=== PATIENT | female | born 1995 | race Caucasian/White ===

== ENCOUNTER 2022-12-06 20:38 | Outpatient (REF) | payer BC, SELFPAY ==
[2022-12-11 18:08] LABS: Age Gdln ACOG Testing Note (.); IGP, rfx Aptima HPV ASCU Note (.)
== END 2022-12-06 20:39 | disposition home or self-care (01) ==
LOC: LAB 20:38
PROVIDERS: Visit Provider Obstetrics & Gynecology
DX: Z12.4 Encounter for screening for malignant neoplasm of cervix (principal); Z11.51 Encounter for screening for human papillomavirus (HPV)
CPT/HCPCS: G0145

== ENCOUNTER 2023-01-03 13:14 | Outpatient (OUT) | payer BC, SELFPAY ==
[2023-01-05 01:06] LABS: AFP Value 51.7 ng/mL (.); Insulin Dep Diabetes No (.); OSBR Risk 1 IN 10000 (.); Results Report (.)
== END 2023-01-03 13:15 | disposition home or self-care (01) ==
LOC: LAB 13:16
PROVIDERS: Visit Provider Obstetrics & Gynecology
DX: Z20.2 Contact with and (suspected) exposure to infections with a predominantly sexual mode of transmission (principal); Z34.92 Encounter for supervision of normal pregnancy, unspecified, second trimester
CPT/HCPCS: 36415

== ENCOUNTER 2023-01-03 14:21 | Outpatient (OUT) | payer BC, SELFPAY ==
--- NOTE | 2023-01-03 | US_ITS ---
The [address] [address] Patient Name: THOMAS SEGUNDO MRN: [id number] date: 1995 Sex: F Assigned Patient Location: US Current Patient Location: Accession/Order Number: [id number] Exam Date: 01/03/2023 14:25 Report Date: 01/03/2023 15:59 At the request of: GUANAKO SPEARS Procedure: US OB anatomy EXAMINATION: US OB anatomy, US OB cervical length HISTORY: ANATOMY COMPARISON: No relevant comparison available. TECHNIQUE: Transabdominal sonographic examination was performed for obstetrical and evaluation. FINDINGS: Number: 1 Heart Rate: 135.0 bpm H.B. /min Amniotic Fluid Volume: Subjectively normal Placental Location: FUNDAL; no previa Cervix Length: 4 cm ; closed BIOMETRY: BPD: 5.0 cm 21 weeks 1 days HC: 19.1 cm 21 weeks 3 days AC: 15.7 cm 20 weeks 6 days FL: 3.8 cm 22 weeks 0 days EFW:420.2 grams; 58% FL/AC: 24.0 FL/BPD: 75.1 HC/AC: 1.2 GESTATIONAL AGE: Age by EDC: 21 weeks 1 days DEBBIE by EDC: 05/15/2023 Age by current US: 21 weeks 3 days DEBBIE by current US: 05/13/2023 US/US OB anatomy IMPRESSION: 1. Single live intrauterine with growth detailed above. Electronically authenticated by: TREVOR FARNSWORTH Date: 01/03/2023 15:59
--- NOTE | 2023-01-03 14:24 | US_ITS ---
The [address] [address] Patient Name: THOMAS SEGUNDO MRN: [id number] date: 1995 Sex: F Assigned Patient Location: US Current Patient Location: Accession/Order Number: [id number] Exam Date: 01/03/2023 14:25 Report Date: 01/03/2023 15:59 At the request of: GUANAKO SPEARS Procedure: US OB cervical length EXAMINATION: US OB anatomy, US OB cervical length HISTORY: ANATOMY COMPARISON: No relevant comparison available. TECHNIQUE: Transabdominal sonographic examination was performed for obstetrical and evaluation. FINDINGS: Number: 1 Heart Rate: 135.0 bpm H.B. /min Amniotic Fluid Volume: Subjectively normal Placental Location: FUNDAL; no previa Cervix Length: 4 cm ; closed BIOMETRY: BPD: 5.0 cm 21 weeks 1 days HC: 19.1 cm 21 weeks 3 days AC: 15.7 cm 20 weeks 6 days FL: 3.8 cm 22 weeks 0 days EFW:420.2 grams; 58% FL/AC: 24.0 FL/BPD: 75.1 HC/AC: 1.2 GESTATIONAL AGE: Age by EDC: 21 weeks 1 days DEBBIE by EDC: 05/15/2023 Age by current US: 21 weeks 3 days DEBBIE by current US: 05/13/2023 US/US OB cervical length IMPRESSION: 1. Single live intrauterine with growth detailed above. Electronically authenticated by: TREVOR FARNSWORTH Date: 01/03/2023 15:59
== END 2023-01-03 14:22 | disposition home or self-care (01) ==
PROVIDERS: Visit Provider Obstetrics & Gynecology
DX: Z34.92 Encounter for supervision of normal pregnancy, unspecified, second trimester (principal); Z3A.21 21 weeks gestation of pregnancy; Z20.2 Contact with and (suspected) exposure to infections with a predominantly sexual mode of transmission
CPT/HCPCS: 36415; 76805; 76817; 82105

== ENCOUNTER 2023-01-20 08:00 | Outpatient (OUT) | payer BC, SELFPAY ==
[2023-01-20 09:17] LABS: Basophils Absolute Auto 0.1 10^3/uL (0.0-0.1); Basophils Percent Auto 0.5 % (0.2-2.0); Eosinophils Absolute Auto 0.2 10^3/uL (0.0-0.7); Eosinophils Percent Auto 2.3 % (0.9-7.0); Hemoglobin 10.8 g/dL (12.0-16.0); Immature Granulocytes Abs Auto 0.16 10^3/uL (0.00-0.03); Immature Granulocytes Pct Auto 1.7 % (0.0-0.5); Lymphocytes Absolute Auto 1.5 10^3/uL (1.2-3.8); Lymphocytes Percent Auto 15.7 % (20.5-60.0); Mean Corpuscular HGB Conc 32.7 g/dL (29.9-35.2); Mean Corpuscular Hemoglobin 27.3 pg (26.7-34.0); Mean Corpuscular Volume 83.3 fL (81.0-99.0); Mean Platelet Volume 10.1 fL (9.5-13.5); Monocytes Absolute Auto 0.3 10^3/uL (0.3-0.8); Monocytes Percent Auto 2.9 % (1.7-12.0); Neutrophils Absolute Auto 7.4 10^3/uL (1.4-6.5); Neutrophils Percent Auto 76.9 % (43.0-75.0); Platelet Count 258 10^3/uL (150-450); Red Blood Count 3.96 10^6/uL (4.20-5.40); Red Cell Distribution Width 13.8 % (11.0-15.0); White Blood Count 9.7 10^3/uL (4.0-11.0)
[2023-01-20 09:30] LABS: Glucose 1 Hour 140 mg/dL
== END 2023-01-20 08:01 | disposition home or self-care (01) ==
LOC: LAB 08:00
PROVIDERS: Visit Provider Physician Assistant
DX: Z13.1 Encounter for screening for diabetes mellitus (principal)
CPT/HCPCS: 36415; 82950; 85025

== ENCOUNTER 2023-01-30 08:22 | Outpatient (OUT) | payer BC, SELFPAY ==
[2023-01-30 08:43] LABS: Glucose Fasting 84 mg/dL (74-106)
[2023-01-30 10:34] LABS: Glucose 1 Hour 130 mg/dL
[2023-01-30 11:47] LABS: Glucose 2 Hour 111 mg/dL
[2023-01-30 12:26] LABS: Glucose 3 Hour 81 mg/dL
== END 2023-01-30 08:23 | disposition home or self-care (01) ==
LOC: LAB 08:22
PROVIDERS: Visit Provider Obstetrics & Gynecology
DX: E74.39 Other disorders of intestinal carbohydrate absorption (principal)
CPT/HCPCS: 36415; 82951; 82952

== ENCOUNTER 2023-04-14 23:20 | Observation (INO) | payer BC, SELFPAY ==
[2023-04-14 23:40] VITALS: BP 164/95; PULSE 112
[2023-04-14 23:52] LABS: Bilirubin Urine NEGATIVE (NEGATIVE); Blood Urine NEGATIVE (NEGATIVE); Clarity Urine CLEAR (CLEAR); Color Urine LT. YELLOW (YELLOW); Glucose Urine UA NEGATIVE (NEGATIVE); Ketones Urine NEGATIVE (NEGATIVE); Leukocyte Esterase Urine SMALL (NEGATIVE); Nitrite Urine NEGATIVE (NEGATIVE); Protein Urine NEGATIVE (NEG/TRACE); Urobilinogen Urine 0.2 EU/dL (0.2-1.0)
[2023-04-14 23:58] LABS: Urine Microscopic Indicated YES
[2023-04-15 00:03] LABS: Bacteria Urine MODERATE #/HPF (NONE SEEN); RBC Urine 0-2 #/HPF (0-2)
[2023-04-15 00:04] LABS: Cast Seen? NONE SEEN #/LPF (NONE SEEN); Crystals Seen? None Seen #/HPF (None Seen); Mucus Urine SMALL (NONE SEEN); Squamous Epithelial Cell Urine FEW #/LPF (NONE/RARE); Urine Culture Indicated YES
[2023-04-15 00:08] VITALS: BP 139/86; PULSE 102
== END 2023-04-15 02:25 | disposition home or self-care (01) ==
LOC: FBC 23:21
PROVIDERS: Admitting Provider Obstetrics & Gynecology; Visit Provider Obstetrics & Gynecology
DX: O47.03 False labor before 37 completed weeks of gestation, third trimester (principal); Z3A.00 Weeks of gestation of pregnancy not specified
CPT/HCPCS: 59025; 81001; 87086; G0378; G0379

== ENCOUNTER 2023-04-16 21:32 | Outpatient (REF) | payer BC, SELFPAY | END 2023-04-16 21:33 | disposition home or self-care (01) | LOC: LAB 21:32 | PROVIDERS: Visit Provider Physician Assistant | DX: Z34.93 Encounter for supervision of normal pregnancy, unspecified, third trimester (principal) | CPT/HCPCS: 87081 ==

== ENCOUNTER 2023-04-27 11:19 | Observation (INO) | payer BC, SELFPAY ==
[2023-04-27 11:50] VITALS: BP 131/89; PULSE 88
[2023-04-27 12:02] LABS: Bilirubin Urine NEGATIVE (NEGATIVE); Blood Urine NEGATIVE (NEGATIVE); Clarity Urine CLEAR (CLEAR); Color Urine LT. YELLOW (YELLOW); Glucose Urine UA NEGATIVE (NEGATIVE); Ketones Urine NEGATIVE (NEGATIVE); Leukocyte Esterase Urine LARGE (NEGATIVE); Nitrite Urine NEGATIVE (NEGATIVE); Protein Urine NEGATIVE (NEG/TRACE); Urobilinogen Urine 0.2 EU/dL (0.2-1.0)
[2023-04-27 12:08] LABS: Urine Microscopic Indicated YES
[2023-04-27 12:09] LABS: Bacteria Urine LARGE #/HPF (NONE SEEN); Cast Seen? NONE SEEN #/LPF (NONE SEEN); Crystals Seen? None Seen #/HPF (None Seen); Mucus Urine NONE SEEN (NONE SEEN); Squamous Epithelial Cell Urine MANY #/LPF (NONE/RARE); Urine Culture Indicated YES; WBC Urine 20-50 #/HPF (NONE SEEN)
== END 2023-04-27 13:00 | disposition home or self-care (01) ==
LOC: FBC 11:20
PROVIDERS: Admitting Provider Obstetrics & Gynecology; Visit Provider Obstetrics & Gynecology
DX: O47.9 False labor, unspecified (principal); Z3A.00 Weeks of gestation of pregnancy not specified
CPT/HCPCS: 81001; 87086; G0378; G0379

== ENCOUNTER 2023-04-30 10:39 | Inpatient (IN) | payer BC, SELFPAY ==
[2023-04-30] VITALS (15 sets, daily range): BP systolic 122–157; BP diastolic 62–94; PULSE 80–96; RESP 16–18; TEMP 35.6–36.7
[2023-04-30 12:25] LABS: Bilirubin Urine NEGATIVE (NEGATIVE); Blood Urine NEGATIVE (NEGATIVE); Clarity Urine CLEAR (CLEAR); Color Urine LT. YELLOW (YELLOW); Glucose Urine UA NEGATIVE (NEGATIVE); Ketones Urine NEGATIVE (NEGATIVE); Leukocyte Esterase Urine MODERATE (NEGATIVE); Nitrite Urine NEGATIVE (NEGATIVE); Protein Urine NEGATIVE (NEG/TRACE); Specific Gravity Urine <=1.005 (1.005-1.025); Urobilinogen Urine 0.2 EU/dL (0.2-1.0)
[2023-04-30 12:26] LABS: Urine Microscopic Indicated YES
[2023-04-30 12:35] LABS: Bacteria Urine SMALL #/HPF (NONE SEEN); Cast Seen? NONE SEEN #/LPF (NONE SEEN); Crystals Seen? None Seen #/HPF (None Seen); Mucus Urine NONE SEEN (NONE SEEN); Squamous Epithelial Cell Urine FEW #/LPF (NONE/RARE); Urine Culture Indicated YES
[2023-04-30 13:54] LABS: Amphetamine Screen Urine NEGATIVE (NEGATIVE); Barbiturates Screen Urine NEGATIVE (NEGATIVE); Benzodiazepines Screen Urine NEGATIVE (NEGATIVE); Buprenorphine Screen Urine NEGATIVE (NEGATIVE); Cannabinoid Screen Urine NEGATIVE (NEGATIVE); Cocaine Screen Urine NEGATIVE (NEGATIVE); Methadone Screen Urine NEGATIVE (NEGATIVE); Methamphetamines Screen Urine NEGATIVE (NEGATIVE); Opiate Screen Urine NEGATIVE (NEGATIVE); Oxycodone Screen Urine NEGATIVE (NEGATIVE); Phencyclidine Screen Urine NEGATIVE (NEGATIVE); Tricyclic Antidepressant Urine NEGATIVE (NEGATIVE)
[2023-04-30 14:15] LABS: Hematocrit 34.9 % (36.0-48.0); Hemoglobin 11.4 g/dL (12.0-16.0); Mean Corpuscular HGB Conc 32.7 g/dL (29.9-35.2); Mean Corpuscular Hemoglobin 26.8 pg (26.7-34.0); Mean Corpuscular Volume 81.9 fL (81.0-99.0); Mean Platelet Volume 10.8 fL (9.5-13.5); Platelet Count 224 10^3/uL (150-450); Red Blood Count 4.26 10^6/uL (4.20-5.40); Red Cell Distribution Width 13.6 % (11.0-15.0)
[2023-04-30] MEDS: 0.9 % SODIUM CHLORIDE 1,000 ML 125 ML IV (15:08)
[2023-04-30] MEDS: OXYTOCIN/0.9 % SODIUM CHLORIDE 10 UNITS/500 ML PLAST..BAG 6 UNIT IV (15:08)
--- NOTE | 2023-04-30 17:14 | PM.OBPRCVD ---
Procedure Intrapartal events: None Induction method: none Delivery augmentation: rupture of membranes and pitocin Delivery monitor: external FHT and external uterine Route of delivery: Episiotomy Description: none Laceration description: perineal - 1st degree Delivery repair: Vicryl Estimated blood loss (mL): 300 Anesthesia type: None Disposition: floor Infant Delivery date: 04/30/23 Gender: female presentation: vertex Placental delivery description: Spontaneous cord description: 3 Vessels
[2023-04-30] MEDS: OXYTOCIN/0.9 % SODIUM CHLORIDE 20 UNITS/1,000 ML PLAST..BAG 125 UNIT IV (17:21)
[2023-04-30] MEDS: LIDOCAINE HCL 1% 200 MG/20 ML MDV INJ (17:22)
[2023-04-30] MEDS: BENZOCAINE/MENTHOL 85 GRAM SPRAY BOTTLE 1 APPLIC TOPICAL (18:50)
[2023-04-30] MEDS: GLYCERIN/WITCH HAZEL PADS 1 PAD TOPICAL (18:50)
[2023-04-30] MEDS: IBUPROFEN 400 MG TABLET 800 MG PO (18:50)
--- NOTE | 2023-04-30 20:11 | W.PC.ACHO ---
Registration Status: ADM IN Primary Language: Gabonese Preferred Language: Gabonese Report received from Tali Klein RN. Active Medications Generic Name Dose Route Start Last Admin Trade Name Freq PRN Reason Stop Dose Admin Acetaminophen 650 mg 04/30/23 17:13 Acetaminophen 325 Mg Tablet PO Q6H PRN Mild Pain Al Hydroxide/Mg Hydroxide 2,400 mg 04/30/23 17:13 Magnesium Hydroxide 2,400 Mg/10 Ml Oral.Susp PO Q6H PRN Dyspepsia Benzocaine/Menthol 1 applic 04/30/23 17:13 04/30/23 18:50 Benzocaine/Menthol 85 Gram [place] Bottle TOPICAL 1 applic Q2H PRN Administration Pain Carboprost Tromethamine 250 mcg 04/30/23 13:29 Carboprost Tromethamine 250 Mcg/Ml 1 Ml Vial IM 05/02/23 13:29 Q15M PRN Bleeding Diphtheria/Pertussis/Tetanus Vacc 0.5 ml 05/02/23 09:00 Adacel Diph,Pertuss(Acell),Tet Vac/Pf 0.5 Ml Adult Syringe IM 05/02/23 09:01 .ONCE ONE Docusate Sodium 100 mg 05/01/23 09:00 Docusate Sodium 100 Mg Capsule PO BID JEN Sodium Chloride 1,000 mls @ 125 mls/hr 04/30/23 13:30 04/30/23 15:08 Sodium Chloride 0.9% 1,000 Ml IV 125 mls/hr .Q8H JEN Administration Oxytocin/Sodium Chloride 10 units in 500 mls @ 6 mls/hr 04/30/23 13:30 04/30/23 15:08 Pitocin 10 Unit/500 Ml-Ns IV 2 milliunit/min CONT JEN 6 mls/hr Administration Protocol 2 MILLIUNIT/MIN Oxytocin/Sodium Chloride 20 units in 1,000 mls @ 125 mls/hr 04/30/23 13:30 04/30/23 17:21 Pitocin 20 Unit/1,000 Ml-Ns IV 04/30/23 21:29 125 mls/hr Q8H JEN Administration Oxytocin 20 unit/ Sodium 1,002 mls @ 125 mls/hr 04/30/23 18:00 Chloride IV 05/01/23 01:59 Q8H JEN Ibuprofen 800 mg 04/30/23 17:48 04/30/23 18:50 Ibuprofen 400 Mg Tablet PO 800 mg Q8H PRN Administration Pain Scale 4-6 Lidocaine 1 ml 04/30/23 13:29 04/30/23 17:22 Lidocaine Hcl 1% 200 Mg/20 Ml Mdv INJ 1 ml ONCE PRN Administration Pain Measles/Mumps/Rubella Vaccine Live 0.5 ml 05/02/23 09:00 Measles,Mumps,Rubella Vacc/Pf 0.5 Ml Vial SQ 05/02/23 09:01 .ONCE ONE Methylergonovine Maleate 0.2 mg 04/30/23 13:29 Methylergonovine Maleate 0.2 Mg/Ml Ampule IM 05/02/23 13:29 ONCE PRN Uterine Contractility/Contract Methylergonovine Maleate 0.2 mg 04/30/23 13:29 Methylergonovine Maleate 0.2 Mg Tablet PO 05/02/23 13:29 Q4H PRN Uterine Contractility/Contract Misoprostol 600 mcg 04/30/23 13:29 Misoprostol 100 Mcg Tablet PO 05/02/23 13:29 ONCE PRN Uterine Bleeding Misoprostol 800 mcg 04/30/23 13:29 Misoprostol 100 Mcg Tablet SL 05/02/23 13:29 ONCE PRN Uterine Bleeding Misoprostol 1,000 mcg 04/30/23 13:29 Misoprostol 100 Mcg Tablet NC 05/02/23 13:29 ONCE PRN Uterine Bleeding Ondansetron HCl 4 mg 04/30/23 14:03 Ondansetron Pf 4 Mg/2 Ml Vial IV Q6H PRN Nausea And Vomiting Ondansetron HCl 4 mg 04/30/23 14:03 Ondansetron 4 Mg Rapdis Tablet SL Q6H PRN Nausea And Vomiting Oxytocin 10 unit 04/30/23 13:29 Oxytocin 10 Unit/Ml Vial IM 05/02/23 13:29 ONCE PRN Bleeding Senna 17.2 mg 04/30/23 20:00 Sennosides 8.6 Mg Tablet PO QHS PRN Constipation Simethicone 80 mg 04/30/23 17:13 Simethicone 80 Mg Tab.Chew PO QID PRN Abdominal Distention Temazepam 15 mg 04/30/23 17:13 Temazepam 15 Mg Capsule PO QHS PRN Sleep Witch Consuelo/Glycerin 1 pad 04/30/23 17:13 04/30/23 18:50 Glycerin/Witch Consuelo Pads TOPICAL 1 pad Q2H PRN Administration Pain Diet Category Date Time Status Regular Consistency Diet Diet 04/30/23 17:13 Active IV Insertion/Site Date of IV Line Insertion [ 04/30/23 Short PIV (<1.75 in) 20g left Wrist] IV Insertion Time [Short PIV ( 14:10 <1.75 in) 20g left Wrist] Neurology Patient orientation (short person,place,time,situation list)
[2023-05-01] VITALS (10 sets, daily range): BP systolic 128–135; BP diastolic 67–102; PULSE 78–89; RESP 16–17; TEMP 36.3–36.8
[2023-05-01] MEDS: IBUPROFEN 400 MG TABLET 800 MG PO ×3 (02:55→22:19)
--- NOTE | 2023-05-01 06:46 | PC.NURSE ---
See paper documentation in pt chart 05/01/2023 [id number] due to system down time.
[2023-05-01 06:56] LABS: Basophils Percent Auto 0.5 % (0.2-2.0); Eosinophils Percent Auto 1.4 % (0.9-7.0); Hematocrit 32.3 % (36.0-48.0); Hemoglobin 10.5 g/dL (12.0-16.0); Immature Granulocytes Pct Auto 0.8 % (0.0-0.5); Lymphocytes Percent Auto 18.6 % (20.5-60.0); Mean Corpuscular HGB Conc 32.5 g/dL (29.9-35.2); Mean Corpuscular Hemoglobin 26.6 pg (26.7-34.0); Mean Platelet Volume 11.1 fL (9.5-13.5); Neutrophils Percent Auto 73.7 % (43.0-75.0); Platelet Count 240 10^3/uL (150-450); Red Blood Count 3.94 10^6/uL (4.20-5.40); Red Cell Distribution Width 13.6 % (11.0-15.0); White Blood Count 13.3 10^3/uL (4.0-11.0)
[2023-05-01 06:57] LABS: Basophils Absolute Auto 0.1 10^3/uL (0.0-0.1); Eosinophils Absolute Auto 0.2 10^3/uL (0.0-0.7); Lymphocytes Absolute Auto 2.5 10^3/uL (1.2-3.8); Monocytes Absolute Auto 0.7 10^3/uL (0.3-0.8); Neutrophils Absolute Auto 9.8 10^3/uL (1.4-6.5)
--- NOTE | 2023-05-01 07:15 | W.PC.ACHO ---
Registration Status: ADM IN Primary Language: Armenian Preferred Language: Armenian Report given to Rock Klein RN at 0700. Active Medications Generic Name Dose Route Start Last Admin Trade Name Freq PRN Reason Stop Dose Admin Acetaminophen 650 mg 04/30/23 17:13 Acetaminophen 325 Mg Tablet PO Q6H PRN Mild Pain Al Hydroxide/Mg Hydroxide 2,400 mg 04/30/23 17:13 Magnesium Hydroxide 2,400 Mg/10 Ml Oral.Susp PO Q6H PRN Dyspepsia Benzocaine/Menthol 1 applic 04/30/23 17:13 04/30/23 18:50 Benzocaine/Menthol 85 Gram [place] Bottle TOPICAL 1 applic Q2H PRN Administration Pain Carboprost Tromethamine 250 mcg 04/30/23 13:29 Carboprost Tromethamine 250 Mcg/Ml 1 Ml Vial IM 05/02/23 13:29 Q15M PRN Bleeding Diphtheria/Pertussis/Tetanus Vacc 0.5 ml 05/02/23 09:00 Adacel Diph,Pertuss(Acell),Tet Vac/Pf 0.5 Ml Adult Syringe IM 05/02/23 09:01 .ONCE ONE Docusate Sodium 100 mg 05/01/23 09:00 Docusate Sodium 100 Mg Capsule PO BID JEN Sodium Chloride 1,000 mls @ 125 mls/hr 04/30/23 13:30 04/30/23 15:08 Sodium Chloride 0.9% 1,000 Ml IV 125 mls/hr .Q8H JEN Administration Oxytocin/Sodium Chloride 10 units in 500 mls @ 6 mls/hr 04/30/23 13:30 04/30/23 15:08 Pitocin 10 Unit/500 Ml-Ns IV 2 milliunit/min CONT JEN 6 mls/hr Administration Protocol 2 MILLIUNIT/MIN Ibuprofen 800 mg 04/30/23 17:48 05/01/23 02:55 Ibuprofen 400 Mg Tablet PO 800 mg Q8H PRN Administration Pain Scale 4-6 Lidocaine 1 ml 04/30/23 13:29 04/30/23 17:22 Lidocaine Hcl 1% 200 Mg/20 Ml Mdv INJ 1 ml ONCE PRN Administration Pain Measles/Mumps/Rubella Vaccine Live 0.5 ml 05/02/23 09:00 Measles,Mumps,Rubella Vacc/Pf 0.5 Ml Vial SQ 05/02/23 09:01 .ONCE ONE Methylergonovine Maleate 0.2 mg 04/30/23 13:29 Methylergonovine Maleate 0.2 Mg/Ml Ampule IM 05/02/23 13:29 ONCE PRN Uterine Contractility/Contract Methylergonovine Maleate 0.2 mg 04/30/23 13:29 Methylergonovine Maleate 0.2 Mg Tablet PO 05/02/23 13:29 Q4H PRN Uterine Contractility/Contract Misoprostol 600 mcg 04/30/23 13:29 Misoprostol 100 Mcg Tablet PO 05/02/23 13:29 ONCE PRN Uterine Bleeding Misoprostol 800 mcg 04/30/23 13:29 Misoprostol 100 Mcg Tablet SL 05/02/23 13:29 ONCE PRN Uterine Bleeding Misoprostol 1,000 mcg 04/30/23 13:29 Misoprostol 100 Mcg Tablet NE 05/02/23 13:29 ONCE PRN Uterine Bleeding Ondansetron HCl 4 mg 04/30/23 14:03 Ondansetron Pf 4 Mg/2 Ml Vial IV Q6H PRN Nausea And Vomiting Ondansetron HCl 4 mg 04/30/23 14:03 Ondansetron 4 Mg Rapdis Tablet SL Q6H PRN Nausea And Vomiting Oxytocin 10 unit 04/30/23 13:29 Oxytocin 10 Unit/Ml Vial IM 05/02/23 13:29 ONCE PRN Bleeding Senna 17.2 mg 04/30/23 20:00 Sennosides 8.6 Mg Tablet PO QHS PRN Constipation Simethicone 80 mg 04/30/23 17:13 Simethicone 80 Mg Tab.Chew PO QID PRN Abdominal Distention Temazepam 15 mg 04/30/23 17:13 Temazepam 15 Mg Capsule PO QHS PRN Sleep Witch Consuelo/Glycerin 1 pad 04/30/23 17:13 04/30/23 18:50 Glycerin/Witch Consuelo Pads TOPICAL 1 pad Q2H PRN Administration Pain Diet Category Date Time Status Regular Consistency Diet Diet 04/30/23 17:13 Active IV Insertion/Site Date of IV Line Insertion [ 04/30/23 Short PIV (<1.75 in) 20g left Wrist] IV Insertion Time [Short PIV ( 14:10 <1.75 in) 20g left Wrist] Neurology Patient orientation (short person,place,time,situation list) Respiratory Oxygen Delivery Method Room Air Oxygen Delivery Method Room Air Oxygen Delivery Method Room Air Renal Bladder Pattern Continent Bladder Pattern Continent
--- NOTE | 2023-05-01 08:55 | PM.OBPN ---
OB - PN: Subj Subjective Patient comments: no complaints and pain well controlled feeding status: exclusively Exam Constitutional Vital Signs, click to edit/add: Last Vital Signs Temp 97.5 F L 05/01/23 03:03 Pulse 89 05/01/23 08:00 Resp 16 05/01/23 00:35 BP 130/85 05/01/23 08:00 O2 Del Method Room Air 05/01/23 00:35 Documenting provider has reviewed patient's vital signs: yes Common normals: no apparent distress and oriented x3 Orientation/consciousness: Yes awake, Yes oriented to person, Yes oriented to place and Yes oriented to time Eye Common normals: EOMs intact bilaterally Neck & C-Spine Common normals: full ROM Lymph Lymphatic: no lymphadenopathy noted Chest Common normals: inspection of chest normal Respiratory Common normals: normal respiratory effort Cardio Common normals: no JVD, regular rate and regular rhythm Rate: regular rate GI Common normals: Normal to inspection, nondistended, normoactive bowel sounds present Common normals: no CVA tenderness Back & Pelvis Common normals: no CVA tenderness Extremity Common normals: normal to inspection Neuro Common normals: oriented x3 Sensorium/orientation: awake, alert, oriented to person, oriented to place and oriented to time Psych Common normals: mental status grossly normal Attitude: calm Results Labs Labs: Short CBC 04/30/23 05/01/23 Range/Units 14:00 05:50 WBC 11.0 13.3 H (4.0-11.0) 10^3/uL Hgb 11.4 L 10.5 L (12.0-16.0) g/dL Hct 34.9 L 32.3 L (36.0-48.0) % Plt Count 224 240 (150-450) 10^3/uL Urine 04/30/23 Range/Units 11:25 Urine Color Lt. yellow (YELLOW) Urine Clarity Clear (CLEAR) Urine pH 7.0 (5.0-9.0) Ur Specific [place] <=1.005 A (1.005-1.025) Urine Protein Negative (NEG/TRACE) mg/dL Urine Glucose (UA) Negative (NEGATIVE) mg/dL OB - PN: A/P Plan - Vaginal Delivery day: 1 Plan: routine care Time Spent with Patient Time: Total time spent is greater than 50% in coordination of care (as documented) at patient's floor/unit and/or counseling patient: Total time spent with greater than 50% in coordination of care (as documented) at patient's floor/unit and/or counseling patient: less than 15 minutes
[2023-05-01] MEDS: DOCUSATE SODIUM 100 MG CAPSULE PO ×2 (10:31→22:20)
[2023-05-02 02:30] VITALS: BP 126/72; PULSE 76; RESP 16; TEMP 36.6
[2023-05-02 08:08] VITALS: BP 111/77; PULSE 83
[2023-05-02] MEDS: DOCUSATE SODIUM 100 MG CAPSULE PO (08:12)
[2023-05-02 08:15] VITALS: RESP 16; TEMP 36.8
--- NOTE | 2023-05-02 11:08 | PM.OBPN ---
OB - PN: Subj Subjective Patient comments: no complaints and pain well controlled Exam Constitutional Vital Signs, click to edit/add: Last Vital Signs Temp 98.2 F 05/02/23 08:15 Pulse 83 05/02/23 08:08 Resp 16 05/02/23 08:15 BP 111/77 05/02/23 08:08 O2 Del Method Room Air 05/02/23 08:15 Documenting provider has reviewed patient's vital signs: yes Common normals: no apparent distress Respiratory Common normals: normal respiratory effort and clear to auscultation bilaterally Cardio Common normals: regular rate and regular rhythm GI Common normals: Normal to inspection, nondistended, normoactive bowel sounds present Extremity Common normals: no calf tenderness OB - PN: A/P Plan - Vaginal Delivery day: 2 Plan: routine care, discharge home and follow up 6 weeks Time Spent with Patient Time: Total time spent is greater than 50% in coordination of care (as documented) at patient's floor/unit and/or counseling patient: Total time spent with greater than 50% in coordination of care (as documented) at patient's floor/unit and/or counseling patient: less than 15 minutes
== END 2023-05-02 10:15 | disposition home or self-care (01) | DRG 807 ==
PROVIDERS: Admitting Provider Obstetrics & Gynecology; Visit Provider Obstetrics & Gynecology
DX: O70.0 First degree perineal laceration during delivery (principal); Z37.0 Single live birth; Z3A.38 38 weeks gestation of pregnancy; Z88.1 Allergy status to other antibiotic agents; Z88.0 Allergy status to penicillin
CPT/HCPCS: 36415; 59050; 59410; 80307; 81001; 85025; 85027; 86850; 86900; 86901; 87086; 96374; 96376

== ENCOUNTER 2024-01-03 11:08 | Outpatient (OUT) | payer BC, SELFPAY ==
--- OUTSIDE RECORDS SUMMARY | 2024-01-03 11:32 | XMS_ITS | CCD ---
Author Organization [facility] Care Team Providers Care [employer] Worker Name Role Phone Zarczynski, Edward P Unavailable Unavailable Zarczynski, Edward P Unavailable Unavailable Chambers, Umm Unavailable Unavailable Chambers, Umm Unavailable Unavailable Chambers, Umm Unavailable Unavailable Zarczynski, Edward P Unavailable Unavailable [facility] Primary Care Unavailabl e Unavailable Primary Care Provider Unavailabl e JACQUI IVAN Admitting Unavailable [facility] Primary Care Unavailabl e Keno [facility] Primary Care Provider [facility] Primary Care Unavailabl e Unavailable Primary Care Provider Unavailabl e Unavailable Primary Care Provider Unavailabl e GIOVANA JACKSON Attending Unavailable BRYON GU Attending Unavailable Javier Canchola Attending Unavailable Javier Canchola Admitting Unavailable Unavailable Primary Care Provider Unavailabl e DICK LASSITER Attending Unavailable SELF, SELF Referring Unavailable REGAN ., DR MUJICA Attending Unavailable REGAN ., DR MUJICA Consulting Unavailable REQUEST, NONE LISTED Primary Care Unavaila ble REGAN ., DR MUJICA Admitting Unavailable JAVAD, DR RAFFI Funez Consulting Unavailable REQUEST, NONE LISTED Consulting Unavaila ble REGAN ., DR MUJICA Admitting Unavailable REGAN ., DR MUJICA Attending Unavailable REGAN ., DR MUJICA Consulting Unavailable REQUEST, DR RIOS LISTED Primary Care Unavaila AXEL Dean Attending Unavailable AXEL CAM Attending Unavailable GUANAKO SPEARS Attending Unavailable GUANAKO SPEARS Attending Unavailable Allergies Allergy Classification Reported Allergen(s) Allergy Type Date of Onset Reaction(s) Facility Macrolides (antibiotic) (1 source) Erythromycin Drug Allergy 07-24-19 13 Rash [facility] Penicillins (antibiotic) (1 source) Ampicillin Drug Allergy 06-06-19 18 [facility] Sulfamethoxazole / Trimethoprim (1 source) Sulfamethoxazole / Trimethoprim Drug Allergy 06-06-19 18 [facility] (13 sources) Ampicillin; Translations: [Unknown] Drug Allergy 06-06-19 18 [facility] Repository (7 sources) Erythromycin Drug Allergy 07-24-19 13 [facility] (8 sources) Sulfamethoxazole / Trimethoprim Drug Allergy 06-06-19 18 [facility] (1 source) Penicillin G Drug Allergy 05-24-20 21 Other (See Comments) [employer] Phone: (1 source) Penicillin; Translations: [penicillin] Drug Allergy [facility] Repository Medications Current Medications Medication Drug Class(es) Dates Sig (Normalized) Sig (Original) acetaminophen 500 mg oral tablet (1 source) take 1 tablet by mouth every six hours as needed for pain acetaminophen (TYLENOL) 500 MG tablet Take 500 mg by mouth every 6 hours as needed for Pain 0 Active gentamicin 3 mg/ml ophthalmic solution (2 sources) Start: 03-18-2019 End: 03-23-2019 take 2 drop(s) into the eye(s) every four hours gentamicin 0.3 % Solution Indications: Bacterial conjunctivitis of right eye Place 2 drops in both eyes every 4 hours while awake for 5 days. 1 Bottle 0 03/18/2019 03/23/2019 Active Start: 03-18-2019 End: 03-18-2019 apply 3.5 g into the eye(s) three times daily gentamicin 0.3 % Ointment Indications: Bacterial conjunctivitis of right eye Apply thin line to eye TID for 7 days 3.5 g 0 03/18/2019 03/18/2019 Discontinued (Alternate therapy) ibuprofen 600 mg oral tablet (1 source) Nonsteroidal Anti-inflammatory Drug Start: 02-16-2021 take 1 tablet by mouth every six hours ibuprofen (ADVIL;MOTRIN) 600 MG tablet take 1 tablet by mouth every 6 hours 0 02/16/2021 Active nitrofurantoin, macrocrystals 25 mg / nitrofurantoin, monohydrate 75 mg oral capsule (2 sources) Nitrofuran Antibacterial Start: 02-01-2019 End: 02-06-2019 take 1 capsule by mouth twice daily nitrofurantoin, macrocrystal-monoh ydrate, 100 MG Cap Take 1 capsule by mouth 2 times daily for 5 days. Take w/ food/milk 10 capsule 0 02/01/2019 02/06/2019 Active omeprazole 20 mg delayed release oral capsule (1 source) Proton Pump Inhibitor take 1 capsule by mouth once daily omeprazole (PRILOSEC) 20 MG delayed release capsule Take 20 mg by mouth daily 0 Active Kgrzixhl-Mhd-Ks-FA (PRE- PO) (1 source) Zhmjgcva-Tef-Gx-FA (PRE-HECTOR PO) Take by mouth 0 Active Completed/Discontinued Medications Medication Drug Class(es) Dates Sig (Normalized) Sig (Original) cetirizine hydrochloride 10 mg oral tablet (6 sources) Histamine-1 Receptor Antagonist Start: 03-18-2019 End: 08-30-2022 take 1 tablet by mouth once daily cetirizine 10 MG Tab tablet Indications: Hives Take 1 tablet by mouth daily. 30 tablet 0 03/18/2019 08/30/2022 Discontinued Ethinyl Estradiol / Ferrous fumarate / Norethindrone (1 source) Estrogen Start: 01-07-2019 End: 12-29-2019 take 1 tablet by mouth once daily norethindrone-eth inyl estradiol-iron (LOESTRIN FE 1.5/30, 28-DAY,) 1.5 mg-30 mcg (21)/75 mg (7) tablet Take 1 (one) tablet by mouth daily . 30 tablet 11 01/07/2019 12/29/2019 Discontinued (Error) hydrocortisone 10 mg/ml / neomycin 3.5 mg/ml / polymyxin b [id number] unt/ml otic solution (4 sources) Aminoglycoside Antibacterial, Polymyxin-class Antibacterial, Corticosteroid Start: 05-29-2020 End: 08-30-2022 neomycin-polymyxi n-hydrocortisone 3.5-21353-8 Solution otic solution 4 drops by Otic route 4 times daily. 1 Bottle 0 05/29/2020 08/30/2022 Discontinued Problems Active Problems Problem Classification Problem Date Documented Date Episodic/Chronic Conditions associated with dizziness or vertigo (1 source) Dizziness; Translations: [Dizziness] Episodic Genitourinary symptoms and ill-defined conditions (2 sources) Dysuria; Translations: [Dysuria] Episodic Inflammation; infection of eye (except that caused by tuberculosis or sexually transmitteddisease) (1 source) Conjunctivitis of right eye caused by bacteria; Translations: [Bacterial conjunctivitis of right eye] Menstrual disorders (4 sources) Irregular menstruation, unspecified; Translations: [IRREGULAR MENSTRUATION UNSPECIFIED] Onset: 10-03-2022 Chronic Other ear and sense organ disorders (1 source) Acute otitis externa of right ear; Translations: [Acute otitis externa of right ear, unspecified type] Other injuries and conditions due to external causes (1 source) Heat exhaustion; Translations: [Heat exhaustion, initial encounter] Episodic Other nervous system disorders (1 source) Loss of taste; Translations: [Parageusia] Episodic Other nervous system disorders (1 source) Loss of sense of smell; Translations: [Anosmia] Episodic Other nutritional; endocrine; and metabolic disorders (2 sources) Body mass index 30+ - obesity; Translations: [BMI 30.0-30.9,adult] Onset: 03-19-2019 03-19-2019 Chronic Other nutritional; endocrine; and metabolic disorders (3 sources) Obese class I; Translations: [Obesity, unspecified] Onset: 10-11-2020 10-11-2020 Chronic Other upper respiratory disease (1 source) Respiratory tract congestion; Translations: [Nasal congestion] Episodic Other upper respiratory disease (2 sources) Pain in throat; Translations: [Sore Throat] Onset: 08-30-2022 Episodic Other upper respiratory infections (1 source) Sore throat symptom; Translations: [Acute pharyngitis, unspecified] Episodic Sprains and strains (1 source) Sprain of left knee; Translations: [Sprain of unspecified site of left knee, initial encounter] Episodic Urinary tract infections (2 sources) Acute hemorrhagic cystitis; Translations: [Acute cystitis with hematuria] Episodic Viral infection (3 sources) Viral disease; Translations: [Viral infection, unspecified] Episodic Past or Other Problems Problem Classification Problem Date Documented Da te Episodic/Chronic Allergic reactions (1 source) Urticaria; Translations: [Hives] Episodic Immunizations and screening for infectious disease (1 source) Contact with or exposure to other viral diseases; Translations: [Close exposure to COVID-19 virus] Episodic Other and delivery including normal (1 source) Normal ; Translations: [Encounter for supervision of normal first in third trimester] Onset: 06-06-2017 Resolved: 03-19-2019 03-19-2019 Episodic Results Test Name Value Interpretation Reference Range Facility HEP B SURFACE ANTIGEN SCREEN on 10-11-2022 HBsAg Screen Negative Normal Negative [facility] Comment on above: Performed By: #### H BSANS #### [facility] [address] [place] [address] Dr. Kaleb Decker HEPATITIS C VIRUS AB W/ REFL EX QUANTon 10-11-2022 HCV AB Non-Reactive Normal Non Reactive [facility] Comment on above: Performed By: #### H CVPCRR #### [facility] [address] [place] [address] Dr. Kaleb Decker HIV 1 AND 2 WITH REFLEXon HIV Screen 4th Generation wRfx Non-Reactive Normal Non Reactive [facility] Comment on above: Result Comment: HIV Negative HIV-1/HIV-2 antibodies and HIV-1 p24 antigen were NOT detected. There is no laboratory evidence of HIV infection. Performed By: #### H IV12 #### [facility] [address] [place] [address] Dr. Kaleb Decker RPR QUANTon 10-11-2022 Rapid Plasma Reagin, Quant Non-Reactive Normal NonRea<1:1 [facility] Comment on above: Result Comment: Plea se Note: This test does not meet current guidelines for screening and diagnosis of syphilis. This test is intended for following treatment response in patients being treated for syphilis infection. To screen for syphilis infection, a reflex cascade that includes both RPR and a treponema-specific assay should be utilized, such as Treponema pallidum (Syphilis) Screening Gregg (298655) or Rapid Plasma Reagin (RPR) Test With Reflex to Quantitative RPR and Confirmatory Treponema pallidum Antibodies (431303). Performed By: #### H BSANS #### [facility] [address] [place] [address] Dr. Kaleb Decker RUBELLA AB IGGon 10-11-2022 Rubella Antibodies, IgG <0.90 Critically low Immune >0.99 [facility] Comment on above: Result Comment: Non- immune <0.90 Equivocal 0.90 - 0.99 Immune >0.99 Performed By: #### R UBIGG #### [facility] [address] [place] [address] Dr. Kaleb Decker BOX TEST SENT OUTon 10-11-19 23 SENT TO REF LAB 10/10/22 Normal [facility] Comment on above: Performed By: #### B OX #### [facility] [address] [address] [address] Kaleb Decker CBC AUTO DIFFon 10-10-2022 BASO # 0.0 103/ul Normal 0.0-0.1 [facility] Comment on above: Performed By: #### C BC #### [facility] [address] [place] [address] Dr. Kaleb Decker Basophils/100 WBC (Bld) 0.6 % Normal 0.2-2.0 [facility] Comment on above: Performed By: #### C BC #### [facility] [address] [place] [address] Dr. Kaleb Decker EO # 0.2 103/ul Normal 0.0-0.7 [facility] Comment on above: Performed By: #### C BC #### [facility] [address] [place] [address] Dr. Kaleb Decker Eosinophils/100 WBC (Bld) 2.4 % Normal 0.9-7.0 [facility] Comment on above: Performed By: #### C BC #### [facility] [address] [place] [address] Dr. Kaleb Decker Erythrocyte distribution width (RBC) [Ratio] 13.8 % Normal 11.0-15.0 [facility] Comment on above: Performed By: #### C BC #### [facility] [address] [place] [address] Dr. Kaleb Decker Hematocrit (Bld) [Volume fraction] 41.5 % Normal 36.0-48.0 [facility] Comment on above: Performed By: #### C BC #### [facility] [address] [place] [address] Dr. Kaleb Decker Hemoglobin (Bld) [Mass/Vol] 13.6 g/dL Normal 12.0-16.0 [facility] Comment on above: Performed By: #### C BC #### [facility] [address] [address] [address] Kaleb Decker IG # 0.04 10e3/ul Critically high 0.00-0.03 [facility] Comment on above: Performed By: #### C BC #### [facility] [address] [place] [address] Dr. Kaleb Decker IG % 0.6 % Critically high 0.0-0.5 [facility] Comment on above: Performed By: #### C BC #### [facility] [address] [place] [address] Dr. Kaleb Decker LYMPH # 1.8 103/ul Normal 1.2-3.8 [facility] Comment on above: Performed By: #### C BC #### [facility] [address] [place] [address] Dr. Kaleb Decker Lymphocytes/100 WBC (Bld) 26.6 % Normal 20.5-60.0 [facility] Comment on above: Performed By: #### C BC #### [facility] [address] [place] [address] Dr. Kaleb Decker MANUAL DIFF REQ NO Normal [facility] Comment on above: Performed By: #### C BC #### [facility] [address] [place] [address] Dr. Kaleb Decker MCH (RBC) [Entitic mass] 26.1 pg Critically low 26.7-34.0 [facility] Comment on above: Performed By: #### C BC #### [facility] [address] [place] [address] Dr. Kaleb Decker MCHC (RBC) [Mass/Vol] 32.8 g/dL Normal 29.9-35.2 [facility] Comment on above: Performed By: #### C BC #### [facility] [address] [place] [address] Dr. Kaleb Decker MCV (RBC) [Entitic vol] 79.7 fL Critically low 81.0-99.0 [facility] Comment on above: Performed By: #### C BC #### [facility] [address] [place] [address] Dr. Kaleb Decker MONO # 0.3 103/ul Normal 0.3-0.8 [facility] Comment on above: Performed By: #### C BC #### [facility] [address] [place] [address] Dr. Kaleb Decker Monocytes/100 WBC (Bld) 4.6 % Normal 1.7-12.0 [facility] Comment on above: Performed By: #### C BC #### [facility] [address] [place] [address] Dr. Kaleb Decker NEUT # 4.4 103/ul Normal 1.4-6.5 [facility] Comment on above: Performed By: #### C BC #### [facility] [address] [place] [address] Dr. Kaleb Decker Neutrophils/100 WBC (Bld) 65.2 % Normal 43.0-75.0 [facility] Comment on above: Performed By: #### C BC #### [facility] [address] [place] [address] Dr. Kaleb Decker Platelet mean volume (Bld) [Entitic vol] 9.8 fL Normal 9.5-13.5 [facility] Comment on above: Performed By: #### C BC #### [facility] [address] [place] [address] Dr. Kaleb Decker PLT 312 103/ul Normal 150-450 [facility] Comment on above: Performed By: #### C BC #### [facility] [address] [place] [address] Dr. Kaleb Decker RBC 5.21 106/ul Normal 4.20-5.40 [facility] Comment on above: Performed By: #### C BC #### [facility] [address] [place] [address] Dr. Kaleb Decekr WBC 6.8 103/ul Normal 4.0-11.0 [facility] Comment on above: Performed By: #### C BC #### [facility] [address] [place] [address] Dr. Kaleb Decker CULTURE URINEon 10-10-2022 CULTURE URINE Culture Observations : LIGHT GROWTH OF MIXED GENITAL RACHEL. NO POTENTIAL PATHOGENS SEEN. Normal [facility] Comment on above: Performed By: #### H BSANS #### [facility] [address] [place] [address] Dr. Kaleb Decker GLYCOHEMOGLOBIN A1Con 2022 ADA RECOMMENDATION SEE BELOW Normal [facility] Comment on above: Result Comment: ADA RECOMMENDED LIMIT 4.0 - 6.0 ADA THERAPEUTIC TARGET < 7.0 ACTION SUGGESTED > 7.0 Performed By: #### A 1C #### [facility] [address] [place] [address] Dr. Kaleb Decker Glucose [Mass/Vol] 100 mg/dL Normal [facility] Comment on above: Performed By: #### A 1C #### [facility] [address] [place] [address] Dr. Kaleb Decker HbA1c (Bld) [Mass fraction] 5.1 % Normal 4.5-6.2 [facility] Comment on above: Performed By: #### A 1C #### [facility] [address] [place] [address] Dr. Kaleb Decker TSHon 10-10-2022 TSH 0.670 uIU/mL Normal 0.358-3.740 [facility] Comment on above: Performed By: #### T SH #### [facility] [address] [place] [address] Dr. Kaleb Decker TYPE AND SCREENon 10-10-2022 TYPE AND SCREEN Negative Normal [facility] Comment on above: Performed By: #### T NS #### [facility] [address] [place] [address] Dr. Kaleb Decker UA RANDOMon 10-10-2022 Bilirubin Ql (U) Negative Normal NEGATIVE [facility] Comment on above: Performed By: #### U A #### [facility] [address] [place] [address] Dr. Kaleb Decker Clarity (U) CLEAR Normal CLEAR [facility] Comment on above: Performed By: #### U A #### [facility] [address] [place] [address] Dr. Kaleb Decker Color (U) LT. YELLOW Normal YELLOW [facility] Comment on above: Performed By: #### U A #### [facility] [address] [place] [address] Dr. Kaleb Decker Glucose Ql (U) Negative Normal NEGATIVE [facility] Comment on above: Performed By: #### U A #### [facility] [address] [place] [address] Dr. Kaleb Decker Hemoglobin Ql (U) Negative Normal NEGATIVE [facility] Comment on above: Performed By: #### U A #### [facility] [address] [place] [address] Dr. Kaleb Decker Ketones Ql (U) Negative Normal NEGATIVE [facility] Comment on above: Performed By: #### U A #### [facility] [address] [place] [address] Dr. Kaleb Decker LEUKOCYTES MODERATE Abnormal NEGATIVE [facility] Comment on above: Performed By: #### U A #### [facility] [address] [place] [address] Dr. Kaleb Decker Nitrite Ql (U) Negative Normal NEGATIVE [facility] Comment on above: Performed By: #### U A #### [facility] [address] [place] [address] Dr. Kaleb Decker pH (U) 7.0 [pH] Normal 5-9 [facility] Comment on above: Performed By: #### U A #### [facility] [address] [place] [address] Dr. Kaleb Decker SPEC GRAVITY 1.010 Normal 1.005-<=1.025 [facility] Comment on above: Performed By: #### U A #### [facility] [address] [place] [address] Dr. Kaleb Decker UA PROTEIN Negative Normal NEGATIVE/ TRACE [facility] Comment on above: Performed By: #### U A #### [facility] [address] [place] [address] Dr. Kaleb Decker Urobilinogen Qn (U) 0.2 {Garcia'U}/dL Normal 0.2 - 1. 0 [facility] Comment on above: Performed By: #### U A #### [facility] [address] [address] [address] Kaleb Decker US PREG TVon 10-03-2022 US PREG TV EXAMINATION: US PREG TV HISTORY: Missed period COMPARISON: No relevant comparison available. FINDINGS: GESTATIONAL SAC: Present and normal appearing. YOLK SAC: Present and normal appearing. POLE: Present and normal appearing. CARDIAC: Present. UTERUS: Normal size and appearance. OVARIES: Right: Corpus lutein cyst. Left: Normal. CERVIX: 3.9 cm in length and closed. CUL-DE-SAC: Normal. OTHER: None. AGE BY LMP: 8 weeks 6 days DEBBIE BY LMP: 05/09/2023 AGE BY US CRL: 8 weeks 0 days DEBBIE BY US CRL: 05/15/2023 IMPRESSION: 1. Single live intrauterine . Electronically authenticated by: RAFFI FARNSWORTH Date: 2022-10-03 15:36 Normal [facility] POCT RAPID STREP Aon 023 S. pyogenes Ag Ql (Throat) Negative (+/-) [facility] Internal controls [place] [facility] XR KNEE LEFT (MIN 4 VIEWS)on 07-01-2021 XR KNEE LEFT (MIN 4 VIEWS) EXAM: XR KNEE LEFT (MIN 4 VIEWS) HISTORY: Reason for exam:->Pain injury trauma COMPARISON: None. TECHNIQUE: 4 views left knee FINDINGS: No fracture or joint effusion. Joint spaces are maintained. No pathologic calcification. No radiopaque foreign body. IMPRESSION: Normal left knee Interpreted by: Johnny Lipscomb MD Signed by: Johnny Lipscomb MD 07/01/21 Final result Normal [facility] Normal left knee [facility] EXAM: XR KNEE LEFT (MIN 4 VIEWS) HISTORY: Reason for exam:->Pain injury trauma COMPARISON: None. TECHNIQUE: 4 views left knee FINDINGS: No fracture or joint effusion. Joint spaces are maintained. No pathologic calcification. No radiopaque foreign body. [facility] Johnny Lipscomb M D - 07/01/2021 EXAM: XR KNEE LEFT (MIN 4 VIEWS) HISTORY: Reason for exam:->Pain injury trauma COMPARISON: None. TECHNIQUE: 4 views left knee FINDINGS: No fracture or joint effusion. Joint spaces are maintained. No pathologic calcification. No radiopaque foreign body. IMPRESSION: Normal left knee [facility] [employer] Phone: Radiology Study observation (narrative) [facility] [employer] Phone: XR KNEE LEFT (MIN 4 VIEWS)Or dered By: Johnny Lipscomb on 07-01-2021 [facility] [employer] Phone: CBC with Diffon 05-24-2021 Abs. Atypical Lymphs 0.20 k/uL Normal 0.0-1.0 [facility] Comment on above: Performed By: #### C P, CDP #### [facility] [address] [place] [address] Dice Table Person: Rancho Alvarado MD Abs. Bands 2.00 k/uL High 0.0-1.0 [facility] Comment on above: Performed By: #### C P, CDP #### [facility] [address] [place] [address] Dice Table Person: Rancho Alvarado MD Abs. Basophil Normal 0.0-0.2 [facility] Comment on above: Performed By: #### C P, CDP #### [facility] [address] [place] [address] Dice Table Person: Rancho Alvarado MD Abs.Neutrophil (Seg) 6.80 k/uL Normal 2.5-7.0 [facility] Comment on above: Performed By: #### C P, CDP #### [facility] [address] [place] [address] Dice Table Person: Rancho Alvarado MD Atypical Lymphs 2 % Normal [facility] Comment on above: Performed By: #### C P, CDP #### [facility] [address] [place], [place] [id number] Dice Table Person: Rancho Alvarado MD Bands 20 % High 0-10 [facility] Comment on above: Performed By: #### C P, CDP #### [facility] [address] [place] [address] Dice Table Person: Rancho Alvarado MD Basophil Normal 0-2 [facility] Comment on above: Performed By: #### C P, CDP #### [facility] [address] [place] [address] Dice Table Person: Rancho Alvarado MD Eosinophils (Bld) [#/Vol] 0.30 10*3/uL Normal 0.0-0.4 [facility] Comment on above: Performed By: #### C P, CDP #### [facility] [address] [place] [address] Dice Table Person: Rancho Alvarado MD Eosinophils/100 WBC (Bld) 3 % Normal 0-5 [facility] Comment on above: Performed By: #### C P, CDP #### [facility] [address] [place] [address] Dice Table Person: Rancho Alvarado MD Lymphocytes (Bld) [#/Vol] 0.50 10*3/uL Low 1.0-4.8 [facility] Comment on above: Performed By: #### C P, CDP #### [facility] [address] [place] [address] D[employer] Table Person: Rancho Alvarado MD Lymphocytes/100 WBC (Bld) 5 % Low 15-40 [facility] Comment on above: Performed By: #### C P, CDP #### [facility] [address] [place] [address] Dice Table Person: Rancho Alvarado MD Monocytes (Bld) [#/Vol] 0.20 10*3/uL Normal 0.0-1.0 [facility] Comment on above: Performed By: #### C P, CDP #### [facility] [address] [place], [place] [id number] Dice Table Person: Rancho Alvarado MD Monocytes/100 WBC (Bld) 2 % Low 4-8 [facility] Comment on above: Performed By: #### C P, CDP #### [facility] [facility] [address], [place] [id number] Dice Table Person: Rancho Alvarado MD Morphology Faustino (Bld) [Interp] Manual Differential Performed Normal [facility] Comment on above: Performed By: #### C P, CDP #### [facility] [address], [place] [id number] Dice Table Person: Rancho Alvarado MD Neutrophil (Seg) 68 % Normal 47-75 [facility] Comment on above: Performed By: #### C P, CDP #### [facility] [address] [place] [address] Dice Table Person: Rancho Alvarado MD Erythrocyte distribution width (RBC) [Ratio] 13.1 % Normal 12.1-15.2 [facility] Comment on above: Performed By: #### C P, CDP #### [facility] [address] [place] [address] Dice Table Person: Rancho Alvarado MD Hematocrit (Bld) [Volume fraction] 44.2 % Normal 36-46 [facility] Comment on above: Performed By: #### C P, CDP #### [facility] [address], [place] [id number] Dice Table Person: Rancho Alvarado MD Hemoglobin (Bld) [Mass/Vol] 14.7 g/dL Normal 12.0-16.0 [facility] Comment on above: Performed By: #### C P, CDP #### [facility] [address], [place] [id number] Dice Table Person: Rancho Alvarado MD MCH (RBC) [Entitic mass] 26.1 pg Normal 26-34 [facility] Comment on above: Performed By: #### C P, CDP #### [facility] [address], [place] [id number] (743) Dice Table Person: Rancho Alvarado MD MCHC (RBC) [Mass/Vol] 33.2 g/dL Normal 31-37 [facility] Comment on above: Performed By: #### C P, CDP #### [facility] [address], [place] [id number] (180) Dice Table Person: Rancho Alvarado MD MCV (RBC) [Entitic vol] 78.5 fL Low 80-100 [facility] Comment on above: Performed By: #### C P, CDP #### [facility] [address], [place] 2998010 (325) Dice Table Person: Rancho Alvarado MD Platelets (Bld) [#/Vol] 317 10*3/uL Normal 140-450 [facility] Comment on above: Performed By: #### C P, CDP #### [facility] [address] [place] [address] (841) Dice Table Person: Rancho Alvarado MD RBC (Bld) [#/Vol] 5.64 10*6/uL High 4.0-5.2 [facility] Comment on above: Performed By: #### C P, CDP #### [facility] [address] [place] [address] (663) Dice Table Person: Rancho Alvarado MD WBC (Bld) [#/Vol] 10.0 10*3/uL Normal 3.5-11.0 [facility] Comment on above: Performed By: #### C P, CDP #### [facility] [address] [place] [address] (836) Dice Table Person: Rancho Alvarado MD Abs.Imm.Granulocyte NOT REPORTED Normal 0.00-0.30 [facility] Comment on above: Performed By: #### C P, CDP #### [facility] [address] [facility] [place] [id number] Dice Table Person: Rancho Alvarado MD Auto Diff Performed NOT REPORTED Normal [facility] Comment on above: Performed By: #### C P, CDP #### [facility] [address] [facility] [place] [id number] Dice Table Person: Rancho Alvarado MD Immature Granulocyte NOT REPORTED Normal 0 [facility] Comment on above: Performed By: #### C P, CDP #### [facility] [address] [place] [address] Dice Table Person: Rancho Alvarado MD MPV NOT REPORTED Normal 6.0-12.0 [facility] Comment on above: Performed By: #### C P, CDP #### [facility] [address] [place] [address] Dice Table Person: Rancho Alvarado MD NRBC Automated NOT REPORTED Normal [facility] Comment on above: Performed By: #### C P, CDP #### [facility] [address] [place] [address] Dice Table Person: Rancho Alvarado MD Platelet Comment NOT REPORTED Normal [facility] Comment on above: Performed By: #### C P, CDP #### [facility] [address] [place] [address] Dice Table Person: Rancho Alvarado MD RBC morphology finding Nom (Bld) NOT REPORTED Normal [facility] Comment on above: Performed By: #### C P, CDP #### [facility] [address] [place] [address] Dice Table Person: Rancho Alvarado MD WBC Morphology NOT REPORTED Normal [facility] Comment on above: Performed By: #### C P, CDP #### [facility] [address] [place] [address] Dice Table Person: Rancho Alvarado MD Comp Metabolic Profon 2020 (cont.) Normal [facility] Comment on above: Result Comment: Aver age GFR for 20-29 years old: 116 mL/min/1.73sq m Chronic Kidney Disease: <60 mL/min/1.73sq m Kidney failure: <15 mL/min/1.73sq m eGFR calculated using average adult body mass. Additional eGFR calculator available at: http://www.[place]/multiple_crcl_2011.htm Performed By: #### C P, CDP #### [facility] [address] [place] [address] Dice Table Person: Rancho Alvarado MD Albumin [Mass/Vol] 4.5 g/dL Normal 3.5-5.2 [facility] Comment on above: Performed By: #### C P, CDP #### [facility] [address], [place] [id number] Dice Table Person: Rancho Alvarado MD Alkaline Phos 90 U/L Normal 35-104 [facility] Comment on above: Performed By: #### C P, CDP #### [facility] [address] [place] [address] Dice Table Person: Rancho Alvarado MD ALT [Catalytic activity/Vol] 136 U/L High 5-33 [facility] Comment on above: Performed By: #### C P, CDP #### [facility] [address] [place], [place] 10016[address] Dice Table Person: Rancho Alvarado MD Anion gap [Moles/Vol] 15 mmol/L Normal 9-17 [facility] Comment on above: Performed By: #### C P, CDP #### [facility] [address], [place] [id number] Dice Table Person: Rancho Alvarado MD AST [Catalytic activity/Vol] 55 U/L High <32 [facility] Comment on above: Performed By: #### C P, CDP #### [facility] [address] [place] [address] Dice Table Person: Rancho Alvarado MD Bilirubin [Mass/Vol] 0.68 mg/dL Normal 0.30-1.20 [facility] Comment on above: Performed By: #### C P, CDP #### [facility] [address] [place] [address] Dice Table Person: Rancho Alvarado MD BUN/CRE Ratio 21 High 9-20 [facility] Comment on above: Performed By: #### C P, CDP #### [facility] [address] [place] [address] Dice Table Person: Rancho Alvarado MD Calcium [Mass/Vol] 9.2 mg/dL Normal 8.6-10.4 [facility] Comment on above: Performed By: #### C P, CDP #### [facility] [address] [place] [address] Dice Table Person: Rancho Alvarado MD Chloride [Moles/Vol] 105 mmol/L Normal 98-107 [facility] Comment on above: Performed By: #### C P, CDP #### [facility] [address] [place] [address] Dice Table Person: Rancho Alvarado MD CO2 [Moles/Vol] 21 mmol/L Normal 20-31 [facility] Comment on above: Performed By: #### C P, CDP #### [facility] [address] [place] [address] Dice Table Person: Rancho Alvarado MD Creatinine [Mass/Vol] 0.75 mg/dL Normal 0.50-0.90 [facility] Comment on above: Performed By: #### C P, CDP #### [facility] [address] [place] [address] Dice Table Person: Rancho Alvarado MD GFR, Amer >60 Normal >60 [facility] Comment on above: Performed By: #### C P, CDP #### [facility] [address], [place] [id number] Dice Table Person: Rancho Alvarado MD GFR,non Amer >60 Normal >60 [facility] Comment on above: Performed By: #### C P, CDP #### [facility] [address], [place] [id number] Dice Table Person: Rancho Alvarado MD Glucose [Mass/Vol] 105 mg/dL High 70-99 [facility] Comment on above: Performed By: #### C P, CDP #### [facility] [address] [place], [place] [id number] Dice Table Person: Rancho Alvarado MD Potassium [Moles/Vol] 4.1 mmol/L Normal 3.7-5.3 [facility] Comment on above: Performed By: #### C P, CDP #### [facility] [address], [place] [id number] Dice Table Person: Rancho Alvarado MD Protein [Mass/Vol] 7.6 g/dL Normal 6.4-8.3 [facility] Comment on above: Performed By: #### C P, CDP #### [facility] [address], [place] [id number] Dice Table Person: Rancho Alvarado MD Sodium [Moles/Vol] 141 mmol/L Normal 135-144 [facility] Comment on above: Performed By: #### C P, CDP #### [facility] [address] [place] [address] Dice Table Person: Rancho Alvarado MD Urea nitrogen [Mass/Vol] 16 mg/dL Normal 6-20 [facility] Comment on above: Performed By: #### C P, CDP #### [facility] [address] [place], [place] [id number] Dice Table Person: Rancho Alvarado MD Albumin/Glob Ratio NOT REPORTED Normal 1.0-2.5 [facility] Comment on above: Performed By: #### C P, CDP #### [facility] [address] [place] [address] Dice Table Person: Rancho Alvarado MD Staging: NOT REPORTED Normal [facility] Comment on above: Performed By: #### C P, CDP #### [facility] [address] [place] [address] Dice Table Person: Rancho Alvarado MD SARS-COV-2 RAPIDon Tallier Cyto stain Nom (Cvx/Vag) [ID] [facility] Interpretation and review of laboratory results Abnormal [facility] NARRATIVE -1 This test was performed using isothermal DANTE and has been approved as Emergency Use Authorization (EUA) for the qualitative detection [id number] nucleic acid. [facility] SARS-CoV-2 (COVID-19) RNA DANTE+probe Ql (Unsp spec) Detected Abnormal NOT DETECTED [facility] Comment on above: CALLED TO AND READ B ACK BY [email or web address] SHEA ENHANCED CONTACT, AND DROPLET ISOLATION IS REQUIRED FOR INPATIENTS WITH SARS-CoV-2. [facility] SARS-COV-2 RAPIDOrdered By: Betina Pryor on 10-11-2020 Tallier Cyto stain Nom (Cvx/Vag) [ID] [facility] NARRATIVE -1 This test was performed using isothermal DANTE and has been approved as Emergency Use Authorization (EUA) for the qualitative detection [id number] nucleic acid. [facility] SARS-CoV-2 (COVID-19) RNA DANTE+probe Ql (Unsp spec) Not detected NOT DETECTED [facility] Comment on above: Negative results do not preclude SARS-CoV-2 infection and should not be used as the sole basis for treatment or other patient management decisions. Optimum specimen types and timing for peak viral levels during infections caused by SARS-CoV-2 has not been determined. The possibility of a false negative result should especially be considered if the patient's recent exposures or clinical presentation suggest that SARS-CoV-2 infection is probable, and diagnostic tests for other causes of illness (e.g., other respiratory illness) are negative. Collection of a new specimen and re-testing may be necessary if the patient is critically ill or clinically deteriorating. [facility] ECG 12-LEADon 12-29-2019 Raffi Doss MD 12/29/2019 8:02 PM EKG 12-lead Date/Time: 12/29/2019 7:57 PM Performed by: Raffi Doss MD Authorized by: Raffi Doss MD BPM: 65 Comments: Normal sinus rhythm at a rate of 65, normal axis, no signs of acute ischemia or infarction. No signs of interval pathology, WPW, HOCM, Brugada [facility] Urine Pregnancyon 12-29-2019 HCG ( test) Ql (U) Negative Negative [facility] Interpretation and review of laboratory results Normal [facility] URINE CULTUREon 02-03-2019 Bacteria identified Cx Nom (U) SPECIMEN DESCRIPTION URINE CLEAN CATCH UA DIPSTICK LEUKOCYTE POSITIVE * Result Note: NITRITE NEGATIVE * CULTURE ESCHERICHIA COLI * Result Note: 40,000-50,000 C/C/ML * * Result Note: Testing performed at [place], [place] [address] * REPORT STATUS 02/03/2019 * Result Note: FINAL * ORGANISM ESCHERICHIA COLI * Result Note: ESCHERICHIA COLI * METHOD OSMAN AMPICILLIN 4 SUSCEPTIBLE AMPICILLIN/SULBACTAM <=2 SUSCEPTIBLE CEFTRIAXONE <=1 SUSCEPTIBLE CEFAZOLIN <=4 SUSCEPTIBLE IMIPENEM <=0.25 SUSCEPTIBLE GENTAMICIN <=1 SUSCEPTIBLE TRIMETH-SULFA <=20 SUSCEPTIBLE AMOXICILLIN/CLAVULANIC A 4 SUSCEPTIBLE NITROFURANTOIN <=16 SUSCEPTIBLE PIPERACILLIN/TAZOBACTA M <=4 SUSCEPTIBLE LEVOFLOXACIN <=0.12 SUSCEPTIBLE ESBL NEGATIVE CEFTAZIDIME <=1 SUSCEPTIBLE Normal [facility] Comment on above: Performed By: #### A URPR #### Testing performed at [address] [address] POCT URINALYSIS DIPSTICK NON AUTOMATEDon 02-01-2019 Amorphous sediment LM Ql (Urine sed) [facility] Appearance (Body fld) cloudy [facility] Bacteria LM Ql (Urine sed) [facility] Bilirubin Ql (U) Negative [facility] Casts LM.LPF (Urine sed) [#/Area] [facility] Color (U) yellow [facility] Crystals LM Nom (Urine sed) [facility] Epithelial cells.squamous LM.HPF (Urine sed) [#/Area] [facility] Flow cytometry specialist review Faustino (Unsp spec) [Interp] [facility] Interpretation and review of laboratory results Abnormal [facility] Ketones [Mass/Vol] Negative mg/dL [facility] Leukocyte esterase Qn (U) [facility] Leukocyte esterase Test strip Ql (U) small [facility] Nitrite Ql (U) Negative [facility] pH (U) 7.5 [pH] Abnormal [facility] POCT GLUCOSE, URINE Negative mg/dL [facility] Protein Ql (U) Negative mg/dL [facility] RBC LM.HPF (Urine sed) [#/Area] [facility] RBC Ql (U) trace [facility] Specific gravity (U) [Rel density] 1.020 [facility] Transitional cells LM Ql (Urine sed) [facility] Urobilinogen (U) [Mass/Vol] 0.2 [facility] WBC LM.HPF (Urine sed) [#/Area] [facility] Internal controls [facility] Hgb and Hcton 06-28-2017 Hematocrit (HCT) 29.3 % Low 34.4-44.8 [facility] Comment on above: Performed By: #### H H ####Unless otherwise noted, all testing performed by [address], [place] [phone]: [id number] Director: José Miguel Chan M.D. Hemoglobin mass conc (Bld) 9.6 g/dL Low 11.6-15.4 [facility] Comment on above: Performed By: #### H H ####Unless otherwise noted, all testing performed by [address] [phone]: [id number] Director: José Miguel Chan M.D. Hepatitis C Antibodyon 06-27 Hepatitis C Antibody Positive Abnormal Negative [facility] Comment on above: Result Comment: Vlad mmend confirmation with HCV Virus Quantitation.Test performed using [employer] Immunodiagnostic system[place] [address] Performed By: #### H EPCABS, HEPCQT ####Unless otherwise noted, all testing performed by [address] [phone]: [id number] Director: José Miguel Chan M.D. Hepatitis C Qt,HCV-RNAon Hepatitis C Qt,HCV-RNA Not Detected Normal Not Detected [facility] Comment on above: Result Comment: The quantification range of this assay is 15-100,000,000 IU/mL(1.2 log IU/mL - 8.0 log IU/mL)Assay performed using MARY Ampliprep/TaqmanHCV test, version 2.0.[place] [address] Performed By: #### H EPCABS, HEPCQT ####Unless otherwise noted, all testing performed by [address] [phone]: [id number] Director: José Miguel Chan M.D. Urinalysis, Routineon 2017 Bilirubin,Urine Negative Normal NEG;NEGATIVE [facility] Comment on above: Performed By: #### U A ####Unless otherwise noted, all testing performed by [address] [phone]: [id number] Director: José Miguel Chan M.D. Blood,Urine Negative Normal NEG;NEGATIVE [facility] Comment on above: Performed By: #### U A ####Unless otherwise noted, all testing performed by [address] [phone]: [id number] Director: José Miguel Chan M.D. Ketone,Urine Negative Normal NEG;NEGATIVE [facility] Comment on above: Performed By: #### U A ####Unless otherwise noted, all testing performed by [address] [phone]: [id number] Director: José Miguel Chan M.D. Leuk.Esterase,Urine Trace Abnormal Negative [facility] Comment on above: Performed By: #### U A ####Unless otherwise noted, all testing performed by [address] [phone]: [id number] Director: José Miguel Chan M.D. Nitrite,Urine Negative Normal NEG;NEGATIVE [facility] Comment on above: Performed By: #### U A ####Unless otherwise noted, all testing performed by [address] [phone]: [id number] Director: José Miguel Chan M.D. Protein,Urine Negative Normal NEG;NEGATIVE [facility] Comment on above: Performed By: #### U A ####Unless otherwise noted, all testing performed by [address] [phone]: [id number] Director: José Miguel Chan M.D. Specific Hope,Urine 1.002 Low 1.003-1.029 [facility] Comment on above: Performed By: #### U A ####Unless otherwise noted, all testing performed by [address] [phone]: [id number] Director: José Miguel Chan M.D. Squamous Epithelial 1 /HPF Normal 0-40 [facility] Comment on above: Performed By: #### U A ####Unless otherwise noted, all testing performed by [address] [phone]: [id number] Director: José Miguel Chan M.D. Urine, bacteria in sediment Moderate Abnormal NS;RARE [facility] Comment on above: Performed By: #### U A ####Unless otherwise noted, all testing performed by [address] [phone]: [id number] Director: José Miguel Chan M.D. Urine, character Hazy Normal [facility] Comment on above: Performed By: #### U A ####Unless otherwise noted, all testing performed by [address] [phone]: [id number] Director: José Miguel Chan M.D. Urine, color Straw Normal [facility] Comment on above: Performed By: #### U A ####Unless otherwise noted, all testing performed by [address] [phone]: [id number] Director: José Miguel Chan M.D. Urine, erythrocytes in sediment by area 2 /[HPF] Normal 0-5 [facility] Comment on above: Performed By: #### U A ####Unless otherwise noted, all testing performed by [address] [phone]: [id number] Director: José Miguel Chan M.D. Urine, glucose presence Negative Normal NEG;NEGATIVE [facility] Comment on above: Performed By: #### U A ####Unless otherwise noted, all testing performed by [address] [phone]: [id number] Director: José Miguel Chan M.D. Urine, leukocytes in sedmiment 1 /[HPF] Normal 0-5 [facility] Comment on above: Performed By: #### U A ####Unless otherwise noted, all testing performed by [place] [phone]: [id number] Director: José Miguel Chan M.D. Urine, pH 7.0 [pH] Normal 4.5-8.0 [facility] Comment on above: Performed By: #### U A ####Unless otherwise noted, all testing performed by [address] [phone]: [id number] Director: José Miguel Chan M.D. Urobilinogen,Urine < 2.0 Normal <2 [facility] Comment on above: Performed By: #### U A ####Unless otherwise noted, all testing performed by [address] [phone]: [id number] Director: José Miguel Chan M.D. Vital Signs Date Time Vital Sign Value Performing Clinician Facility 08-30-2022 19:23-0400 Body height 175.3 cm Dick FORD Work Phone: [facility] 08-30-2022 19:23-0400 Body mass index (BMI) [Ratio] 32.52 kg/m2 Dick FORD Work Phone: [facility] 08-30-2022 19:23-0400 Body temperature 98.49 [degF] Dick FORD Work Phone: [facility] 08-30-2022 19:23-0400 Body weight 99.88 kg Dick FORD Work Phone: [facility] 08-30-2022 19:23-0400 Diastolic blood pressure 66 mm[Hg] Dick FORD Work Phone: [facility] 08-30-2022 19:23-0400 Heart rate 96 /min Dick FORD Work Phone: [facility] 08-30-2022 19:23-0400 Respiratory rate 16 /min Dick FORD Work Phone: [facility] 08-30-2022 19:23-0400 SaO2% (BldA) [Mass fraction] 99 % Dick FORD Work Phone: [facility] 08-30-2022 19:23-0400 Systolic blood pressure 110 mm[Hg] Dick FORD Work Phone: [facility] 07-01-2021 19:17-0500 Body mass index (BMI) [Ratio] 33.67 kg/m2 Bryon Gu MD Work Phone: [facility] 07-01-2021 19:17-0500 Body temperature 97.81 [degF] Bryon Gu MD Work Phone: [facility] 07-01-2021 19:17-0500 Body weight 103.42 kg [facility] 07-01-2021 19:17-0500 Diastolic blood pressure 80 mm[Hg] Bryon Gu MD [facility]: [facility] 07-01-2021 19:17-0500 Heart rate 95 /min Bryon Gu MD Work Phone: [facility] 07-01-2021 19:17-0500 Respiratory rate 16 /min Bryon Gu MD Work Phone: [facility] 07-01-2021 19:17-0500 SaO2% (BldA) [Mass fraction] 98 % Bryon Gu MD Work Phone: [facility] 07-01-2021 19:17-0500 Systolic blood pressure 128 mm[Hg] Bryon Gu MD Work Phone: [facility] 12-28-2020 12:50-0400 Body height 175.3 cm Betina Pryor PRE K [employer] EDUCATION TE[employer] Work Phone: [facility] [place] 12-28-2020 12:50-0400 Body mass index (BMI) [Ratio] 32.38 kg/m2 Betina Pryor PRE K [employer] EDUCATION TEACHER-[employer] Work Phone: [employer] [facility] 12-28-2020 12:50-0400 Body temperature 98.01 [degF] Betina Pryor PRE K [employer] EDUCATION TEACHER-[employer] Work Phone: [facility] 12-28-2020 12:50-0400 Body weight 99.47 kg Betina Pryor PRE K SPECIAL EDUCATION TEACHER-[employer] Work Phone: [facility] [place] 12-28-2020 12:50-0400 Diastolic blood pressure 76 mm[Hg] Betina Pryor PRE K [employer] EDUCATION TEACHER-[employer] Work Phone: [facility] 12-28-2020 12:50-0400 Heart rate 111 /min Betina Pryor PRE K [employer] EDUCATION TEACHER[employer] Work Phone: [facility] 12-28-2020 12:50-0400 Respiratory rate 16 /min Betina Pryor PRE K [employer] EDUCATION TEACHER-[employer] Work Phone: [facility] 12-28-2020 12:50-0400 SaO2% (BldA) [Mass fraction] 100 % Betina Pryor APRN-[employer]ERN P[employer]ER Work Phone: [facility] 12-28-2020 12:50-0400 Systolic blood pressure 113 mm[Hg] Betina Pryor [employer] K [employer] EDUCATION TE[employer]ER-[employer] Work Phone: [facility] 10-11-2020 19:30-0400 Body height 175.3 cm Betina Pryor APRN-[employer] P[employer] Work Phone: [facility] 10-11-2020 19:30-0400 Body mass index (BMI) [Ratio] 31.47 kg/m2 Betina Pryor APRN-[employer] P[employer] Work Phone: [facility] 10-11-2020 19:30-0400 Body temperature 98.49 [degF] Betina Pryor APRN-[employer]ERN P[employer]ER Work Phone: [facility] 10-11-2020 19:30-0400 Body weight 96.66 kg Betina Pryro APRN-[employer] P[employer] Work Phone: [facility] 10-11-2020 19:30-0400 Diastolic blood pressure 82 mm[Hg] Betina Pryor [employer] K [employer]UCATION TE[employer]ER[employer] Work Phone: [facility] 10-11-2020 19:30-0400 Heart rate 94 /min Betina Pryor [employer] K [employer] EDUCATION TEACHER[employer] Work Phone: [facility] 10-11-2020 19:30-0400 Respiratory rate 16 /min Betina Pryor [employer] K [employer] EDUCATION TEACHER[employer] Work Phone: [facility] 10-11-2020 19:30-0400 SaO2% (BldA) [Mass fraction] 100 % Betina Pryor APRN-[employer]ERN PICKER Work Phone: [facility] 10-11-2020 19:30-0400 Systolic blood pressure 120 mm[Hg] Betina Pryor PRE K [employer] EDUCATION TEACHER-FERN PICKER Work Phone: [facility] 05-29-2020 10:56-0500 BMI (Body Mass Index) 29.89 kg/m2 [facility] 05-29-2020 10:56-0500 Body Temperature 99.39 [degF] [facility] 05-29-2020 10:56-0500 Body weight 91.81 kg [facility] 05-29-2020 10:56-0500 BP Diastolic 85 mm[Hg] [facility] 05-29-2020 10:56-0500 BP Systolic 118 mm[Hg] [facility] 05-29-2020 10:56-0500 Height 175.3 cm [facility] 05-29-2020 10:56-0500 Pulse (Heart Rate) 88 /min [facility] 05-29-2020 10:56-0500 Pulse Oximetry 99 % [facility] 05-29-2020 10:56-0500 Respiratory Rate 16 /min [facility] 12-29-2019 20:12-0400 BP Diastolic 90 mm[Hg] [facility] 12-29-2019 20:12-0400 BP Systolic 130 mm[Hg] [facility] 12-29-2019 20:12-0400 Pulse (Heart Rate) 74 /min [facility] 12-29-2019 20:12-0400 Pulse Oximetry 99 % [facility] 12-29-2019 20:12-0400 Respiratory Rate 16 /min [facility] 12-29-2019 19:03-0400 BMI (Body Mass Index) 28.8 kg/m2 [facility] 12-29-2019 19:03-0400 Body Temperature 97.9 [degF] [facility] 12-29-2019 19:03-0400 Body weight 88.45 kg Javier [facility] 12-29-2019 19:03-0400 Height 175.3 cm Javier [facility] 03-18-2019 11:11-0400 BMI (Body Mass Index) 27.78 kg/m2 [facility] 03-18-2019 11:11-0400 Body Temperature 98.4 [degF] [facility] 03-18-2019 11:11-0400 Body weight 87.82 kg [facility] 03-18-2019 11:11-0400 BP Diastolic 87 mm[Hg] [facility] 03-18-2019 11:11-0400 BP Systolic 129 mm[Hg] [facility] 03-18-2019 11:11-0400 Height 177.8 cm [facility] 03-18-2019 11:11-0400 Pulse (Heart Rate) 101 /min [facility] 03-18-2019 11:11-0400 Pulse Oximetry 97 % [facility] 03-18-2019 11:11-0400 Respiratory Rate 18 /min [facility] 02-01-2019 12:37-0400 BMI (Body Mass Index) 28.74 kg/m2 [facility] 02-01-2019 12:37-0400 Body Temperature 98.91 [degF] [facility] 02-01-2019 12:37-0400 Body weight 88.27 kg [facility] 02-01-2019 12:37-0400 BP Diastolic 85 mm[Hg] [facility] 02-01-2019 12:37-0400 BP Systolic 135 mm[Hg] [facility] 02-01-2019 12:37-0400 Height 175.3 cm [facility] 02-01-2019 12:37-0400 Pulse (Heart Rate) 93 /min [facility] 02-01-2019 12:37-0400 Pulse Oximetry 98 % [facility] 02-01-2019 12:37-0400 Respiratory Rate 16 /min [facility] Encounters Encounter Date Encounter Type Care Provider Facility Start: 06-14-2023 End: 06-14-2023 ambulatory AXEL CAM Not Available Start: 04-30-2023 End: 04-30-2023 ambulatory GUANAKO SPEARS Not Available Start: 04-23-2023 End: 04-23-2023 ambulatory GUANAKO SPEARS Not Available Start: 04-16-2023 End: 04-16-2023 ambulatory AXEL CAM Not Available Start: 10-10-2022 End: 10-11-[address] GUANAKO SPEARS . Facility: Start: 10-03-2022 End: 10-04-[address] GUANAKO SPEARS . Facility: Start: 08-30-2022 ambulatory DICK Faizan [facility] Start: 08-30-2022 End: 08-30-2022 Office outpatient visit 15 minutes Dick Lassiter PRE K [employer]UCATION TEACHER[employer] PICKER Work Phone: [facility] Comment on above: Sore throat (Primary Dx); Viral illness Start: 07-01-2021 End: 07-01-2021 Emergency department [facility] Start: 07-01-2021 End: 07-01-2021 Emergency department patient visit Bryon Gu MD Work Phone: [facility] Comment on above: Sprain of left knee, unspecified ligament, initial encounter (Primary Dx) Start: 05-24-2021 End: 05-24-2021 [facility] Start: 03-21-2021 End: 03-22-2021 ambulatory Javier Canchola [facility] Start: 12-28-2020 End: 12-28-2020 Office outpatient visit 15 minutes Betina Pryor PRE K [employer]UCATION TEACHER[employer] PICKER Work Phone: [facility] Comment on above: COVID-19 virus infec tion (Primary Dx); Close exposure to COVID-19 virus Start: 10-11-2020 End: 10-11-2020 Office outpatient visit 15 minutes Betina Pryor PRE K [employer] EDUCATION TEACHER[employer]ERN PICKER Work Phone: [facility] Comment on above: Viral illness (Prima ry Dx); Loss of taste; Loss of smell; Head congestion Start: 05-29-2020 End: 05-29-2020 Office outpatient visit 15 minutes Josey Ibrahim Work Phone: [facility] Comment on above: Acute otitis externa of right ear, unspecified type (Primary Dx) Start: 12-29-2019 End: 12-29-2019 Emergency department patient visit [facility] Start: 12-29-2019 End: 12-29-2019 Emergency department patient visit [facility] Comment on above: Dizziness (Primary D x); Heat exhaustion, initial encounter Start: 06-25-2019 End: 06-29-2019 Patient encounter procedure [facility] Start: 03-20-2019 End: 03-20-2019 Letter encounter Yolette Connerradha [facility] Start: 03-18-2019 End: 03-18-2019 Office outpatient visit 25 minutes Betina Pryor Work Phone: [facility] Comment on above: Bacterial conjunctiv itis of right eye (Primary Dx); Hives Start: 02-01-2019 End: 02-01-2019 Letter encounter Provider Elver [facility] Start: 02-01-2019 End: 02-01-2019 Office outpatient visit 25 minutes Betina Pryor Work Phone: [facility] Comment on above: Acute cystitis with hematuria (Primary Dx); Dysuria Start: 12-16-2018 End: 12-20-2018 Patient encounter procedure [facility] Start: 06-27-2017 End: 06-29-2017 Evaluation and management of inpatient Umm Damon Facility:[facility] Start: 06-27-2017 End: 06-27-2017 Ambulatory Umm Damon Facility:[facility] Start: 06-15-2017 End: 06-15-2017 Ambulatory Sal Parada Facility:[facility] Procedures Date Procedure Procedure Detail Performing Clinician Start: 08-30-2022 Iaadiadoo streptococcus group a Dick Lassiter PRE K [employer] EDUCATION TEACHER[employer] PICKER Work Phone: Start: 02-04-2022 Radiologic exam knee complete 4/more views Bryon Gu MD Work Phone: Start: 12-28-2020 SARS-COV-2 RAPID Betina Pryor PRE K [employer] EDUCATION TEACHER[employer]ERN PICKER Work Phone: Start: 10-11-2020 SARS-COV-2 RAPID Betina Pryor PRE K [employer] EDUCATION TEACHER[employer]ERN PICKER Work Phone: Start: 12-29-2019 Choriogonadotropin ( test) [Presence] in Urine Raffi Doss Work Phone: Start: 12-29-2019 12 lead ECG Raffi Doss Work Phone: Start: 03-19-2019 Microscopic observation [Identifier] in Cervix by Cyto stain Javier Cali Start: 02-01-2019 Urnls dip stick/tablet rgnt non-auto w/o micrscp Betina Pryor Work Phone: Plan of Treatment Date Care Activity Detail Author Start: 02-14-2031 DTaP/Tdap/Td vaccine (2 - Td or Tdap) DTaP/Tdap/Td vaccine (2 - Td or Tdap) [facility] Start: 02-14-2031 Tetanus vaccination TETANUS [facility] Start: 01-26-2023 Influenza vaccination INFLUENZ A VACCINE (Season Ended) [facility] Start: 03-19-2022 Screening for malign ant neoplasm of cervix Pap Smear [facility] Start: 01-26-2021 Influenza vaccination [facility] Start: 03-19-2020 History and physical examination, annual for health maintenance Wellness Visit [facility] Start: 03-19-2020 Screening for Chlamy osito trachomatis Chlamydia Screening [facility] Start: 01-27-2020 Influenza vaccination INFLUENZA VACC INE (#1) [facility] Start: 01-27-2020 Influenza vaccinatio n given Sequential Influenza Vaccine (#1) [facility] Start: 02-01-2019 End: 02-01-2019 Lab Encounter 02/01/2019 Lab Encounter Clinical Pathology/Laboratory Medicine Betina Pryor, PRE K [employer] 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 Start: 02-01-2019 End: 02-02-2020 Bacteria identified Cx Nom (U) URINE CULTURE Microbiology Routine Dysuria Expected: 02/01/2019, Expires: 02/02/2020 [facility] Comment on above: Expected: 02/01/2019 , Expires: 02/02/2020 Start: 01-26-2019 Influenza vaccination INFLUENZA VACC INE (#1) [facility] Start: 2017 Screening for malign ant neoplasm of cervix [facility] Start: 2015 Third diphtheria, te tanus and acellular pertussis (DTaP) vaccination TDAP (ADULT) [facility] Start: 2014 Tetanus vaccination TETANUS [facility] Start: 2012 Screening for Chlamy osito trachomatis CHLAMYDIA SCREEN [facility] Start: 2011 HIV screening [facility] Start: 2011 Vaccination for loly n papillomavirus HPV VACCINE ADOL (1 - Female 3-dose series) [facility] Start: 2009 HIV screening HIV SCREENING DISCUSSION [facility] Start: 2008 COVID-19 VACCINE (1) COVID-19 VACCIN E (1) [facility] Start: 2008 Depression Screen Depression Screen [facility] Start: 2007 HPV vaccine (1 - 2-d ose series) HPV vaccine (1 - 2-dose series) [facility] Start: 2007 Vaccination for loly n papillomavirus [facility] Start: 2001 COVID-19 Vaccine (1) COVID-19 Vaccin e (1) [facility] Start: 1997 Varicella vaccine (1 of 2 - 2-dose childhood series) Varicella vaccine (1 of 2 - 2-dose childhood series) [facility] Start: 1996 COVID-19 VACCINE (#1) COVID-19 VACCI NE (#1) [facility] Start: 1996 GONORRHEA SCREEN GONORRHEA SCREEN [facility] Start: 1996 Hepatitis C antibody , confirmatory test HEPATITIS C VIRUS SCREENING [facility] Start: 1996 Hepatitis C screening [facility] Start: 1996 Screening for Chlamy osito trachomatis GONORRHEA SCREEN [facility] Start: 1996 Tetanus vaccination Tetanus: Every 1 0yrs [facility] POCT URINALYSIS DIPS TICK NON AUTOMATED POCT URINALYSIS DIPSTICK NON AUTOMATED Point of Care Testing Routine Dysuria Ordered: 02/01/2019 [facility] Comment on above: Ordered: 02/01/2019 Payers Date Payer Category Payer Unknown [id number] 2020 Unknown 2018 Unknown [id number] 2018 Unknown [id number] [id number] 1996 Unknown [id number] 2.16.8 [id number] 1996 Unknown [id number] 2.16. [id number] 1996 Unknown [id number] 2.16. [id number] 1996 Unknown [id number] 2.16.8 [id number] 1996 Unknown [id number] 2.16.8 [id number] 1996 Unknown [id number] 2.16.8 [id number] 1996 Unknown [id number] 2.16.8 [id number] 1996 Unknown [id number] 2.16.84 [id number] 1996 Unknown [id number] 2.16.84 [id number] 1996 Unknown [id number] 2.16.84 [id number] 1996 Unknown [id number] [id number] 1996 Unknown [id number] [id number] 1996 Unknown [id number] 1959 Unknown [id number] Unknown [id number] Social History Date Type Detail Facility [facility] Start: 1996 Sex Assigned At Not on file [facility] Start: 02-01-2019 End: 03-18-2019 Tobacco smoking status [facility] Current every day smoker [facility] Start: 02-01-2019 End: 10-11-2020 Cigarettes smoked current (pack per day) - Reported [facility] Start: 02-01-2019 End: 03-18-2019 Alcohol intake Not Currently [facility] End: 07-26-2020 History of tobacco use Cigarette Smoker [facility] Start: 12-29-2019 End: 08-30-2022 Alcohol intake Ex-drinker (finding) [facility] Exposure to SARS-CoV -2 (event) Not sure [facility] Start: 05-29-2020 End: 10-11-2020 Tobacco use and exposure Never used [facility] Start: 10-11-2020 [facility] Former [facility]oker [facility] End: 07-26-2020 History of tobacco use Current smoker [facility] Start: 06-08-2020 [facility] Start: 05-24-2021 [facility] Never smoked tobacco [employer] Phone: Goals Date Patient Goal Desired Activity /State Comment on above: Use condoms for Wilma h control and STI protection History of Present illness Narrative 08-30-2022 LOGAN Pearson - 08/30/2022 7:15 PM EDT Note Date & Type Note Facility 08-30-2022 History of Presen t illness Narrative Patient: Ping Padilla Patient : 1995 Patient Age: 27 y.o. Today's Date: 08/30/2022 Provider: LOGAN Pearson History of Present Illness: Patient here today for evaluation of Chief Complaint Patient presents with Sore Throat Sore throat, has white spots on the back of throat. Noticed it today. Patient is here for a ST for the past 2 days - has noticed white spots - concerned for strep - she states that in her [employer] [facility] there is strep. Denies any fevers and no rashes. History: Allergies Allergen Reactions Ampicillin Sulfamethoxazole-Trimethoprim Erythromycin Rash No past medical history on file. Past Surgical History: Procedure Laterality Date TONSILLECTOMY ADENOIDECTOMY Social History Tobacco Use Smoking status: Former Packs/day: 0.50 Years: 5.00 Pack years: 2.50 Types: Cigarettes Quit date: 07/26/2020 Years since quittin.0 Smokeless tobacco: Never Vaping Use Vaping Use: Former Substance Use Topics Alcohol use: Not Currently Drug use: Not Currently No family history on file. Review of Systems: Review of Systems HENT: Positive for sore throat. Physical Exam: Vitals: 08/30/22 1923 BP: 110/66 Pulse: 96 Resp: 16 Temp: 98.5 degrees F (36.9 degrees C) TempSrc: Temporal SpO2: 99% Weight: 99.9 kg (220 lb 3.2 oz) Height: 1.753 m (5' 9 ) Physical Exam Vitals and nursing note reviewed. HENT: Head: Normocephalic. Right Ear: Tympanic membrane and ear canal normal. Left Ear: Tympanic membrane and ear canal normal. Mouth/Throat: Mouth: Mucous membranes are moist. No oral lesions. Pharynx: No pharyngeal swelling, oropharyngeal exudate or posterior oropharyngeal erythema. Cardiovascular: Rate and Rhythm: Normal rate and regular rhythm. Pulmonary: Effort: Pulmonary effort is normal. Breath sounds: Normal breath sounds. Musculoskeletal: Cervical back: Normal range of motion and neck supple. Lymphadenopathy: Cervical: No cervical adenopathy. Neurological: Mental Status: She is alert. Current Medications: No current outpatient medications on file. Health Maintenance List: Health Maintenance Topic Date Due GONORRHEA SCREEN Never done HEPATITIS C VIRUS SCREENING Never done COVID-19 VACCINE (1) Never done HPV VACCINE ADOL (1 - 2-dose series) Never done HIV SCREENING DISCUSSION Never done CHLAMYDIA SCREEN Never done CERVICAL CANCER SCREENING DISCUSSION Never done INFLUENZA VACCINE (Season Ended) 2023 TETANUS 02/14/2031 TDAP (ADULT) Completed PNEUMOCOCCAL VACCINE SERIES Aged Out Assessment & Plan: ICD-10-CM 1. Sore throat J02.9 POCT RAPID STREP A 2. Viral illness B34.9 Rapid strep was negative. She was made aware of this and all questions were answered. No further questions at this time. All questions were answered. No follow-ups on file. Patient was advised to call with any questions or concerns. If symptoms worsen patient was advised to follow up in our office or the Emergency Dept. Benefits, risks, contraindications, and complications of recommended treatments were explained the patient understands and agrees to proceed with plan. documented in this encounter [facility] Discharge instructions 07-01-2021 InstructionsAttachments Note Date & Type Note Facility 07-01-2021 Hospital Discharg e instructions Bryon Gu MD - 07/01/2021 Tylenol pain. Wear knee immobilizer for comfort. Follow-up with orthopedic referral. The following attachments cannot be sent through Care Everywhere.Knee Sprain (Ugandan)documented in this encounter [employer] Phone: History of Present illness Narrative 12-28-2020 LOGAN Mcguire - 12/28/2020 12:35 PM EDT Note Date & Type Note Facility 12-28-2020 History of Presen t illness Narrative HPI Ping Padilla female 1995 presents to the [facility] with Chief Complaint Patient presents with Cough sinus body aches 31 weeks exposed positive Patient presents with concerns for COVID19. tested positive today. Patient c/o cough, body aches, sinus congestion. She is 31 weeks . History Allergies Allergen Reactions Ampicillin Sulfamethoxazole-Trimethoprim Erythromycin Rash Current Outpatient Medications Medication Sig cetirizine 10 MG Tab tablet Take 1 tablet by mouth daily. (Patient not taking: Reported on 08/16/2020) [id number] Solution otic solution 4 drops by Otic route 4 times daily. (Patient not taking: Reported on 08/16/2020) History reviewed. No pertinent family history. No past medical history on file. Past Surgical History: Procedure Laterality Date TONSILLECTOMY ADENOIDECTOMY Social History Socioeconomic History Marital status: Single Spouse name: Not on file Number of children: Not on file Years of education: Not on file Highest education level: Not on file Occupational History Not on file Tobacco Use Smoking status: Former Smoker Packs/day: 0.50 Years: 5.00 Pack years: 2.50 Quit date: 07/26/2020 Years since quittin.4 Smokeless tobacco: Never Used Vaping Use Vaping Use: Former Substance and Sexual Activity Alcohol use: Not Currently Drug use: Not Currently Sexual activity: Yes Partners: Male Other Topics Concern Service Not Asked Blood Transfusions Not Asked Caffeine Concern Not Asked Occupational Exposure Not Asked Hobby Hazards Not Asked Sleep Concern Not Asked Stress Concern Not Asked Weight Concern Not Asked Special Diet Not Asked Back Care Not Asked Exercise Not Asked Bike Helmet Not Asked Seat Belt Not Asked Domestic Violence No Social History Narrative Not on file Social Determinants of Health Financial Resource Strain: Difficulty of Paying Living Expenses: Food Insecurity: Worried About Running Out of Food in the Last Year: Ran Out of Food in the Last Year: Transportation Needs: Lack of Transportation (Medical): Lack of Transportation (Non-Medical): Physical Activity: Days of Exercise per Week: Minutes of Exercise per Session: Stress: Feeling of Stress : Social Connections: Frequency of Communication with Friends and Family: Frequency of Social Gatherings with Friends and Family: Attends Congregational Services: Active Member of Clubs or Organizations: Attends Club or Organization Meetings: Marital Status: Intimate Partner Violence: Fear of Current or Ex-Partner: Emotionally Abused: Physically Abused: Sexually Abused: ROS Review of Systems Constitutional: Positive for fatigue. HENT: Positive for congestion and rhinorrhea. Respiratory: Positive for cough. Gastrointestinal: Negative for diarrhea, nausea and vomiting. Neurological: Positive for headaches. PHYSICAL EXAM Visit Vitals BP 113/76 (BP Location: Right arm, BP Position: Sitting) Pulse 111 Temp 98 F (36.7 C) (Oral) Resp 16 Ht 1.753 m (5' 9 ) Wt 99.5 kg (219 lb 4.8 oz) SpO2 100% BMI 32.38 kg/m Physical Exam Vitals and nursing note reviewed. Constitutional: General: She is not in acute distress. Appearance: Normal appearance. She is well-developed. She is not ill-appearing or diaphoretic. HENT: Head: Normocephalic. Cardiovascular: Rate and Rhythm: Regular rhythm. Tachycardia present. Heart sounds: Normal heart sounds. Pulmonary: Effort: Pulmonary effort is normal. No respiratory distress. Breath sounds: Normal breath sounds. Abdominal: General: There is no distension. Musculoskeletal: Cervical back: Neck supple. Skin: General: Skin is warm and dry. Capillary Refill: Capillary refill takes less than 2 seconds. Neurological: General: No focal deficit present. Mental Status: She is alert and oriented to person, place, and time. Psychiatric: Mood and Affect: Mood normal. Behavior: Behavior normal. RESULTS No results found for this or any previous visit (from the past 1 hour(s)). ASSESSMENT/PLAN 1. COVID-19 virus infection 2. Close exposure to COVID-19 virus Orders Placed This Encounter SARS-COV-2 RAPID Rapid COVID19 positive. Discussed [id number] symptomatic treatments stay for . She will quarantine per CDC guidelines. If symptoms worsen patient was advised to follow up in our office, primary care provider or the Emergency Dept. Benefits, Risks, Contraindications, and Complications of recommended treatments were explained. The patient understands and agrees to proceed with plan. LOGAN Mcguire 12/28/2020 documented in this encounter [facility] Instructions 12-28-2020 Patient Instructions Note Date & Type Note Facility 12-28-2020 Instructions LOGAN Mcguire - 12/28/2020 12:35 PM EDT Images from the original note were not included. Learning About Coronavirus (COVID-19) What is coronavirus (COVID-19)? COVID-19 is a disease caused by a new type of coronavirus. This illness was first found in April 2019. It has since spread worldwide. Coronaviruses are a large group of viruses. They cause the common cold. They also cause more serious illnesses like [place] East respiratory syndrome (MERS) and severe acute respiratory syndrome (SARS). COVID-19 is caused by a novel coronavirus. That means it's a new type that has not been seen in people before. What are the symptoms? Coronavirus (COVID-19) symptoms may include: Fever. Cough. Trouble breathing. Chills or repeated shaking with chills. Muscle pain. Headache. Sore throat. New loss of taste or smell. Vomiting. Diarrhea. In severe cases, COVID-19 can cause pneumonia and make it hard to breathe without help from a machine. It can cause . How is it diagnosed? COVID-19 is diagnosed with a viral test. This may also be called a PCR test or antigen test. It looks for evidence of the virus in your breathing passages or lungs (respiratory system). The test is most often done on a sample from the nose, throat, or lungs. It's sometimes done on a sample of saliva. One way a sample is collected is by putting a long swab into the back of your nose. How is it treated? Mild cases of COVID-19 can be treated at home. Serious cases need treatment in the hospital. Treatment may include medicines to reduce symptoms, plus breathing support such as oxygen therapy or a ventilator. Some people may be placed on their belly to help their oxygen levels. Treatments that may help people who have COVID-19 include: Antiviral medicines. These medicines treat viral infections. Remdesivir is an example. Immune-based therapy. These medicines help the immune system fight COVID-19. One example is bamlanivimab. It's a monoclonal antibody. Blood thinners. These medicines help prevent blood clots. People with severe illness are at risk for blood clots. How can you protect yourself and others? The best way to protect yourself from getting sick is to: Avoid areas where there is an outbreak. Avoid contact with people who may be infected. Avoid crowds and try to stay at least 6 feet away from other people. Wash your hands often, especially after you cough or sneeze. Use soap and water, and scrub for at least 20 seconds. If soap and water aren't available, use an alcohol-based hand consular officer. Avoid touching your mouth, nose, and eyes. To help avoid spreading the virus to others: Stay home if you are sick or have been exposed to the virus. Don't go to school, work, or public areas. And don't use public transportation, ride-shares, or taxis unless you have no choice. Wear a cloth face cover if you have to go to public areas. Cover your mouth with a tissue when you cough or sneeze. Then throw the tissue in the trash and wash your hands right away. If you're sick: ? Leave your home only if you need to get medical care. But call the doctor's office first so they know you're coming. And wear a face cover. ? Wear the face cover whenever you're around other people. It can help stop the spread of the virus. ? Limit contact with pets and people in your home. If possible, stay in a separate bedroom and use a separate bathroom. ? Clean and disinfect your home every day. Use household developer support engineer and disinfectant wipes or sprays. Take special care to clean things that you grab with your hands. These include doorknobs, remote controls, phones, and handles on your refrigerator and microwave. And don't forget countertops, tabletops, bathrooms, and computer keyboards. When should you call for help? Call 911 anytime you think you may need emergency care. For example, call if you have life-threatening symptoms, such as: You have severe trouble breathing. (You can't talk at all.) You have constant chest pain or pressure. You are severely dizzy or lightheaded. You are confused or can't think clearly. Your face and lips have a blue color. You pass out (lose consciousness) or are very hard to wake up. Call your doctor now or seek immediate medical care if: You have moderate trouble breathing. (You can't speak a full sentence.) You are coughing up blood (more than about 1 teaspoon). You have signs of low blood pressure. These include feeling lightheaded; being too weak to stand; and having cold, pale, clammy skin. Watch closely for changes in your health, and be sure to contact your doctor if: Your symptoms get worse. You are not getting better as expected. Call before you go to the doctor's office. Follow their instructions. And wear a cloth face cover. Current as of: August 20, 2020 Content Version: 12.9 [place]. Care instructions adapted under license by your healthcare professional. If you have questions about a medical condition or this instruction, always ask your healthcare professional. [employer], [facility] disclaims any warranty or liability for your use of this information. Over the Counter Medicines during We suggest that you avoid using any medicines if you can during , especially during the first 3 months. If you need to relieve a minor problem, use over the counter medicines from this list. Many of the medicines are available as store brands, which often cost less than brand name products. Take this list with you and ask your pharmacist if you are not sure of what product to buy. Medicine safety during Do not take aspirin or ibuprofen or any products that contain aspirin or ibuprofen in them while unless directed by your provider. A low dose of aspirin may be prescribed by your provider for certain medical conditions. If your symptoms get worse or do not go away in 1 to 3 days, talk to your provider. Follow the package instructions for how much medicine to take and how often you can take it. Do not use any herbal treatments unless you talk to your provider or pharmacist to know whether there may be any risk to you and your baby. If you are not sure what medicine to use, ask your health care provider or pharmacist. Problem and medicine Chest congestion Guaifenesin (Mucinex) Cough suppression Dextromethorphan (Delsym or Robitussin) Constipation Drink 2 to 4 ounces of prune juice each day Docusate (Colace) Polycarbophil calcium (FiberCon) Psylium (Metamucil) Magnesium hydroxide (Begum' Milk of Magnesia) Methyl cellulose (Citrucel) Diarrhea Loperimide (Imodium) Gas pains Simethicone (Mylicon) Heartburn (GI reflux) Calcium carbonate (Tums) Calcium carbonate and magnesium hydroxide (Rolaids) Famotidine (Pepcid) 20 mg twice a day Magnesium hydroxide, aluminum hydroxide, and simethicone (Maalox or Mylanta) Magaldrate (Riopan) Ranitidine (Zantac) 75 mg twice a day Hemorrhoids Hydrocortisone (Preparation H or Anusol HC) Glycerin and witch adriana topical (Tucks Medicated Cooling Pads) Minor aches, pain, or headache Acetaminophen (Tylenol) Nausea Pyridoxine (vitamin B6) 25 mg every 8 hours along with doxylamine (Unisom) 25 mg each night Sinus congestion or stuffy nose Cetirizine (Zyrtec) Fexofenadine (Teresa) Loratadine (Claritin) Fluticasone (Flonase) Oxymetazoline (Afrin): Do not use this medicine for longer than 3 days. Use the following medicines ONLY if you are 10 or more weeks and DO NOT have, or are not being treated for, high blood pressure: Pseudoephedrine (Sudafed) Pseudoephedrine and acetaminophen (Sinutab) Pseudoephedrine and cetirizine (Zyrtec D) Pseudoephedrine and fexofenadine (Teresa D) Pseudoephedrine and loratadine (Claritin D) Pseudoephedrine and tripolidine (Actifed) Sore throat Benzocaine and menthol (Cepacol Sore Throat) Dyclonine (Sucrets) Trouble sleeping (Insomnia) Diphenhydramine (Benadryl) 25 mg Doxylamine (Unisom) Vaginal yeast infection Use 3 or 7-day treatment, not a 1 day product. Clotrimazole (Gyne-Lotrimin or Mycelex Cream) Miconazole (Monistat Cream) Terconazole (Terazol Cream) 2004November 25, 2018. [facility]. This handout is for informational purposes only. Talk with your doctor or healthcare team if you have any questions about your care. For more health information call the Library for Health Information at [phone] or email: [email or web address]. documented in this encounter [facility] History of Present illness Narrative 10-11-2020 Betina Pryor APRN-CNP - 10/11/2020 7:15 PM EDT Note Date & Type Note Facility 10-11-2020 History of Presen t illness Narrative IRMA Padilla female 1995 presents to the [facility] with Chief Complaint Patient presents with COVID-19 no taste or smell, stuffy head, started 5 days ago Patient presents with sinus congestion the last 5 days. She noticed loss of smell and taste recently. She has a 3-year-old daughter who has asthma and she is 20 weeks . She is requesting COVID19 testing. She is taking Benadryl without relief. History Allergies Allergen Reactions Ampicillin Sulfamethoxazole-Trimethoprim Erythromycin Rash Current Outpatient Medications Medication Sig cetirizine 10 MG Tab tablet Take 1 tablet by mouth daily. (Patient not taking: Reported on 08/16/2020) [id number] Solution otic solution 4 drops by Otic route 4 times daily. (Patient not taking: Reported on 08/16/2020) History reviewed. No pertinent family history. No past medical history on file. Past Surgical History: Procedure Laterality Date TONSILLECTOMY ADENOIDECTOMY Social History Socioeconomic History Marital status: Single Spouse name: Not on file Number of children: Not on file Years of education: Not on file Highest education level: Not on file Occupational History Not on file Tobacco Use Smoking status: Former Smoker Packs/day: 0.50 Years: 5.00 Pack years: 2.50 Quit date: 07/26/2020 Years since quittin.2 Smokeless tobacco: Never Used Vaping Use Vaping Use: Former Substance and Sexual Activity Alcohol use: Not Currently Drug use: Not Currently Sexual activity: Yes Partners: Male Other Topics Concern Service Not Asked Blood Transfusions Not Asked Caffeine Concern Not Asked Occupational Exposure Not Asked Hobby Hazards Not Asked Sleep Concern Not Asked Stress Concern Not Asked Weight Concern Not Asked Special Diet Not Asked Back Care Not Asked Exercise Not Asked Bike Helmet Not Asked Seat Belt Not Asked Domestic Violence No Social History Narrative Not on file Social Determinants of Health Financial Resource Strain: Difficulty of Paying Living Expenses: Food Insecurity: Worried About Running Out of Food in the Last Year: Ran Out of Food in the Last Year: Transportation Needs: Lack of Transportation (Medical): Lack of Transportation (Non-Medical): Physical Activity: Days of Exercise per Week: Minutes of Exercise per Session: Stress: Feeling of Stress : Social Connections: Frequency of Communication with Friends and Family: Frequency of Social Gatherings with Friends and Family: Attends Congregational Services: Active Member of Clubs or Organizations: Attends Club or Organization Meetings: Marital Status: Intimate Partner Violence: Fear of Current or Ex-Partner: Emotionally Abused: Physically Abused: Sexually Abused: ROS Review of Systems Constitutional: Negative for chills and fever. HENT: Positive for congestion, ear pain (occ popping ) and sinus pressure. Negative for sore throat. Respiratory: Negative for cough. Gastrointestinal: Negative for diarrhea, nausea and vomiting. Neurological: Negative for headaches. PHYSICAL EXAM Visit Vitals BP 120/82 (BP Location: Left arm, BP Position: Sitting) Pulse 94 Temp 98.5 F (36.9 C) (Temporal) Resp 16 Ht 1.753 m (5' 9 ) Wt 96.7 kg (213 lb 1.6 oz) SpO2 100% No BMI 31.47 kg/m Physical Exam Vitals and nursing note reviewed. Constitutional: General: She is not in acute distress. Appearance: Normal appearance. She is well-developed. She is not ill-appearing or diaphoretic. HENT: Head: Normocephalic. Right Ear: Tympanic membrane normal. Left Ear: Tympanic membrane normal. Nose: Congestion present. Mouth/Throat: Mouth: Mucous membranes are moist. Pharynx: Oropharynx is clear. Eyes: Conjunctiva/sclera: Conjunctivae normal. Pupils: Pupils are equal, round, and reactive to light. Neck: Trachea: No tracheal deviation. Cardiovascular: Rate and Rhythm: Normal rate and regular rhythm. Heart sounds: Normal heart sounds. Pulmonary: Effort: Pulmonary effort is normal. No respiratory distress. Breath sounds: Normal breath sounds. Abdominal: General: There is no distension. Musculoskeletal: General: Normal range of motion. Cervical back: Normal range of motion and neck supple. Lymphadenopathy: Cervical: No cervical adenopathy. Skin: General: Skin is warm and dry. Capillary Refill: Capillary refill takes less than 2 seconds. Neurological: General: No focal deficit present. Mental Status: She is alert and oriented to person, place, and time. Psychiatric: Mood and Affect: Mood normal. Behavior: Behavior normal. RESULTS Recent Results (from the past 1 hour(s)) SARS-COV-2 RAPID Collection Time: 10/11/20 7:55 PM Specimen: Fluid/Swab Result Value Ref Range SARS COV 2 RNA, QL REAL TIME RT PCR NOT DETECTED NOT DETECTED NARRATIVE -1 This test was performed using isothermal DANTE and has been approved as Emergency Use Authorization (EUA) for the qualitative detection [id number] nucleic acid. PERFORMED BY [facility] ASSESSMENT/PLAN 1. Viral illness 2. Loss of taste 3. Loss of smell 4. Head congestion Orders Placed This Encounter SARS-COV-2 RAPID Rapid COVID19 negative. Symptoms appear viral. Discussed [id number] symptomatic treatments safe in . If symptoms worsen patient was advised to follow up in our office, primary care provider or the Emergency Dept. Benefits, Risks, Contraindications, and Complications of recommended treatments were explained. The patient understands and agrees to proceed with plan. LOGAN Mcguire 10/11/2020 documented in this encounter [facility] Instructions 10-11-2020 Patient Instructions Note Date & Type Note Facility 10-11-2020 Instructions Betina Pryor APRN-CNP - 10/11/2020 7:15 PM EDT Viral Syndrome or Cold You have been seen for a viral infection called a viral syndrome or a cold. There is no cure for this infection and antibiotics do not work for viral infections. Signs may include: Fever with a temperature at or above 100.4 degrees F or 38 degrees C Stuffy nose and nasal congestion Sore throat Cough Muscle aches Rash Nausea, vomiting or diarrhea may occur in some people Your Care Antibiotics do not work for viral infections. Treatment will take time and it will only help manage your signs. Rest as much as you can. Drink plenty of fluids, at least 8 cups of fluid each day. Some people find warm drinks help with easing sore throat and congestion. Take acetaminophen (Tylenol) or ibuprofen (Advil or Motrin) according to package instructions. Be sure to avoid aspirin or any products with aspirin with a viral infection because it may damage your liver. See your doctor or go to the nearest Emergency Department if you have: Stiff neck or very bad headache. Problems breathing or feel short of breath. Fever with oral temperature greater than 100.4 degrees F or 38 degrees C that is still present 7 days after the start of your illness. Weakness or you are not able to walk. Vomiting that will not stop. Dizziness, feel lightheaded or faint Any concerns or feel worse, or if you are not feeling better in the next 7 days. 2015 December 16, 2018, [facility]. This handout is for informational purposes only. Talk with your doctor or healthcare team if you have any questions about your care. For more health information, call the Library for Health Information at [phone] or email: [email or web address]. Over the Counter Medicines during We suggest that you avoid using any medicines if you can during , especially during the first 3 months. If you need to relieve a minor problem, use over the counter medicines from this list. Many of the medicines are available as store brands, which often cost less than brand name products. Take this list with you and ask your pharmacist if you are not sure of what product to buy. Medicine safety during Do not take aspirin or ibuprofen or any products that contain aspirin or ibuprofen in them while unless directed by your provider. A low dose of aspirin may be prescribed by your provider for certain medical conditions. If your symptoms get worse or do not go away in 1 to 3 days, talk to your provider. Follow the package instructions for how much medicine to take and how often you can take it. Do not use any herbal treatments unless you talk to your provider or pharmacist to know whether there may be any risk to you and your baby. If you are not sure what medicine to use, ask your health care provider or pharmacist. Problem and medicine Chest congestion Guaifenesin (Mucinex) Cough suppression Dextromethorphan (Delsym or Robitussin) Constipation Drink 2 to 4 ounces of prune juice each day Docusate (Colace) Polycarbophil calcium (FiberCon) Psylium (Metamucil) Magnesium hydroxide (Begum' Milk of Magnesia) Methyl cellulose (Citrucel) Diarrhea Loperimide (Imodium) Gas pains Simethicone (Mylicon) Heartburn (GI reflux) Calcium carbonate (Tums) Calcium carbonate and magnesium hydroxide (Rolaids) Famotidine (Pepcid) 20 mg twice a day Magnesium hydroxide, aluminum hydroxide, and simethicone (Maalox or Mylanta) Magaldrate (Riopan) Ranitidine (Zantac) 75 mg twice a day Hemorrhoids Hydrocortisone (Preparation H or Anusol HC) Glycerin and witch adriana topical (Tucks Medicated Cooling Pads) Minor aches, pain, or headache Acetaminophen (Tylenol) Nausea Pyridoxine (vitamin B6) 25 mg every 8 hours along with doxylamine (Unisom) 25 mg each night Sinus congestion or stuffy nose Cetirizine (Zyrtec) Fexofenadine (Teresa) Loratadine (Claritin) Fluticasone (Flonase) Oxymetazoline (Afrin): Do not use this medicine for longer than 3 days. Use the following medicines ONLY if you are 10 or more weeks and DO NOT have, or are not being treated for, high blood pressure: Pseudoephedrine (Sudafed) Pseudoephedrine and acetaminophen (Sinutab) Pseudoephedrine and cetirizine (Zyrtec D) Pseudoephedrine and fexofenadine (Teresa D) Pseudoephedrine and loratadine (Claritin D) Pseudoephedrine and tripolidine (Actifed) Sore throat Benzocaine and menthol (Cepacol Sore Throat) Dyclonine (Sucrets) Trouble sleeping (Insomnia) Diphenhydramine (Benadryl) 25 mg Doxylamine (Unisom) Vaginal yeast infection Use 3 or 7-day treatment, not a 1 day product. Clotrimazole (Gyne-Lotrimin or Mycelex Cream) Miconazole (Monistat Cream) Terconazole (Terazol Cream) 2004November 25, 2018. [facility]. This handout is for informational purposes only. Talk with your doctor or healthcare team if you have any questions about your care. For more health information call the Library for Health Information at [phone] or email: [email or web address]. documented in this encounter [facility] Evaluation note Note Date & Type Note Facility Evaluation note Diagnosis Viral illness- Primary Unspecified viral infection, in conditions classified elsewhere and of unspecified site Loss of taste Disturbances of sensation of smell and taste Loss of smell Disturbances of sensation of smell and taste Head congestion Other diseases of nasal cavity and sinuses documented in this encounter [facility] Evaluation note Note Date & Type Note Facility Evaluation note Diagnosis Sprain of left knee, unspecified ligament, initial encounter- Primary documented in this encounter [employer] Phone: Evaluation note Note Date & Type Note Facility Evaluation note Diagnosis COVID-19 virus infection- Primary Close exposure to COVID-19 virus documented in this encounter [facility] Evaluation note Note Date & Type Note Facility Evaluation note Diagnosis Sore throat- Primary Acute pharyngitis Viral illness Unspecified viral infection, in conditions classified elsewhere and of unspecified site documented in this encounter [facility] Summary Purpose Family History No Family History Records FoundNo Family History Records FoundNo Family History Records FoundNo Family History Records FoundNo Family History Records FoundNo Family History Records FoundNo Family History Records FoundNo Family History Records FoundNo Family History Records FoundNo Family History Records Found Advance Directives No Advanced Directives Records FoundDocuments on File Type Date Recorded 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 These germs typically come from outside the body, and travel into the urethra, bladder, and sometimes the kidneys. Women are prone to UTI s because the urethra is short and close to the rectum. Causes of UTIs UTIs can have various causes, including: Injury to the urethra, the tube that comes from the bladder to the urinary opening Personal hygiene, such as how you wash or wipe after going to the bathroom Irritation caused by sexual intercourse Not being able to pass your urine caused by drugs, illness, or injury Wearing tight clothing that traps moisture, such as nylon underwear Having a weakened immune system that increases a chance for infections Kidney stones Signs of an infection Burning with urination (most common sign) Having to urinate often Having an intense urge to urinate, but not urinating much Lower abdominal pain Back pain Foul smelling urine Cloudy urine Blood in the urine Fever or chills (a sign infection may have reached your kidneys) Nausea or vomiting (a sign infection may have reached your kidneys) The only way to know for sure if you have a UTI is to contact your doctor who will review your symptoms and test your urine. Treatment for a UTI Most UTIs can be easily treated with antibiotics, which kill the bacteria. It is important to take the full course of antibiotics and not to stop as soon as you feel better. If you do not take all the medicine, your infection may not be cured. Drink at least 8 glasses of fluid every day. Extra fluid helps to rinse the bacteria out of the urinary tract. Water and fruit juices, especially cranberry juice, are helpful. Avoid coffee, tea, and coke with caffeine. Food and fluids that have caffeine can make your symptoms worse. If bacteria makes its way to the kidneys, then it can become a kidney infection. This can be serious and damage your kidneys. In more serious cases, you may need to be treated in the hospital. Preventing UTIs Wipe from front to back after using the toilet. Drink plenty of water. Shower instead taking a bath. Do not douche or use feminine hygiene products. Do not wear tight pants and nylon underwear that can trap moisture and make it easier for bacteria to grow. Wear cotton underwear instead. Keep your genital area clean, but do not scrub too hard with harsh soaps. Wash your genital area before and after sex. Urinate after sex to flush away bacteria that may have entered your urethra. Use condoms during sex. Urinate before you go to sleep. Call your doctor if Call your doctor right away if you have any of these signs, or if the signs get worse: Fever greater than 101 degrees Fahrenheit Nausea, vomiting, or chills Back pain Problems with your medicines 2004 - May 03, 2017, [facility]. This handout is for informational purposes only. Talk to your doctor or health care team if you have any questions about your care. documented in this encounter* Patient Instructions* Josey Ibrahim PA-C - 05/29/2020 10:50 AM EST Swimmer's Ear: Care Instructions Your Care Instructions Swimmer's ear (otitis externa) is inflammation or infection of the ear canal. This is the passage that leads from the outer ear to the eardrum. Any water, sand, or other debris that gets into the earcanal and stays there can cause swimmer's ear. Putting cotton swabs or other items in the ear to clean it can also cause this problem. Swimmer's ear can be very painful. But you can treat the pain and infection with medicines. You should feel better in a few days. Follow-up care is a guzman part of your treatment and safety. Be sure to make and go to all appointments, and call your doctor if you are having problems. It's also a good idea to know your test resultsand keep a list of the medicines you take. How can you care for yourself at home? Cleaning and care Use antibiotic drops as your doctor directs. Do not insert ear drops (other than the antibiotic ear drops) or anything else into the ear unless your doctor has told you to. Avoid getting water in the ear until the problem clears up. Use cotton lightly coated with petroleum jelly as an earplug. Do not use plastic earplugs. Use a behavioral science chair set on low to carefully dry the ear after you shower. To ease ear pain, hold a warm washcloth against your ear. Take pain medicines exactly as directed. ? If the doctor gave you a prescription medicine for pain, take it as prescribed. ? If you are not taking a prescription pain medicine, ask your doctor if you can take an [id number]-[id number] medicine. Inserting ear drops Warm the drops to body temperature by rolling the container in your hands. Or you can place it in acup of warm water for a few minutes. Lie down, with your ear facing up. Place drops inside the ear. Follow your doctor's instructions (or the directions on the label) for how many drops to use. Gently wiggle the outer ear or pull the ear up and back to help the drops getinto the ear. It's important to keep the liquid in the ear canal for 3 to 5 minutes. When should you call for help? Call your doctor now or seek immediate medical care if: You have a new or higher fever. You have new or worse pain, swelling, warmth, or redness around or behind your ear. You have new or increasing pus or blood draining from your ear. Watch closely for changes in your health, and be sure to contact your doctor if: You are not getting better after 2 days (48 hours). Where can you learn more? Go to [email or web address]. Enter C706 in the search box to learn more about 'Swimmer's Ear: Care Instructions.' Interested in seeing a video go to [email or web address] to see all video content. Current as of: September 10, 2019 Content Version: 12.7 [place]. Care instructions adapted under license by your healthcare professional. If you have questions about a medical condition or this instruction, always ask your healthcare professional. [employer] disclaims any warranty or liability for your use of this information. documented in this encounter* Patient Instructions* Betina Pryor, PRE K SPECIAL EDUCATION TEACHER-FERN PICKER - 03/18/2019 10:45 AM EDT Pinkeye: Care Instructions Your Care Instructions Pinkeye is redness and swelling of the eye surface and the conjunctiva (the lining of the eyelid and the covering of the white part of the eye). Pinkeye is also called conjunctivitis. Pinkeye is often caused by infection with bacteria or a virus. Dry air, allergies, smoke, and chemicals are other common causes. Pinkeye often clears on its own in 7 to 10 days. Antibiotics only help if the pinkeye is caused by bacteria. Pinkeye caused by infection spreads easily. If an allergy or chemical is causing pinkeye, it will not go away unless you can avoid whatever is causing it. Follow-up care is a guzman part of your treatment and safety. Be sure to make and go to all appointments, and call your doctor if you are having problems. It's also a good idea to know your test resultsand keep a list of the medicines you take. How can you care for yourself at home? Wash your hands often. Always wash them before and after you treat pinkeye or touch your eyes or face. Use moist cotton or a clean, wet cloth to remove crust. Wipe from the inside corner of the eye to the outside. Use a clean part of the cloth for each wipe. Put cold or warm wet cloths on your eye a few times a day if the eye hurts. Do not wear contact lenses or eye makeup until the pinkeye is gone. Throw away any eye makeup you were using when you got pinkeye. Clean your contacts and storage case. If you wear disposable contacts, use a new pair when your eye has cleared and it is safe to wear contacts again. If the doctor gave you antibiotic ointment or eyedrops, use them as directed. Use the medicine for as long as instructed, even if your eye starts looking better soon. Keep the bottle tip clean, and do not let it touch the eye area. To put in eyedrops or ointment: ? Tilt your head back, and pull your lower eyelid down with one finger. ? Drop or squirt the medicine inside the lower lid. ? Close your eye for 30 to 60 seconds to let the drops or ointment move around. ? Do not touch the ointment or dropper tip to your eyelashes or any other surface. Do not share towels, pillows, or washcloths while you have pinkeye. When should you call for help? Call your doctor now or seek immediate medical care if: You have pain in your eye, not just irritation on the surface. You have a change in vision or loss of vision. You have an increase in discharge from the eye. Your eye has not started to improve or begins to get worse within 48 hours after you start using antibiotics. Pinkeye lasts longer than 7 days. Watch closely for changes in your health, and be sure to contact your doctor if you have any problems. Where can you learn more? Go to [email or web address]/[email or web address]. Enter Y392 in the search box to learn more about 'Pinkeye: Care Instructions.' Interested in seeing a video go to [email or web address]/[email or web address] to see all video content. Current as of: November 20, 2018 Content Version: 12.2 6630-7301 [employer]. Care instructions adapted under license by your healthcare professional. If you have questions about a medical condition or this instruction, always ask your healthcare professional. [employer] disclaims any warranty or liability for your use of this information. Chronic Hives: Care Instructions Your Care Instructions Chronic hives are long-lasting raised, red, and itchy patches of skin called wheals or welts. This condition is also called chronic urticaria. Hives usually have red borders and pale centers. They range in size from inch to 3 inches or more across. They may seem to move from place to place on the skin. Several hives may join to form a large area of raised, red skin. When hives and swelling last more than 6 weeks even with treatment, they are called chronic. A single spot of hives may last less than 36 hours, but the problem may come and go for weeks or months. In most people, the problem often lasts less than 1 year and almost always goes away within 5 years. Hives may occur with swelling under the skin (called angioedema). But you may have swelling withouthives. Swelling may hurt a bit, but it does not usually itch like hives. It can be dangerous if severe swelling affects your throat, but this is very rare. You cannot spread hives to other people. Follow-up care is a guzman part of your treatment and safety. Be sure to make and go to all appointments, and call your doctor if you are having problems. It's also a good idea to know your test resultsand keep a list of the medicines you take. How can you care for yourself at home? Avoid whatever you think may have caused your hives, such as a certain food or medicine. But you may not know the cause. Put a cool, wet towel on the area to relieve itching. Your doctor may suggest an apui-xbr-iehgksr antihistamine, such as cetirizine (Zyrtec), diphenhydramine (Benadryl), or loratadine (Claritin), to help control the hives and swelling. Read and follow all instructions on the label. These medicines can make you feel sleepy. Do not drive while using them. Your doctor may prescribe a shot of epinephrine to carry with you in case you have a severe reaction. Learn how to give yourself the shot, and keep it with you at all times. Make sure it has not . If your doctor prescribes another medicine, take it exactly as directed. When should you call for help? Give an epinephrine shot if: You think you are having a severe allergic reaction. After giving an epinephrine shot call , even if you feel better. Call if: You have symptoms of a severe allergic reaction. These may include: Sudden raised, red areas (hives) all over your body. Swelling of the throat, mouth, lips, or tongue. Trouble breathing. Passing out (losing consciousness). Or you may feel very lightheaded or suddenly feel weak, confused, or restless. You have been given an epinephrine shot, even if you feel better. Call your doctor now or seek immediate medical care if: Your hives get worse. Watch closely for changes in your health, and be sure to contact your doctor if: You do not get better as expected. Where can you learn more? Go to [email or web address]/[email or web address]. Enter R498 in the search box to learn more about 'Chronic Hives: Care Instructions.' Interested in seeing a video go to [email or web address]/videolibrary to see all video content. Current as of: September 01, 2018 Content Version: 12.2 [id number] [employer]. Care instructions adapted under license by your healthcare professional. If you have questions about a medical condition or this instruction, always ask your healthcare professional. [employer] disclaims any warranty or liability for your use of this information. documented in this encounter* Patient Instructions* Betina Pryor APRN-CNP - 02/01/2019 12:00 PM EDT Urinary Tract Infection (UTI) in Women Urinary tract infections or UTIs are caused by bacteria (germs) that grow in the urinary tract. These germs typically come from outside the body, and travel into the urethra, bladder, and sometimes the kidneys. Women are prone to UTI s because the urethra is short and close to the rectum. Causes of UTIs UTIs can have various causes, including: Injury to the urethra, the tube that comes from the bladder to the urinary opening Personal hygiene, such as how you wash or wipe after going to the bathroom Irritation caused by sexual intercourse Not being able to pass your urine caused by drugs, illness, or injury Wearing tight clothing that traps moisture, such as nylon underwear Having a weakened immune system that increases a chance for infections Kidney stones Signs of an infection Burning with urination (most common sign) Having to urinate often Having an intense urge to urinate, but not urinating much Lower abdominal pain Back pain Foul smelling urine Cloudy urine Blood in the urine Fever or chills (a sign infection may have reached your kidneys) Nausea or vomiting (a sign infection may have reached your kidneys) The only way to know for sure if you have a UTI is to contact your doctor who will review your symptoms and test your urine. Treatment for a UTI Most UTIs can be easily treated with antibiotics, which kill the bacteria. It is important to take the full course of antibiotics and not to stop as soon as you feel better. If you do not take all the medicine, your infection may not be cured. Drink at least 8 glasses of fluid every day. Extra fluid helps to rinse the bacteria out of the urinary tract. Water and fruit juices, especially cranberry juice, are helpful. Avoid coffee, tea, and coke with caffeine. Food and fluids that have caffeine can make your symptoms worse. If bacteria makes its way to the kidneys, then it can become a kidney infection. This can be serious and damage your kidneys. In more serious cases, you may need to be treated in the hospital. Preventing UTIs Wipe from front to back after using the toilet. Drink plenty of water. Shower instead taking a bath. Do not douche or use feminine hygiene products. Do not wear tight pants and nylon underwear that can trap moisture and make it easier for bacteria to grow. Wear cotton underwear instead. Keep your genital area clean, but do not scrub too hard with harsh soaps. Wash your genital area before and after sex. Urinate after sex to flush away bacteria that may have entered your urethra. Use condoms during sex. Urinate before you go to sleep. Call your doctor if Call your doctor right away if you have any of these signs, or if the signs get worse: Fever greater than 101 degrees Fahrenheit Nausea, vomiting, or chills Back pain Problems with your medicines 2004 - May 03, 2017, [facility]. This handout is for informational purposes only. Talk to your doctor or health care team if you have any questions about your care. documented in this encounter History of Present Illness * Betina Pryor APRN-CNP - 02/01/2019 12:00 PM EDT HPI Ping Knox female 1995 presents to the [facility] with Chief Complaint Patient presents with Urinary Pain Some burning, frequency, had for 2 or 3 days. patient presents with urinary burning and frequency for two to three days. Self treatment with OTC Urostat with some relief. Hx of similar symptoms dx with UTI in the past. History Allergies Allergen Reactions Ampicillin Sulfamethoxazole-Trimethoprim Erythromycin Rash Current Outpatient Medications Medication Sig nitrofurantoin, macrocrystal-monohydrate, 100 MG Cap Take 1 capsule by mouth 2 times daily for 5 days. Take w/ food/milk History reviewed. No pertinent family history. No past medical history on file. Past Surgical History: Procedure Laterality Date TONSILLECTOMY ADENOIDECTOMY Social History Socioeconomic History Marital status: Single Spouse name: Not on file Number of children: Not on file Years of education: Not on file Highest education level: Not on file Occupational History Not on file Social Needs Financial resource strain: Not on file Food insecurity: Worry: Not on file Inability: Not on file Transportation needs: Medical: Not on file Non-medical: Not on file Tobacco Use Smoking status: Current Every Day Smoker Packs/day: 0.50 Years: 5.00 Pack years: 2.50 Smokeless tobacco: Never Used Substance and Sexual Activity Alcohol use: Not Currently Drug use: Not Currently Sexual activity: Yes Partners: Male control/protection: Condom Lifestyle Physical activity: Days per week: Not on file Minutes per session: Not on file Stress: Not on file Relationships Social connections: Talks on phone: Not on file Gets together: Not on file Attends latter-day service: Not on file Active member of club or organization: Not on file Attends meetings of clubs or organizations: Not on file Relationship status: Not on file Intimate partner violence: Fear of current or ex partner: Not on file Emotionally abused: Not on file Physically abused: Not on file Forced sexual activity: Not on file Other Topics Concern Service Not Asked Blood Transfusions Not Asked Caffeine Concern Not Asked Occupational Exposure Not Asked Hobby Hazards Not Asked Sleep Concern Not Asked Stress Concern Not Asked Weight Concern Not Asked Special Diet Not Asked Back Care Not Asked Exercise Not Asked Bike Helmet Not Asked Seat Belt Not Asked Domestic Violence No Social History Narrative Not on file ROS Review of Systems Constitutional: Negative for chills and fever. HENT: Negative for congestion, ear pain, rhinorrhea and sore throat. Eyes: Negative for pain and discharge. Respiratory: Negative for cough and shortness of breath. Cardiovascular: Negative for chest pain and leg swelling. Gastrointestinal: Negative for abdominal pain, diarrhea, nausea and vomiting. Genitourinary: Positive for dysuria, frequency and urgency. Negative for flank pain and hematuria. Musculoskeletal: Negative for back pain. Skin: Negative for rash. Neurological: Negative for weakness and numbness. Hematological: Negative for adenopathy. Psychiatric/Behavioral: Negative for confusion. PHYSICAL EXAM Visit Vitals BP 135/85 (BP Location: Left arm, BP Position: Sitting) Pulse 93 Temp 98.9 F (37.2 C) (Temporal) Resp 16 Ht 1.753 m (5' 9 ) Wt 88.3 kg (194 lb 9.6 oz) LMP 01/17/2019 SpO2 98% ? No BMI 28.74 kg/m Physical Exam Constitutional: She is oriented to person, place, and time. She appears well- developed and well-nourished. She does not appear ill. No distress. HENT: Head: Normocephalic. Mouth/Throat: Oropharynx is clear and moist. Eyes: Pupils are equal, round, and reactive to light. Neck: Neck supple. No tracheal deviation present. Cardiovascular: Normal rate, regular rhythm and normal heart sounds. Pulmonary/Chest: Effort normal and breath sounds normal. No respiratory distress. Abdominal: Soft. Normal appearance and bowel sounds are normal. She exhibits no distension. There is no CVA tenderness. Musculoskeletal: Normal range of motion. Lymphadenopathy: She has no cervical adenopathy. Neurological: She is alert and oriented to person, place, and time. Skin: Skin is warm and dry. Capillary refill takes less than 2 seconds. She is not diaphoretic. No cyanosis or erythema. Psychiatric: She has a normal mood and affect. Her behavior is normal. Nursing note and vitals reviewed. RESULTS No results found for this or any previous visit (from the past 1 hour(s)). ASSESSMENT/PLAN 1. Acute cystitis with hematuria 2. Dysuria Orders Placed This Encounter URINE CULTURE POCT URINALYSIS DIPSTICK NON AUTOMATED nitrofurantoin, macrocrystal-monohydrate, 100 MG Cap Urine culture sent. Will treat accordingly. Start ATB today. Increase fluids. Follow up with PCP. If symptoms worsen patient was advised to follow up in our office, primary care provider or the Emergency Dept. Benefits, Risks, Contraindications, and Complications of recommended treatments were explained. The patient understands and agrees to proceed with plan. LOGAN Mcguire 02/01/2019 documented in this encounter* Josey Ibrahim PA-C - 05/29/2020 10:50 AM EST HPI Ping Padilla female 1995 presents to the [facility] with Chief Complaint Patient presents with Ear Pain Pt c/o right ear pain and swollen lymph node on the right side x a few weeks Right ear pain for a week. She states she has to wear ear plugs at work and it makes it worse. She states she gets water in her ear at night in the shower and it makes the pain worse. She noted yesterday a lymph node staring to become painful and swollen on the right side of the neck. She googled her symptoms and became concerned it could be cancer. No ST. No problems swallowing. No nausea or vomiting. No weakness. No redness or rash. No left ear pain. History Allergies Allergen Reactions Ampicillin Sulfamethoxazole-Trimethoprim Erythromycin Rash Current Outpatient Medications Medication Sig cetirizine 10 MG Tab tablet Take 1 tablet by mouth daily. [id number] Solution otic solution 4 drops by Otic route 4 times daily. family history is not on file. No past medical history on file. Past Surgical History: Procedure Laterality Date TONSILLECTOMY ADENOIDECTOMY Social History Socioeconomic History Marital status: Single Spouse name: Not on file Number of children: Not on file Years of education: Not on file Highest education level: Not on file Occupational History Not on file Social Needs Financial resource strain: Not on file Food insecurity Worry: Not on file Inability: Not on file Transportation needs Medical: Not on file Non-medical: Not on file Tobacco Use Smoking status: Current Every Day Smoker Packs/day: 0.50 Years: 5.00 Pack years: 2.50 Smokeless tobacco: Never Used Substance and Sexual Activity Alcohol use: Not Currently Drug use: Not Currently Sexual activity: Yes Partners: Male control/protection: Condom Lifestyle Physical activity Days per week: Not on file Minutes per session: Not on file Stress: Not on file Relationships Social connections Talks on phone: Not on file Gets together: Not on file Attends latter-day service: Not on file Active member of club or organization: Not on file Attends meetings of clubs or organizations: Not on file Relationship status: Not on file Intimate partner violence Fear of current or ex partner: Not on file Emotionally abused: Not on file Physically abused: Not on file Forced sexual activity: Not on file Other Topics Concern Service Not Asked Blood Transfusions Not Asked Caffeine Concern Not Asked Occupational Exposure Not Asked Hobby Hazards Not Asked Sleep Concern Not Asked Stress Concern Not Asked Weight Concern Not Asked Special Diet Not Asked Back Care Not Asked Exercise Not Asked Bike Helmet Not Asked Seat Belt Not Asked Domestic Violence No Social History Narrative Not on file ROS Review of Systems Constitutional: Negative for chills, fatigue and fever. HENT: Positive for ear discharge and ear pain. Negative for rhinorrhea, sinus pressure, sore throat, tinnitus, trouble swallowing and voice change. Respiratory: Negative for shortness of breath. Gastrointestinal: Negative for abdominal pain, nausea and vomiting. PHYSICAL EXAM Visit Vitals BP 118/85 (BP Location: Left arm, BP Position: Sitting) Pulse 88 Temp 99.4 F (37.4 C) (Temporal) Resp 16 Ht 1.753 m (5' 9 ) Wt 91.8 kg (202 lb 6.4 oz) SpO2 99% BMI 29.89 kg/m Physical Exam Vitals signs and nursing note reviewed. Constitutional: Appearance: Normal appearance. HENT: Right Ear: Tympanic membrane normal. Ears: Comments: Left ear canal is red. No draining or discharge. The TM is normal. She is tender to the touch. The left ear canal and TM is normal. Eyes: Extraocular Movements: Extraocular movements intact. Pupils: Pupils are equal, round, and reactive to light. Neck: Musculoskeletal: Full passive range of motion without pain, normal range of motion and neck supple.Muscular tenderness present. Trachea: Trachea normal. Cardiovascular: Rate and Rhythm: Normal rate. Pulmonary: Effort: Pulmonary effort is normal. Lymphadenopathy: Cervical: Cervical adenopathy present. Right cervical: Superficial cervical adenopathy present. Neurological: Mental Status: She is alert. No results found for this or any previous visit (from the past 1 hour(s)). ASSESSMENT/PLAN Ping was seen today for ear pain. Diagnoses and all orders for this visit: Acute otitis externa of right ear, unspecified type Other orders - [id number] [id number] Solution otic solution; 4 drops by Otic route 4 times daily. If symptoms worsen patient was advised to follow up in our office or the Emergency Dept. Benefits, Risks, Contraindications, and Complications of recommended treatments were explained. The patient understands and agrees to proceed with plan. Josey Ibrahim PA-C 05/29/2020 documented in this encounter* Betina Pryor, LISA-FERN PICKER - 03/18/2019 10:45 AM EDT HPI Ping Knox female 1995 presents to the [facility] with Chief Complaint Patient presents with [place] [facility] Pt presents with c/o right eye, itching, matted when waking and wet puss in the corner since thismorning Rash Pt reports she has been getting random rashes and welts for past month and a half spots sometimesitch but not always, states they are mainly on her arms but have been on her legs and abdomen. Patient presents with right eye redness and matting since this morning. Possible exposure to pink eye. No vision changes or pain. Also with intermittent hives to various body surfaces for about one month. No known cause. Moved [facility] house to [facility] No self treatments. Hives are self limiting. No s/s infection or illness. History Allergies Allergen Reactions Ampicillin Sulfamethoxazole-Trimethoprim Erythromycin Rash Current Outpatient Medications Medication Sig cetirizine 10 MG Tab tablet Take 1 tablet by mouth daily. gentamicin 0.3 % Solution Place 2 drops in both eyes every 4 hours while awake for 5 days. History reviewed. No pertinent family history. No past medical history on file. Past Surgical History: Procedure Laterality Date TONSILLECTOMY ADENOIDECTOMY Social History Socioeconomic History Marital status: Single Spouse name: Not on file Number of children: Not on file Years of education: Not on file Highest education level: Not on file Occupational History Not on file Social Needs Financial resource strain: Not on file Food insecurity: Worry: Not on file Inability: Not on file Transportation needs: Medical: Not on file Non-medical: Not on file Tobacco Use Smoking status: Current Every Day Smoker Packs/day: 0.50 Years: 5.00 Pack years: 2.50 Smokeless tobacco: Never Used Substance and Sexual Activity Alcohol use: Not Currently Drug use: Not Currently Sexual activity: Yes Partners: Male control/protection: Condom Lifestyle Physical activity: Days per week: Not on file Minutes per session: Not on file Stress: Not on file Relationships Social connections: Talks on phone: Not on file Gets together: Not on file Attends latter-day service: Not on file Active member of club or organization: Not on file Attends meetings of clubs or organizations: Not on file Relationship status: Not on file Intimate partner violence: Fear of current or ex partner: Not on file Emotionally abused: Not on file Physically abused: Not on file Forced sexual activity: Not on file Other Topics Concern Service Not Asked Blood Transfusions Not Asked Caffeine Concern Not Asked Occupational Exposure Not Asked Hobby Hazards Not Asked Sleep Concern Not Asked Stress Concern Not Asked Weight Concern Not Asked Special Diet Not Asked Back Care Not Asked Exercise Not Asked Bike Helmet Not Asked Seat Belt Not Asked Domestic Violence No Social History Narrative Not on file ROS Review of Systems Constitutional: Negative for chills and fever. HENT: Negative for congestion, ear pain, rhinorrhea and sore throat. Eyes: Positive for discharge, redness and itching. Negative for photophobia, pain and visual disturbance. Respiratory: Negative for cough and shortness of breath. Cardiovascular: Negative for chest pain and leg swelling. Gastrointestinal: Negative for abdominal pain, diarrhea, nausea and vomiting. Genitourinary: Negative for dysuria. Musculoskeletal: Negative for back pain. Skin: Positive for rash (hives, left wrist). Neurological: Negative for weakness and numbness. Hematological: Negative for adenopathy. Psychiatric/Behavioral: Negative for confusion. PHYSICAL EXAM Visit Vitals BP 129/87 (BP Location: Right arm, BP Position: Sitting) Pulse 101 Temp 98.4 F (36.9 C) (Temporal) Resp 18 Ht 1.778 m (5' 10 ) Wt 87.8 kg (193 lb 9.6 oz) SpO2 97% BMI 27.78 kg/m Physical Exam Constitutional: She is oriented to person, place, and time. She appears well- developed and well-nourished. She does not appear ill. No distress. HENT: Head: Normocephalic. Mouth/Throat: Oropharynx is clear and moist. Eyes: Pupils are equal, round, and reactive to light. EOM are normal. Right eye exhibits discharge (tearing). Right conjunctiva is injected. Neck: Neck supple. No tracheal deviation present. Cardiovascular: Normal rate, regular rhythm and normal heart sounds. Pulmonary/Chest: Effort normal and breath sounds normal. No respiratory distress. Abdominal: Soft. Normal appearance. She exhibits no distension. Musculoskeletal: Normal range of motion. Lymphadenopathy: She has no cervical adenopathy. Neurological: She is alert and oriented to person, place, and time. Skin: Skin is warm and dry. Capillary refill takes less than 2 seconds. She is not diaphoretic. No cyanosis or erythema. Redness noted where patients name band is touching her wrist. Psychiatric: She has a normal mood and affect. Her behavior is normal. Nursing note and vitals reviewed. RESULTS No results found for this or any previous visit (from the past 1 hour(s)). ASSESSMENT/PLAN 1. Bacterial conjunctivitis of right eye 2. Hives Orders Placed This Encounter AMB REFERRAL TO FAMILY PRACTICE ALLERGY/IMMUNOLOGY DISCONTD: gentamicin 0.3 % Ointment cetirizine 10 MG Tab tablet gentamicin 0.3 % Solution ATB drops given for pink eye. Work note given. PCP ref. Unknown cause of hives. Suggested taking daily antihistamine. Follow up with Claim Representative ref. If symptoms worsen patient was advised to follow up in our office, primary care provider or the Emergency Dept. Benefits, Risks, Contraindications, and Complications of recommended treatments were explained. The patient understands and agrees to proceed with plan. LOGAN Mcguire 03/18/2019 documented in this encounter* Betina Pryor APRN-CNP - 02/01/2019 12:00 PM EDT IRMA Knox female 1995 presents to the [facility] with Chief Complaint Patient presents with Urinary Pain Some burning, frequency, had for 2 or 3 days. patient presents with urinary burning and frequency for two to three days. Self treatment with OTC Urostat with some relief. Hx of similar symptoms dx with UTI in the past. History Allergies Allergen Reactions Ampicillin Sulfamethoxazole-Trimethoprim Erythromycin Rash Current Outpatient Medications Medication Sig nitrofurantoin, macrocrystal-monohydrate, 100 MG Cap Take 1 capsule by mouth 2 times daily for 5 days. Take w/ food/milk History reviewed. No pertinent family history. No past medical history on file. Past Surgical History: Procedure Laterality Date TONSILLECTOMY ADENOIDECTOMY Social History Socioeconomic History Marital status: Single Spouse name: Not on file Number of children: Not on file Years of education: Not on file Highest education level: Not on file Occupational History Not on file Social Needs Financial resource strain: Not on file Food insecurity: Worry: Not on file Inability: Not on file Transportation needs: Medical: Not on file Non-medical: Not on file Tobacco Use Smoking status: Current Every Day Smoker Packs/day: 0.50 Years: 5.00 Pack years: 2.50 Smokeless tobacco: Never Used Substance and Sexual Activity Alcohol use: Not Currently Drug use: Not Currently Sexual activity: Yes Partners: Male control/protection: Condom Lifestyle Physical activity: Days per week: Not on file Minutes per session: Not on file Stress: Not on file Relationships Social connections: Talks on phone: Not on file Gets together: Not on file Attends latter-day service: Not on file Active member of club or organization: Not on file Attends meetings of clubs or organizations: Not on file Relationship status: Not on file Intimate partner violence: Fear of current or ex partner: Not on file Emotionally abused: Not on file Physically abused: Not on file Forced sexual activity: Not on file Other Topics Concern Service Not Asked Blood Transfusions Not Asked Caffeine Concern Not Asked Occupational Exposure Not Asked Hobby Hazards Not Asked Sleep Concern Not Asked Stress Concern Not Asked Weight Concern Not Asked Special Diet Not Asked Back Care Not Asked Exercise Not Asked Bike Helmet Not Asked Seat Belt Not Asked Domestic Violence No Social History Narrative Not on file ROS Review of Systems Constitutional: Negative for chills and fever. HENT: Negative for congestion, ear pain, rhinorrhea and sore throat. Eyes: Negative for pain and discharge. Respiratory: Negative for cough and shortness of breath. Cardiovascular: Negative for chest pain and leg swelling. Gastrointestinal: Negative for abdominal pain, diarrhea, nausea and vomiting. Genitourinary: Positive for dysuria, frequency and urgency. Negative for flank pain and hematuria. Musculoskeletal: Negative for back pain. Skin: Negative for rash. Neurological: Negative for weakness and numbness. Hematological: Negative for adenopathy. Psychiatric/Behavioral: Negative for confusion. PHYSICAL EXAM Visit Vitals BP 135/85 (BP Location: Left arm, BP Position: Sitting) Pulse 93 Temp 98.9 F (37.2 C) (Temporal) Resp 16 Ht 1.753 m (5' 9 ) Wt 88.3 kg (194 lb 9.6 oz) LMP 01/17/2019 SpO2 98% ? No BMI 28.74 kg/m Physical Exam Constitutional: She is oriented to person, place, and time. She appears well- developed and well-nourished. She does not appear ill. No distress. HENT: Head: Normocephalic. Mouth/Throat: Oropharynx is clear and moist. Eyes: Pupils are equal, round, and reactive to light. Neck: Neck supple. No tracheal deviation present. Cardiovascular: Normal rate, regular rhythm and normal heart sounds. Pulmonary/Chest: Effort normal and breath sounds normal. No respiratory distress. Abdominal: Soft. Normal appearance and bowel sounds are normal. She exhibits no distension. Musculoskeletal: Normal range of motion. Lymphadenopathy: She has no cervical adenopathy. Neurological: She is alert and oriented to person, place, and time. Skin: Skin is warm and dry. Capillary refill takes less than 2 seconds. She is not diaphoretic. No cyanosis or erythema. Psychiatric: She has a normal mood and affect. Her behavior is normal. Nursing note and vitals reviewed. RESULTS No results found for this or any previous visit (from the past 1 hour(s)). ASSESSMENT/PLAN 1. Acute cystitis with hematuria 2. Dysuria Orders Placed This Encounter URINE CULTURE POCT URINALYSIS DIPSTICK NON AUTOMATED nitrofurantoin, macrocrystal-monohydrate, 100 MG Cap Urine culture sent. Will treat accordingly. Start ATB today. Increase fluids. Follow up with PCP. If symptoms worsen patient was advised to follow up in our office, primary care provider or the Emergency Dept. Benefits, Risks, Contraindications, and Complications of recommended treatments were explained. The patient understands and agrees to proceed with plan. LOGAN Mcguire 02/01/2019 documented in this encounter Assessments Diagnosis Acute cystitis with hematuria- Primary Acute cystitis Dysuria Diagnosis Dizziness Dizziness and giddiness Heat exhaustion, initial encounter Diagnosis Acute otitis externa of right ear, unspecified type- Primary Diagnosis Bacterial conjunctivitis of right eye- Primary Hives Urticaria, unspecified Discharge Instructions * Instructions* Raffi Doss MD - 12/29/2019 Return to the ED for worsening condition, not tolerating fluids, difficulty breathing, or any otherworrisome symptoms. Drink plenty of fluids. Spend the next 2 days in the air conditioning. * Attachments The following attachments cannot be sent through Care Everywhere. * Heat Exhaustion (Ugandan) * Lightheadedness or Faintness (Ugandan) documented in this encounter Reason for Referral Status Reason Specialty Diagnoses / Procedures Referred By Contact Referred To Contact New Request Allergy & Immunology Diagnoses Hives Betina Pryor APRN-CNP [address] [place] [address] Status Reason Specialty Diagnoses / Procedures Referred By Contact Referred To Contact New Request Family Medicine Diagnoses Bacterial conjunctivitis of right eye Betina Pryor APRN-CNP [address] [place] [address] Additional Source Comments INFORMATION SOURCE (unrecogn ized section and content) DATE CREATED AUTHOR 11/19/2017 [facility] DATE CREATED AUTHOR AUTHOR'S ORGANIZ ATION 01/19/2019 [facility] DATE CREATED AUTHOR AUTHOR'S ORGANIZ ATION 02/03/2019 [facility] DATE CREATED AUTHOR AUTHOR'S ORGANIZ ATION 06/28/[address] [facility] DATE CREATED AUTHOR AUTHOR'S ORGANIZ ATION 12/30/2019 [facility] DATE CREATED AUTHOR AUTHOR'S ORGANIZ ATION 07/02/2021 [facility] DATE CREATED AUTHOR AUTHOR'S ORGANIZ ATION 07/05/2022 [facility] DATE CREATED AUTHOR AUTHOR'S ORGANIZ ATION 09/01/2022 [facility] DATE CREATED AUTHOR AUTHOR'S ORGANIZ ATION 10/11/2022 [facility] DATE CREATED AUTHOR AUTHOR'S ORGANIZ ATION 06/15/2023 [facility] Reason for Visit (unrecogniz ed section and content) Reason Comments Urinary Pain Some burning, freque ncy, had for 2 or 3 days. Reason Comments Dizziness Reason Comments Ear Pain Pt c/o right ear teresa n and swollen lymph node on the right side x a few weeks Reason Comments [facility] Pt presents with c/o right eye, itching, matted when waking and wet puss in the corner since this morning Rash Pt reports she has b een getting random rashes and welts for past month and a half spots sometimes itch but not always, states they are mainly on her arms but have been on her legs and abdomen. Reason Comments COVID-19 no taste or smell, s tuffy head, started 5 days ago Reason Comments Knee Pain Pt C/O left knee swe lling x 1 week. Reason Comments Cough sinus body aches 31 weeks exposed positive Reason Comments Sore Throat Sore throat, has whi te spots on the back of throat. Noticed it today. Raffi Doss MD - 12/29/2019 7:28 PM EDTDorys Castillo RN - 12/29/2019 7:02 PM EDT ED Notes (unrecognized secti on and content) Associated Order(s): EKG 12-lead ED PROVIDER NOTE [facility] NAME: Ping Knox AGE: 24 y.o. : 1995 VISIT DATE: 12/29/2019 CSN: [id number] PCP: Javier Leiva MD Chief Complaint Patient presents with Dizziness 24-year-old female presenting to the emergency room with a complaint of dizziness. Patient notes that the day before yesterday she had some throat irritation and mild stuffy nose postnasal drip and then then it went away. Yesterday she started to feel lightheaded anytime that she would stand up and this would resolve immediately upon sitting down. She would never feel it upon sitting or laying. Otherwise she is felt generally fatigued. 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 She is been drinking lots of water to try and balance that. She is feeling much better when she went to work today but as soon as she got there and started working in the heat she started to feel worse again the dizziness returned so she came the emergency department. The only pain the patient ever had was some cramping that felt like gas in her bilateral lower quadrants earlier today and then she had a large bowel movement and it resolved entirely and feels better from that. She had no point recently has had any kind of fever, shaking chills, vomiting, diarrhea, difficulty breathing, prolonged immobilization, leg pain or edema, chest discomfort. She has no urinary symptoms. History reviewed. No pertinent past medical history. Past Surgical History: Procedure Laterality Date TONSILLECTOMY Family History Problem Relation Age of Onset No Known Problems Mother No Known Problems Father Social History Socioeconomic History Marital status: Single Spouse name: Not on file Number of children: Not on file Years of education: Not on file Highest education level: Not on file Occupational History Not on file Social Needs Financial resource strain: Not on file Food insecurity Worry: Not on file Inability: Not on file Transportation needs Medical: Not on file Non-medical: Not on file Tobacco Use Smoking status: Current Every Day Smoker Packs/day: 0.50 Types: Cigarettes Smokeless tobacco: Never Used Substance and Sexual Activity Alcohol use: Not Currently Drug use: No Sexual activity: Yes Partners: Male control/protection: Condom Lifestyle Physical activity Days per week: Not on file Minutes per session: Not on file Stress: Not on file Relationships Social connections Talks on phone: Not on file Gets together: Not on file Attends latter-day service: Not on file Active member of club or organization: Not on file Attends meetings of clubs or organizations: Not on file Relationship status: Not on file Other Topics Concern Not on file Social History Narrative Not on file Previous Medications Medication Sig [DISCONTINUED] norethindrone-ethinyl estradiol-iron (LOESTRIN FE 1.5/30, 28- DAY,) 1.5 mg-30 mcg (21)/75 mg (7) tablet Take 1 (one) tablet by mouth daily . (Patient not taking: Reported on 03/19/2019 .) Allergies Allergen Reactions Ampicillin Bactrim [Sulfamethoxazole-Trimethoprim] Review of Systems Respiratory: Negative for cough, choking, shortness of breath, wheezing and stridor. Cardiovascular: Negative for chest pain, palpitations and leg swelling. Gastrointestinal: Negative for abdominal distention, abdominal pain, blood in stool, diarrhea, nausea and vomiting. Endocrine: Negative for polydipsia and polyuria. Genitourinary: Negative for difficulty urinating, dysuria, flank pain, hematuria and urgency. Musculoskeletal: Negative for joint swelling and neck stiffness. Skin: Negative for color change and wound. Neurological: Negative for tremors and seizures. Patient Vitals for the past 24 hrs: BP Temp Temp src Pulse Resp SpO2 Height Weight 12/29/19 1903 117/82 97.9 F (36.6 C) Temporal 79 16 97 % 5' 9 88.5 kg (195 lb) Physical Exam Vitals signs and nursing note reviewed. Constitutional: General: She is not in acute distress. Appearance: Normal appearance. She is not ill-appearing. Comments: Well appearing and comfortable. Able to speak easily and comfortably HENT: Head: Normocephalic and atraumatic. Mouth/Throat: Mouth: Mucous membranes are moist. Pharynx: Oropharynx is clear. Eyes: Extraocular Movements: Extraocular movements intact. Neck: Musculoskeletal: Normal range of motion and neck supple. No neck rigidity. Cardiovascular: Rate and Rhythm: Normal rate and regular rhythm. Pulses: Normal pulses. Heart sounds: Normal heart sounds. Pulmonary: Effort: Pulmonary effort is normal. Breath sounds: Normal breath sounds. Abdominal: General: There is no distension. Palpations: Abdomen is soft. Tenderness: There is no abdominal tenderness. There is no guarding or rebound. Musculoskeletal: General: No deformity (obvious). Skin: General: Skin is warm and dry. Neurological: Mental Status: She is alert and oriented to person, place, and time. Mental status is at baseline. Psychiatric: Mood and Affect: Mood normal. Behavior: Behavior normal. Laboratory & Radiographic Imaging (if done): No results found for this visit on 12/29/19. No orders to display EKG 12-lead Date/Time: 12/29/2019 7:57 PM Performed by: Raffi Doss MD Authorized by: Raffi Doss MD BPM: 65 Comments: Normal sinus rhythm at a rate of 65, normal axis, no signs of acute ischemia or infarction. No signs of interval pathology, WPW, HOCM, Brugada MDM Number of Diagnoses or Management Options Diagnosis management comments: Urine test is negative and EKG is unremarkable. Seems very unlikely that there is an acute cardiac, embolic, bacterial, surgical etiology. 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 Seems also very unlikely that there is anything central neurologic going on. No other lab work or imaging is indicated. Patient is comfortable with, and understands, the plan for discharge, return signs, outpatient follow up closely, symptomatic care, the differential considerations along with likelihoods of those considerations, and the findings of the visit today. The patient has been informed that they may have pre-hypertension or hypertension based on a blood pressure reading in the Emergency Department. I recommend that the patient call the primary care provider listed on their discharge instructions or a physician of their choice as soon as possible to arrange follow-up in the next 4 weeks for further evaluation of possible pre-hypertension or hypertension. . Clinical Impression: No diagnosis found. ED Disposition None Follow-up Information Follow-up information has not been specified. Contact information for after-discharge care Follow-up information has not been specified. Discontinued Medications Disp Refills Start End norethindrone-ethinyl estradiol-iron (LOESTRIN FE 1.5/30, 28-DAY,) 1.5 mg-30 mcg (21)/75 mg (7) tablet 30 tablet 11 01/07/2019 12/29/2019 Sig: Take 1 (one) tablet by mouth daily . Route: Oral Reason for Discontinue: Error Raffi Doss MD 12/29/192001 STATES I JUST LEFT WORK AND I JUST DON'T FEEL GOOD, STARTED FEELING DIZZY COUPLE HOURS AGO. documented in this encounter FOR RECORDS PERTAINING TO PATIENTS WHO ARE OR HAVE BEEN ENROLLED IN A CHEMICAL DEPENDENCY/SUBSTANCEABUSE PROGRAM, SOME INFORMATION MAY BE OMITTED. This clinical summary was aggregated from multiple sources. Caution should be exercised in using it in the provision of clinical care. This summary normalizes information from multiple sources, and as a consequence, information in this document may materially change the coding, format and clinical context of patient data. In addition, data may be omitted in some cases. CLINICAL DECISIONS SHOULD BE BASED ON THE PRIMARY CLINICAL RECORDS. [facility] [facility]. provides no warranty or guarantee of the accuracy or completeness of information in this document.
[2024-01-03 13:01] LABS: HCG Quantitative <1 mIU/mL
== END 2024-01-03 11:09 | disposition home or self-care (01) ==
LOC: LAB 11:10
PROVIDERS: Visit Provider Obstetrics & Gynecology
DX: N92.6 Irregular menstruation, unspecified (principal)
CPT/HCPCS: 36415; 84702

== ENCOUNTER 2024-01-03 20:55 | Outpatient (REF) | payer BC, SELFPAY ==
--- OUTSIDE RECORDS SUMMARY | 2024-01-03 21:00 | XMS_ITS | CCD ---
Author Organization [facility] Care Team Providers Care Health Education Director Name Role Phone Zarczynski, Edward P Unavailable Unavailable Zarczynski, Edward P Unavailable Unavailable Chambers, Umm Unavailable Unavailable Chambers, Umm Unavailable Unavailable Chambers, Umm Unavailable Unavailable Zarczynski, Edward P Unavailable Unavailable [facility] Primary Care Unavailabl e Unavailable Primary Care Provider Unavailabl e JACQUI IVAN Admitting Unavailable [facility] Primary Care Unavailabl e [facility] Primary Care Provider [facility] Primary Care Unavailabl e Unavailable Primary Care Provider Unavailabl e Unavailable Primary Care Provider Unavailabl e GIOVANA JACKSON Attending Unavailable BRYON UG Attending Unavailable Javier Canchola Attending Unavailable Javier Canhcola Admitting Unavailable Unavailable Primary Care Provider Unavailabl [...] source) Erythromycin Drug Allergy 07-24-19 13 Rash [facility] Penicillins (antibiotic) (1 source) Ampicillin Drug Allergy 06-06-19 18 [facility] Sulfamethoxazole / Trimethoprim (1 source) Sulfamethoxazole / Trimethoprim Drug Allergy 06-06-19 18 [facility] (13 sources) Ampicillin; Translations: [Unknown] Drug Allergy 06-06-19 18 [facility] Repository (7 sources) Erythromycin Drug Allergy 07-24-19 13 [facility] (8 sources) Sulfamethoxazole / Trimethoprim Drug Allergy 06-06-19 18 [facility] (1 source) Penicillin G Drug Allergy 05-24-20 21 Other (See Comments) [facility] Phone: (1 source) Penicillin; Translations: [penicillin] Drug Allergy [facility] Repository Medications Current Medications Medication Drug [...] 20 mg by mouth daily 0 Active Hveaejvh-Man-Bh-FA (PRE- PO) (1 source) Juirtrzn-Qqb-Vs-FA (PRE-HECTOR PO) Take by mouth 0 Active [...] / neomycin 3.5 mg/ml / polymyxin b 47555 unt/ml otic solution (4 sources) Aminoglycoside Antibacterial, Polymyxin-class Antibacterial, Corticosteroid Start: 05-29-2020 End: 08-30-2022 neomycin-polymyxi n-hydrocortisone 3.5-62094-1 Solution otic solution 4 drops by Otic [...] 10-11-2022 HBsAg Screen Negative Normal Negative [facility] Comment on above: Performed By: #### H BSANS #### [facility] [address] [place] [address] Dr. Kaleb Decker HEPATITIS C VIRUS AB W/ REFL EX QUANTon 10-11-2022 HCV AB Non-Reactive Normal Non Reactive [facility] Comment on above: Performed By: #### H CVPCRR #### [facility] [address] [place] [address] Dr. Kaleb Decker HIV 1 AND 2 WITH REFLEXon HIV Screen 4th Generation wRfx Non-Reactive Normal Non Reactive [facility] Comment on above: Result Comment: HIV Negative HIV-1/HIV-2 antibodies and HIV-1 p24 antigen were NOT detected. There is no laboratory evidence of HIV infection. Performed By: #### H IV12 #### [facility] [address] [place] [address] Dr. Kaleb Decker RPR QUANTon 10-11-2022 Rapid Plasma Reagin, Quant Non-Reactive Normal NonRea<1:1 [facility] Comment on above: Result Comment: Plea se Note: This test does not meet current guidelines for screening and diagnosis of syphilis. This test is intended for following treatment response in patients being treated for syphilis infection. To screen for syphilis infection, a reflex cascade that includes both RPR and a treponema-specific assay should be utilized, such as Treponema pallidum (Syphilis) Screening [place] (516510) or Rapid Plasma Reagin (RPR) Test With Reflex to Quantitative RPR and Confirmatory Treponema pallidum Antibodies (338072). Performed By: #### H BSANS #### [facility] [address] [place] [address] Dr. Kaleb Decker RUBELLA AB IGGon 10-11-2022 Rubella Antibodies, IgG <0.90 Critically low Immune >0.99 [facility] Comment on above: Result Comment: Non- immune <0.90 Equivocal 0.90 - 0.99 Immune >0.99 Performed By: #### R UBIGG #### [facility] [address] [place] [address] Dr. Kaleb Decker BOX TEST SENT OUTon 10-11-19 23 SENT TO REF LAB 10/10/22 Normal [facility] Comment on above: Performed By: #### B OX #### [facility] [address] [address] [address] Kaleb Decker CBC AUTO DIFFon 10-10-2022 BASO # 0.0 103/ul Normal 0.0-0.1 [facility] Comment on above: Performed By: #### C BC #### [facility] [address] [place] [address] Dr. Kaleb Decker Basophils/100 WBC (Bld) 0.6 % Normal 0.2-2.0 [facility] Comment on above: Performed By: #### C BC #### [facility] [address] [place] [address] Dr. Kaleb Decker EO # 0.2 103/ul Normal 0.0-0.7 [facility] Comment on above: Performed By: #### C BC #### [facility] [address] [place] [address] Dr. Kaleb Decker Eosinophils/100 WBC (Bld) 2.4 % Normal 0.9-7.0 [facility] Comment on above: Performed By: #### C BC #### [facility] [address] [place] [address] Dr. Kaleb Decker Erythrocyte distribution width (RBC) [Ratio] 13.8 % Normal 11.0-15.0 [facility] Comment on above: Performed By: #### C BC #### [facility] [address] [place] [address] Dr. Kaleb Decker Hematocrit (Bld) [Volume fraction] 41.5 % Normal 36.0-48.0 [facility] Comment on above: Performed By: #### C BC #### [facility] [address] [place] [address] Dr. Kaleb Decker Hemoglobin (Bld) [Mass/Vol] 13.6 g/dL Normal 12.0-16.0 [facility] Comment on above: Performed By: #### C BC #### [facility] [address] [address] [address] Kaleb Decker IG # 0.04 10e3/ul Critically high 0.00-0.03 [facility] Comment on above: Performed By: #### C BC #### [facility] [address] [place] [address] Dr. Kaleb Decker IG % 0.6 % Critically high 0.0-0.5 [facility] Comment on above: Performed By: #### C BC #### [facility] [address] [place] [address] Dr. Kaleb Decker LYMPH # 1.8 103/ul Normal 1.2-3.8 [facility] Comment on above: Performed By: #### C BC #### [facility] [address] [place] [address] Dr. Kaleb Decker Lymphocytes/100 WBC (Bld) 26.6 % Normal 20.5-60.0 [facility] Comment on above: Performed By: #### C BC #### [facility] [address] [place] [address] Dr. Kaleb Decker MANUAL DIFF REQ NO Normal [facility] Comment on above: Performed By: #### C BC #### [facility] [address] [place] [address] Dr. Kaleb Decker MCH (RBC) [Entitic mass] 26.1 pg Critically low 26.7-34.0 [facility] Comment on above: Performed By: #### C BC #### [facility] [address] [place] [address] Dr. Kaleb Decker MCHC (RBC) [Mass/Vol] 32.8 g/dL Normal 29.9-35.2 [facility] Comment on above: Performed By: #### C BC #### [facility] [address] [place] [address] Dr. Kaleb Decker MCV (RBC) [Entitic vol] 79.7 fL Critically low 81.0-99.0 [facility] Comment on above: Performed By: #### C BC #### [facility] [address] [place] [address] Dr. Kaleb Decker MONO # 0.3 103/ul Normal 0.3-0.8 [facility] Comment on above: Performed By: #### C BC #### [facility] [address] [place] [address] Dr. Kaleb Decker Monocytes/100 WBC (Bld) 4.6 % Normal 1.7-12.0 [facility] Comment on above: Performed By: #### C BC #### [facility] [address] [place] [address] Dr. Kaleb Decker NEUT # 4.4 103/ul Normal 1.4-6.5 [facility] Comment on above: Performed By: #### C BC #### [facility] [address] [place] [address] Dr. Kaleb Decker Neutrophils/100 WBC (Bld) 65.2 % Normal 43.0-75.0 [facility] Comment on above: Performed By: #### C BC #### [facility] [address] [place] [address] Dr. Kaleb Decker Platelet mean volume (Bld) [Entitic vol] 9.8 fL Normal 9.5-13.5 [facility] Comment on above: Performed By: #### C BC #### [facility] [address] [place] [address] Dr. Kaleb Decker PLT 312 103/ul Normal 150-450 [facility] Comment on above: Performed By: #### C BC #### [facility] [address] [place] [address] Dr. Kaleb Decker RBC 5.21 106/ul Normal 4.20-5.40 [facility] Comment on above: Performed By: #### C BC #### [facility] [address] [place] [address] Dr. Kaleb Decker WBC 6.8 103/ul Normal 4.0-11.0 [facility] Comment on above: Performed By: #### C BC #### [facility] [address] [place] [address] Dr. Kaleb Decker CULTURE URINEon 10-10-2022 CULTURE URINE Culture Observations : LIGHT GROWTH OF MIXED GENITAL RACHEL. NO POTENTIAL PATHOGENS SEEN. Normal [facility] Comment on above: Performed By: #### H BSANS #### [facility] [address] [place] [address] Dr. Kaleb Decker GLYCOHEMOGLOBIN A1Con 2022 ADA RECOMMENDATION SEE BELOW Normal The [facility] Comment on above: Result Comment: ADA RECOMMENDED LIMIT 4.0 - 6.0 ADA THERAPEUTIC TARGET < 7.0 ACTION SUGGESTED > 7.0 Performed By: #### A 1C #### [facility] [address] [place] [address] Dr. Kaleb Decker Glucose [Mass/Vol] 100 mg/dL Normal [facility] Comment on above: Performed By: #### A 1C #### [facility] [address] [place] [address] Dr. Kaleb Decker HbA1c (Bld) [Mass fraction] 5.1 % Normal 4.5-6.2 [facility] Comment on above: Performed By: #### A 1C #### [facility] [address] [place] [address] Dr. Kaleb Decker TSHon 10-10-2022 TSH 0.670 uIU/mL Normal 0.358-3.[address] [facility] Comment on above: Performed By: #### T SH #### [facility] [address] [place] [address] Dr. Kaleb Decker TYPE AND SCREENon 10-10-2022 TYPE AND SCREEN Negative Normal [facility] Comment on above: Performed By: #### T NS #### [facility] [address] [place] [address] Dr. Kaleb Decker UA RANDOMon 10-10-2022 Bilirubin Ql (U) Negative Normal NEGATIVE [facility] Comment on above: Performed By: #### U A #### [facility] [address] [place] [address] Dr. Kaleb Decker Clarity (U) CLEAR Normal CLEAR [facility] Comment on above: Performed By: #### U A #### [facility] [address] [place] [address] Dr. Kaleb Decker Color (U) LT. YELLOW Normal YELLOW [facility] Comment on above: Performed By: #### U A #### [facility] [address] [place] [address] Dr. Kaleb Decker Glucose Ql (U) Negative Normal NEGATIVE [facility] Comment on above: Performed By: #### U A #### [facility] [address] [place] [address] Dr. Kaleb Decker Hemoglobin Ql (U) Negative Normal NEGATIVE [facility] Comment on above: Performed By: #### U A #### [facility] [address] [place] [address] Dr. Kaleb Decker Ketones Ql (U) Negative Normal NEGATIVE [facility] Comment on above: Performed By: #### U A #### [facility] [address] [place] [address] Dr. Kaleb Decker LEUKOCYTES MODERATE Abnormal NEGATIVE [facility] Comment on above: Performed By: #### U A #### [facility] [address] [place] [address] Dr. Kaleb Decker Nitrite Ql (U) Negative Normal NEGATIVE [facility] Comment on above: Performed By: #### U A #### [facility] [address] [place] [address] Dr. Kaleb Decker pH (U) 7.0 [pH] Normal 5-9 [facility] Comment on above: Performed By: #### U A #### [facility] [address] [place] [address] Dr. Kaleb Decker SPEC GRAVITY 1.010 Normal 1.005-<=1.025 [facility] Comment on above: Performed By: #### U A #### [facility] [address] [place] [address] Dr. Kaleb Decker UA PROTEIN Negative Normal NEGATIVE/ TRACE [facility] Comment on above: Performed By: #### U A #### [facility] [address] [place] [address] Dr. Kaleb Decker Urobilinogen Qn (U) 0.2 {Garcia'U}/dL Normal 0.2 - 1. 0 [facility] Comment on above: Performed By: #### U A #### [facility] [address] [address] [address] Kaleb Decker US PREG TVon 10-03-2022 [...] by: RAFFI FARNSWORTH Date: 2022-10-03 15:36 Normal [facility] POCT RAPID STREP Aon 023 S. pyogenes Ag Ql (Throat) Negative (+/-) [facility] Internal controls OK [facility] XR KNEE LEFT (MIN 4 VIEWS)on 07-01-2021 [...] Johnny Lipscomb MD 07/01/21 Final result Normal [facility] Normal left knee [facility] EXAM: XR KNEE LEFT (MIN 4 VIEWS) HISTORY: Reason for exam:->Pain injury trauma COMPARISON: None. TECHNIQUE: 4 views left knee FINDINGS: No fracture or joint effusion. Joint spaces are maintained. No pathologic calcification. No radiopaque foreign body. [facility] Johnny Lipscomb M D - 07/01/2021 EXAM: XR KNEE LEFT (MIN 4 VIEWS) HISTORY: Reason for exam:->Pain injury trauma COMPARISON: None. TECHNIQUE: 4 views left knee FINDINGS: No fracture or joint effusion. Joint spaces are maintained. No pathologic calcification. No radiopaque foreign body. IMPRESSION: Normal left knee [facility] [employer] Phone: Radiology Study observation (narrative) [facility] Phone: XR KNEE LEFT (MIN 4 VIEWS)Or dered By: Johnny Lipscomb on 07-01-2021 [facility] Phone: CBC with Diffon 05-24-2021 Abs. Atypical Lymphs 0.20 k/uL Normal 0.0-1.0 [facility] Comment on above: Performed By: #### C P, CDP #### [facility] [address] [place] [address] Pastor: Rancho Alvarado MD Abs. Bands 2.00 k/uL High 0.0-1.0 [facility] Comment on above: Performed By: #### C P, CDP #### [facility] [address] [place] [address] Pastor: Rancho Alvarado MD Abs. Basophil Normal 0.0-0.2 [facility] Comment on above: Performed By: #### C P, CDP #### [facility] [address] [place] [address] Pastor: Rancho Alvarado MD Abs.Neutrophil (Seg) 6.80 k/uL Normal 2.5-7.0 [facility] Comment on above: Performed By: #### C P, CDP #### [facility] [address] [place] [address] Pastor: Rancho Alvarado MD Atypical Lymphs 2 % Normal [facility] Comment on above: Performed By: #### C P, CDP #### [facility] [address] [place], [place] [id number] Pastor: Rancho Alvarado MD Bands 20 % High 0-10 [facility] Comment on above: Performed By: #### C P, CDP #### [facility] [address] [place] [address] Pastor: Rancho Alvarado MD Basophil Normal 0-2 [facility] Comment on above: Performed By: #### C P, CDP #### [facility] [address] [place] [address] Pastor: Rancho Alvarado MD Eosinophils (Bld) [#/Vol] 0.30 10*3/uL Normal 0.0-0.4 [facility] Comment on above: Performed By: #### C P, CDP #### [facility] [address] [place] [address] Pastor: Rancho Alvarado MD Eosinophils/100 WBC (Bld) 3 % Normal 0-5 [facility] Comment on above: Performed By: #### C P, CDP #### [facility] [address] [place] [address] Pastor: Rancho Alvarado MD Lymphocytes (Bld) [#/Vol] 0.50 10*3/uL Low 1.0-4.8 [facility] Comment on above: Performed By: #### C P, CDP #### [facility] [address] [place] [address] Pastor: Rancho Alvarado MD Lymphocytes/100 WBC (Bld) 5 % Low 15-40 [facility] Comment on above: Performed By: #### C P, CDP #### [facility] [address] [place] [address] Pastor: Rancho Alvarado MD Monocytes (Bld) [#/Vol] 0.20 10*3/uL Normal 0.0-1.0 [facility] Comment on above: Performed By: #### C P, CDP #### [facility] [address] [place], [place] [id number] Pastor: Rancho Alvarado MD Monocytes/100 WBC (Bld) 2 % Low 4-8 [facility] Comment on above: Performed By: #### C P, CDP #### [facility] [address] [place], [place] [id number] Pastor: Rancho Alvarado MD Morphology Faustino (Bld) [Interp] Manual Differential Performed Normal [facility] Comment on above: Performed By: #### C P, CDP #### [facility] [address] [place], [place] [id number] Pastor: Rancho Alvarado MD Neutrophil (Seg) 68 % Normal 47-75 [facility] Comment on above: Performed By: #### C P, CDP #### [facility] [address] [place] [address] Pastor: Rancho Alvarado MD Erythrocyte distribution width (RBC) [Ratio] 13.1 % Normal 12.1-15.2 [facility] Comment on above: Performed By: #### C P, CDP #### [facility] [address] [place] [address] Pastor: Rancho Alvarado MD Hematocrit (Bld) [Volume fraction] 44.2 % Normal 36-46 [facility] Comment on above: Performed By: #### C P, CDP #### [facility] [address] [place], [place] [id number] Pastor: Rancho Alvarado MD Hemoglobin (Bld) [Mass/Vol] 14.7 g/dL Normal 12.0-16.0 [facility] Comment on above: Performed By: #### C P, CDP #### [facility] [address] [place], [place] [phone] Pastor: Rancho Alvarado MD MCH (RBC) [Entitic mass] 26.1 pg Normal 26-34 [facility] Comment on above: Performed By: #### C P, CDP #### [facility] [address] [place], [place] [phone] Pastor: Rancho Alvarado MD MCHC (RBC) [Mass/Vol] 33.2 g/dL Normal 31-37 [facility] Comment on above: Performed By: #### C P, CDP #### [facility] [address] [place], [place] 1979[address] ([phone] Pastor: Rancho Alvarado MD MCV (RBC) [Entitic vol] 78.5 fL Low 80-100 [facility] Comment on above: Performed By: #### C P, CDP #### [facility] [address] [place], [place] [phone] ([phone] Pastor: Rancho Alvarado MD Platelets (Bld) [#/Vol] 317 10*3/uL Normal 140-450 [facility] Comment on above: Performed By: #### C P, CDP #### [facility] [address] [place] [address] ([phone] Pastor: Rancho Alvarado MD RBC (Bld) [#/Vol] 5.64 10*6/uL High 4.0-5.2 [facility] Comment on above: Performed By: #### C P, CDP #### [facility] [address] [place] [address] (189) Pastor: Rancho Alvarado MD WBC (Bld) [#/Vol] 10.0 10*3/uL Normal 3.5-11.0 [facility] Comment on above: Performed By: #### C P, CDP #### [facility] [address] [place] [address] ([phone] Pastor: Rancho Alvarado MD Abs.Imm.Granulocyte NOT REPORTED Normal 0.00-0.30 [facility] Comment on above: Performed By: #### C P, CDP #### [facility] [address] [facility] [place] [id number] Pastor: Rancho Alvarado MD Auto Diff Performed NOT REPORTED Normal [facility] Comment on above: Performed By: #### C P, CDP #### [facility] [address] [facility] [place] [id number] Pastor: Rancho Alvarado MD Immature Granulocyte NOT REPORTED Normal 0 [facility] Comment on above: Performed By: #### C P, CDP #### [facility] [address] [place] [address] Pastor: Rancho Alvarado MD MPV NOT REPORTED Normal 6.0-12.0 [facility] Comment on above: Performed By: #### C P, CDP #### [facility] [address] [place] [address] Pastor: Rancho Alvarado MD NRBC Automated NOT REPORTED Normal [facility] Comment on above: Performed By: #### C P, CDP #### [facility] [address] [place] [address] Pastor: Rancho Alvarado MD Platelet Comment NOT REPORTED Normal [facility] Comment on above: Performed By: #### C P, CDP #### [facility] [address] [place] [address] Pastor: Rancho Alvarado MD RBC morphology finding Nom (Bld) NOT REPORTED Normal [facility] Comment on above: Performed By: #### C P, CDP #### [facility] [address] [place] [address] Pastor: Rancho Alvarado MD WBC Morphology NOT REPORTED Normal [facility] Comment on above: Performed By: #### C P, CDP #### [facility] [address] [place] [address] Pastor: Rancho Alvarado MD Comp Metabolic Profon 2020 (cont.) Normal [facility] Comment on above: Result Comment: Aver age GFR for 20-29 years old: 116 mL/min/1.73sq m Chronic Kidney Disease: <60 mL/min/1.73sq m Kidney failure: <15 mL/min/1.73sq m eGFR calculated using average adult body mass. Additional eGFR calculator available at: http://www.makexyz/multiple_crcl_2011.htm Performed By: #### C P, CDP #### [facility] [address] [place] [address] Pastor: Rancho Alvarado MD Albumin [Mass/Vol] 4.5 g/dL Normal 3.5-5.2 [facility] Comment on above: Performed By: #### C P, CDP #### [facility] [address] [place], [place] [id number] Pastor: Rancho Alvarado MD Alkaline Phos 90 U/L Normal 35-104 [facility] Comment on above: Performed By: #### C P, CDP #### [facility] [address] [place] [address] Pastor: Rancho Alvarado MD ALT [Catalytic activity/Vol] 136 U/L High 5-33 [facility] Comment on above: Performed By: #### C P, CDP #### [facility] [address] [place], [place] [phone] Pastor: Rancho Alvarado MD Anion gap [Moles/Vol] 15 mmol/L Normal 9-17 [facility] Comment on above: Performed By: #### C P, CDP #### [facility] [address] [place], [place] [phone] Pastor: Rancho Alvarado MD AST [Catalytic activity/Vol] 55 U/L High <32 [facility] Comment on above: Performed By: #### C P, CDP #### [facility] [address] [place] [address] Pastor: Rancho Alvarado MD Bilirubin [Mass/Vol] 0.68 mg/dL Normal 0.30-1.20 [facility] Comment on above: Performed By: #### C P, CDP #### [facility] [address] [place] [address] Pastor: Rancho Alvarado MD BUN/CRE Ratio 21 High 9-20 [facility] Comment on above: Performed By: #### C P, CDP #### [facility] [address] [place] [address] Pastor: Rancho Alvarado MD Calcium [Mass/Vol] 9.2 mg/dL Normal 8.6-10.4 [facility] Comment on above: Performed By: #### C P, CDP #### [facility] [address] [place] [address] Pastor: Rancho Alvarado MD Chloride [Moles/Vol] 105 mmol/L Normal 98-107 [facility] Comment on above: Performed By: #### C P, CDP #### [facility] [address] [place] [address] Pastor: Rancho Alvarado MD CO2 [Moles/Vol] 21 mmol/L Normal 20-31 [facility] Comment on above: Performed By: #### C P, CDP #### [facility] [address] [place] [address] Pastor: Rancho Alvarado MD Creatinine [Mass/Vol] 0.75 mg/dL Normal 0.50-0.90 [facility] Comment on above: Performed By: #### C P, CDP #### [facility] [address] [place] [address] Pastor: Rancho Alvarado MD GFR, Amer >60 Normal >60 [facility] Comment on above: Performed By: #### C P, CDP #### [facility] [address] [place], [place] [id number] Pastor: Rancho Alvarado MD GFR,non Amer >60 Normal >60 [facility] Comment on above: Performed By: #### C P, CDP #### [facility] [address] [place], [place] [id number] Pastor: Rancho Alvarado MD Glucose [Mass/Vol] 105 mg/dL High 70-99 [facility] Comment on above: Performed By: #### C P, CDP #### [facility] [address] [place], [place] [id number] Pastor: Rancho Alvarado MD Potassium [Moles/Vol] 4.1 mmol/L Normal 3.7-5.3 [facility] Comment on above: Performed By: #### C P, CDP #### [facility] [address] [place], [place] [id number] Pastor: Rancho Alvarado MD Protein [Mass/Vol] 7.6 g/dL Normal 6.4-8.3 [facility] Comment on above: Performed By: #### C P, CDP #### [facility] [address] [place], [place] [id number] Pastor: Rancho Alvarado MD Sodium [Moles/Vol] 141 mmol/L Normal 135-144 [facility] Comment on above: Performed By: #### C P, CDP #### [facility] [address] [place] [address] Pastor: Rancho Alvarado MD Urea nitrogen [Mass/Vol] 16 mg/dL Normal 6-20 [facility] Comment on above: Performed By: #### C P, CDP #### [facility] [address] [place], [place] [id number] Pastor: Rancho Alvarado MD Albumin/Glob Ratio NOT REPORTED Normal 1.0-2.[address] [facility] Comment on above: Performed By: #### C P, CDP #### [facility] [address] [place] [address] Pastor: Rancho Alvarado MD Staging: NOT REPORTED Normal [facility] Comment on above: Performed By: #### C P, CDP #### [facility] [address] [place] [address] Pastor: Rancho Alvarado MD SARS-COV-2 RAPIDon Silk Spotter Cyto stain Nom (Cvx/Vag) [ID] [facility] Interpretation and review of laboratory results Abnormal [facility] NARRATIVE -1 This test was performed using isothermal DANTE and has been approved as Emergency Use Authorization (EUA) for the qualitative detection [id number] nucleic acid. [facility] SARS-CoV-2 (COVID-19) RNA DANTE+probe Ql (Unsp spec) Detected Abnormal NOT DETECTED [facility] Comment on above: CALLED TO AND READ B ACK BY [email or web address] SHEA ENHANCED CONTACT, AND DROPLET ISOLATION IS REQUIRED FOR INPATIENTS WITH SARS-CoV-2. [facility] SARS-COV-2 RAPIDOrdered By: Betina Pryor on 10-11-2020 Silk Spotter Cyto stain Nom (Cvx/Vag) [ID] [facility] NARRATIVE -1 This test was performed using isothermal DANTE and has been approved as Emergency Use Authorization (EUA) for the qualitative detection [id number] nucleic acid. [facility] SARS-CoV-2 (COVID-19) RNA DANTE+probe Ql (Unsp spec) Not detected NOT DETECTED [facility] Comment on above: Negative results do [...] patient is critically ill or clinically deteriorating. [facility] ECG 12-LEADon 12-29-2019 Raffi Doss MD 12/29/2019 8:02 PM EKG 12-lead Date/Time: 12/29/2019 7:57 PM Performed by: Raffi Doss MD Authorized by: Raffi Doss MD BPM: 65 Comments: Normal sinus rhythm at a rate of 65, normal axis, no signs of acute ischemia or infarction. No signs of interval pathology, WPW, HOCM, Brugada [facility] Urine Pregnancyon 12-29-2019 HCG ( test) Ql (U) Negative Negative [facility] Interpretation and review of laboratory results Normal [facility] URINE CULTUREon 02-03-2019 Bacteria identified Cx Nom (U) SPECIMEN DESCRIPTION URINE CLEAN CATCH UA DIPSTICK LEUKOCYTE POSITIVE * Result Note: NITRITE NEGATIVE * CULTURE ESCHERICHIA COLI * Result Note: 40,000-50,000 C/C/ML * * Result Note: Testing performed at [place], [place] [address] * REPORT STATUS 02/03/2019 * Result Note: FINAL * ORGANISM ESCHERICHIA COLI * Result Note: ESCHERICHIA COLI * METHOD OSMAN AMPICILLIN 4 SUSCEPTIBLE AMPICILLIN/SULBACTAM <=2 SUSCEPTIBLE CEFTRIAXONE <=1 SUSCEPTIBLE CEFAZOLIN <=4 SUSCEPTIBLE IMIPENEM <=0.25 SUSCEPTIBLE GENTAMICIN <=1 SUSCEPTIBLE TRIMETH-SULFA <=20 SUSCEPTIBLE AMOXICILLIN/CLAVULANIC A 4 SUSCEPTIBLE NITROFURANTOIN <=16 SUSCEPTIBLE PIPERACILLIN/TAZOBACTA M <=4 SUSCEPTIBLE LEVOFLOXACIN <=0.12 SUSCEPTIBLE ESBL NEGATIVE CEFTAZIDIME <=1 SUSCEPTIBLE Normal [facility] Comment on above: Performed By: #### A URLA #### Testing performed at [address] [address] POCT URINALYSIS DIPSTICK NON AUTOMATEDon 02-01-2019 Amorphous sediment LM Ql (Urine sed) [facility] Appearance (Body fld) cloudy [facility] Bacteria LM Ql (Urine sed) [facility] Bilirubin Ql (U) Negative [facility] Casts LM.LPF (Urine sed) [#/Area] [facility] Color (U) yellow [facility] Crystals LM Nom (Urine sed) [facility] Epithelial cells.squamous LM.HPF (Urine sed) [#/Area] [facility] Flow cytometry specialist review Faustino (Unsp spec) [Interp] [facility] Interpretation and review of laboratory results Abnormal [facility] Ketones [Mass/Vol] Negative mg/dL [facility] Leukocyte esterase Qn (U) [facility] Leukocyte esterase Test strip Ql (U) small [facility] Nitrite Ql (U) Negative [facility] pH (U) 7.5 [pH] Abnormal [facility] POCT GLUCOSE, URINE Negative mg/dL [facility] Protein Ql (U) Negative mg/dL [facility] RBC LM.HPF (Urine sed) [#/Area] [facility] RBC Ql (U) trace [facility] Specific gravity (U) [Rel density] 1.020 [facility] Transitional cells LM Ql (Urine sed) [facility] Urobilinogen (U) [Mass/Vol] 0.2 [facility] WBC LM.HPF (Urine sed) [#/Area] [facility] Internal controls [facility] Hgb and Hcton 06-28-2017 Hematocrit (HCT) 29.3 % Low 34.4-44.8 [facility] Comment on above: Performed By: #### H H ####Unless otherwise noted, all testing performed by [address]ngelYoung [place], [place] [phone]: [id number] Director: José Miguel Chan M.D. Hemoglobin mass conc (Bld) 9.6 g/dL Low 11.6-15.4 [facility] Comment on above: Performed By: #### H H ####Unless otherwise noted, all testing performed by [address] [phone]: [id number] Director: José Miguel Chan M.D. Hepatitis C Antibodyon 06-27 Hepatitis C Antibody Positive Abnormal Negative [facility] Comment on above: Result Comment: Vlad mmend confirmation with HCV Virus Quantitation.Test performed using Dynadec Immunodiagnostic system.Test [place] [address] Performed By: #### H EPCABS, HEPCQT ####Unless otherwise noted, all testing performed by [address] [phone]: [id number] Director: José Miguel Chan M.D. Hepatitis C Qt,HCV-RNAon Hepatitis C Qt,HCV-RNA Not Detected Normal Not Detected [facility] Comment on above: Result Comment: The quantification range of this assay is 15-100,000,000 IU/mL(1.2 log IU/mL - 8.0 log IU/mL)Assay performed using MARY Ampliprep/TaqmanHCV test, version 2.0.Test [place] [address] Performed By: #### H EPCABS, HEPCQT ####Unless otherwise noted, all testing performed by [address] [phone]: [id number] Director: José Miguel Chan M.D. Urinalysis, Routineon 2017 Bilirubin,Urine Negative Normal NEG;NEGATIVE [facility] Comment on above: Performed By: #### U A ####Unless otherwise noted, all testing performed by [address] [phone]: [id number] Director: José Miguel Chan M.D. Blood,Urine Negative Normal NEG;NEGATIVE [facility] Comment on above: Performed By: #### U A ####Unless otherwise noted, all testing performed by [address] [phone]: [id number] Director: José Miguel Chan M.D. Ketone,Urine Negative Normal NEG;NEGATIVE [facility] Comment on above: Performed By: #### U A ####Unless otherwise noted, all testing performed by [address] [phone]: [id number] Director: José Miguel Chan M.D. Leuk.Esterase,Urine Trace Abnormal Negative [facility] Comment on above: Performed By: #### U A ####Unless otherwise noted, all testing performed by [address] [phone]: [id number] Director: José Miguel Chan M.D. Nitrite,Urine Negative Normal NEG;NEGATIVE [facility] Comment on above: Performed By: #### U A ####Unless otherwise noted, all testing performed by [address] [phone]: [id number] Director: José Miguel Chan M.D. Protein,Urine Negative Normal NEG;NEGATIVE [facility] Comment on above: Performed By: #### U A ####Unless otherwise noted, all testing performed by [address] [phone]: [id number] Director: José Miguel Chan M.D. Specific [place],Urine 1.002 Low 1.003-1.029 [facility] Comment on above: Performed By: #### U A ####Unless otherwise noted, all testing performed by [address] [phone]: [id number] Director: José Miguel Chan M.D. Squamous Epithelial 1 /HPF Normal 0-40 [facility] Comment on above: Performed By: #### U A ####Unless otherwise noted, all testing performed by [address] [phone]: [id number] Director: José Miguel Chan M.D. Urine, bacteria in sediment Moderate Abnormal NS;RARE [facility] Comment on above: Performed By: #### U A ####Unless otherwise noted, all testing performed by [address] [phone]: [id number] Director: José Miguel Chan M.D. Urine, character Hazy Normal [facility] Comment on above: Performed By: #### U A ####Unless otherwise noted, all testing performed by [address] [phone]: [id number] Director: José Miguel Chan M.D. Urine, color Straw Normal [facility] Comment on above: Performed By: #### U A ####Unless otherwise noted, all testing performed by [address] [phone]: [id number] Director: José Miguel Chan M.D. Urine, erythrocytes in sediment by area 2 /[HPF] Normal 0-5 [facility] Comment on above: Performed By: #### U A ####Unless otherwise noted, all testing performed by [address] [phone]: [id number] Director: José Miguel Chan M.D. Urine, glucose presence Negative Normal NEG;NEGATIVE [facility] Comment on above: Performed By: #### U A ####Unless otherwise noted, all testing performed by [address] [phone]: [id number] Director: José Miguel Chan M.D. Urine, leukocytes in sedmiment 1 /[HPF] Normal 0-5 [facility] Comment on above: Performed By: #### U A ####Unless otherwise noted, all testing performed by [place] [phone]: [id number] Director: José Miguel Chan M.D. Urine, pH 7.0 [pH] Normal 4.5-8.0 [facility] Comment on above: Performed By: #### U A ####Unless otherwise noted, all testing performed by [address] [phone]: [id number] Director: José Miguel Chan M.D. Urobilinogen,Urine < 2.0 Normal <2 [facility] Comment on above: Performed By: #### U A ####Unless otherwise noted, all testing performed by [address] [phone]: [id number] Director: José Miguel Chan M.D. Vital Signs Date Time Vital Sign Value Performing Clinician Facility 08-30-2022 19:23-0400 Body height 175.3 cm Dick FORD Work Phone: [facility] 08-30-2022 19:23-0400 Body mass index (BMI) [Ratio] 32.52 kg/m2 Dick FORD Work Phone: [facility] 08-30-2022 19:23-0400 Body temperature 98.49 [degF] Dick FORD Work Phone: [facility] 08-30-2022 19:23-0400 Body weight 99.88 kg Dick FORD Work Phone: [facility] 08-30-2022 19:23-0400 Diastolic blood pressure 66 mm[Hg] Dick FORD Work Phone: [facility] 08-30-2022 19:23-0400 Heart rate 96 /min Dick FORD Work Phone: [facility] 08-30-2022 19:23-0400 Respiratory rate 16 /min Dick FORD Work Phone: [facility] 08-30-2022 19:23-0400 SaO2% (BldA) [Mass fraction] 99 % Dick FORD Work Phone: [facility] 08-30-2022 19:23-0400 Systolic blood pressure 110 mm[Hg] Dick FORD Work Phone: [facility] 07-01-2021 19:17-0500 Body mass index (BMI) [Ratio] 33.67 kg/m2 Bryon Gu MD Work Phone: [facility] 07-01-2021 19:17-0500 Body temperature 97.81 [degF] Bryon Gu MD Work Phone: [employer] 07-01-2021 19:17-0500 Body weight 103.42 kg [facility] 07-01-2021 19:17-0500 Diastolic blood pressure 80 mm[Hg] [facility] Gu [facility] 07-01-2021 19:17-0500 Heart rate 95 /min Bryon Gu MD [facility] 07-01-2021 19:17-0500 Respiratory rate 16 /min Bryon Gu MD Work Phone: [facility] [employer] 07-01-2021 19:17-0500 SaO2% (BldA) [Mass fraction] 98 % Bryon Gu [facility] 07-01-2021 19:17-0500 Systolic blood pressure 128 mm[Hg] Bryon Gu [facility] 12-28-2020 12:50-0400 Body height 175.3 cm Betina Pryor SEAT JOINER-[employer] INTERN Work Phone: [facility] 12-28-2020 12:50-0400 Body mass index (BMI) [Ratio] 32.38 kg/m2 Betina Pryor SEAT [employer] INTERN Work Phone: [employer] [facility] 12-28-2020 12:50-0400 Body temperature 98.01 [degF] Betina Pryor SEAT JOINER-LAB INTERN Work Phone: [employer] [facility] 12-28-2020 12:50-0400 Body weight 99.47 kg Betina Pryor SEAT JOINER-LAB INTERN Work Phone: [facility] 12-28-2020 12:50-0400 Diastolic blood pressure 76 mm[Hg] Betina Pryor SEAT JOINER-LAB INTERN Work Phone: [employer] [facility] 12-28-2020 12:50-0400 Heart rate 111 /min Betina Pryor SEAT JOINER-LAB INTERN Work Phone: [facility] 12-28-2020 12:50-0400 Respiratory rate 16 /min Betina Pryor SEAT [employer]ER[employer]LAB INTERN Work Phone: [facility] 12-28-2020 12:50-0400 SaO2% (BldA) [Mass fraction] 100 % Betina Pryor APRN-LAB INTERN Work Phone: [facility] 12-28-2020 12:50-0400 Systolic blood pressure 113 mm[Hg] Betina Pryor SEAT [employer]ER[employer] INTERN Work Phone: [facility] 10-11-2020 19:30-0400 Body height 175.3 cm Betina Pryor APRN-LAB INTERN Work Phone: [facility] 10-11-2020 19:30-0400 Body mass index (BMI) [Ratio] 31.47 kg/m2 Betina Pryor APRN-LAB INTERN Work Phone: [facility] 10-11-2020 19:30-0400 Body temperature 98.49 [degF] Betina Pryor APRN-LAB INTERN Work Phone: [facility] 10-11-2020 19:30-0400 Body weight 96.66 kg Betian Pryor APRN-LAB INTERN Work Phone: [facility] 10-11-2020 19:30-0400 Diastolic blood pressure 82 mm[Hg] Betina Pryor SEAT JOINER-LAB INTERN Work Phone: [facility] 10-11-2020 19:30-0400 Heart rate 94 /min Betina Pryor SEAT [employer]ER[employer] INTERN Work Phone: [facility] 10-11-2020 19:30-0400 Respiratory rate 16 /min Betina Pryor SEAT [employer]ER-[employer] INTERN Work Phone: [facility] 10-11-2020 19:30-0400 SaO2% (BldA) [Mass fraction] 100 % Betina Pryor APRN-LAB INTERN Work Phone: [facility] 10-11-2020 19:30-0400 Systolic blood pressure 120 mm[Hg] Betina Pryor SEAT JOINER-[employer] INTERN Work Phone: [facility] 05-29-2020 10:56-0500 BMI (Body Mass Index) 29.89 kg/m2 [facility] 05-29-2020 10:56-0500 Body Temperature 99.39 [degF] [facility] 05-29-2020 10:56-0500 Body weight 91.81 kg [facility] 05-29-2020 10:56-0500 BP Diastolic 85 mm[Hg] [facility] 05-29-2020 10:56-0500 BP Systolic 118 mm[Hg] [facility] 05-29-2020 10:56-0500 Height 175.3 cm [facility] 05-29-2020 10:56-0500 Pulse (Heart Rate) 88 /min [facility] 05-29-2020 10:56-0500 Pulse Oximetry 99 % [facility] 05-29-2020 10:56-0500 Respiratory Rate 16 /min [facility] 12-29-2019 20:12-0400 BP Diastolic 90 mm[Hg] [facility] 12-29-2019 20:12-0400 BP Systolic 130 mm[Hg] [facility] 12-29-2019 20:12-0400 Pulse (Heart Rate) 74 /min [facility] 12-29-2019 20:12-0400 Pulse Oximetry 99 % [facility] 12-29-2019 20:12-0400 Respiratory Rate 16 /min [facility] 12-29-2019 19:03-0400 BMI (Body Mass Index) 28.8 kg/m2 [facility] 12-29-2019 19:03-0400 Body Temperature 97.9 [degF] [facility] 12-29-2019 19:03-0400 Body weight 88.45 kg Javier [facility] 12-29-2019 19:03-0400 Height 175.3 cm Javier [facility] 03-18-2019 11:11-0400 BMI (Body Mass Index) 27.78 kg/m2 [facility] 03-18-2019 11:11-0400 Body Temperature 98.4 [degF] [facility] 03-18-2019 11:11-0400 Body weight 87.82 kg [facility] 03-18-2019 11:11-0400 BP Diastolic 87 mm[Hg] [facility] 03-18-2019 11:11-0400 BP Systolic 129 mm[Hg] [facility] 03-18-2019 11:11-0400 Height 177.8 cm [facility] 03-18-2019 11:11-0400 Pulse (Heart Rate) 101 /min [facility] 03-18-2019 11:11-0400 Pulse Oximetry 97 % [facility] 03-18-2019 11:11-0400 Respiratory Rate 18 /min [facility] 02-01-2019 12:37-0400 BMI (Body Mass Index) 28.74 kg/m2 [facility] 02-01-2019 12:37-0400 Body Temperature 98.91 [degF] [facility] 02-01-2019 12:37-0400 Body weight 88.27 kg [facility] 02-01-2019 12:37-0400 BP Diastolic 85 mm[Hg] [facility] 02-01-2019 12:37-0400 BP Systolic 135 mm[Hg] [facility] 02-01-2019 12:37-0400 Height 175.3 cm [facility] 02-01-2019 12:37-0400 Pulse (Heart Rate) 93 /min [facility] 02-01-2019 12:37-0400 Pulse Oximetry 98 % [facility] 02-01-2019 12:37-0400 Respiratory Rate 16 /min [facility] Encounters Encounter Date Encounter Type Care Provider [...] . Facility: Start: 08-30-2022 ambulatory D[facility] Start: 08-30-2022 End: 08-30-2022 Office outpatient visit 15 minutes Dick Lassiter SEAT [employer] INTERN Work Phone: [facility] Comment on above: Sore throat (Primary Dx); Viral illness Start: 07-01-2021 End: 07-01-2021 [facility] Start: 07-01-2021 End: 07-01-2021 Emergency department patient visit Bryon Gu MD Work Phone: [facility] Comment on above: Sprain of left knee, unspecified ligament, initial encounter (Primary Dx) Start: 05-24-2021 End: 05-24-2021 [facility] Start: 03-21-2021 End: 03-22-2021 ambulatory Javier Canchola Facility:[facility] Start: 12-28-2020 End: 12-28-2020 Office outpatient visit 15 minutes Betina Pryor SEAT [employer] INTERN Work Phone: [facility] Comment on above: COVID-19 virus infec tion (Primary Dx); Close exposure to COVID-19 virus Start: 10-11-2020 End: 10-11-2020 Office outpatient visit 15 minutes Betina Pryor SEAT [employer]ER[employer] INTERN Work Phone: [facility] Comment on above: Viral illness (Prima ry Dx); Loss of taste; Loss of smell; Head congestion Start: 05-29-2020 End: 05-29-2020 Office outpatient visit 15 minutes Josey Ibrahim Work Phone: [facility] Comment on above: Acute otitis externa of right ear, unspecified type (Primary Dx) Start: 12-29-2019 End: 12-29-2019 Emergency department patient visit [facility] Start: 12-29-2019 End: 12-29-2019 Emergency department patient visit [facility] Comment on above: Dizziness (Primary D x); Heat exhaustion, initial encounter Start: 06-25-2019 End: 06-29-2019 Patient encounter procedure [facility] Start: 03-20-2019 End: 03-20-2019 Letter encounter Yolette Connerradha [facility] Start: 03-18-2019 End: 03-18-2019 Office outpatient visit 25 minutes Betina Pryor Work Phone: [facility] Comment on above: Bacterial conjunctiv itis of right eye (Primary Dx); Hives Start: 02-01-2019 End: 02-01-2019 Letter encounter Provider Elver [facility] Start: 02-01-2019 End: 02-01-2019 Office outpatient visit 25 minutes Betina Pryor Work Phone: [facility] Comment on above: Acute cystitis with hematuria (Primary Dx); Dysuria Start: 12-16-2018 End: 12-20-2018 Patient encounter procedure [facility] Start: 06-27-2017 End: 06-29-2017 Evaluation and management of inpatient Umm Damon Facility:[place] Start: 06-27-2017 End: 06-27-2017 Ambulatory Umm Damon Facility:[place] Start: 06-15-2017 End: 06-15-2017 Ambulatory Sal Parada Facility:[place] Procedures Date Procedure Procedure Detail Performing Clinician Start: 08-30-2022 Iaadiadoo streptococcus group a Dick Lassiter SEAT JOINER-LAB INTERN Work Phone: Start: 02-04-2022 Radiologic exam knee complete 4/more views Bryon Gu MD Work Phone: Start: 12-28-2020 SARS-COV-2 RAPID Betina Pryor SEAT [employer]ER-LAB INTERN Work Phone: Start: 10-11-2020 SARS-COV-2 RAPID Betina Pryor SEAT JOINER-LAB INTERN Work Phone: Start: 12-29-2019 Choriogonadotropin ( test) [...] DTaP/Tdap/Td vaccine (2 - Td or Tdap) [facility] Start: 02-14-2031 Tetanus vaccination TETANUS [facility] Start: 01-26-2023 Influenza vaccination INFLUENZ A VACCINE (Season Ended) [facility] Start: 03-19-2022 Screening for malign ant neoplasm of cervix Pap Smear [facility] Start: 01-26-2021 Influenza vaccination [facility] Start: 03-19-2020 History and physical examination, annual for health maintenance Wellness Visit [facility] Start: 03-19-2020 Screening for Chlamy osito trachomatis Chlamydia Screening [facility] Start: 01-27-2020 Influenza vaccination INFLUENZA VACC INE (#1) [facility] Start: 01-27-2020 Influenza vaccinatio n given Sequential Influenza Vaccine (#1) [facility] Start: 02-01-2019 End: 02-01-2019 Lab Encounter 02/01/2019 Lab Encounter Clinical Pathology/Laboratory Medicine Betina Pryor, SEAT JOINER-LAB INTERN [address] [place] [address] [phone] [facility] Start: 02-01-2019 End: 02-02-2020 Bacteria identified Cx Nom (U) URINE CULTURE Microbiology Routine Dysuria Expected: 02/01/2019, Expires: 02/02/2020 [facility] Comment on above: Expected: 02/01/2019 , Expires: 02/02/2020 Start: 01-26-2019 Influenza vaccination INFLUENZA VACC INE (#1) [facility] Start: 2017 Screening for malign ant neoplasm of cervix [facility] Start: 2015 Third diphtheria, te tanus and acellular pertussis (DTaP) vaccination TDAP (ADULT) [facility] Start: 2014 Tetanus vaccination TETANUS [facility] Start: 2012 Screening for Chlamy osito trachomatis CHLAMYDIA SCREEN [facility] Start: 2011 HIV screening [facility] Start: 2011 Vaccination for loly n papillomavirus HPV VACCINE ADOL (1 - Female 3-dose series) [facility] Start: 2009 HIV screening HIV SCREENING DISCUSSION [facility] Start: 2008 COVID-19 VACCINE (1) COVID-19 VACCIN E (1) [facility] Start: 2008 Depression Screen Depression Screen [facility] Start: 2007 HPV vaccine (1 - 2-d ose series) HPV vaccine (1 - 2-dose series) [facility] Start: 2007 Vaccination for loly n papillomavirus [facility] Start: 2001 COVID-19 Vaccine (1) COVID-19 Vaccin e (1) [facility] Start: 1997 Varicella vaccine (1 of 2 - 2-dose childhood series) Varicella vaccine (1 of 2 - 2-dose childhood series) [facility] Start: 1996 COVID-19 VACCINE (#1) COVID-19 VACCI NE (#1) [facility] Start: 1996 GONORRHEA SCREEN GONORRHEA SCREEN [facility] Start: 1996 Hepatitis C antibody , confirmatory test HEPATITIS C VIRUS SCREENING [facility] Start: 1996 Hepatitis C screening [facility] Start: 1996 Screening for Chlamy osito trachomatis GONORRHEA SCREEN [facility] Start: 1996 Tetanus vaccination Tetanus: Every 1 0yrs [facility] POCT URINALYSIS DIPS TICK NON AUTOMATED POCT URINALYSIS DIPSTICK NON AUTOMATED Point of Care Testing Routine Dysuria Ordered: 02/01/2019 [facility] Comment on above: Ordered: 02/01/2019 Payers Date Payer Category Payer Unknown [id number] [id number] 2020 Unknown 2018 Unknown [id number] 2018 Unknown [id number] 1. [id number] 1996 Unknown [id number] 2.16.8 [id number] 1996 Unknown [id number] 2.16. [id number] 1996 Unknown [id number] 2.16. [id number] 1996 Unknown [id number] 2.16.8 [id number] 1996 Unknown [id number] 2.16.8 [id number] 1996 Unknown [id number] 2.16.8 [id number] 1996 Unknown [id number] 2.16.8 40.1.492239.3.579.2.983 1996 Unknown [id number] 2.16.84 [id number] 1996 Unknown [id number] 2.16.84 [id number] 1996 Unknown [id number] 2.16.84 0.1.141553.3.579.2.1259 1996 Unknown [id number] 2.16.840 .1.191479.3.579.2.1259 1996 Unknown [id number] 2.16.840 .[id number] 1996 Unknown [id number] 2.16.840 .[id number] 1959 Unknown [id number] Unknown [id number] Social History Date Type Detail Facility [facility] smoked [facility] Start: 1996 Sex Assigned At Not on file [facility] Start: 02-01-2019 End: 03-18-2019 Tobacco smoking status NHIS Current every day smoker [facility] Start: 02-01-2019 End: 10-11-2020 Cigarettes smoked current (pack per day) - Reported [facility] Start: 02-01-2019 End: 03-18-2019 Alcohol intake Not Currently [facility] End: 07-26-2020 History of tobacco use Cigarette Smoker [facility] Start: 12-29-2019 End: 08-30-2022 Alcohol intake Ex-drinker (finding) [facility] Exposure to SARS-CoV -2 (event) Not sure [facility] Start: 05-29-2020 End: 10-11-2020 Tobacco use and exposure Never used [facility] Start: 10-11-2020 [facility]oker [facility] End: 07-26-2020 History of tobacco use Current smoker [facility] Start: 06-08-2020 [facility] Start: 05-24-2021 Tobacco [facility] tobacco [employer] Phone: Goals Date Patient Goal Desired Activity [...] proceed with plan. documented in this encounter [facility] Discharge instructions 07-01-2021 InstructionsAttachments Note Date & Type Note Facility 07-01-2021 Hospital Discharg e instructions Bryon Gu MD - 07/01/2021 Tylenol pain. Wear knee immobilizer for comfort. Follow-up with orthopedic referral. The following attachments cannot be sent through Care Everywhere.Knee Sprain (Liberian)documented in this encounter [employer] [employer]: History of Present illness Narrative 12-28-2020 LOGAN Mcguire - 12/28/2020 12:35 PM EDT Note Date & Type Note Facility 12-28-2020 History of Presen t illness Narrative HPI Ping Padilla female 1995 presents to the [facility] with Chief Complaint Patient presents [...] daily. (Patient not taking: Reported on 08/16/2020) ujntfxdr-ukokrwvlm-gvqfksoypgiowt 3.5-64113-9 Solution otic solution 4 drops by Otic [...] Social Gatherings with Friends and Family: Attends Christian Services: Active Member of Clubs or Organizations: [...] Encounter SARS-COV-2 RAPID Rapid COVID19 positive. Discussed urqt-unq-xzrsvmq symptomatic treatments stay for . She will quarantine per CDC guidelines. If symptoms worsen patient was advised to follow up in our office, primary care provider or the Emergency Dept. Benefits, Risks, Contraindications, and Complications of recommended treatments were explained. The patient understands and agrees to proceed with plan. LOGAN Mcguire 12/28/2020 documented in this encounter [facility] Instructions 12-28-2020 Patient Instructions Note Date [...] water aren't available, use an alcohol-based hand steel rule die maker. Avoid touching your mouth, nose, and eyes. [...] disinfect your home every day. Use household thread grinder and disinfectant wipes or sprays. Take special [...] of: August 20, 2020 Content Version: 12.9 [employer]. Care instructions adapted under license by your healthcare professional. If you have questions about a medical condition or this instruction, always ask your healthcare professional. [employer], [facility] disclaims any warranty or liability for your [...] Terconazole (Terazol Cream) 2004November 25, 2018. [facility]. This handout is for informational purposes only. Talk with your doctor or healthcare team if you have any questions about your care. For more health information call the Library for Health Information at [phone] or email: [email or web address]. documented in this encounter [facility] History of Present illness Narrative 10-11-2020 Betina Pryor APRN-CNP - 10/11/2020 7:15 PM EDT Note Date & Type Note Facility 10-11-2020 History of Presen t illness Narrative IRMA Padilla female 1995 presents to the [facility] with Chief Complaint Patient presents [...] daily. (Patient not taking: Reported on 08/16/2020) jtoniope-vknqsofsb-tuvgumzctapbqz 3.5-29227-3 Solution otic solution 4 drops by Otic [...] Social Gatherings with Friends and Family: Attends Christian Services: Active Member of Clubs or Organizations: [...] Use Authorization (EUA) for the qualitative detection svIUMT-[id number] nucleic acid. PERFORMED BY [facility] ASSESSMENT/PLAN 1. Viral illness 2. Loss of taste 3. Loss of smell 4. Head congestion Orders Placed This Encounter SARS-COV-2 RAPID Rapid COVID19 negative. Symptoms appear viral. Discussed pntb-zni-dorlkoq symptomatic treatments safe in . If symptoms worsen patient was advised to follow up in our office, primary care provider or the Emergency Dept. Benefits, Risks, Contraindications, and Complications of recommended treatments were explained. The patient understands and agrees to proceed with plan. LOGAN Mcguire 10/11/2020 documented in this encounter [facility] Instructions 10-11-2020 Patient Instructions Note Date [...] 7 days. 2015 December 16, 2018, [facility]. This handout is for informational purposes only. Talk with your doctor or healthcare team if you have any questions about your care. For more health information, call the Library for Health Information at [phone] or email: [email or web address]. Over the Counter Medicines during We suggest [...] Terconazole (Terazol Cream) 2004November 25, 2018. [facility]. This handout is for informational purposes only. Talk with your doctor or healthcare team if you have any questions about your care. For more health information call the Library for Health Information at [phone] or email: [email or web address]. documented in this encounter [facility] Evaluation note Note Date & Type Note Facility Evaluation note Diagnosis Viral illness- Primary Unspecified viral infection, in conditions classified elsewhere and of unspecified site Loss of taste Disturbances of sensation of smell and taste Loss of smell Disturbances of sensation of smell and taste Head congestion Other diseases of nasal cavity and sinuses documented in this encounter [facility] Evaluation note Note Date & Type Note Facility Evaluation note Diagnosis Sprain of left knee, unspecified ligament, initial encounter- Primary documented in this encounter [employer]: Evaluation note Note Date & Type Note Facility Evaluation note Diagnosis COVID-19 virus infection- Primary Close exposure to COVID-19 virus documented in this encounter [facility] Evaluation note Note Date & Type Note Facility Evaluation note Diagnosis Sore throat- Primary Acute pharyngitis Viral illness Unspecified viral infection, in conditions classified elsewhere and of unspecified site documented in this encounter [facility] Summary Purpose Family History No Family History Records FoundNo Family History Records FoundNo Family History Records FoundNo Family History Records FoundNo Family History Records FoundNo Family History Records FoundNo Family History Records FoundNo Family History Records FoundNo Family History Records FoundNo Family History Records Found Advance Directives No Advanced Directives Records FoundDocuments on File Type Date Recorded Patient Telegraph Messenger Expl anation Advance Directives and Livin g Will 12/29/2019 8:04 PM Instructions * Patient Instructions* Betina Pryor APRN-LAB INTERN - 02/01/2019 12:00 PM EDT Urinary Tract [...] medicines 2004 - May 03, 2017, [facility]. This handout is for informational purposes [...] Do not use plastic earplugs. Use a religion department chair set on low to carefully dry the ear after you shower. To ease ear pain, hold a warm washcloth against your ear. Take pain medicines exactly as directed. ? If the doctor gave you a prescription medicine for pain, take it as prescribed. ? If you are not taking a prescription pain medicine, ask your doctor if you can take an lkbp-sql-rxnyynm medicine. Inserting ear drops Warm the drops [...] Where can you learn more? Go to [email or web address] [email or web address]/patiented. Enter C706 in the search box to learn more about 'Swimmer's Ear: Care Instructions.' Interested in seeing a video go to [email or web address]/videolibrary to see all video content. Current as of: September 10, 2019 Content Version: 12.7 Buyou. Care instructions adapted under license by your healthcare professional. If you have questions about a medical condition or this instruction, always ask your healthcare professional. [employer] disclaims any warranty or liability for your use of this information. documented in this encounter* Patient Instructions* Betina Pryor, SEAT JOINER-LAB INTERN - 03/18/2019 10:45 AM EDT [place]keye: Care [...] Where can you learn more? Go to [email or web address].[email or web address]/patiented. Enter Y392 in the search box to learn more about 'Pinkeye: Care Instructions.' Interested in seeing a video go to [email or web address].[email or web address]/videolibrary to see all video content. Current as of: November 20, 2018 Content Version: 12.2 2808-1975 Buyou. Care instructions adapted under license by your healthcare professional. If you have questions about a medical condition or this instruction, always ask your healthcare professional. [employer] disclaims any warranty or liability for your [...] relieve itching. Your doctor may suggest an bojw-pnc-hgiuoaq antihistamine, such as cetirizine (Zyrtec), diphenhydramine (Benadryl), [...] Where can you learn more? Go to http://www.[email or web address]/patiented. Enter R498 in the search box to learn more about 'Chronic Hives: Care Instructions.' Interested in seeing a video go to [email or web address]/videolibrary to see all video content. Current as of: September 01, 2018 Content Version: 12.2 9547-3210 Buyou. Care instructions adapted under license by your healthcare professional. If you have questions about a medical condition or this instruction, always ask your healthcare professional. [employer] disclaims any warranty or liability for your [...] medicines 2004 - May 03, 2017, [facility]. This handout is for informational purposes only. Talk to your doctor or health care team if you have any questions about your care. documented in this encounter History of Present Illness * Betina Pryor APRN-CNP - 02/01/2019 12:00 PM EDT HPI Ping Knox female 1995 presents to the [facility] with Chief Complaint Patient presents [...] file Gets together: Not on file Attends buddhist service: Not on file Active member of [...] Ping Padilla female 1995 presents to the [facility] with Chief Complaint Patient presents [...] tablet Take 1 tablet by mouth daily. kcbeddep-qpwjjezdn-ujhtkmtkkugeid 3.5-48758-4 Solution otic solution 4 drops by Otic [...] file Gets together: Not on file Attends buddhist service: Not on file Active member of [...] right ear, unspecified type Other orders - lhdefucb-ftceiqxrz-iggqznbrfvnqga 3.5-00470-5 Solution otic solution; 4 drops by Otic route 4 times daily. If symptoms worsen patient was advised to follow up in our office or the Emergency Dept. Benefits, Risks, Contraindications, and Complications of recommended treatments were explained. The patient understands and agrees to proceed with plan. Josey Ibrahim PA-C 05/29/2020 documented in this encounter* Betina Pryor, LISA-LAB INTERN - 03/18/2019 10:45 AM EDT HPI Ping Knox female 1995 presents to the [facility] with Chief Complaint Patient presents with [facility] Pt presents with c/o right eye, [...] one month. No known cause. Moved from [facility] to [facility] No self treatments. Hives are self [...] file Gets together: Not on file Attends buddhist service: Not on file Active member of [...] Suggested taking daily antihistamine. Follow up with Choreography Director ref. If symptoms worsen patient was advised to follow up in our office, primary care provider or the Emergency Dept. Benefits, Risks, Contraindications, and Complications of recommended treatments were explained. The patient understands and agrees to proceed with plan. LOGAN Mcguire 03/18/2019 documented in this encounter* Betina Pryor APRN-CNP - 02/01/2019 12:00 PM EDT IRMA Knox female 1995 presents to the [facility] with Chief Complaint Patient presents [...] file Gets together: Not on file Attends buddhist service: Not on file Active member of [...] sent through Care Everywhere. * Heat Exhaustion (Liberian) * Lightheadedness or Faintness (Liberian) documented in this encounter Reason for Referral Status Reason Specialty Diagnoses / Procedures Referred By Contact Referred To Contact New Request Allergy & Immunology Diagnoses Hives Betina Pryor APRN-CNP [address] [place] [address] Status Reason Specialty Diagnoses / Procedures Referred By Contact Referred To Contact New Request Family Medicine Diagnoses Bacterial conjunctivitis of right eye Betina Pryor APRN-CNP [address] [place] [address] Additional Source Comments INFORMATION SOURCE (unrecogn ized section and content) DATE CREATED AUTHOR 11/19/2017 [facility] DATE CREATED AUTHOR AUTHOR'S ORGANIZ ATION 01/19/2019 [facility] DATE CREATED AUTHOR AUTHOR'S ORGANIZ ATION 02/03/2019 [facility] DATE CREATED AUTHOR AUTHOR'S ORGANIZ ATION 06/28/2019 [facility] DATE CREATED AUTHOR AUTHOR'S ORGANIZ ATION 12/30/2019 [facility] DATE CREATED AUTHOR AUTHOR'S ORGANIZ ATION 07/02/2021 [facility] DATE CREATED AUTHOR AUTHOR'S ORGANIZ ATION 07/05/2022 [facility] DATE CREATED AUTHOR AUTHOR'S ORGANIZ ATION 09/01/2022 [facility] DATE CREATED AUTHOR AUTHOR'S ORGANIZ ATION 10/11/2022 [facility] DATE CREATED AUTHOR AUTHOR'S ORGANIZ ATION 06/15/2023 [facility] EPIC Reason for Visit (unrecogniz ed section and content) Reason Comments Urinary Pain Some burning, freque ncy, had for 2 or 3 days. Reason Comments Dizziness Reason Comments Ear Pain Pt c/o right ear teresa n and swollen lymph node on the right side x a few weeks Reason Comments Progress Eye Pt presents with c/o right eye, [...] Associated Order(s): EKG 12-lead ED PROVIDER NOTE [facility] NAME: Ping Knox AGE: 24 y.o. : 1995 VISIT DATE: 12/29/2019 CSN: [id number] PCP: Javier Leiva MD Chief Complaint Patient [...] file Gets together: Not on file Attends buddhist service: Not on file Active member of [...] BE BASED ON THE PRIMARY CLINICAL RECORDS. [facility] [employer] [facility]. provides no warranty or guarantee of the accuracy or completeness of information in this document.
== END 2024-01-03 20:56 | disposition home or self-care (01) ==
LOC: LAB 20:55
PROVIDERS: Visit Provider Obstetrics & Gynecology
DX: N92.6 Irregular menstruation, unspecified (principal); Z01.419 Encounter for gynecological examination (general) (routine) without abnormal findings
CPT/HCPCS: 88175

== ENCOUNTER 2024-08-16 11:04 | Emergency (ER) | payer BC, SELFPAY ==
[2024-08-16 11:09] VITALS: BP 114/78; PULSE 78; TEMP 36.7; O2SAT 98; BMI 32.6
--- OUTSIDE RECORDS SUMMARY | 2024-08-16 11:26 | XMS_ITS | CCD ---
Author Organization [facility] Care Team Providers Care Turn Out Worker Name Role Phone Zarczynski, Edward P Unavailable Unavailable Zarczynski, Edward P Unavailable Unavailable Chambers, Umm Unavailable Unavailable Chambers, Umm Unavailable Unavailable Chambers, Umm Unavailable Unavailable Zarczynski, Edward P Unavailable Unavailable [facility] Primary Care Unavailabl e Unavailable Primary Care Provider Unavailabl e JACQUI IVAN Admitting Unavailable [facility] Primary Care Unavailabl e [facility] Primary Care Provider [facility] Primary Care Unavailabl e Unavailable Primary Care [...] SPEARS Attending Unavailable GUANAKO SPEARS Attending Unavailable GUANAKO SPEARS Attending Unavailable Allergies Allergy Classification Reported Allergen(s) Allergy Type Date of Onset Reaction(s) Facility Macrolides (antibiotic) (1 source) Erythromycin Drug Allergy 07-24-19 [address] [facility] Penicillins (antibiotic) (1 source) Ampicillin Drug Allergy 06-06-[address] [facility] Sulfamethoxazole / Trimethoprim (1 source) Sulfamethoxazole / Trimethoprim Drug Allergy 06-06-[address] [facility] (13 sources) Ampicillin; Translations: [Unknown] Drug Allergy 06-06-19 18 [facility] Repository (7 sources) Erythromycin Drug Allergy 07-24-19 13 [facility] (8 sources) Sulfamethoxazole / Trimethoprim Drug Allergy 06-06-19 18 [facility] (1 source) Penicillin G Drug Allergy 05-24-20 21 Other (See Comments) [facility] Phone: (1 source) Penicillin; Translations: [penicillin] Drug Allergy [facility] Repository Medications Current Medications Medication Drug Class(es) [...] 20 mg by mouth daily 0 Active Gwbbitkq-Mxt-Wm-FA (PRE-HECTOR PO) (1 source) Wwzvjrei-Vcz-Pe-FA (PRE- PO) Take by mouth 0 Active Completed/Discontinued [...] / neomycin 3.5 mg/ml / polymyxin b 17274 unt/ml otic solution (4 sources) Aminoglycoside Antibacterial, Polymyxin-class Antibacterial, Corticosteroid Start: 05-29-2020 End: 08-30-2022 neomycin-polymyxi n-hydrocortisone 3.5-66223-1 Solution otic solution 4 drops by Otic [...] on 10-11-2022 HBsAg Screen Negative Normal Negative [facility] Comment on above: Performed By: #### H BSANS #### [facility] [address] [place] [address] Dr. Kaleb Decker HEPATITIS C VIRUS AB W/ REFL EX QUANTon 10-11-2022 HCV AB Non-Reactive Normal Non Reactive [facility] Comment on above: Performed By: #### H CVPCRR #### [facility] [address] [place] [address] Dr. Kaleb Decker HIV 1 AND 2 WITH REFLEXon HIV Screen 4th Generation wRfx Non-Reactive Normal Non Reactive [facility] Comment on above: Result Comment: HIV Negative HIV-1/HIV-2 antibodies and HIV-1 p24 antigen were NOT detected. There is no laboratory evidence of HIV infection. Performed By: #### H IV12 #### [facility] [address] [place] [address] Dr. Kaleb Decker RPR QUANTon 10-11-2022 Rapid Plasma Reagin, Quant Non-Reactive Normal NonRea<1:1 [facility] Comment on above: Result Comment: Plea se Note: This test does not meet current guidelines for screening and diagnosis of syphilis. This test is intended for following treatment response in patients being treated for syphilis infection. To screen for syphilis infection, a reflex cascade that includes both RPR and a treponema-specific assay should be utilized, such as Treponema pallidum (Syphilis) Screening [place] (059511) or Rapid Plasma Reagin (RPR) Test With Reflex to Quantitative RPR and Confirmatory Treponema pallidum Antibodies (474446). Performed By: #### H BSANS #### [facility] [address] [place] [address] Dr. Kaleb Decker RUBELLA AB IGGon 10-11-2022 Rubella Antibodies, IgG <0.90 Critically low Immune >0.99 [facility] Comment on above: Result Comment: Non- immune <0.90 Equivocal 0.90 - 0.99 Immune >0.99 Performed By: #### R UBIGG #### [facility] [address] [place] [address] Dr. Kaleb Decker BOX TEST SENT OUTon 10-11-19 23 SENT TO REF LAB 10/10/22 Normal [facility] Comment on above: Performed By: #### B OX #### [facility] [address] [place] [address] Dr. Kaleb Decker CBC AUTO DIFFon 10-10-2022 BASO # 0.0 103/ul Normal 0.0-0.1 [facility] Comment on above: Performed By: #### C BC #### [facility] [address] [place] [address] Dr. Kaleb Decker Basophils/100 WBC (Bld) 0.6 % Normal 0.2-2.0 [facility] Comment on above: Performed By: #### C BC #### [facility] [address] [place] [address] Dr. Kaleb Decker EO # 0.2 103/ul Normal 0.0-0.7 [facility] Comment on above: Performed By: #### C BC #### [facility] [address] [place] [address] Dr. Kaleb Decker Eosinophils/100 WBC (Bld) 2.4 % Normal 0.9-7.0 [facility] Comment on above: Performed By: #### C BC #### [facility] [address] [place] [address] Dr. Kaleb Decker Erythrocyte distribution width (RBC) [Ratio] 13.8 % Normal 11.0-15.0 [facility] Comment on above: Performed By: #### C BC #### [facility] [address] [place] [address] Dr. Kaleb Decker Hematocrit (Bld) [Volume fraction] 41.5 % Normal 36.0-48.0 [facility] Comment on above: Performed By: #### C BC #### [facility] [address] [place] [address] Dr. Kaleb Decker Hemoglobin (Bld) [Mass/Vol] 13.6 g/dL Normal 12.0-16.0 [facility] Comment on above: Performed By: #### C BC #### [facility] [address] [address] [address] Kaleb Decker IG # 0.04 10e3/ul Critically high 0.00-0.03 [facility] Comment on above: Performed By: #### C BC #### [facility] [address] [address] [address] Kaleb Decker IG % 0.6 % Critically high 0.0-0.5 [facility] Comment on above: Performed By: #### C BC #### [facility] [address] [address] [address] Kaleb Decker LYMPH # 1.8 103/ul Normal 1.2-3.8 [facility] Comment on above: Performed By: #### C BC #### [facility] [address] [place] [address] Dr. Kaleb Decker Lymphocytes/100 WBC (Bld) 26.6 % Normal 20.5-60.0 [facility] Comment on above: Performed By: #### C BC #### [facility] [address] [place] [address] Dr. Kaleb Decker MANUAL DIFF REQ NO Normal [facility] Comment on above: Performed By: #### C BC #### [facility] [address] [place] [address] Dr. Kaleb Decker MCH (RBC) [Entitic mass] 26.1 pg Critically low 26.7-34.0 [facility] Comment on above: Performed By: #### C BC #### [facility] [address] [place] [address] Dr. Kaleb Decker MCHC (RBC) [Mass/Vol] 32.8 g/dL Normal 29.9-35.2 [facility] Comment on above: Performed By: #### C BC #### [facility] [address] [place] [address] Dr. Kaleb Decker MCV (RBC) [Entitic vol] 79.7 fL Critically low 81.0-99.0 [facility] Comment on above: Performed By: #### C BC #### [facility] [address] [place] [address] Dr. Kaleb Decker MONO # 0.3 103/ul Normal 0.3-0.8 [facility] Comment on above: Performed By: #### C BC #### [facility] [address] [place] [address] Dr. Kaleb Decker Monocytes/100 WBC (Bld) 4.6 % Normal 1.7-12.0 [facility] Comment on above: Performed By: #### C BC #### [facility] [address] [place] [address] Dr. Kaleb Decker NEUT # 4.4 103/ul Normal 1.4-6.5 [facility] Comment on above: Performed By: #### C BC #### [facility] [address] [place] [address] Dr. Kaleb Decker Neutrophils/100 WBC (Bld) 65.2 % Normal 43.0-75.0 [facility] Comment on above: Performed By: #### C BC #### [facility] [address] [place] [address] Dr. Kaleb Decker Platelet mean volume (Bld) [Entitic vol] 9.8 fL Normal 9.5-13.5 [facility] Comment on above: Performed By: #### C BC #### [facility] [address] [place] [address] Dr. Kaleb Decker PLT 312 103/ul Normal 150-450 [facility] Comment on above: Performed By: #### C BC #### [facility] [address] [place] [address] Dr. Kaleb Decker RBC 5.21 106/ul Normal 4.20-5.40 [facility] Comment on above: Performed By: #### C BC #### [facility] [address] [place] [address] Dr. Kaleb Decker WBC 6.8 103/ul Normal 4.0-11.0 [facility] Comment on above: Performed By: #### C BC #### [facility] [address] [place] [address] Dr. Kaleb Decker CULTURE URINEon 10-10-2022 CULTURE URINE Culture Observations : LIGHT GROWTH OF MIXED GENITAL RACHEL. NO POTENTIAL PATHOGENS SEEN. Normal [facility] Comment on above: Performed By: #### H BSANS #### [facility] [address] [address] [address] Kaleb Decker GLYCOHEMOGLOBIN A1Con 2022 ADA RECOMMENDATION SEE BELOW Normal [facility] Comment on above: Result Comment: ADA RECOMMENDED LIMIT 4.0 - 6.0 ADA THERAPEUTIC TARGET < 7.0 ACTION SUGGESTED > 7.0 Performed By: #### A 1C #### [facility] [address] [address] [address] Kaleb Decker Glucose [Mass/Vol] 100 mg/dL Normal [facility] Comment on above: Performed By: #### A 1C #### [facility] [address] [place] [address] Dr. Kaleb Decker HbA1c (Bld) [Mass fraction] 5.1 % Normal 4.5-6.2 [facility] Comment on above: Performed By: #### A 1C #### [facility] [address] [address] [address] Kaleb Decker TSHon 10-10-2022 TSH 0.670 uIU/mL Normal 0.358-3.740 [facility] Comment on above: Performed By: #### T SH #### [facility] [address] [place] [address] Dr. Kaleb Decker TYPE AND SCREENon 10-10-2022 TYPE AND SCREEN Negative Normal [facility] Comment on above: Performed By: #### T NS #### [facility] [address] [address] [address] Kaleb Decker UA RANDOMon 10-10-2022 Bilirubin Ql (U) Negative Normal NEGATIVE [facility] Comment on above: Performed By: #### U A #### [facility] [address] [place] [address] Dr. Kaleb Decker Clarity (U) CLEAR Normal CLEAR [facility] Comment on above: Performed By: #### U A #### [facility] [address] [address] [address] Kaleb Decker Color (U) LT. YELLOW Normal YELLOW [facility] Comment on above: Performed By: #### U A #### [facility] [address] [place] [address] Dr. Kaleb Decker Glucose Ql (U) Negative Normal NEGATIVE [facility] Comment on above: Performed By: #### U A #### [facility] [address] [place] [address] Dr. Kaleb Decker Hemoglobin Ql (U) Negative Normal NEGATIVE [facility] Comment on above: Performed By: #### U A #### [facility] [address] [place] [address] Dr. Kaleb Decker Ketones Ql (U) Negative Normal NEGATIVE [facility] Comment on above: Performed By: #### U A #### [facility] [address] [place] [address] Dr. Kaleb Decker LEUKOCYTES MODERATE Abnormal NEGATIVE [facility] Comment on above: Performed By: #### U A #### [facility] [address] [place] [address] Dr. Kaleb Decker Nitrite Ql (U) Negative Normal NEGATIVE [facility] Comment on above: Performed By: #### U A #### [facility] [address] [place] [address] Dr. Kaleb Decker pH (U) 7.0 [pH] Normal 5-9 [facility] Comment on above: Performed By: #### U A #### [facility] [address] [place] [address] Dr. Kaleb Decker SPEC GRAVITY 1.010 Normal 1.005-<=1.025 [facility] Comment on above: Performed By: #### U A #### [facility] [address] [place] [address] Dr. Kaleb Decker UA PROTEIN Negative Normal NEGATIVE/ TRACE [facility] Comment on above: Performed By: #### U A #### [facility] [address] [place] [address] Dr. Kaleb Decker Urobilinogen Qn (U) 0.2 {Garcia'U}/dL Normal 0.2 - 1. 0 [facility] Comment on above: Performed By: #### U A #### [facility] [address] [address] [address] Kaleb Decker US PREG TVon 10-03-2022 [...] by: RAFFI FARNSWORTH Date: 2022-10-03 15:36 Normal [facility] POCT RAPID STREP Aon 023 S. pyogenes Ag Ql (Throat) Negative (+/-) [facility] Internal controls [facility] XR KNEE LEFT (MIN 4 VIEWS)on 07-01-2021 [...] Johnny Lipscomb MD 07/01/21 Final result Normal [facility] Normal left knee [facility] EXAM: XR KNEE LEFT (MIN 4 VIEWS) HISTORY: Reason for exam:->Pain injury trauma COMPARISON: None. TECHNIQUE: 4 views left knee FINDINGS: No fracture or joint effusion. Joint spaces are maintained. No pathologic calcification. No radiopaque foreign body. [facility] Johnny Lipscomb M D - 07/01/2021 EXAM: XR KNEE LEFT (MIN 4 VIEWS) HISTORY: Reason for exam:->Pain injury trauma COMPARISON: None. TECHNIQUE: 4 views left knee FINDINGS: No fracture or joint effusion. Joint spaces are maintained. No pathologic calcification. No radiopaque foreign body. IMPRESSION: Normal left knee [facility] [employer] Phone: Radiology Study observation (narrative) [facility] Phone: XR KNEE LEFT (MIN 4 VIEWS)Or dered By: Johnny Lipscomb on 07-01-2021 [facility] Phone: CBC with Diffon 05-24-2021 Abs. Atypical Lymphs 0.20 k/uL Normal 0.0-1.0 [facility] Comment on above: Performed By: #### C P, CDP #### [facility] [address] [place] [address] Educational Assistant Teacher: Rancho Alvarado MD Abs. Bands 2.00 k/uL High 0.0-1.0 [facility] Comment on above: Performed By: #### C P, CDP #### [facility] [address] [place] [address] Educational Assistant Teacher: Rancho Alvarado MD Abs. Basophil Normal 0.0-0.2 [facility] Comment on above: Performed By: #### C P, CDP #### [facility] [address] [place] [address] Educational Assistant Teacher: Rancho Alvarado MD Abs.Neutrophil (Seg) 6.80 k/uL Normal 2.5-7.0 [facility] Comment on above: Performed By: #### C P, CDP #### [facility] [address] [place] [address] Educational Assistant Teacher: Rancho Alvarado MD Atypical Lymphs 2 % Normal [facility] Comment on above: Performed By: #### C P, CDP #### [facility] [address] [place] [address] Educational Assistant Teacher: Rancho Alvarado MD Bands 20 % High 0-10 [facility] Comment on above: Performed By: #### C P, CDP #### [facility] [address] [place] [address] Educational Assistant Teacher: Rancho Alvarado MD Basophil Normal 0-2 [facility] Comment on above: Performed By: #### C P, CDP #### [facility] [address] [phone] Educational Assistant Teacher: Rancho Alvarado MD Eosinophils (Bld) [#/Vol] 0.30 10*3/uL Normal 0.0-0.4 [facility] Comment on above: Performed By: #### C P, CDP #### [facility] [address] [place] [address] Educational Assistant Teacher: Rancho Alvarado MD Eosinophils/100 WBC (Bld) 3 % Normal 0-5 [facility] Comment on above: Performed By: #### C P, CDP #### [facility] [address] [place] [address] Educational Assistant Teacher: Rancho Alvarado MD Lymphocytes (Bld) [#/Vol] 0.50 10*3/uL Low 1.0-4.8 [facility] Comment on above: Performed By: #### C P, CDP #### [facility] [address] [phone] Educational Assistant Teacher: Rancho Alvarado MD Lymphocytes/100 WBC (Bld) 5 % Low 15-40 [facility] Comment on above: Performed By: #### C P, CDP #### [facility] [address] [phone] Educational Assistant Teacher: Rancho Alvarado MD Monocytes (Bld) [#/Vol] 0.20 10*3/uL Normal 0.0-1.0 [facility] Comment on above: Performed By: #### C P, CDP #### [facility] [address] [place], [place] [phone] Educational Assistant Teacher: Rancho Alvarado MD Monocytes/100 WBC (Bld) 2 % Low 4-8 [facility] Comment on above: Performed By: #### C P, CDP #### [facility] [address] [place], [place] [phone] Educational Assistant Teacher: Rancho Alvarado MD Morphology Faustino (Bld) [Interp] Manual Differential Performed Normal [facility] Comment on above: Performed By: #### C P, CDP #### [facility] [address] [place] [address] Educational Assistant Teacher: Rancho Alvarado MD Neutrophil (Seg) 68 % Normal 47-75 [facility] Comment on above: Performed By: #### C P, CDP #### [facility] [address] [place] [address] Educational Assistant Teacher: Rancho Alvarado MD Erythrocyte distribution width (RBC) [Ratio] 13.1 % Normal 12.1-15.2 [facility] Comment on above: Performed By: #### C P, CDP #### [facility] [address] [place], [place] [phone] Educational Assistant Teacher: Rancho Alvarado MD Hematocrit (Bld) [Volume fraction] 44.2 % Normal 36-46 [facility] Comment on above: Performed By: #### C P, CDP #### [facility] [address] [place], [place] [phone] Educational Assistant Teacher: Rancho Alvarado MD Hemoglobin (Bld) [Mass/Vol] 14.7 g/dL Normal 12.0-16.0 [facility] Comment on above: Performed By: #### C P, CDP #### [facility] [address] [place], [place] [phone] Educational Assistant Teacher: Rancho Alvarado MD MCH (RBC) [Entitic mass] 26.1 pg Normal 26-34 [facility] Comment on above: Performed By: #### C P, CDP #### [facility] [address] [place] [address] Educational Assistant Teacher: Rancho Alvarado MD MCHC (RBC) [Mass/Vol] 33.2 g/dL Normal 31-37 [facility] Comment on above: Performed By: #### C P, CDP #### [facility] [address] [place], [place] [phone] Educational Assistant Teacher: Rancho Alvarado MD MCV (RBC) [Entitic vol] 78.5 fL Low 80-100 [facility] Comment on above: Performed By: #### C P, CDP #### [facility] [address] [place] [address] Educational Assistant Teacher: Rancho Alvarado MD Platelets (Bld) [#/Vol] 317 10*3/uL Normal 140-450 [facility] Comment on above: Performed By: #### C P, CDP #### [facility] [address] [place] [address] Educational Assistant Teacher: Rancho Alvarado MD RBC (Bld) [#/Vol] 5.64 10*6/uL High 4.0-5.2 [facility] Comment on above: Performed By: #### C P, CDP #### [facility] [address] [place], [place] [phone] Educational Assistant Teacher: Rancho Alvarado MD WBC (Bld) [#/Vol] 10.0 10*3/uL Normal 3.5-11.0 [facility] Comment on above: Performed By: #### C P, CDP #### [facility] [address] [place] [address] Educational Assistant Teacher: Rancho Alvarado MD Abs.Imm.Granulocyte NOT REPORTED Normal 0.00-0.30 [facility] Comment on above: Performed By: #### C P, CDP #### [facility] [address] [place] [address] Educational Assistant Teacher: Rancho Alvarado MD Auto Diff Performed NOT REPORTED Normal [facility] Comment on above: Performed By: #### C P, CDP #### [facility] [address] [place] [address] Educational Assistant Teacher: Rancho Alvarado MD Immature Granulocyte NOT REPORTED Normal 0 [facility] Comment on above: Performed By: #### C P, CDP #### [facility] [address] [place], [place] [phone] Educational Assistant Teacher: Rancho Alvarado MD MPV NOT REPORTED Normal 6.0-12.0 [facility] Comment on above: Performed By: #### C P, CDP #### [facility] [address] [place], [place] [phone] Educational Assistant Teacher: Rancho Alvarado MD NRBC Automated NOT REPORTED Normal [facility] Comment on above: Performed By: #### C P, CDP #### [facility] [address] [place] [address] Educational Assistant Teacher: Rancho Alvarado MD Platelet Comment NOT REPORTED Normal [facility] Comment on above: Performed By: #### C P, CDP #### [facility] [address] [place] [address] Educational Assistant Teacher: Rancho Alvarado MD RBC morphology finding Nom (Bld) NOT REPORTED Normal [facility] Comment on above: Performed By: #### C P, CDP #### [facility] [address] [place] [address] Educational Assistant Teacher: Rancho Alvarado MD WBC Morphology NOT REPORTED Normal [facility] Comment on above: Performed By: #### C P, CDP #### [facility] [address] [place], [place] [phone] Educational Assistant Teacher: Rancho Alvarado MD Comp Metabolic Profon 2020 (cont.) Normal [facility] Comment on above: Result Comment: Aver age GFR for 20-29 years old: 116 mL/min/1.73sq m Chronic Kidney Disease: <60 mL/min/1.73sq m Kidney failure: <15 mL/min/1.73sq m eGFR calculated using average adult body mass. Additional eGFR calculator available at: http://www.[employer]/multiple_crcl_2011.htm Performed By: #### C P, CDP #### [facility] [address] [place], [place] [phone] Educational Assistant Teacher: Rancho Alvarado MD Albumin [Mass/Vol] 4.5 g/dL Normal 3.5-5.2 [facility] Comment on above: Performed By: #### C P, CDP #### [facility] [address] [place] [address] Educational Assistant Teacher: Rancho Alvarado MD Alkaline Phos 90 U/L Normal 35-104 [facility] Comment on above: Performed By: #### C P, CDP #### [facility] [address] [place], [place] [phone] Educational Assistant Teacher: Rancho Alvarado MD ALT [Catalytic activity/Vol] 136 U/L High 5-33 [facility] Comment on above: Performed By: #### C P, CDP #### [facility] [address] [place] [address] Educational Assistant Teacher: Rancho Alvarado MD Anion gap [Moles/Vol] 15 mmol/L Normal 9-17 [facility] Comment on above: Performed By: #### C P, CDP #### [facility] [address] [place], [place] [id number] Educational Assistant Teacher: Rancho Alvarado MD AST [Catalytic activity/Vol] 55 U/L High <32 [facility] Comment on above: Performed By: #### C P, CDP #### [facility] [address] [place] [address] Educational Assistant Teacher: Rancho Alvarado MD Bilirubin [Mass/Vol] 0.68 mg/dL Normal 0.30-1.20 [facility] Comment on above: Performed By: #### C P, CDP #### [facility] [address] [place] [address] Educational Assistant Teacher: Rancho Alvarado MD BUN/CRE Ratio 21 High 9-20 [facility] Comment on above: Performed By: #### C P, CDP #### [facility] [address] [place] [address] Educational Assistant Teacher: Rancho Alvarado MD Calcium [Mass/Vol] 9.2 mg/dL Normal 8.6-10.4 [facility] Comment on above: Performed By: #### C P, CDP #### [facility] [address] [place] [address] Educational Assistant Teacher: Rancho Alvarado MD Chloride [Moles/Vol] 105 mmol/L Normal 98-107 [facility] Comment on above: Performed By: #### C P, CDP #### [facility] [address] [place] [address] Educational Assistant Teacher: Rancho Alvarado MD CO2 [Moles/Vol] 21 mmol/L Normal 20-31 [facility] Comment on above: Performed By: #### C P, CDP #### [facility] [address] [place] [address] Educational Assistant Teacher: Rancho Alvarado MD Creatinine [Mass/Vol] 0.75 mg/dL Normal 0.50-0.90 [facility] Comment on above: Performed By: #### C P, CDP #### [facility] [address] [place] [address] Educational Assistant Teacher: Rancho Alvarado MD GFR, Amer >60 Normal >60 [facility] Comment on above: Performed By: #### C P, CDP #### [facility] [address] [place] [address] Educational Assistant Teacher: Rancho Alvarado MD GFR,non Amer >60 Normal >60 [facility] Comment on above: Performed By: #### C P, CDP #### [facility] [address] [place] [address] Educational Assistant Teacher: Rancho Alvarado MD Glucose [Mass/Vol] 105 mg/dL High 70-99 [facility] Comment on above: Performed By: #### C P, CDP #### [facility] [address] [place] [address] Educational Assistant Teacher: Rancho Alvarado MD Potassium [Moles/Vol] 4.1 mmol/L Normal 3.7-5.3 [facility] Comment on above: Performed By: #### C P, CDP #### [facility] [address] [place] [address] Educational Assistant Teacher: Rancho Alvarado MD Protein [Mass/Vol] 7.6 g/dL Normal 6.4-8.3 [facility] Comment on above: Performed By: #### C P, CDP #### [facility] [address] [place] [address] Educational Assistant Teacher: Rancho Alvarado MD Sodium [Moles/Vol] 141 mmol/L Normal 135-144 [facility] Comment on above: Performed By: #### C P, CDP #### [facility] [address] [place] [address] Educational Assistant Teacher: Rancho Alvarado MD Urea nitrogen [Mass/Vol] 16 mg/dL Normal 6-20 [facility] Comment on above: Performed By: #### C P, CDP #### [facility] [address] [place] [address] Educational Assistant Teacher: Rnacho Alvarado MD Albumin/Glob Ratio NOT REPORTED Normal 1.0-2.5 [facility] Comment on above: Performed By: #### C P, CDP #### [facility] [address] [place] [address] Educational Assistant Teacher: Rancho Alvarado MD Staging: NOT REPORTED Normal [facility] Comment on above: Performed By: #### C P, CDP #### [facility] [address] [place] [address] Educational Assistant Teacher: Rancho Alvarado MD SARS-COV-2 RAPIDon Transportation Equipment Painter Cyto stain Nom (Cvx/Vag) [ID] [facility] Interpretation and review of laboratory results Abnormal [facility] NARRATIVE -1 This test was performed using isothermal DANTE and has been approved as Emergency Use Authorization (EUA) for the qualitative detection [id number] [facility] SARS-CoV-2 (COVID-19) RNA DANTE+probe Ql (Unsp spec) Detected Abnormal NOT DETECTED [facility] Comment on above: CALLED TO AND READ B ACK BY [email or web address] SHEA ENHANCED CONTACT, AND DROPLET ISOLATION IS REQUIRED FOR INPATIENTS WITH SARS-CoV-2. [facility] SARS-COV-2 RAPIDOrdered By: Betina Pryor on 10-11-2020 Transportation Equipment Painter Cyto stain Nom (Cvx/Vag) [ID] [facility] NARRATIVE -1 This test was performed using isothermal DANTE and has been approved as Emergency Use Authorization (EUA) for the qualitative detection zyCNHZ-PtQ-[address] [facility] SARS-CoV-2 (COVID-19) RNA DANTE+probe Ql (Unsp spec) Not detected NOT DETECTED [facility] Comment on above: Negative results do not [...] patient is critically ill or clinically deteriorating. [facility] ECG 12-LEADon 12-29-2019 Raffi Doss MD 12/29/2019 8:02 PM EKG 12-lead Date/Time: 12/29/2019 7:57 PM Performed by: Raffi Doss MD Authorized by: Raffi Doss MD BPM: 65 Comments: Normal sinus rhythm at a rate of 65, normal axis, no signs of acute ischemia or infarction. No signs of interval pathology, WPW, HOCM, Brugada [facility] Urine Pregnancyon 12-29-2019 HCG ( test) Ql (U) Negative Negative [facility] Interpretation and review of laboratory results Normal [facility] URINE CULTUREon 02-03-2019 Bacteria identified Cx Nom (U) SPECIMEN DESCRIPTION URINE CLEAN CATCH UA DIPSTICK LEUKOCYTE POSITIVE * Result Note: NITRITE NEGATIVE * CULTURE ESCHERICHIA COLI * Result Note: 40,000-50,000 C/C/ML * * Result Note: Testing performed at [place], [place] [address] * REPORT STATUS 02/03/2019 * Result Note: FINAL * ORGANISM ESCHERICHIA COLI * Result Note: ESCHERICHIA COLI * METHOD OSMAN AMPICILLIN 4 SUSCEPTIBLE AMPICILLIN/SULBACTAM <=2 SUSCEPTIBLE CEFTRIAXONE <=1 SUSCEPTIBLE CEFAZOLIN <=4 SUSCEPTIBLE IMIPENEM <=0.25 SUSCEPTIBLE GENTAMICIN <=1 SUSCEPTIBLE TRIMETH-SULFA <=20 SUSCEPTIBLE AMOXICILLIN/CLAVULANIC A 4 SUSCEPTIBLE NITROFURANTOIN <=16 SUSCEPTIBLE PIPERACILLIN/TAZOBACTA M <=4 SUSCEPTIBLE LEVOFLOXACIN <=0.12 SUSCEPTIBLE ESBL NEGATIVE CEFTAZIDIME <=1 SUSCEPTIBLE Normal [facility] Comment on above: Performed By: #### A URNC #### Testing performed at [facility] [address] [place] [address] POCT URINALYSIS DIPSTICK NON AUTOMATEDon 02-01-2019 Amorphous sediment LM Ql (Urine sed) [facility] Appearance (Body fld) cloudy [facility] Bacteria LM Ql (Urine sed) [facility] Bilirubin Ql (U) Negative [facility] Casts LM.LPF (Urine sed) [#/Area] [facility] Color (U) yellow [facility] Crystals LM Nom (Urine sed) [facility] Epithelial cells.squamous LM.HPF (Urine sed) [#/Area] [facility] Flow cytometry specialist review Faustino (Unsp spec) [Interp] [facility] Interpretation and review of laboratory results Abnormal [facility] Ketones [Mass/Vol] Negative mg/dL [facility] Leukocyte esterase Qn (U) [facility] Leukocyte esterase Test strip Ql (U) small [facility] Nitrite Ql (U) Negative [facility] pH (U) 7.5 [pH] Abnormal [facility] POCT GLUCOSE, URINE Negative mg/dL [facility] Protein Ql (U) Negative mg/dL [facility] RBC LM.HPF (Urine sed) [#/Area] [facility] RBC Ql (U) trace [facility] Specific gravity (U) [Rel density] 1.020 [facility] Transitional cells LM Ql (Urine sed) [facility] Urobilinogen (U) [Mass/Vol] 0.2 [facility] WBC LM.HPF (Urine sed) [#/Area] [facility] Hgb and Hcton 06-28-2017 Hematocrit (HCT) 29.3 % Low 34.4-44.8 [facility] Comment on above: Performed By: #### H H ####Unless otherwise noted, all testing performed by [facility] [place], [place] [id number]: [id number] Director: José Miguel Chan M.D. Hemoglobin mass conc (Bld) 9.6 g/dL Low 11.6-15.4 [facility] Comment on above: Performed By: #### H H ####Unless otherwise noted, all testing performed by [address] [id number]: [id number] Director: José Miguel Chan M.D. Hepatitis C Antibodyon 06-27 Hepatitis C Antibody Positive Abnormal Negative [facility] Comment on above: Result Comment: Vlad mmend confirmation with HCV Virus Quantitation.Test performed using [employer] Immunodiagnostic system.[place] [address] Performed By: #### H EPCABS, HEPCQT ####Unless otherwise noted, all testing performed by [place] [id number]: [id number] Director: José Miguel Chan M.D. Hepatitis C Qt,HCV-RNAon Hepatitis C Qt,HCV-RNA Not Detected Normal Not Detected [facility] Comment on above: Result Comment: The quantification range of this assay is 15-100,000,000 IU/mL(1.2 log IU/mL - 8.0 log IU/mL)Assay performed using MARY Ampliprep/TaqmanHCV test, version 2.0.[place] [address] Performed By: #### H EPCABS, HEPCQT ####Unless otherwise noted, all testing performed by [address] [phone]: [id number] Director: José Miguel Chan M.D. Urinalysis, Routineon 2017 Bilirubin,Urine Negative Normal NEG;NEGATIVE [facility] Comment on above: Performed By: #### U A ####Unless otherwise noted, all testing performed by [place] [phone]: [id number] Director: José Miguel Chan M.D. Blood,Urine Negative Normal NEG;NEGATIVE [facility] Comment on above: Performed By: #### U A ####Unless otherwise noted, all testing performed by [address] [phone]: [id number] Director: José Miguel Chan M.D. Ketone,Urine Negative Normal NEG;NEGATIVE [facility] Comment on above: Performed By: #### U A ####Unless otherwise noted, all testing performed by [address] [id number]: [id number] Director: José Miguel Chan M.D. Leuk.Esterase,Urine Trace Abnormal Negative [facility] Comment on above: Performed By: #### U A ####Unless otherwise noted, all testing performed by [address] [id number]: [id number] Director: José Miguel Chan M.D. Nitrite,Urine Negative Normal NEG;NEGATIVE [facility] Comment on above: Performed By: #### U A ####Unless otherwise noted, all testing performed by [address] [phone]: [id number] Director: José Miguel Chan M.D. Protein,Urine Negative Normal NEG;NEGATIVE [facility] Comment on above: Performed By: #### U A ####Unless otherwise noted, all testing performed by [address] [phone]: [id number] Director: José Miguel Chan M.D. Specific [place],Urine 1.002 Low 1.003-1.029 [facility] Comment on above: Performed By: #### U A ####Unless otherwise noted, all testing performed by [address] [phone]: [id number] Director: José Miguel Chan M.D. Squamous Epithelial 1 /HPF Normal 0-40 [facility] Comment on above: Performed By: #### U A ####Unless otherwise noted, all testing performed by [address] [phone]: [id number] Director: José Miguel Chan M.D. Urine, bacteria in sediment Moderate Abnormal NS;RARE [facility] Comment on above: Performed By: #### U A ####Unless otherwise noted, all testing performed by [address] [phone]: [id number] Director: José Miguel Chan M.D. Urine, character Hazy Normal [facility] Comment on above: Performed By: #### U A ####Unless otherwise noted, all testing performed by [address] [phone]: [id number] Director: José Miguel Chan M.D. Urine, color Straw Normal [facility] Comment on above: Performed By: #### U A ####Unless otherwise noted, all testing performed by [address] [phone]: [id number] Director: José Miguel Chan M.D. Urine, erythrocytes in sediment by area 2 /[HPF] Normal 0-5 [facility] Comment on above: Performed By: #### U A ####Unless otherwise noted, all testing performed by [address] [phone]: [id number] Director: José Miguel Chan M.D. Urine, glucose presence Negative Normal NEG;NEGATIVE [facility] Comment on above: Performed By: #### U A ####Unless otherwise noted, all testing performed by [address] [phone]: [id number] Director: José Miguel Chan M.D. Urine, leukocytes in sedmiment 1 /[HPF] Normal 0-5 [facility] Comment on above: Performed By: #### U A ####Unless otherwise noted, all testing performed by [address] [phone]: [id number] Director: José Miguel Chan M.D. Urine, pH 7.0 [pH] Normal 4.5-8.0 [facility] Comment on above: Performed By: #### U A ####Unless otherwise noted, all testing performed by [address] [phone]: [id number] Director: José Miguel Chan M.D. Urobilinogen,Urine < 2.0 Normal <2 [facility] Comment on above: Performed By: #### U A ####Unless otherwise noted, all testing performed by [address], [place] [phone]: [id number] Director: José Miguel Chan M.D. Vital Signs Date Time Vital Sign Value Performing Clinician Facility 08-30-2022 19:23-0400 Body height 175.3 cm Dick Lassiter APRN-SAP PP CONSULTANT Work Phone: [facility] 08-30-2022 19:23-0400 Body mass index (BMI) [Ratio] 32.52 kg/m2 Dick Lassiter APRN-SAP PP CONSULTANT Work Phone: [facility] 08-30-2022 19:23-0400 Body temperature 98.49 [degF] Dick Lassiter APRNDAVID Work Phone: [facility] 08-30-2022 19:23-0400 Body weight 99.88 kg Dick Lassiter APRN-SAP PP CONSULTANT Work Phone: [facility] 08-30-2022 19:23-0400 Diastolic blood pressure 66 mm[Hg] Dick Lassiter APRN-SAP PP CONSULTANT Work Phone: [facility] 08-30-2022 19:23-0400 Heart rate 96 /min Dick Lassiter APRN-SAP PP CONSULTANT Work Phone: [facility] 08-30-2022 19:23-0400 Respiratory rate 16 /min Dick Lassiter APRN-SAP PP CONSULTANT Work Phone: [facility] 08-30-2022 19:23-0400 SaO2% (BldA) [Mass fraction] 99 % Dick Lassiter APRN-SAP PP CONSULTANT Work Phone: [facility] 08-30-2022 19:23-0400 Systolic blood pressure 110 mm[Hg] Dick Lassiter APRN-SAP PP CONSULTANT Work Phone: [facility] 07-01-2021 19:17-0500 Body mass index (BMI) [Ratio] 33.67 kg/m2 Bryon Gu MD Work Phone: [facility] 07-01-2021 19:17-0500 Body temperature 97.81 [degF] Bryon Gu MD Work Phone: [facility] 07-01-2021 19:17-0500 Body weight 103.42 kg Bryon Gu MD Work Phone: [facility] 07-01-2021 19:17-0500 Diastolic blood pressure 80 mm[Hg] Bryon Gu MD Work Phone: [facility] 07-01-2021 19:17-0500 Heart rate 95 /min Bryon Gu MD Work Phone: [facility] 07-01-2021 19:17-0500 Respiratory rate 16 /min Bryon Gu MD Work Phone: [facility] 07-01-2021 19:17-0500 SaO2% (BldA) [Mass fraction] 98 % Bryon Gu MD Work Phone: [facility] 07-01-2021 19:17-0500 Systolic blood pressure 128 mm[Hg] Bryon Gu MD Work Phone: [facility] 12-28-2020 12:50-0400 Body height 175.3 cm Betina Pryor BAKER APPRENTICE-SAP PP CONSULTANT Work Phone: [facility] 12-28-2020 12:50-0400 Body mass index (BMI) [Ratio] 32.38 kg/m2 Betina Pryor BAKER APPRENTICE-SAP PP CONSULTANT Work Phone: [facility] 12-28-2020 12:50-0400 Body temperature 98.01 [degF] Betina Pryor BAKER APPRENTICE-SAP PP CONSULTANT Work Phone: [employer] [facility] 12-28-2020 12:50-0400 Body weight 99.47 kg Betina Pryor BAKER APPRENTICE-SAP PP CONSULTANT Work Phone: [facility] 12-28-2020 12:50-0400 Diastolic blood pressure 76 mm[Hg] Betina Pryor BAKER APPRENTICE-SAP PP CONSULTANT Work Phone: [facility] 12-28-2020 12:50-0400 Heart rate 111 /min Betina Pryor APRN-SAP PP CONSULTANT Work Phone: [facility] 12-28-2020 12:50-0400 Respiratory rate 16 /min Betina Pryor APRN-SAP PP CONSULTANT Work Phone: [facility] 12-28-2020 12:50-0400 SaO2% (BldA) [Mass fraction] 100 % Betina Pryor APRN-SAP PP CONSULTANT Work Phone: [facility] 12-28-2020 12:50-0400 Systolic blood pressure 113 mm[Hg] Betina Pryor BAKER APPRENTICE-SAP PP CONSULTANT Work Phone: [facility] 10-11-2020 19:30-0400 Body height 175.3 cm Betina Pryor APRN-SAP PP CONSULTANT Work Phone: [facility] 10-11-2020 19:30-0400 Body mass index (BMI) [Ratio] 31.47 kg/m2 Betina Pryor APRN-SAP PP CONSULTANT Work Phone: [facility] 10-11-2020 19:30-0400 Body temperature 98.49 [degF] Betina Pryor APRN-SAP PP CONSULTANT Work Phone: [facility] 10-11-2020 19:30-0400 Body weight 96.66 kg Betina Pryor APRN-SAP PP CONSULTANT Work Phone: [facility] 10-11-2020 19:30-0400 Diastolic blood pressure 82 mm[Hg] Betina Pryor BAKER APPRENTICE-SAP PP CONSULTANT Work Phone: [facility] 10-11-2020 19:30-0400 Heart rate 94 /min Betina Pryor APRN-SAP PP CONSULTANT Work Phone: [facility] 10-11-2020 19:30-0400 Respiratory rate 16 /min Betina Pryor BAKER APPRENTICE-SAP PP CONSULTANT Work Phone: [facility] 10-11-2020 19:30-0400 SaO2% (BldA) [Mass fraction] 100 % Betina Pryor APRN-SAP PP CONSULTANT Work Phone: [facility] 10-11-2020 19:30-0400 Systolic blood pressure 120 mm[Hg] Betina Pryor BAKER APPRENTICE-SAP PP CONSULTANT Work Phone: [facility] 05-29-2020 10:56-0500 BMI (Body Mass Index) 29.89 kg/m2 [facility] 05-29-2020 10:56-0500 Body Temperature 99.39 [degF] [facility] 05-29-2020 10:56-0500 Body weight 91.81 kg [facility] 05-29-2020 10:56-0500 BP Diastolic 85 mm[Hg] [facility] 05-29-2020 10:56-0500 BP Systolic 118 mm[Hg] [facility] 05-29-2020 10:56-0500 Height 175.3 cm [facility] 05-29-2020 10:56-0500 Pulse (Heart Rate) 88 /min [facility] 05-29-2020 10:56-0500 Pulse Oximetry 99 % [facility] 05-29-2020 10:56-0500 Respiratory Rate 16 /min [facility] 12-29-2019 20:12-0400 BP Diastolic 90 mm[Hg] [facility] 12-29-2019 20:12-0400 BP Systolic 130 mm[Hg] [facility] 12-29-2019 20:12-0400 Pulse (Heart Rate) 74 /min [facility] 12-29-2019 20:12-0400 Pulse Oximetry 99 % [facility] 12-29-2019 20:12-0400 Respiratory Rate 16 /min [facility] 12-29-2019 19:03-0400 BMI (Body Mass Index) 28.8 kg/m2 [facility] 12-29-2019 19:03-0400 Body Temperature 97.9 [degF] [facility] 12-29-2019 19:03-0400 Body weight 88.45 kg Javier Leiva [facility] 12-29-2019 19:03-0400 Height 175.3 cm Javier Leiva [facility] 03-18-2019 11:11-0400 BMI (Body Mass Index) 27.78 kg/m2 [facility] 03-18-2019 11:11-0400 Body Temperature 98.4 [degF] [facility] 03-18-2019 11:11-0400 Body weight 87.82 kg [facility] 03-18-2019 11:11-0400 BP Diastolic 87 mm[Hg] [facility] 03-18-2019 11:11-0400 BP Systolic 129 mm[Hg] [facility] 03-18-2019 11:11-0400 Height 177.8 cm [facility] 03-18-2019 11:11-0400 Pulse (Heart Rate) 101 /min [facility] 03-18-2019 11:11-0400 Pulse Oximetry 97 % [facility] 03-18-2019 11:11-0400 Respiratory Rate 18 /min [facility] 02-01-2019 12:37-0400 BMI (Body Mass Index) 28.74 kg/m2 [facility] 02-01-2019 12:37-0400 Body Temperature 98.91 [degF] [facility] 02-01-2019 12:37-0400 Body weight 88.27 kg [facility] 02-01-2019 12:37-0400 BP Diastolic 85 mm[Hg] [facility] 02-01-2019 12:37-0400 BP Systolic 135 mm[Hg] [facility] 02-01-2019 12:37-0400 Height 175.3 cm [facility] 02-01-2019 12:37-0400 Pulse (Heart Rate) 93 /min [facility] 02-01-2019 12:37-0400 Pulse Oximetry 98 % [facility] 02-01-2019 12:37-0400 Respiratory Rate 16 /min [facility] Encounters Encounter Date Encounter Type Care Provider Facility Start: 01-03-2024 End: 01-03-2024 ambulatory GUANAKO SPEARS Not Available Start: 06-14-2023 End: 06-14-2023 ambulatory AXEL CAM Not Available Start: 04-30-2023 End: 04-30-2023 ambulatory GUANAKO SPEARS Not Available Start: 04-23-2023 End: 04-23-2023 ambulatory GUANAKO SPEARS Not Available Start: 04-16-2023 End: 04-16-2023 ambulatory AXEL CAM Not Available Start: 10-10-2022 End: 10-11-[address] GUANAKO SPEARS . Facility:[facility] Start: 10-03-2022 End: 10-04-[address] GUANAKO SPEARS . Facility: Start: 08-30-2022 ambulatory DCIK Faizan [facility] Start: 08-30-2022 End: 08-30-2022 Office outpatient visit 15 minutes [facility] BAKER APPRENTICE-SAP PP CONSULTANT Work Phone: [facility] Comment on above: Sore throat (Primary Dx); Viral illness Start: 07-01-2021 End: 07-01-2021 Emergency department patient visit BRYON MEDEROSAGUCHI [facility] Start: 07-01-2021 End: 07-01-2021 Emergency department patient visit Bryon Gu MD Work Phone: [facility] Comment on above: Sprain of left knee, unspecified ligament, initial encounter (Primary Dx) Start: 05-24-2021 End: 05-24-2021 Emergency department patient visit ALEJANDROPRASANTH RENETTA [facility] Start: 03-21-2021 End: 03-22-2021 ambulatory Javier Canchola Facility:[facility] Start: 12-28-2020 End: 12-28-2020 Office outpatient visit 15 minutes Betina Pryor BAKER APPRENTICE-SAP PP CONSULTANT Work Phone: [facility] Comment on above: COVID-19 virus infec tion (Primary Dx); Close exposure to COVID-19 virus Start: 10-11-2020 End: 10-11-2020 Office outpatient visit 15 minutes Betina Pryor BAKER APPRENTICE-SAP PP CONSULTANT Work Phone: [facility] Comment on above: Viral illness (Prima ry Dx); Loss of taste; Loss of smell; Head congestion Start: 05-29-2020 End: 05-29-2020 Office outpatient visit 15 minutes Josey Ibrahim Work Phone: [facility] Comment on above: Acute otitis externa of right ear, unspecified type (Primary Dx) Start: 12-29-2019 End: 12-29-2019 Emergency department patient visit [facility] Start: 12-29-2019 End: 12-29-2019 Emergency department patient visit [facility] Comment on above: Dizziness (Primary D x); Heat exhaustion, initial encounter Start: 06-25-2019 End: 06-29-2019 Patient encounter procedure [facility] Start: 03-20-2019 End: 03-20-2019 Letter encounter Yolette Prietoradha [facility] Start: 03-18-2019 End: 03-18-2019 Office outpatient visit 25 minutes Betina Pryor Work Phone: [facility] [facility] Comment on above: Bacterial conjunctiv itis of right eye (Primary Dx); Hives Start: 02-01-2019 End: 02-01-2019 Letter encounter Provider Elver [facility] Start: 02-01-2019 End: 02-01-2019 Office outpatient visit 25 minutes Betina Pryor Work Phone: [facility] Comment on above: Acute cystitis with hematuria (Primary Dx); Dysuria Start: 12-16-2018 End: 12-20-2018 Patient encounter procedure [facility] Start: 06-27-2017 End: 06-29-2017 Evaluation and management of inpatient Umm Damon Facility:[facility] Start: 06-27-2017 End: 06-27-2017 Ambulatory Umm Damon Facility:[facility] Start: 06-15-2017 End: 06-15-2017 Ambulatory Sal Parada Facility:[facility] Procedures Date Procedure Procedure Detail Performing Clinician Start: 08-30-2022 Iaadiadoo streptococcus group a Dick Lassiter BAKER APPRENTICE-SAP PP CONSULTANT Work Phone: Start: 07-01-2021 Radiologic exam knee complete 4/more views Bryon Gu MD Work Phone: Start: 12-28-2020 SARS-COV-2 RAPID Betina Pryor BAKER APPRENTICE-SAP PP CONSULTANT Work Phone: Start: 10-11-2020 SARS-COV-2 RAPID Betina Pryor BAKER APPRENTICE-SAP PP CONSULTANT Work Phone: Start: 12-29-2019 Choriogonadotropin ( test) [Presence] in Urine Raffi Doss Work Phone: Start: 12-29-2019 12 lead ECG Raffi Doss Work Phone: Start: 03-19-2019 Microscopic observation [Identifier] in Cervix by Cyto stain Javier Leiva Start: 02-01-2019 Urnls dip stick/tablet rgnt non-auto w/o micrscp Betina Pryor Work Phone: Plan of Treatment Date Care Activity Detail Author Start: 02-14-2031 DTaP/Tdap/Td vaccine (2 - Td or Tdap) DTaP/Tdap/Td vaccine (2 - Td or Tdap) [facility] Start: 02-14-[address] [facility] Start: 01-26-2023 Influenza vaccination INFLUENZ A VACCINE (Season Ended) [facility] Start: 03-19-2022 Screening for malign ant neoplasm of cervix Pap Smear [facility] Start: 01-26-2021 Influenza vaccination M [facility] Start: 03-19-2020 History and physical examination, annual for health maintenance Wellness Visit [facility] Start: 03-19-2020 Screening for Chlamy osito trachomatis Chlamydia Screening [facility] Start: 01-27-2020 Influenza vaccination INFLUENZA VACC INE (#1) [facility] Start: 01-27-2020 Influenza vaccinatio n given Sequential Influenza Vaccine (#1) [facility] Start: 02-01-2019 End: 02-01-2019 Lab Encounter 02/01/2019 Lab Encounter Clinical Pathology/Laboratory Medicine Betina Pryor, BAKER APPRENTICE-SAP PP CONSULTANT [address] [place] [address] [phone] [facility] Start: 02-01-2019 End: 02-02-2020 Bacteria identified Cx Nom (U) URINE CULTURE Microbiology Routine Dysuria Expected: 02/01/2019, Expires: 02/02/2020 [facility] Comment on above: Expected: 02/01/2019 , Expires: 02/02/2020 Start: 01-26-2019 Influenza vaccination INFLUENZA VACC INE (#1) [facility] Start: 2017 Screening for malign ant neoplasm of cervix [facility] Start: 2015 Third diphtheria, te tanus and acellular pertussis (DTaP) vaccination TDAP (ADULT) [facility] Start: [address] [facility] Start: 2012 Screening for Chlamy osito trachomatis CHLAMYDIA SCREEN [facility] Start: 2011 HIV screening [facility] Start: 2011 Vaccination for loly n papillomavirus HPV VACCINE ADOL (1 - Female 3-dose series) [facility] Start: 2009 HIV screening HIV SCREENING DISCUSSION [facility] Start: 2008 COVID-19 VACCINE (1) COVID-19 VACCIN E (1) [facility] Start: 2008 Depression Screen Depression Screen [facility] Start: 2007 HPV vaccine (1 - 2-d ose series) HPV vaccine (1 - 2-dose series) [facility] Start: 2007 Vaccination for loly n papillomavirus [facility] Start: 2001 COVID-19 Vaccine (1) COVID-19 Vaccin e (1) [facility] Start: 1997 Varicella vaccine (1 of 2 - 2-dose childhood series) Varicella vaccine (1 of 2 - 2-dose childhood series) [facility] Start: 1996 COVID-19 VACCINE (#1) COVID-19 VACCI NE (#1) [facility] Start: 1996 GONORRHEA SCREEN GONORRHEA SCREEN [facility] Start: 1996 Hepatitis C antibody , confirmatory test HEPATITIS C VIRUS SCREENING [facility] Start: 1996 Hepatitis C screening [facility] Start: 1996 Screening for Chlamy osito trachomatis GONORRHEA SCREEN [facility] Start: 1996 Tetanus vaccination Tetanus: Every 1 0yrs [facility] POCT URINALYSIS DIPS TICK NON AUTOMATED POCT URINALYSIS DIPSTICK NON AUTOMATED Point of Care Testing Routine Dysuria Ordered: 02/01/2019 [facility] Comment on above: Ordered: 02/01/2019 Payers Date Payer Category Payer Unknown [id number] 2020 Unknown 2018 Unknown [id number] 2018 Unknown [id number] 1. [id number] 1996 Unknown [id number] 2.16.8 [id number] 1996 Unknown [id number] 2.16. [id number] 1996 Unknown [id number] 2.16. [id number] 1996 Unknown [id number] 2.16.8 [id number] 1996 Unknown [id number] 2.16.8 [id number] 1996 Unknown [id number] 2.16.8 [id number] 1996 Unknown [id number] 2.16.8 [id number] 1996 Unknown [id number] 2.16.84 [id number] 1996 Unknown [id number] 2.16.84 [id number] 1996 Unknown [id number] 2.16.84 [id number] 1996 Unknown [id number] 2.16.84 [id number] 1996 Unknown [id number] 2.16.840 .[id number] 1996 Unknown [id number] 2.16.840 .[id number] 1996 Unknown [id number] 2.16.840 .[id number] 1959 Unknown [id number] Unknown [id number] Social History Date Type Detail [facility] Start: 1995 Sex Assigned At Not on file O [facility] Start: 02-01-2019 End: 03-18-2019 Tobacco smoking status NHIS Current every day smoker [facility] Start: 02-01-2019 End: 10-11-2020 Cigarettes smoked current (pack per day) - Reported [facility] Start: 02-01-2019 End: 03-18-2019 Alcohol intake Not Currently [facility] End: 07-26-2020 History of tobacco use Cigarette Smoker [facility] Start: 12-29-2019 End: 08-30-2022 Alcohol intake Ex-drinker (finding) [facility] Exposure to SARS-CoV -2 (event) Not sure [facility] Start: 05-29-2020 End: 10-11-2020 Tobacco use and exposure Never used [facility] Start: 10-11-2020 [facility] sm[facility] End: 07-26-2020 History of tobacco use Current smoker [facility] Start: 06-08-2020 [facility] Start: 05-24-2021 Tobacco smoking [facility] Never smoked tobacco [employer] Work Phone: Goals Date Patient Goal Desired Activity /State Comment on above: Use condoms for Wilma h control and STI protection History of Present illness Narrative 08-30-2022 Dick Lassiter APRN-SAP PP CONSULTANT - 08/30/2022 7:15 PM EDT Note Date [...] for sore throat. Physical Exam: Vitals: 08/30/22 192 BP: 110/66 Pulse: 96 Resp: 16 Temp: [...] proceed with plan. documented in this encounter [facility] Discharge instructions 07-01-2021 InstructionsAttachments Note Date & Type Note Facility 07-01-2021 Hospital Discharg e instructions Bryon Gu MD - 07/01/2021 Tylenol pain. Wear knee immobilizer for comfort. Follow-up with orthopedic referral. The following attachments cannot be sent through Care Everywhere.Knee Sprain (Honduran)documented in this encounter [employer] Phone: History of Present illness Narrative 12-28-2020 LOGAN Mcguire - 12/28/2020 12:35 PM EDT Note Date & Type Note Facility 12-28-2020 History of Presen t illness Narrative HPI Ping Padilla female 1995 presents to the [facility] with Chief Complaint Patient [...] daily. (Patient not taking: Reported on 08/16/2020) wprxpwom-wzjyurxkd-imnlmxptjovtza 3.5-70483-4 Solution otic solution 4 drops by Otic [...] Social Gatherings with Friends and Family: Attends Buddhist Services: Active Member of Clubs or Organizations: [...] Encounter SARS-COV-2 RAPID Rapid COVID19 positive. Discussed pfde-ntc-jekplau symptomatic treatments stay for . She will quarantine per CDC guidelines. If symptoms worsen patient was advised to follow up in our office, primary care provider or the Emergency Dept. Benefits, Risks, Contraindications, and Complications of recommended treatments were explained. The patient understands and agrees to proceed with plan. LOGAN Mcguire 12/28/2020 documented in this encounter [facility] Instructions 12-28-2020 Patient Instructions Note Date & [...] water aren't available, use an alcohol-based hand clinical information systems director. Avoid touching your mouth, nose, and eyes. [...] disinfect your home every day. Use household proprietary trader and disinfectant wipes or sprays. Take special [...] of: August 20, 2020 Content Version: 12.9 [employer]. Care instructions adapted under license by your healthcare professional. If you have questions about a medical condition or this instruction, always ask your healthcare professional. [employer] disclaims any warranty or liability for your [...] Terconazole (Terazol Cream) 2004November 25, 2018. [facility]. This handout is for informational purposes only. Talk with your doctor or healthcare team if you have any questions about your care. For more health information call the Library for Health Information at 619-616-9544 or email: [email or web address]. documented in this [facility] History of Present illness Narrative 10-11-2020 Betina Pryor APRN-CNP - 10/11/2020 7:15 PM EDT Note Date & Type Note Facility 10-11-2020 History of Presen t illness Narrative HPI Ping Atkins female 1995 presents to the [facility] with Chief Complaint Patient [...] daily. (Patient not taking: Reported on 08/16/2020) bhspplai-ofjaugxxy-tkovaktpgtcwbn 3.5-18091-1 Solution otic solution 4 drops by Otic [...] Social Gatherings with Friends and Family: Attends Buddhist Services: Active Member of Clubs or Organizations: [...] Use Authorization (EUA) for the qualitative detection lqTWEW-XgM-4 nucleic acid. PERFORMED BY [facility] ASSESSMENT/PLAN 1. Viral illness 2. Loss of taste 3. Loss of smell 4. Head congestion Orders Placed This Encounter SARS-COV-2 RAPID Rapid COVID19 negative. Symptoms appear viral. Discussed qpge-jxe-dpgnyeo symptomatic treatments safe in . If symptoms worsen patient was advised to follow up in our office, primary care provider or the Emergency Dept. Benefits, Risks, Contraindications, and Complications of recommended treatments were explained. The patient understands and agrees to proceed with plan. LOGAN Mcguire 10/11/2020 documented in this encounter [facility] Instructions 10-11-2020 Patient Instructions Note Date & [...] 7 days. 2015 December 16, 2018, [facility]. This handout is for informational purposes only. Talk with your doctor or healthcare team if you have any questions about your care. For more health information, call the Library for Health Information at [phone] or email: [email or web address]. Over the Counter Medicines during We [...] Terconazole (Terazol Cream) 2004November 25, 2018. [facility]. This handout is for informational purposes only. Talk with your doctor or healthcare team if you have any questions about your care. For more health information call the Library for Health Information at [phone] or email: [email or web address]. documented in this encounter [facility] Evaluation note Note Date & Type Note Facility Evaluation note Diagnosis Viral illness- Primary Unspecified viral infection, in conditions classified elsewhere and of unspecified site Loss of taste Disturbances of sensation of smell and taste Loss of smell Disturbances of sensation of smell and taste Head congestion Other diseases of nasal cavity and sinuses documented in this encounter [facility] Evaluation note Note Date & Type Note Facility Evaluation note Diagnosis Sprain of left knee, unspecified ligament, initial encounter- Primary documented in this encounter [employer] Work Phone: Evaluation note Note Date & Type Note Facility Evaluation note Diagnosis COVID-19 virus infection- Primary Close exposure to COVID-19 virus documented in this encounter [facility] Evaluation note Note Date & Type Note Facility Evaluation note Diagnosis Sore throat- Primary Acute pharyngitis Viral illness Unspecified viral infection, in conditions classified elsewhere and of unspecified site documented in this encounter 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 This handout is for informational purposes [...] Do not use plastic earplugs. Use a math and sciences department chair set on low to carefully dry the ear after you shower. To ease ear pain, hold a warm washcloth against your ear. Take pain medicines exactly as directed. ? If the doctor gave you a prescription medicine for pain, take it as prescribed. ? If you are not taking a prescription pain medicine, ask your doctor if you can take an dypi-uct-owibyhq medicine. Inserting ear drops Warm the drops [...] Where can you learn more? Go to [email or web address]/patiented. Enter C706 in the search box to learn more about 'Swimmer's Ear: Care Instructions.' Interested in seeing a video go to [email or web address]/videolibrary to see all video content. Current as of: September 10, 2019 Content Version: 12.7 [employer]. Care instructions adapted under license by your healthcare professional. If you have questions about a medical condition or this instruction, always ask your healthcare professional. [employer] disclaims any warranty or liability for your use of this information. documented in this encounter* Patient Instructions* Betina Pryor, BAKER APPRENTICE-SAP PP CONSULTANT - 03/18/2019 10:45 AM EDT [place]: Care [...] Where can you learn more? Go to http://[email or web address].edu/patiented. Enter Y392 in the search box to learn more about 'Pinkeye: Care Instructions.' Interested in seeing a video go to [email or web address]/videolibrary to see all video content. Current as of: November 20, 2018 Content Version: 12.2 7108-5848 [employer]. Care instructions adapted under license by your healthcare professional. If you have questions about a medical condition or this instruction, always ask your healthcare professional. [employer] disclaims any warranty or liability for your [...] relieve itching. Your doctor may suggest an llgj-xup-qpxvxkw antihistamine, such as cetirizine (Zyrtec), diphenhydramine (Benadryl), [...] Where can you learn more? Go to http://www.[employer].edu/patiented. Enter R498 in the search box to learn more about 'Chronic Hives: Care Instructions.' Interested in seeing a video go to [email or web address]/videolibrary to see all video content. Current as of: September 01, 2018 Content Version: 12.2 6268-2107 [employer]. Care instructions adapted under license by your healthcare professional. If you have questions about a medical condition or this instruction, always ask your healthcare professional. [employer] disclaims any warranty or liability for your [...] medicines 2004 - May 03, 2017, [facility]. This handout is for informational purposes only. Talk to your doctor or health care team if you have any questions about your care. documented in this encounter History of Present Illness * Betina Pryor APRN-CNP - 02/01/2019 12:00 PM EDT HPI Ping Knox female 1995 presents to the [facility] with Chief Complaint Patient [...] file Gets together: Not on file Attends sikhism service: Not on file Active member of [...] Ibrahim PA-C - 05/29/2020 10:50 AM EST IRMA Padilla female 1995 [facility] with Chief Complaint Patient presents [...] tablet Take 1 tablet by mouth daily. sahwcaed-ssevsljnf-qlttxrycnkembs 3.5-94376-1 Solution otic solution 4 drops by Otic [...] file Gets together: Not on file Attends sikhism service: Not on file Active member of [...] right ear, unspecified type Other orders - nexqngkn-slaatpvxi-fdnhkvsivdyatd 3.5-18109-7 Solution otic solution; 4 drops by Otic route 4 times daily. If symptoms worsen patient was advised to follow up in our office or the Emergency Dept. Benefits, Risks, Contraindications, and Complications of recommended treatments were explained. The patient understands and agrees to proceed with plan. Josey Ibrahim PA-C 05/29/2020 documented in this encounter* Betina Pryor, LISA-SAP PP CONSULTANT - 03/18/2019 10:45 AM EDT HPI Ping Knox female 1995 presents to the [facility] with Chief Complaint Patient presents with [facility] Pt presents with c/o right eye, [...] one month. No known cause. Moved from mothers house to [facility] [address] No self treatments. Hives are [...] file Gets together: Not on file Attends sikhism service: Not on file Active member of [...] Suggested taking daily antihistamine. Follow up with [facility] [employer] [facility] ref. If symptoms worsen patient was advised to follow up in our office, primary care provider or the Emergency Dept. Benefits, Risks, Contraindications, and Complications of recommended treatments were explained. The patient understands and agrees to proceed with plan. LOGAN Mcguire 03/18/2019 documented in this encounter* Betina Pryor, BAKER APPRENTICE-SAP PP CONSULTANT - 02/01/2019 12:00 PM EDT HPI Ping Knox female 1995 presents to the [facility] with Chief Complaint Patient [...] file Gets together: Not on file Attends sikhism service: Not on file Active member of [...] sent through Care Everywhere. * Heat Exhaustion (Honduran) * Lightheadedness or Faintness (Honduran) documented in this encounter Reason for Referral Status Reason Specialty Diagnoses / Procedures Referred By Contact Referred To Contact New Request Allergy & Immunology Diagnoses [place] Betina Pryor APRN-CNP [address] [place] [address] Status Reason Specialty Diagnoses / Procedures Referred By Contact Referred To Contact New Request Family Medicine Diagnoses Bacterial conjunctivitis of right eye Betina Pryor APRN-CNP [address] [place] [id number] Additional Source Comments INFORMATION SOURCE (unrecogn ized section and content) DATE CREATED AUTHOR 11/19/2017 [facility] DATE CREATED AUTHOR AUTHOR'S ORGANIZ ATION 01/19/[address] [facility] DATE CREATED AUTHOR AUTHOR'S ORGANIZ ATION 02/03/2019 [facility] DATE CREATED AUTHOR AUTHOR'S ORGANIZ ATION 06/28/2019 [facility] DATE CREATED AUTHOR AUTHOR'S ORGANIZ ATION 12/30/2019 [facility] DATE CREATED AUTHOR AUTHOR'S ORGANIZ ATION 07/02/2021 [facility] DATE CREATED AUTHOR AUTHOR'S ORGANIZ ATION 07/05/2022 [facility] DATE CREATED AUTHOR AUTHOR'S ORGANIZ ATION 09/01/2022 [facility] DATE CREATED AUTHOR AUTHOR'S ORGANIZ ATION 10/11/2022 [facility] DATE CREATED AUTHOR AUTHOR'S ORGANIZ ATION 01/05/2024 [facility] Specialists EPIC Reason for Visit (unrecogniz ed section and content) Reason Comments Urinary Pain Some burning, freque ncy, had for 2 or 3 days. Reason Comments Dizziness Reason Comments Ear Pain Pt c/o right ear teresa n and swollen lymph node on the right side x a few weeks Reason Comments [facility] Pt presents with c/o right eye, [...] Associated Order(s): EKG 12-lead ED PROVIDER NOTE [facility] NAME: Ping Knox AGE: 24 y.o. : 1995 VISIT DATE: 12/29/2019 CSN: [id number] PCP: Javier Leiva MD Chief Complaint Patient [...] file Gets together: Not on file Attends sikhism service: Not on file Active member of [...] BE BASED ON THE PRIMARY CLINICAL RECORDS. [facility]. provides no warranty or guarantee of the accuracy or completeness of information in this document.
[2024-08-16 11:32] LABS: HCG Qualitative Urine* POSITIVE (NEGATIVE); Internal Control Within Normal Limits
[2024-08-16 11:35] LABS: Bilirubin Urine NEGATIVE (NEGATIVE); Blood Urine LARGE (NEGATIVE); Clarity Urine CLEAR (CLEAR); Color Urine LT. YELLOW (YELLOW); Glucose Urine UA NEGATIVE (NEGATIVE); Ketones Urine NEGATIVE (NEGATIVE); Leukocyte Esterase Urine NEGATIVE (NEGATIVE); Nitrite Urine NEGATIVE (NEGATIVE); Protein Urine NEGATIVE (NEG/TRACE); Specific Gravity Urine <=1.005 (1.005-1.025); Urobilinogen Urine 0.2 EU/dL (0.2-1.0)
[2024-08-16 11:51] LABS: Bacteria Urine TRACE #/HPF (NONE SEEN); Cast Seen? NONE SEEN #/LPF (NONE SEEN); Crystals Seen? None Seen #/HPF (None Seen); Mucus Urine NONE SEEN (NONE SEEN); RBC Urine 0-2 #/HPF (0-2); Squamous Epithelial Cell Urine FEW #/LPF (NONE/RARE); Urine Culture Indicated NO; WBC Urine 0-2 #/HPF (NONE SEEN)
[2024-08-16 11:59] LABS: Basophils Absolute Auto 0.1 10^3/uL (0.0-0.1); Basophils Percent Auto 0.6 % (0.2-2.0); Eosinophils Absolute Auto 1.3 10^3/uL (0.0-0.7); Eosinophils Percent Auto 16.2 % (0.9-7.0); Hematocrit 41.7 % (36.0-48.0); Hemoglobin 13.8 g/dL (12.0-16.0); Immature Granulocytes Pct Auto 1.3 % (0.0-0.5); Lymphocytes Percent Auto 25.3 % (20.5-60.0); Mean Corpuscular HGB Conc 33.1 g/dL (29.9-35.2); Mean Corpuscular Hemoglobin 26.6 pg (26.7-34.0); Mean Corpuscular Volume 80.3 fL (81.0-99.0); Monocytes Absolute Auto 0.3 10^3/uL (0.3-0.8); Monocytes Percent Auto 4.3 % (1.7-12.0); Neutrophils Percent Auto 52.3 % (43.0-75.0); Platelet Count 297 10^3/uL (150-450); Red Blood Count 5.19 10^6/uL (4.20-5.40); White Blood Count 7.7 10^3/uL (4.0-11.0)
[2024-08-16 12:23] LABS: Alanine Aminotransferase 31 U/L (14-59); Albumin Globulin Ratio 1.1; Albumin Level 3.9 g/dL (3.4-5.0); Alkaline Phosphatase 73 U/L (46-116); Aspartate Amino Transferase 12 U/L (15-37); BUN Creatinine Ratio 14.1; Bilirubin Total 0.3 mg/dL (0.2-1.0); Calcium 9.4 mg/dL (8.5-10.1); Carbon Dioxide 25.2 mmol/L (21.0-32.0); Chloride 105 mmol/L (98-107); Estimated GFR (African America >60 (>=60 mL/min/1.73m^2); Estimated GFR (Non-African Ame >60 (>=60 mL/min/1.73m^2); Globulin 3.6 g/dL; Glucose 82 mg/dL (74-106); Potassium 4.2 mmol/L (3.5-5.1); Sodium 138 mmol/L (136-145); Total Protein 7.5 g/dL (6.4-8.2)
[2024-08-16 12:24] LABS: HCG Quantitative 64 mIU/mL
--- NOTE | 2024-08-16 13:10 | ED.GENADUL1 ---
HPI HPI - General Adult General Chief complaint: Recheck/Abnormal Lab/Rx Stated complaint: + TEST, SPOTTING Time Seen by Provider: 08/16/24 11:19 Source: patient Mode of arrival: walk-in Limitations: no limitations History of Present Illness HPI narrative: The patient is 3 para 3 is coming to the ER after she did a test at home and she found that it was positive, she has been having her. And her last period was at the beginning of this month, but she mentioned that it was not abnormal. It because it was asphalt heater tender than it usually is, patient is coming here because she want to make sure if she is or not She denies any abdominal pain she had no history of any previous complication with She denies any nausea vomiting The patient does have some spotting that is very mild and it stopped before she came to the ER Related Data Home Medications ?Medication ?Instructions ?Recorded ?Confirmed omeprazole 20 mg capsule,delayed mg 04/30/23 release Previous Rx's ?Medication ?Instructions ?Recorded amoxicillin 875 mg-potassium 1 tab PO Q12H #10 tabs 08/16/24 clavulanate 125 mg tablet Allergies Allergy/AdvReac Type Severity Reaction Status Date / Time erythromycin base Allergy Mild rash Verified 04/30/23 12:18 Opioid HPI Opioid Management Most Recent Opioid Data: Last Pain Scale 0 08/16/24 11:17 08/16/24 Last ED Pain Assessment 08/16/24 11:17 Ur Phencyclidine Scrn Negative (NEGATIVE) 04/30/23 12:14 04/30/23 Review of Systems ROS Status of ROS 10 or more systems reviewed and unremarkable except as noted in history and below PFSH PFSH Surgical History (Updated 04/30/23 @ 12:22 by Tali Klein) Hx of tonsillectomy ?Z90.89 - Acquired absence of other organs (ICD-10) Social History (Updated 04/30/23 @ 12:23 by Tali Klein) Within the past year, how often did you have a drink containing alcohol: never Score interpretation: A score less than 3 is consistent with normal alcohol consumption. Smoking status: Never smoker Non-prescribed substance use: denies use Little interest or pleasure in doing things: not at all Feeling down, depressed, or hopeless: not at all Feel stressed/tense/nervous/anxious/difficulty sleeping: not at all Exam Narrative Exam Narrative: Nurses notes and vital signs reviewed and patient is not hypoxic. General: Well-appearing and in no apparent distress. Skin: Warm, dry, no pallor noted. No rash. Head: Normocephalic, atraumatic. Neck: Supple, non-tender. Cardiovascular: Regular Rate and Rhythm without murmur, gallop or rub. Respiratory: No accessory muscle use or respiratory distress. Lungs are clear to auscultation, no wheezing, rales or rhonchi Chest Wall: no tenderness Musculoskeletal: normal ROM, no calf or popliteal tenderness, no lower extremity edema/swelling GI: Abdomen is soft, non-distended. Normal bowel sounds. No masses appreciated. No tenderness to palpation. No rebound, guarding, or rigidity noted. Neurological: A&O x4. No cranial nerve dysfunction observed. Constitutional Vital Signs, click to edit/add: Last Vital Signs Temp 98.1 F 08/16/24 11:09 Pulse 78 08/16/24 11:09 Resp 18 08/16/24 11:09 BP 114/78 08/16/24 11:09 Pulse Ox 98 08/16/24 11:09 O2 Del Method Room Air 08/16/24 11:09 Course Vital Signs Vital signs: Vital Signs Temperature 98.1 F 08/16/24 11:09 Pulse Rate 78 08/16/24 11:09 Respiratory Rate 18 08/16/24 11:09 Blood Pressure 114/78 08/16/24 11:09 Pulse Oximetry 98 08/16/24 11:09 Oxygen Delivery Method Room Air 08/16/24 11:09 Temperature 98.1 F 08/16/24 11:09 Pulse Rate 78 08/16/24 11:09 Respiratory Rate 18 08/16/24 11:09 Blood Pressure 114/78 08/16/24 11:09 Pulse Oximetry 98 08/16/24 11:09 Oxygen Delivery Method Room Air 08/16/24 11:09 Medical Decision Making [place] Narrative Medical decision making narrative: The patient blood group is AB+ The patient CBC chemistry showed no acute pathology and her hCG is 65 Urine shows some bacteria The patient test correlate with either very early or already a miscarriage that happened in the last month The patient to have a test done Sunday for that she was given a prescription for that and she will follow-up with Dr. Whalen for further evaluation Patient was instructed about coming back to the ER in case of any symptoms including including the bleeding or any abdominal pain Lab Data Labs: Lab Results 08/16/24 08/16/24 Range/Units 11:15 11:53 WBC 7.7 (4.0-11.0) 10^3/uL RBC 5.19 (4.20-5.40) 10^6/uL Hgb 13.8 (12.0-16.0) g/dL Hct 41.7 (36.0-48.0) % MCV 80.3 L (81.0-99.0) fL MCH 26.6 L (26.7-34.0) pg MCHC 33.1 (29.9-35.2) g/dL RDW 13.0 (11.0-15.0) % Plt Count 297 (150-450) 10^3/uL MPV 10.0 (9.5-13.5) fL Neut % (Auto) 52.3 (43.0-75.0) % Lymph % (Auto) 25.3 (20.5-60.0) % [place] % (Auto) 4.3 (1.7-12.0) % Eos % (Auto) 16.2 H (0.9-7.0) % Baso % (Auto) 0.6 (0.2-2.0) % Neut # (Auto) 4.0 (1.4-6.5) 10^3/uL Lymph # (Auto) 2.0 (1.2-3.8) 10^3/uL [place] # (Auto) 0.3 (0.3-0.8) 10^3/uL Eos # (Auto) 1.3 H (0.0-0.7) 10^3/uL Baso # (Auto) 0.1 (0.0-0.1) 10^3/uL Abs Immat Gran (auto) 0.10 H (0.00-0.03) 10^3/uL Imm/Tot Granulo (auto) 1.3 H (0.0-0.5) % Sodium 138 (136-145) mmol/L Potassium 4.2 (3.5-5.1) mmol/L Chloride 105 (98-107) mmol/L Carbon Dioxide 25.2 (21.0-32.0) mmol/L Anion Gap 12.0 BUN 10.0 (7.0-18.0) mg/dL Creatinine 0.71 (0.55-1.02) mg/dL Est GFR ( Amer) >60 (>=60 mL/min/1.73m^2) Est GFR (Non-Af Amer) >60 (>=60 mL/min/1.73m^2) BUN/Creatinine Ratio 14.1 Glucose 82 (74-106) mg/dL Calcium 9.4 (8.5-10.1) mg/dL Total Bilirubin 0.3 (0.2-1.0) mg/dL AST 12 L (15-37) U/L ALT 31 (14-59) U/L Alkaline Phosphatase 73 (46-116) U/L Total Protein 7.5 (6.4-8.2) g/dL Albumin 3.9 (3.4-5.0) g/dL Globulin 3.6 g/dL Albumin/Globulin Ratio 1.1 HCG, Quant 64 mIU/mL Urine Color Lt. yellow (YELLOW) Urine Clarity Clear (CLEAR) Urine pH 6.0 (5.0-9.0) Ur Specific [place] <=1.005 A (1.005-1.025) Urine Protein Negative (NEG/TRACE) mg/dL Urine Glucose (UA) Negative (NEGATIVE) mg/dL Urine Ketones Negative (NEGATIVE) mg/dL Urine Occult Blood Large A (NEGATIVE) Urine Nitrite Negative (NEGATIVE) Urine Bilirubin Negative (NEGATIVE) Urine Urobilinogen 0.2 (0.2-1.0) EU/dL Ur Leukocyte Esterase Negative (NEGATIVE) Urine RBC 0-2 (0-2) #/HPF Urine WBC 0-2 A (NONE SEEN) #/HPF Ur Squamous Epith Cells Few A (NONE/RARE) #/LPF Urine Crystals None seen (None Seen) #/HPF Urine Bacteria Trace A (NONE SEEN) #/HPF Urine Casts None seen (NONE SEEN) #/LPF Urine Mucus None seen (NONE SEEN) Ur Culture Indicated? No Urine HCG, Qual Positive A (NEGATIVE) Blood Type AB Positive Antibody Screen Negative Discharge Plan Discharge Chief Complaint: Recheck/Abnormal Lab/Rx Clinical Impression: Encounter for test, result positive Patient Disposition: Home, Self-Care Time of Disposition Decision: 12:57 Condition: Good Prescriptions / Home Meds: New amoxicillin-pot clavulanate 875-125 mg tablet 1 tab PO Q12H Qty: 10 0RF No Action omeprazole 20 mg capsule,delayed release(/EC) Print Language: Azeri Instructions: (ED) Referrals: Danie Whalen DO [Physician] - 08/18/24 Physician,Non-Staff, [Primary Care Provider] - 1 week
== END 2024-08-16 13:12 | disposition home or self-care (01) ==
PROVIDERS: Emergency Provider Emergency Medicine
DX: Z32.01 Encounter for pregnancy test, result positive (principal)
CPT/HCPCS: 36415; 80053; 81001; 84702; 84703; 85025; 86850; 86900; 86901; 99283

== ENCOUNTER 2024-08-18 10:50 | Outpatient (OUT) | payer BC, SELFPAY ==
--- OUTSIDE RECORDS SUMMARY | 2024-08-18 11:10 | XMS_ITS | CCD ---
Author Organization [facility] Care Team Providers Care Multicraft Operator Name Role Phone Zarczynski, Edward P Unavailable Unavailable Zarczynski, Edward P Unavailable Unavailable Chambers, Umm Unavailable Unavailable Chambers, Umm Unavailable Unavailable Chambers, Umm Unavailable Unavailable Zarczynski, Edward P Unavailable Unavailable [facility] Primary Care Unavailabl e Unavailable Primary Care Provider Unavailabl e JACQUI IVAN Admitting Unavailable [facility] Primary Care Unavailabl e [place] [facility] Primary Care Provider [facility] Primary Care Unavailabl e Unavailable Primary Care [...] source) Erythromycin Drug Allergy 07-24-19 13 [facility] Penicillins (antibiotic) (1 source) Ampicillin Drug Allergy 06-06-19 18 [facility] Sulfamethoxazole / Trimethoprim (1 source) Sulfamethoxazole / Trimethoprim Drug Allergy 06-06-19 18 [facility] (13 sources) Ampicillin; Translations: [Unknown] Drug Allergy 06-06-19 18 [facility] Repository (7 sources) Erythromycin Drug Allergy 07-24-19 13 [facility] (8 sources) Sulfamethoxazole / Trimethoprim Drug Allergy 06-06-19 18 [facility] (1 source) Penicillin G Drug Allergy 05-24-20 21 Other (See Comments) Minimally invasive devices Phone: (1 source) Penicillin; Translations: [penicillin] Drug Allergy [facility] Repository Medications Current Medications Medication Drug Class(es) [...] 20 mg by mouth daily 0 Active Kffduton-Lte-Qo-FA (PRE-HECTOR PO) (1 source) Pfzzfreo-Apk-Qc-FA (PRE- PO) Take by mouth 0 Active [...] / neomycin 3.5 mg/ml / polymyxin b 34107 unt/ml otic solution (4 sources) Aminoglycoside Antibacterial, Polymyxin-class Antibacterial, Corticosteroid Start: 05-29-2020 End: 08-30-2022 neomycin-polymyxi n-hydrocortisone 3.5-68573-6 Solution otic solution 4 drops by Otic [...] on 10-11-2022 HBsAg Screen Negative Normal Negative [facility] Comment on above: Performed By: #### H BSANS #### [facility] [address] [place] [address] Dr. Kaleb Decker HEPATITIS C VIRUS AB W/ REFL EX QUANTon 10-11-2022 HCV AB Non-Reactive Normal Non Reactive [facility] Comment on above: Performed By: #### H CVPCRR #### [facility] [address] [place] [address] Dr. Kaleb Decker HIV 1 AND 2 WITH REFLEXon HIV Screen 4th Generation wRfx Non-Reactive Normal Non Reactive [facility] Comment on above: Result Comment: HIV Negative HIV-1/HIV-2 antibodies and HIV-1 p24 antigen were NOT detected. There is no laboratory evidence of HIV infection. Performed By: #### H IV12 #### [facility] [address] [place] [address] Dr. Kaleb Decker RPR QUANTon 10-11-2022 Rapid Plasma Reagin, Quant Non-Reactive Normal NonRea<1:1 [facility] Comment on above: Result Comment: Plea se Note: This test does not meet current guidelines for screening and diagnosis of syphilis. This test is intended for following treatment response in patients being treated for syphilis infection. To screen for syphilis infection, a reflex cascade that includes both RPR and a treponema-specific assay should be utilized, such as Treponema pallidum (Syphilis) Screening Clark (900573) or Rapid Plasma Reagin (RPR) Test With Reflex to Quantitative RPR and Confirmatory Treponema pallidum Antibodies (451191). Performed By: #### H BSANS #### [facility] [address] [place] [address] Dr. Kaleb Decker RUBELLA AB IGGon 10-11-2022 Rubella Antibodies, IgG <0.90 Critically low Immune >0.99 [facility] Comment on above: Result Comment: Non- immune <0.90 Equivocal 0.90 - 0.99 Immune >0.99 Performed By: #### R UBIGG #### [facility] [address] [place] [address] Dr. Kaleb Decker BOX TEST SENT OUTon 10-11-19 23 SENT TO REF LAB 10/10/22 Normal [facility] Comment on above: Performed By: #### B OX #### [facility] [address] [place] [address] Dr. Kaleb Decker CBC AUTO DIFFon 10-10-2022 BASO # 0.0 103/ul Normal 0.0-0.1 [facility] Comment on above: Performed By: #### C BC #### [facility] [address] [place] [address] Dr. Kaleb Decker Basophils/100 WBC (Bld) 0.6 % Normal 0.2-2.0 [facility] Comment on above: Performed By: #### C BC #### [facility] [address] [place] [address] Dr. Kaleb Decker EO # 0.2 103/ul Normal 0.0-0.7 [facility] Comment on above: Performed By: #### C BC #### [facility] [address] [place] [address] Dr. Kaleb Decker Eosinophils/100 WBC (Bld) 2.4 % Normal 0.9-7.0 [facility] Comment on above: Performed By: #### C BC #### [facility] [address] [place] [address] Dr. Kaleb Decker Erythrocyte distribution width (RBC) [Ratio] 13.8 % Normal 11.0-15.0 [facility] Comment on above: Performed By: #### C BC #### [facility] [address] [place] [address] Dr. Kaleb Decker Hematocrit (Bld) [Volume fraction] 41.5 % Normal 36.0-48.0 [facility] Comment on above: Performed By: #### C BC #### [facility] [address] [place] [address] Dr. Kaleb Decker Hemoglobin (Bld) [Mass/Vol] 13.6 g/dL Normal 12.0-16.0 [facility] Comment on above: Performed By: #### C BC #### [facility] [address] [address] [address] Kaleb Decker IG # 0.04 10e3/ul Critically high 0.00-0.03 [facility] Comment on above: Performed By: #### C BC #### [facility] [address] [address] [address] Kaleb Decker IG % 0.6 % Critically high 0.0-0.5 [facility] Comment on above: Performed By: #### C BC #### [facility] [address] [address] [address] Kaleb Decker LYMPH # 1.8 103/ul Normal 1.2-3.8 [facility] Comment on above: Performed By: #### C BC #### [facility] [address] [place] [address] Dr. Kaleb Decker Lymphocytes/100 WBC (Bld) 26.6 % Normal 20.5-60.0 [facility] Comment on above: Performed By: #### C BC #### [facility] [address] [place] [address] Dr. Kaleb Decker MANUAL DIFF REQ NO Normal [facility] Comment on above: Performed By: #### C BC #### [facility] [address] [place] [address] Dr. Kaleb Decker MCH (RBC) [Entitic mass] 26.1 pg Critically low 26.7-34.0 [facility] Comment on above: Performed By: #### C BC #### [facility] [address] [place] [address] Dr. Kaleb Decker MCHC (RBC) [Mass/Vol] 32.8 g/dL Normal 29.9-35.2 [facility] Comment on above: Performed By: #### C BC #### [facility] [address] [place] [address] Dr. Kaleb Decker MCV (RBC) [Entitic vol] 79.7 fL Critically low 81.0-99.0 [facility] Comment on above: Performed By: #### C BC #### [facility] [address] [place] [address] Dr. Kaleb Decker MONO # 0.3 103/ul Normal 0.3-0.8 [facility] Comment on above: Performed By: #### C BC #### [facility] [address] [place] [address] Dr. Kaleb Decker Monocytes/100 WBC (Bld) 4.6 % Normal 1.7-12.0 [facility] Comment on above: Performed By: #### C BC #### [facility] [address] [place] [address] Dr. Kaleb Decker NEUT # 4.4 103/ul Normal 1.4-6.5 [facility] Comment on above: Performed By: #### C BC #### [facility] [address] [place] [address] Dr. Kaleb Decker Neutrophils/100 WBC (Bld) 65.2 % Normal 43.0-75.0 [facility] Comment on above: Performed By: #### C BC #### [facility] [address] [place] [address] Dr. Kaleb Decker Platelet mean volume (Bld) [Entitic vol] 9.8 fL Normal 9.5-13.5 [facility] Comment on above: Performed By: #### C BC #### [facility] [address] [place] [address] Dr. Kaleb Decker PLT 312 103/ul Normal 150-450 [facility] Comment on above: Performed By: #### C BC #### [facility] [address] [place] [address] Dr. Kaleb Decker RBC 5.21 106/ul Normal 4.20-5.40 [facility] Comment on above: Performed By: #### C BC #### [facility] [address] [place] [address] Dr. Kaleb Decker WBC 6.8 103/ul Normal 4.0-11.0 [facility] Comment on above: Performed By: #### C BC #### [facility] [address] [place] [address] Dr. Kaleb Decker CULTURE URINEon 10-10-2022 CULTURE URINE Culture Observations : LIGHT GROWTH OF MIXED GENITAL RACHEL. NO POTENTIAL PATHOGENS SEEN. Normal [facility] Comment on above: Performed By: #### H BSANS #### [facility] [address] [address] [address] Kaleb Decker GLYCOHEMOGLOBIN A1Con 2022 ADA RECOMMENDATION SEE BELOW Normal [facility] Comment on above: Result Comment: ADA RECOMMENDED LIMIT 4.0 - 6.0 ADA THERAPEUTIC TARGET < 7.0 ACTION SUGGESTED > 7.0 Performed By: #### A 1C #### [facility] [address] [address] [address] Kaleb Decker Glucose [Mass/Vol] 100 mg/dL Normal [facility] Comment on above: Performed By: #### A 1C #### [facility] [address] [place] [address] Dr. Kaleb Decker HbA1c (Bld) [Mass fraction] 5.1 % Normal 4.5-6.2 [facility] Comment on above: Performed By: #### A 1C #### [facility] [address] [address] [address] Kaleb Decker TSHon 10-10-2022 TSH 0.670 uIU/mL Normal 0.358-3.740 [facility] Comment on above: Performed By: #### T SH #### [facility] [address] [place] [address] Dr. Kaleb Decker TYPE AND SCREENon 10-10-2022 TYPE AND SCREEN Negative Normal [facility] Comment on above: Performed By: #### T NS #### [facility] [address] [address] [address] Kaleb Decker UA RANDOMon 10-10-2022 Bilirubin Ql (U) Negative Normal NEGATIVE [facility] Comment on above: Performed By: #### U A #### [facility] [address] [place] [address] Dr. Kaleb Decker Clarity (U) CLEAR Normal CLEAR [facility] Comment on above: Performed By: #### U A #### [facility] [address] [address] [address] Kaleb Decker Color (U) LT. YELLOW Normal YELLOW [facility] Comment on above: Performed By: #### U A #### [facility] [address] [place] [address] Dr. Kaleb Decker Glucose Ql (U) Negative Normal NEGATIVE [facility] Comment on above: Performed By: #### U A #### [facility] [address] [place] [address] Dr. Kaleb Decker Hemoglobin Ql (U) Negative Normal NEGATIVE [facility] Comment on above: Performed By: #### U A #### [facility] [address] [place] [address] Dr. Kaleb Decker Ketones Ql (U) Negative Normal NEGATIVE [facility] Comment on above: Performed By: #### U A #### [facility] [address] [place] [address] Dr. Kaleb Decker LEUKOCYTES MODERATE Abnormal NEGATIVE [facility] Comment on above: Performed By: #### U A #### [facility] [address] [place] [address] Dr. Kaleb Decker Nitrite Ql (U) Negative Normal NEGATIVE [facility] Comment on above: Performed By: #### U A #### [facility] [address] [place] [address] Dr. Kaleb Decker pH (U) 7.0 [pH] Normal 5-9 [facility] Comment on above: Performed By: #### U A #### [facility] [address] [place] [address] Dr. Kaleb Decker SPEC GRAVITY 1.010 Normal 1.005-<=1.025 [facility] Comment on above: Performed By: #### U A #### [facility] [address] [place] [address] Dr. Kaleb Decker UA PROTEIN Negative Normal NEGATIVE/ TRACE [facility] Comment on above: Performed By: #### U A #### [facility] [address] [place] [address] Dr. Kaleb Decker Urobilinogen Qn (U) 0.2 {Garcia'U}/dL Normal 0.2 - 1. 0 [facility] Comment on above: Performed By: #### U A #### [facility] [address] [address] [address] Kaleb Decker US PREG TVon 10-03-2022 [...] by: RAFFI FARNSWORTH Date: 2022-10-03 15:36 Normal [facility] POCT RAPID STREP Aon 023 S. pyogenes Ag Ql (Throat) Negative (+/-) [facility] Internal controls OK [facility] XR KNEE LEFT (MIN 4 VIEWS)on 07-01-2021 [...] Johnny Lipscomb MD 07/01/21 Final result Normal [facility] Normal left knee [facility] EXAM: XR KNEE LEFT (MIN 4 VIEWS) HISTORY: Reason for exam:->Pain injury trauma COMPARISON: None. TECHNIQUE: 4 views left knee FINDINGS: No fracture or joint effusion. Joint spaces are maintained. No pathologic calcification. No radiopaque foreign body. [facility] Johnny Lipscomb M D - 07/01/2021 EXAM: XR KNEE LEFT (MIN 4 VIEWS) HISTORY: Reason for exam:->Pain injury trauma COMPARISON: None. TECHNIQUE: 4 views left knee FINDINGS: No fracture or joint effusion. Joint spaces are maintained. No pathologic calcification. No radiopaque foreign body. IMPRESSION: Normal left knee [facility] [employer] Phone: Radiology Study observation (narrative) [facility] Phone: XR KNEE LEFT (MIN 4 VIEWS)Or dered By: Johnny Lipscomb on 07-01-2021 [facility] Phone: CBC with Diffon 05-24-2021 Abs. Atypical Lymphs 0.20 k/uL Normal 0.0-1.0 [facility] Comment on above: Performed By: #### C P, CDP #### [facility] [address] [place] [address] Scribing Machine Operator: Rancho Alvarado MD Abs. Bands 2.00 k/uL High 0.0-1.0 [facility] Comment on above: Performed By: #### C P, CDP #### [facility] [address] [place] [address] Scribing Machine Operator: Rancho Alvarado MD Abs. Basophil Normal 0.0-0.2 [facility] Comment on above: Performed By: #### C P, CDP #### [facility] [address] [place] [address] Scribing Machine Operator: Rancho Alvarado MD Abs.Neutrophil (Seg) 6.80 k/uL Normal 2.5-7.0 [facility] Comment on above: Performed By: #### C P, CDP #### [facility] [address] [place] [address] Scribing Machine Operator: Rancho Alvarado MD Atypical Lymphs 2 % Normal [facility] Comment on above: Performed By: #### C P, CDP #### [facility] [address] [place] [address] Scribing Machine Operator: Rancho Alvarado MD Bands 20 % High 0-10 [facility] Comment on above: Performed By: #### C P, CDP #### [facility] [address] [place] [address] Scribing Machine Operator: Rancho Alvarado MD Basophil Normal 0-2 [facility] Comment on above: Performed By: #### C P, CDP #### [facility] [address] [id number] Scribing Machine Operator: Rancho Alvarado MD Eosinophils (Bld) [#/Vol] 0.30 10*3/uL Normal 0.0-0.4 [facility] Comment on above: Performed By: #### C P, CDP #### [facility] [address] [place] [address] Scribing Machine Operator: Rancho Alvarado MD Eosinophils/100 WBC (Bld) 3 % Normal 0-5 [facility] Comment on above: Performed By: #### C P, CDP #### [facility] [address] [place] [address] Scribing Machine Operator: Rancho Alvarado MD Lymphocytes (Bld) [#/Vol] 0.50 10*3/uL Low 1.0-4.8 [facility] Comment on above: Performed By: #### C P, CDP #### [facility] [address] [id number] Scribing Machine Operator: Rancho Alvarado MD Lymphocytes/100 WBC (Bld) 5 % Low 15-40 [facility] Comment on above: Performed By: #### C P, CDP #### [facility] [address] [id number] Scribing Machine Operator: Rancho Alvarado MD Monocytes (Bld) [#/Vol] 0.20 10*3/uL Normal 0.0-1.0 [facility] Comment on above: Performed By: #### C P, CDP #### [facility] [address] [place], [place] [id number] Scribing Machine Operator: Rancho Alvarado MD Monocytes/100 WBC (Bld) 2 % Low 4-8 [facility] Comment on above: Performed By: #### C P, CDP #### [facility] [address] [place], [place] [id number] Scribing Machine Operator: Rancho Alvarado MD Morphology Faustino (Bld) [Interp] Manual Differential Performed Normal [facility] Comment on above: Performed By: #### C P, CDP #### [facility] [address] [place] [address] Scribing Machine Operator: Rancho Alvarado MD Neutrophil (Seg) 68 % Normal 47-75 [facility] Comment on above: Performed By: #### C P, CDP #### [facility] [address] [place] [address] Scribing Machine Operator: Rancho Alvarado MD Erythrocyte distribution width (RBC) [Ratio] 13.1 % Normal 12.1-15.2 [facility] Comment on above: Performed By: #### C P, CDP #### [facility] [address] [place], [place] [id number] Scribing Machine Operator: Rancho Alvarado MD Hematocrit (Bld) [Volume fraction] 44.2 % Normal 36-46 [facility] Comment on above: Performed By: #### C P, CDP #### [facility] [address] [place], [place] [id number] Scribing Machine Operator: Rancho Alvarado MD Hemoglobin (Bld) [Mass/Vol] 14.7 g/dL Normal 12.0-16.0 [facility] Comment on above: Performed By: #### C P, CDP #### [facility] [address] [place], [place] [id number] Scribing Machine Operator: Rancho Alvarado MD MCH (RBC) [Entitic mass] 26.1 pg Normal 26-34 [facility] Comment on above: Performed By: #### C P, CDP #### [facility] [address] [place] [address] Scribing Machine Operator: Rancho Alvarado MD MCHC (RBC) [Mass/Vol] 33.2 g/dL Normal 31-37 [facility] Comment on above: Performed By: #### C P, CDP #### [facility] [address] [place], [place] [phone] (473) Scribing Machine Operator: Rancho Alvarado MD MCV (RBC) [Entitic vol] 78.5 fL Low 80-100 [facility] Comment on above: Performed By: #### C P, CDP #### [facility] [address] [place] [address] Scribing Machine Operator: Rancho Alvarado MD Platelets (Bld) [#/Vol] 317 10*3/uL Normal 140-450 [facility] Comment on above: Performed By: #### C P, CDP #### [facility] [address] [place] [address] Scribing Machine Operator: Rancho Alvarado MD RBC (Bld) [#/Vol] 5.64 10*6/uL High 4.0-5.2 [facility] Comment on above: Performed By: #### C P, CDP #### [facility] [address] [place], [place] [id number] Scribing Machine Operator: Rancho Alvarado MD WBC (Bld) [#/Vol] 10.0 10*3/uL Normal 3.5-11.0 [facility] Comment on above: Performed By: #### C P, CDP #### [facility] [address] [place] [address] Scribing Machine Operator: Rancho Alvarado MD Abs.Imm.Granulocyte NOT REPORTED Normal 0.00-0.30 [facility] Comment on above: Performed By: #### C P, CDP #### [facility] [address] [place] [address] Scribing Machine Operator: Rancho Alvarado MD Auto Diff Performed NOT REPORTED Normal [facility] Comment on above: Performed By: #### C P, CDP #### [facility] [address] [place] [address] Scribing Machine Operator: Rancho Alvarado MD Immature Granulocyte NOT REPORTED Normal 0 [facility] Comment on above: Performed By: #### C P, CDP #### [facility] [address] [place], [place] [phone] Scribing Machine Operator: Rancho Alvarado MD MPV NOT REPORTED Normal 6.0-12.0 [facility] Comment on above: Performed By: #### C P, CDP #### [facility] [address] [place], [place] [id number] Scribing Machine Operator: Rancho Alvarado MD NRBC Automated NOT REPORTED Normal [facility] Comment on above: Performed By: #### C P, CDP #### [facility] [address] [place] [address] Scribing Machine Operator: Rancho Alvarado MD Platelet Comment NOT REPORTED Normal [facility] Comment on above: Performed By: #### C P, CDP #### [facility] [address] [place] [address] Scribing Machine Operator: Rancho Alvarado MD RBC morphology finding Nom (Bld) NOT REPORTED Normal [facility] Comment on above: Performed By: #### C P, CDP #### [facility] [address] [place] [address] Scribing Machine Operator: Rancho Alvarado MD WBC Morphology NOT REPORTED Normal [facility] Comment on above: Performed By: #### C P, CDP #### [facility] [address] [place], [place] [id number] Scribing Machine Operator: Rancho Alvarado MD Comp Metabolic Profon 2020 (cont.) Normal [facility] Comment on above: Result Comment: Aver age GFR for 20-29 years old: 116 mL/min/1.73sq m Chronic Kidney Disease: <60 mL/min/1.73sq m Kidney failure: <15 mL/min/1.73sq m eGFR calculated using average adult body mass. Additional eGFR calculator available at: http://www.[employer]/multiple_crcl_2011.htm Performed By: #### C P, CDP #### [facility] [address] [place], [place] [id number] Scribing Machine Operator: Rancho Alvarado MD Albumin [Mass/Vol] 4.5 g/dL Normal 3.5-5.2 [facility] Comment on above: Performed By: #### C P, CDP #### [facility] [address] [place] [address] Scribing Machine Operator: Rancho Alvarado MD Alkaline Phos 90 U/L Normal 35-104 [facility] Comment on above: Performed By: #### C P, CDP #### [facility] [address] [place], [place] [id number] Scribing Machine Operator: Rancho Alvarado MD ALT [Catalytic activity/Vol] 136 U/L High 5-33 [facility] Comment on above: Performed By: #### C P, CDP #### [facility] [address] [place] [address] Scribing Machine Operator: Rancho Alvarado MD Anion gap [Moles/Vol] 15 mmol/L Normal 9-17 [facility] Comment on above: Performed By: #### C P, CDP #### [facility] [address] [place], [place] [id number] Scribing Machine Operator: Rancho Alvarado MD AST [Catalytic activity/Vol] 55 U/L High <32 [facility] Comment on above: Performed By: #### C P, CDP #### [facility] [address] [place] [address] Scribing Machine Operator: Rancho Alvarado MD Bilirubin [Mass/Vol] 0.68 mg/dL Normal 0.30-1.20 [facility] Comment on above: Performed By: #### C P, CDP #### [facility] [address] [place] [address] Scribing Machine Operator: Rancho Alvarado MD BUN/CRE Ratio 21 High 9-20 [facility] Comment on above: Performed By: #### C P, CDP #### [facility] [address] [place] [address] Scribing Machine Operator: Rancho Alvarado MD Calcium [Mass/Vol] 9.2 mg/dL Normal 8.6-10.4 [facility] Comment on above: Performed By: #### C P, CDP #### [facility] [address] [place] [address] Scribing Machine Operator: Rancho Alvarado MD Chloride [Moles/Vol] 105 mmol/L Normal 98-107 [facility] Comment on above: Performed By: #### C P, CDP #### [facility] [address] [place] [address] Scribing Machine Operator: Rancho Alvarado MD CO2 [Moles/Vol] 21 mmol/L Normal 20-31 [facility] Comment on above: Performed By: #### C P, CDP #### [facility] [address] [place] [address] Scribing Machine Operator: Rancho Alvarado MD Creatinine [Mass/Vol] 0.75 mg/dL Normal 0.50-0.90 [facility] Comment on above: Performed By: #### C P, CDP #### [facility] [address] [place] [address] Scribing Machine Operator: Rancho Alvarado MD GFR, Amer >60 Normal >60 [facility] Comment on above: Performed By: #### C P, CDP #### [facility] [address] [place] [address] Scribing Machine Operator: Rancho Alvarado MD GFR,non Amer >60 Normal >60 [facility] Comment on above: Performed By: #### C P, CDP #### [facility] [address] [place] [address] Scribing Machine Operator: Rancho Alvarado MD Glucose [Mass/Vol] 105 mg/dL High 70-99 [facility] Comment on above: Performed By: #### C P, CDP #### [facility] [address] [place] [address] Scribing Machine Operator: Rancho Alvarado MD Potassium [Moles/Vol] 4.1 mmol/L Normal 3.7-5.3 [facility] Comment on above: Performed By: #### C P, CDP #### [facility] [address] [place] [address] Scribing Machine Operator: Rancho Alvarado MD Protein [Mass/Vol] 7.6 g/dL Normal 6.4-8.3 [facility] Comment on above: Performed By: #### C P, CDP #### [facility] [address] [place] [address] Scribing Machine Operator: Rancho Alvarado MD Sodium [Moles/Vol] 141 mmol/L Normal 135-144 [facility] Comment on above: Performed By: #### C P, CDP #### [facility] [address] [place] [address] Scribing Machine Operator: Rancho Alvarado MD Urea nitrogen [Mass/Vol] 16 mg/dL Normal 6-20 [facility] Comment on above: Performed By: #### C P, CDP #### [facility] [address] [place] [address] Scribing Machine Operator: Rancho Alvarado MD Albumin/Glob Ratio NOT REPORTED Normal 1.0-2.[address] [facility] Comment on above: Performed By: #### C P, CDP #### [facility] [address] [place] [address] Scribing Machine Operator: Rancho Alvarado MD Staging: NOT REPORTED Normal [facility] Comment on above: Performed By: #### C P, CDP #### [facility] [address] [place] [address] Scribing Machine Operator: Rancho Alvarado MD SARS-COV-2 RAPIDon Learning Operations Specialist Cyto stain Nom (Cvx/Vag) [ID] [facility] Interpretation and review of laboratory results Abnormal [facility] NARRATIVE -1 This test was performed using isothermal DANTE and has been approved as Emergency Use Authorization (EUA) for the qualitative detection [id number] nucleic acid. [facility] SARS-CoV-2 (COVID-19) RNA DANTE+probe Ql (Unsp spec) Detected Abnormal NOT DETECTED [facility] Comment on above: CALLED TO AND READ B ACK BY [email or web address] SHEA ENHANCED CONTACT, AND DROPLET ISOLATION IS REQUIRED FOR INPATIENTS WITH SARS-CoV-2. [facility] SARS-COV-2 RAPIDOrdered By: Betina Pryor on 10-11-2020 Learning Operations Specialist Cyto stain Nom (Cvx/Vag) [ID] [facility] NARRATIVE -1 This test was performed using isothermal DANTE and has been approved as Emergency Use Authorization (EUA) for the qualitative detection [id number] nucleic acid. [facility] SARS-CoV-2 (COVID-19) RNA DANTE+probe Ql (Unsp spec) Not detected NOT DETECTED [facility] Comment on above: Negative results do [...] patient is critically ill or clinically deteriorating. [facility] ECG 12-LEADon 12-29-2019 Raffi Doss MD 12/29/2019 8:02 PM EKG 12-lead Date/Time: 12/29/2019 7:57 PM Performed by: Raffi Doss MD Authorized by: Raffi Doss MD BPM: 65 Comments: Normal sinus rhythm at a rate of 65, normal axis, no signs of acute ischemia or infarction. No signs of interval pathology, WPW, HOCM, Brugada [facility] Urine Pregnancyon 12-29-2019 HCG ( test) Ql (U) Negative Negative [facility] Interpretation and review of laboratory results Normal [facility] URINE CULTUREon 02-03-2019 Bacteria identified Cx Nom (U) SPECIMEN DESCRIPTION URINE CLEAN CATCH UA DIPSTICK LEUKOCYTE POSITIVE * Result Note: NITRITE NEGATIVE * CULTURE ESCHERICHIA COLI * Result Note: 40,000-50,000 C/C/ML * * Result Note: Testing performed at [place], [place] [address] * REPORT STATUS 02/03/2019 * Result Note: FINAL * ORGANISM ESCHERICHIA COLI * Result Note: ESCHERICHIA COLI * METHOD OSMAN AMPICILLIN 4 SUSCEPTIBLE AMPICILLIN/SULBACTAM <=2 SUSCEPTIBLE CEFTRIAXONE <=1 SUSCEPTIBLE CEFAZOLIN <=4 SUSCEPTIBLE IMIPENEM <=0.25 SUSCEPTIBLE GENTAMICIN <=1 SUSCEPTIBLE TRIMETH-SULFA <=20 SUSCEPTIBLE AMOXICILLIN/CLAVULANIC A 4 SUSCEPTIBLE NITROFURANTOIN <=16 SUSCEPTIBLE PIPERACILLIN/TAZOBACTA M <=4 SUSCEPTIBLE LEVOFLOXACIN <=0.12 SUSCEPTIBLE ESBL NEGATIVE CEFTAZIDIME <=1 SUSCEPTIBLE Normal [facility] Comment on above: Performed By: #### A URNC #### Testing performed at [facility] [address] [place] [address] POCT URINALYSIS DIPSTICK NON AUTOMATEDon 02-01-2019 Amorphous sediment LM Ql (Urine sed) [facility] Appearance (Body fld) cloudy [facility] Bacteria LM Ql (Urine sed) [facility] Bilirubin Ql (U) Negative [facility] Casts LM.LPF (Urine sed) [#/Area] [facility] Color (U) yellow [facility] Crystals LM Nom (Urine sed) [facility] Epithelial cells.squamous LM.HPF (Urine sed) [#/Area] [facility] Flow cytometry specialist review Faustino (Unsp spec) [Interp] [facility] Interpretation and review of laboratory results Abnormal [facility] Ketones [Mass/Vol] Negative mg/dL [facility] Leukocyte esterase Qn (U) [facility] Leukocyte esterase Test strip Ql (U) small [facility] Nitrite Ql (U) Negative [facility] pH (U) 7.5 [pH] Abnormal [facility] POCT GLUCOSE, URINE Negative mg/dL [facility] Protein Ql (U) Negative mg/dL [facility] RBC LM.HPF (Urine sed) [#/Area] [facility] RBC Ql (U) trace [facility] Specific gravity (U) [Rel density] 1.020 [facility] Transitional cells LM Ql (Urine sed) [facility] Urobilinogen (U) [Mass/Vol] 0.2 [facility] WBC LM.HPF (Urine sed) [#/Area] [facility] Internal controls [facility] Hgb and Hcton 06-28-2017 Hematocrit (HCT) 29.3 % Low 34.4-44.8 [facility] Comment on above: Performed By: #### H H ####Unless otherwise noted, all testing performed by [facility], [place] [id number]: [id number] Director: José Miguel Chan M.D. Hemoglobin mass conc (Bld) 9.6 g/dL Low 11.6-15.4 [facility] Comment on above: Performed By: #### H H ####Unless otherwise noted, all testing performed by [address] [phone]: [id number] Director: José Miguel Chan M.D. Hepatitis C Antibodyon 06-27 Hepatitis C Antibody Positive Abnormal Negative [facility] Comment on above: Result Comment: Vlad mmend confirmation with HCV Virus Quantitation.Test performed using Flexenclosure Immunodiagnostic system[place] [address] Performed By: #### H EPCABS, HEPCQT ####Unless otherwise noted, all testing performed by [place] [id number]: [id number] Director: José Miguel Chan M.D. Hepatitis C Qt,HCV-RNAon Hepatitis C Qt,HCV-RNA Not Detected Normal Not Detected [facility] Comment on above: Result Comment: The quantification range of this assay is 15-100,000,000 IU/mL(1.2 log IU/mL - 8.0 log IU/mL)Assay performed using MARY Ampliprep/TaqmanHCV test, version 2.0[place] [address] Performed By: #### H EPCABS, HEPCQT ####Unless otherwise noted, all testing performed by [address] [phone]: [id number] Director: José Miguel Chan M.D. Urinalysis, Routineon 2017 Bilirubin,Urine Negative Normal NEG;NEGATIVE [facility] Comment on above: Performed By: #### U A ####Unless otherwise noted, all testing performed by [place] [phone]: [id number] Director: José Miguel Chan M.D. Blood,Urine Negative Normal NEG;NEGATIVE [facility] Comment on above: Performed By: #### U A ####Unless otherwise noted, all testing performed by [address] [phone]: [id number] Director: José Miguel Chan M.D. Ketone,Urine Negative Normal NEG;NEGATIVE [facility] Comment on above: Performed By: #### U A ####Unless otherwise noted, all testing performed by [address] [phone]: [id number] Director: José Miguel Chan M.D. Leuk.Esterase,Urine Trace Abnormal Negative [facility] Comment on above: Performed By: #### U A ####Unless otherwise noted, all testing performed by [address] [phone]: [id number] Director: José Miguel Chan M.D. Nitrite,Urine Negative Normal NEG;NEGATIVE [facility] Comment on above: Performed By: #### U A ####Unless otherwise noted, all testing performed by [address] [phone]: [id number] Director: José Miguel Chan M.D. Protein,Urine Negative Normal NEG;NEGATIVE [facility] Comment on above: Performed By: #### U A ####Unless otherwise noted, all testing performed by [address] [phone]: [id number] Director: José Miguel Chan M.D. Specific Cassoday,Urine 1.002 Low 1.003-1.029 [facility] Comment on above: Performed By: #### U A ####Unless otherwise noted, all testing performed by [address] [phone]: [id number] Director: José Miguel Chan M.D. Squamous Epithelial 1 /HPF Normal 0-40 [facility] Comment on above: Performed By: #### U A ####Unless otherwise noted, all testing performed by [address] [phone]: [id number] Director: José Miguel Chan M.D. Urine, bacteria in sediment Moderate Abnormal NS;RARE [facility] Comment on above: Performed By: #### U A ####Unless otherwise noted, all testing performed by [address] [phone]: [id number] Director: José Miguel Chan M.D. Urine, character Hazy Normal [facility] Comment on above: Performed By: #### U A ####Unless otherwise noted, all testing performed by [address] [phone]: [id number] Director: José Miguel Chan M.D. Urine, color Straw Normal [facility] Comment on above: Performed By: #### U A ####Unless otherwise noted, all testing performed by [address] [phone]: [id number] Director: José Miguel Chan M.D. Urine, erythrocytes in sediment by area 2 /[HPF] Normal 0-5 [facility] Comment on above: Performed By: #### U A ####Unless otherwise noted, all testing performed by [address] [phone]: [id number] Director: José Miguel Chan M.D. Urine, glucose presence Negative Normal NEG;NEGATIVE [facility] Comment on above: Performed By: #### U A ####Unless otherwise noted, all testing performed by [address] [phone]: [id number] Director: José Miguel Chna M.D. Urine, leukocytes in sedmiment 1 /[HPF] Normal 0-5 [facility] Comment on above: Performed By: #### U A ####Unless otherwise noted, all testing performed by [address] [phone]: [id number] Director: José Miguel Chan M.D. Urine, pH 7.0 [pH] Normal 4.5-8.0 [facility] Comment on above: Performed By: #### U A ####Unless otherwise noted, all testing performed by [address] [phone]: [id number] Director: José Miguel Chan M.D. Urobilinogen,Urine < 2.0 Normal <2 [facility] Comment on above: Performed By: #### U A ####Unless otherwise noted, all testing performed by [address], [place] [phone]: [id number] Director: José Miguel Chan M.D. Vital Signs Date Time Vital Sign Value Performing Clinician Facility 08-30-2022 19:23-0400 Body height 175.3 cm Dick Lassiter APRN-ENTERPRISE ENGINEER Work Phone: [facility] 08-30-2022 19:23-0400 Body mass index (BMI) [Ratio] 32.52 kg/m2 Dick Lassiter APRN-ENTERPRISE ENGINEER Work Phone: [facility] 08-30-2022 19:23-0400 Body temperature 98.49 [degF] Dick Lassiter APRNDAVID Work Phone: [facility] 08-30-2022 19:23-0400 Body weight 99.88 kg Dick Lassiter APRN-ENTERPRISE ENGINEER Work Phone: [facility] 08-30-2022 19:23-0400 Diastolic blood pressure 66 mm[Hg] Dick Lassiter APRN-ENTERPRISE ENGINEER Work Phone: [facility] 08-30-2022 19:23-0400 Heart rate 96 /min Dick Lassiter APRN-ENTERPRISE ENGINEER Work Phone: [facility] 08-30-2022 19:23-0400 Respiratory rate 16 /min Dick Lassiter APRN-ENTERPRISE ENGINEER Work Phone: [facility] 08-30-2022 19:23-0400 SaO2% (BldA) [Mass fraction] 99 % Dick Lassiter APRN-ENTERPRISE ENGINEER Work Phone: [facility] 08-30-2022 19:23-0400 Systolic blood pressure 110 mm[Hg] Dick Lassiter APRN-ENTERPRISE ENGINEER Work Phone: [facility] 07-01-2021 19:17-0500 Body mass index (BMI) [Ratio] 33.67 kg/m2 Bryon Gu MD Work Phone: [facility] 07-01-2021 19:17-0500 Body temperature 97.81 [degF] Bryon Gu MD Work Phone: [facility] 07-01-2021 19:17-0500 Body weight 103.42 kg Bryon Gu MD Work Phone: [facility] 07-01-2021 19:17-0500 Diastolic blood pressure 80 mm[Hg] Bryon Gu MD Work Phone: [facility] 07-01-2021 19:17-0500 Heart rate 95 /min Bryon Gu MD Work Phone: [facility] 07-01-2021 19:17-0500 Respiratory rate 16 /min Bryon Gu MD Work Phone: [facility] 07-01-2021 19:17-0500 SaO2% (BldA) [Mass fraction] 98 % Bryon Gu MD Work Phone: [facility] 07-01-2021 19:17-0500 Systolic blood pressure 128 mm[Hg] Bryon Gu MD Work Phone: [facility] 12-28-2020 12:50-0400 Body height 175.3 cm Betina Pryor BALANCE SCREWHEAD POLISHER-ENTERPRISE ENGINEER Work Phone: [facility] 12-28-2020 12:50-0400 Body mass index (BMI) [Ratio] 32.38 kg/m2 Betina Pryor BALANCE SCREWHEAD POLISHER-ENTERPRISE ENGINEER Work Phone: [facility] 12-28-2020 12:50-0400 Body temperature 98.01 [degF] Betina Pryor BALANCE SCREWHEAD POLISHER-ENTERPRISE ENGINEER Work Phone: [facility] 12-28-2020 12:50-0400 Body weight 99.47 kg Betina Pryor BALANCE SCREWHEAD POLISHER-ENTERPRISE ENGINEER Work Phone: [facility] 12-28-2020 12:50-0400 Diastolic blood pressure 76 mm[Hg] Betina Pryor BALANCE SCREWHEAD POLISHER-ENTERPRISE ENGINEER Work Phone: [facility] 12-28-2020 12:50-0400 Heart rate 111 /min Betina Pryor APRN-ENTERPRISE ENGINEER Work Phone: [facility] 12-28-2020 12:50-0400 Respiratory rate 16 /min Betina Pryor APRN-ENTERPRISE ENGINEER Work Phone: [facility] 12-28-2020 12:50-0400 SaO2% (BldA) [Mass fraction] 100 % Betina Pryor APRN-ENTERPRISE ENGINEER Work Phone: [facility] 12-28-2020 12:50-0400 Systolic blood pressure 113 mm[Hg] Betina Pryor BALANCE SCREWHEAD POLISHER-ENTERPRISE ENGINEER Work Phone: [facility] 10-11-2020 19:30-0400 Body height 175.3 cm Betina Pryor APRN-ENTERPRISE ENGINEER Work Phone: [facility] 10-11-2020 19:30-0400 Body mass index (BMI) [Ratio] 31.47 kg/m2 Betina Pryor APRN-ENTERPRISE ENGINEER Work Phone: [facility] 10-11-2020 19:30-0400 Body temperature 98.49 [degF] Betina Pryor APRN-ENTERPRISE ENGINEER Work Phone: [facility] 10-11-2020 19:30-0400 Body weight 96.66 kg Betina Pryor APRN-ENTERPRISE ENGINEER Work Phone: [facility] 10-11-2020 19:30-0400 Diastolic blood pressure 82 mm[Hg] Betina Pryor BALANCE SCREWHEAD POLISHER-ENTERPRISE ENGINEER Work Phone: [facility] 10-11-2020 19:30-0400 Heart rate 94 /min Betina Pryor APRN-ENTERPRISE ENGINEER Work Phone: [facility] 10-11-2020 19:30-0400 Respiratory rate 16 /min Betina Pryor BALANCE SCREWHEAD POLISHER-ENTERPRISE ENGINEER Work Phone: [facility] 10-11-2020 19:30-0400 SaO2% (BldA) [Mass fraction] 100 % Betina Pryor APRN-ENTERPRISE ENGINEER Work Phone: [facility] 10-11-2020 19:30-0400 Systolic blood pressure 120 mm[Hg] Betina Pryor BALANCE SCREWHEAD POLISHER-ENTERPRISE ENGINEER Work Phone: [facility] 05-29-2020 10:56-0500 BMI (Body Mass Index) 29.89 kg/m2 [facility] 05-29-2020 10:56-0500 Body Temperature 99.39 [degF] [facility] 05-29-2020 10:56-0500 Body weight 91.[address] [facility] 05-29-2020 10:56-0500 BP Diastolic 85 mm[Hg] [facility] 05-29-2020 10:56-0500 BP Systolic 118 mm[Hg] [facility] 05-29-2020 10:56-0500 Height 175.[address] [facility] 05-29-2020 10:56-0500 Pulse (Heart Rate) 88 /min [facility] 05-29-2020 10:56-0500 Pulse Oximetry 99 % [facility] 05-29-2020 10:56-0500 Respiratory Rate 16 /min [facility] 12-29-2019 20:12-0400 BP Diastolic 90 mm[Hg] [facility] 12-29-2019 20:12-0400 BP Systolic 130 mm[Hg] [facility] 12-29-2019 20:12-0400 Pulse (Heart Rate) 74 /min [facility] 12-29-2019 20:12-0400 Pulse Oximetry 99 % [facility] 12-29-2019 20:12-0400 Respiratory Rate 16 /min [facility] 12-29-2019 19:03-0400 BMI (Body Mass Index) 28.8 kg/m2 [facility] 12-29-2019 19:03-0400 Body Temperature 97.9 [degF] [facility] 12-29-2019 19:03-0400 Body weight 88.45 kg Javier Leiva [facility] 12-29-2019 19:03-0400 Height 175.3 cm Javier Leiva [facility] 03-18-2019 11:11-0400 BMI (Body Mass Index) 27.78 kg/m2 [facility] 03-18-2019 11:11-0400 Body Temperature 98.4 [degF] [facility] 03-18-2019 11:11-0400 Body weight 87.82 kg [facility] 03-18-2019 11:11-0400 BP Diastolic 87 mm[Hg] [facility] 03-18-2019 11:11-0400 BP Systolic 129 mm[Hg] [facility] 03-18-2019 11:11-0400 Height 177.8 cm [facility] 03-18-2019 11:11-0400 Pulse (Heart Rate) 101 /min [facility] 03-18-2019 11:11-0400 Pulse Oximetry 97 % [facility] 03-18-2019 11:11-0400 Respiratory Rate 18 /min [facility] 02-01-2019 12:37-0400 BMI (Body Mass Index) 28.74 kg/m2 [facility] 02-01-2019 12:37-0400 Body Temperature 98.91 [degF] [facility] 02-01-2019 12:37-0400 Body weight 88.27 kg [facility] 02-01-2019 12:37-0400 BP Diastolic 85 mm[Hg] [facility] 02-01-2019 12:37-0400 BP Systolic 135 mm[Hg] [facility] 02-01-2019 12:37-0400 Height 175.3 cm [facility] 02-01-2019 12:37-0400 Pulse (Heart Rate) 93 /min [facility] 02-01-2019 12:37-0400 Pulse Oximetry 98 % [facility] 02-01-2019 12:37-0400 Respiratory Rate 16 /min [facility] Encounters Encounter Date Encounter Type Care Provider [...] . Facility: Start: 08-30-2022 ambulatory DICK Faizan [facility] Start: 08-30-2022 End: 08-30-2022 Office outpatient visit 15 minutes [facility] BALANCE SCREWHEAD POLISHER-ENTERPRISE ENGINEER Work Phone: [facility] Comment on above: Sore throat (Primary Dx); Viral illness Start: 07-01-2021 End: 07-01-2021 Emergency department patient visit BRYON MEDEROSAGUCHI [facility] Start: 07-01-2021 End: 07-01-2021 Emergency department patient visit Bryon Gu MD Work Phone: [facility] ED Comment on above: Sprain of left knee, unspecified ligament, initial encounter (Primary Dx) Start: 05-24-2021 End: 05-24-2021 Emergency department patient visit ALEJANDROPRASANTH RENETTA [facility] Start: 03-21-2021 End: 03-22-2021 ambulatory Javier Canchola Facility:[facility] Start: 12-28-2020 End: 12-28-2020 Office outpatient visit 15 minutes Betina Pryor BALANCE SCREWHEAD POLISHER-ENTERPRISE ENGINEER Work Phone: [facility] Comment on above: COVID-19 virus infec tion (Primary Dx); Close exposure to COVID-19 virus Start: 10-11-2020 End: 10-11-2020 Office outpatient visit 15 minutes Betina Pryor BALANCE SCREWHEAD POLISHER-ENTERPRISE ENGINEER Work Phone: [facility] Comment on above: Viral illness (Prima ry Dx); Loss of taste; Loss of smell; Head congestion Start: 05-29-2020 End: 05-29-2020 Office outpatient visit 15 minutes Josey Ibrahim Work Phone: [facility] Comment on above: Acute otitis externa of right ear, unspecified type (Primary Dx) Start: 12-29-2019 End: 12-29-2019 Emergency department patient visit [facility] Start: 12-29-2019 End: 12-29-2019 Emergency department patient visit [facility] Comment on above: Dizziness (Primary D x); Heat exhaustion, initial encounter Start: 06-25-2019 End: 06-29-2019 Patient encounter procedure [facility] Start: 03-20-2019 End: 03-20-2019 Letter encounter Yolette Prietoradha [facility] Start: 03-18-2019 End: 03-18-2019 Office outpatient visit 25 minutes Betina Pryor Work Phone: [facility] Comment on above: Bacterial conjunctiv itis of right eye (Primary Dx); Hives Start: 02-01-2019 End: 02-01-2019 Letter encounter Provider Elver [facility] Start: 02-01-2019 End: 02-01-2019 Office outpatient visit 25 minutes Betina Pryor Work Phone: [facility] Comment on above: Acute cystitis with hematuria (Primary Dx); Dysuria Start: 12-16-2018 End: 12-20-2018 Patient encounter procedure [facility] Start: 06-27-2017 End: 06-29-2017 Evaluation and management of inpatient Umm Dmaon Facility:[place] Start: 06-27-2017 End: 06-27-2017 Ambulatory Umm Damon Facility:[place] Start: 06-15-2017 End: 06-15-2017 Ambulatory Sal Parada Facility:[place] Procedures Date Procedure Procedure Detail Performing Clinician Start: 08-30-2022 Iaadiadoo streptococcus group a Dick Lassiter BALANCE SCREWHEAD POLISHER-ENTERPRISE ENGINEER Work Phone: Start: 07-01-2021 Radiologic exam knee complete 4/more views Bryon Gu MD Work Phone: Start: 12-28-2020 SARS-COV-2 RAPID Betina Pryor BALANCE SCREWHEAD POLISHER-ENTERPRISE ENGINEER Work Phone: Start: 10-11-2020 SARS-COV-2 RAPID Betina Pryor BALANCE SCREWHEAD POLISHER-ENTERPRISE ENGINEER Work Phone: Start: 12-29-2019 Choriogonadotropin ( test) [...] DTaP/Tdap/Td vaccine (2 - Td or Tdap) [facility] Start: 02-14-2031 Tetanus vaccination TETANUS [facility] Start: 01-26-2023 Influenza vaccination INFLUENZ A VACCINE (Season Ended) [facility] Start: 03-19-2022 Screening for malign ant neoplasm of cervix Pap Smear [facility] Start: 01-26-2021 Influenza vaccination [facility] Start: 03-19-2020 History and physical examination, annual for health maintenance Wellness Visit [facility] Start: 03-19-2020 Screening for Chlamy osito trachomatis Chlamydia Screening [facility] Start: 01-27-2020 Influenza vaccination INFLUENZA VACC INE (#1) [facility] Start: 01-27-2020 Influenza vaccinatio n given Sequential Influenza Vaccine (#1) [facility] Start: 02-01-2019 End: 02-01-2019 Lab Encounter 02/01/2019 Lab Encounter Clinical Pathology/Laboratory Medicine Betina Pryor, BALANCE SCREWHEAD POLISHER-ENTERPRISE ENGINEER [address] [place] [address] [phone] [facility] Start: 02-01-2019 End: 02-02-2020 Bacteria identified Cx Nom (U) URINE CULTURE Microbiology Routine Dysuria Expected: 02/01/2019, Expires: 02/02/2020 [facility] Comment on above: Expected: 02/01/2019 , Expires: 02/02/2020 Start: 01-26-2019 Influenza vaccination INFLUENZA VACC INE (#1) [facility] Start: 2017 Screening for malign ant neoplasm of cervix [facility] Start: 2015 Third diphtheria, te tanus and acellular pertussis (DTaP) vaccination TDAP (ADULT) [facility] Start: 2014 Tetanus vaccination TETANUS [facility] Start: 2012 Screening for Chlamy osito trachomatis CHLAMYDIA SCREEN [facility] Start: [address] [facility] Start: 2011 Vaccination for loly n papillomavirus HPV VACCINE ADOL (1 - Female 3-dose series) [facility] Start: 2009 HIV screening HIV SCREENING DISCUSSION [facility] Start: 2008 COVID-19 VACCINE (1) COVID-19 VACCIN E (1) [facility] Start: 2008 Depression Screen Depression Screen [facility] Start: 2007 HPV vaccine (1 - 2-d ose series) HPV vaccine (1 - 2-dose series) [facility] Start: 2007 Vaccination for loly n papillomavirus [facility] Start: 2001 COVID-19 Vaccine (1) COVID-19 Vaccin e (1) [facility] Start: 1997 Varicella vaccine (1 of 2 - 2-dose childhood series) Varicella vaccine (1 of 2 - 2-dose childhood series) [facility] Start: 1996 COVID-19 VACCINE (#1) COVID-19 VACCI NE (#1) [facility] Start: 1996 GONORRHEA SCREEN GONORRHEA SCREEN [facility] Start: 1996 Hepatitis C antibody , confirmatory test HEPATITIS C VIRUS SCREENING [facility] Start: 1996 Hepatitis C screening [facility] Start: 1996 Screening for Chlamy osito trachomatis GONORRHEA SCREEN [facility] Start: 1996 Tetanus vaccination Tetanus: Every 1 0yrs [facility] POCT URINALYSIS DIPS TICK NON AUTOMATED POCT URINALYSIS DIPSTICK NON AUTOMATED Point of Care Testing Routine Dysuria Ordered: 02/01/2019 [facility] Comment on above: Ordered: 02/01/2019 Payers Date Payer Category Payer Unknown [id number] 2020 Unknown 2018 Unknown [id number] 2018 Unknown [id number] 1. [id number] 1996 Unknown [id number] 2.16.8 [id number] 1996 Unknown [id number] 2.16. [id number] 1996 Unknown [id number] 2.16. [id number] 1996 Unknown [id number] 2.16.8 40.1.946565.3.579.2.174 1996 Unknown [id number] 2.16.8 40.1.941308.3.579.2.174 1996 Unknown [id number] 2.16.8 40.1.166390.3.579.2.727 1996 Unknown [id number] 2.16.8 40.1.205642.3.579.2.983 1996 Unknown [id number] 2.16.84 0.1.591826.3.579.2.593 1996 Unknown [id number] 2.16.84 0.1.424582.3.579.2.593 1996 Unknown [id number] 2.16.84 0.1.622635.3.579.2.1259 1996 Unknown [id number] 2.16.84 0.1.440044.3.579.2.1259 1996 Unknown [id number] 2.16.840 .1.380217.3.579.2.1259 1996 Unknown [id number] 2.16.840 .1.464714.3.579.2.1259 1996 Unknown [id number] 2.16.840 .[id number] 1959 Unknown [id number] Unknown [id number] Social History Date Type Detail Facility [facility] Start: 1996 Sex Assigned At Not on file [facility] Start: 02-01-2019 End: 03-18-2019 Tobacco smoking status NHIS Current every day smoker [facility] Start: 02-01-2019 End: 10-11-2020 Cigarettes smoked current (pack per day) - Reported [facility] Start: 02-01-2019 End: 03-18-2019 Alcohol intake Not Currently [facility] End: 07-26-2020 History of tobacco use Cigarette Smoker [facility] Start: 12-29-2019 End: 08-30-2022 Alcohol intake Ex-drinker (finding) [facility] Exposure to SARS-CoV -2 (event) Not sure [facility] Start: 05-29-2020 End: 10-11-2020 Tobacco use and exposure Never used [facility] Start: 10-11-2020 [facility] End: 07-26-2020 History of tobacco use Current smoker [facility] Start: 06-08-2020 [facility] Start: 05-24-2021 [facility] tobacco [employer] Work Phone: Goals Date Patient Goal Desired Activity /State Comment on above: Use condoms for Wilma h control and STI protection History of Present illness Narrative 08-30-2022 Dick Lassiter APRN-ENTERPRISE ENGINEER - 08/30/2022 7:15 PM EDT Note Date [...] proceed with plan. documented in this encounter [facility] Discharge instructions 07-01-2021 InstructionsAttachments Note Date & Type Note Facility 07-01-2021 Hospital Discharg e instructions Bryon Gu MD - 07/01/2021 Tylenol pain. Wear knee immobilizer for comfort. Follow-up with orthopedic referral. The following attachments cannot be sent through Care Everywhere.Knee Sprain (Filipino)documented in this encounter [employer] Phone: History of Present illness Narrative 12-28-2020 LOGAN Mcguire - 12/28/2020 12:35 PM EDT Note Date & Type Note Facility 12-28-2020 History of Presen t illness Narrative HPI Ping Padilla female 1995 presents to the [facility] with Chief Complaint [...] daily. (Patient not taking: Reported on 08/16/2020) kmlullpb-revwcwsly-udhcjhjxpesojx 3.5-70234-5 Solution otic solution 4 drops by Otic [...] Social Gatherings with Friends and Family: Attends Orthodoxy Services: Active Member of Clubs or Organizations: [...] Encounter SARS-COV-2 RAPID Rapid COVID19 positive. Discussed gnev-krj-zqtpjje symptomatic treatments stay for . She will quarantine per CDC guidelines. If symptoms worsen patient was advised to follow up in our office, primary care provider or the Emergency Dept. Benefits, Risks, Contraindications, and Complications of recommended treatments were explained. The patient understands and agrees to proceed with plan. LOGAN Mcguire 12/28/2020 documented in this encounter [facility] Instructions 12-28-2020 Patient Instructions Note Date [...] water aren't available, use an alcohol-based hand play writer. Avoid touching your mouth, nose, and eyes. [...] disinfect your home every day. Use household railroad watchman and disinfectant wipes or sprays. Take special [...] of: August 20, 2020 Content Version: 12.9 [employer]. Care instructions adapted under license by your healthcare professional. If you have questions about a medical condition or this instruction, always ask your healthcare professional. [employer] disclaims any warranty or liability for your [...] Terconazole (Terazol Cream) 2004November 25, 2018. [facility]. This handout is for informational purposes only. Talk with your doctor or healthcare team if you have any questions about your care. For more health information call the Library for Health Information at [phone] or email: [email or web address]. documented in this [facility] History of Present illness Narrative 10-11-2020 Betina Pryor APRN-CNP - 10/11/2020 7:15 PM EDT Note Date & Type Note Facility 10-11-2020 History of Presen t illness Narrative HPI Ping Atkins female 1995 presents to the [facility] with Chief Complaint [...] daily. (Patient not taking: Reported on 08/16/2020) dpkhvevm-gljxofcph-wlldblsfseejxh 3.5-87303-2 Solution otic solution 4 drops by Otic [...] Social Gatherings with Friends and Family: Attends Orthodoxy Services: Active Member of Clubs or Organizations: [...] Use Authorization (EUA) for the qualitative detection aeACAX-ZkK-8 nucleic acid. PERFORMED BY [facility] ASSESSMENT/PLAN 1. Viral illness 2. Loss of taste 3. Loss of smell 4. Head congestion Orders Placed This Encounter SARS-COV-2 RAPID Rapid COVID19 negative. Symptoms appear viral. Discussed jjgn-utq-yojjyez symptomatic treatments safe in . If symptoms worsen patient was advised to follow up in our office, primary care provider or the Emergency Dept. Benefits, Risks, Contraindications, and Complications of recommended treatments were explained. The patient understands and agrees to proceed with plan. LOGAN Mcguire 10/11/2020 documented in this encounter [facility] Instructions 10-11-2020 Patient Instructions Note Date [...] 7 days. 2015 December 16, 2018, [facility]. This handout is for informational purposes only. Talk with your doctor or healthcare team if you have any questions about your care. For more health information, call the Library for Health Information at [phone] or email: [email or web address]. Over the Counter Medicines during We suggest [...] Terconazole (Terazol Cream) 2004November 25, 2018. [facility]. This handout is for informational purposes only. Talk with your doctor or healthcare team if you have any questions about your care. For more health information call the Library for Health Information at [phone] or email: [email or web address]. documented in this encounter [facility] Evaluation note Note Date & Type Note Facility Evaluation note Diagnosis Viral illness- Primary Unspecified viral infection, in conditions classified elsewhere and of unspecified site Loss of taste Disturbances of sensation of smell and taste Loss of smell Disturbances of sensation of smell and taste Head congestion Other diseases of nasal cavity and sinuses documented in this encounter [facility] Evaluation note Note Date & Type Note Facility Evaluation note Diagnosis Sprain of left knee, unspecified ligament, initial encounter- Primary documented in this encounter [employer] Work Phone: Evaluation note Note Date & Type Note Facility Evaluation note Diagnosis COVID-19 virus infection- Primary Close exposure to COVID-19 virus documented in this encounter [facility] Evaluation note Note Date & Type Note Facility Evaluation note Diagnosis Sore throat- Primary Acute pharyngitis Viral illness Unspecified viral infection, in conditions classified elsewhere and of unspecified site documented in this encounter [facility] Summary Purpose Family History No Family History Records FoundNo Family History Records FoundNo Family History Records FoundNo Family History Records FoundNo Family History Records FoundNo Family History Records FoundNo Family History Records FoundNo Family History Records FoundNo Family History Records FoundNo Family History Records Found Advance Directives No Advanced Directives Records FoundDocuments on File Type Date Recorded Patient Support Assistant Expl anation Advance Directives and Livin g Will 12/29/2019 8:04 PM Instructions * Patient Instructions* Betina Pryor, BALANCE SCREWHEAD POLISHER-ENTERPRISE ENGINEER - 02/01/2019 12:00 PM EDT Urinary Tract [...] medicines 2004 - May 03, 2017, [facility]. This handout is for informational purposes [...] Do not use plastic earplugs. Use a foreign languages department chair set on low to carefully dry the ear after you shower. To ease ear pain, hold a warm washcloth against your ear. Take pain medicines exactly as directed. ? If the doctor gave you a prescription medicine for pain, take it as prescribed. ? If you are not taking a prescription pain medicine, ask your doctor if you can take an oacc-ucl-dufmszd medicine. Inserting ear drops Warm the drops [...] Where can you learn more? Go to [email or web address]. Enter C706 in the search box to learn more about 'Swimmer's Ear: Care Instructions.' Interested in seeing a video go to [email or web address] to see all video content. Current as of: September 10, 2019 Content Version: 12.7 [employer]. Care instructions adapted under license by your healthcare professional. If you have questions about a medical condition or this instruction, always ask your healthcare professional. [employer] disclaims any warranty or liability for your use of this information. documented in this encounter* Patient Instructions* Betina Pryor, BALANCE SCREWHEAD POLISHER-ENTERPRISE ENGINEER - 03/18/2019 10:45 AM EDT [place]: Care [...] Where can you learn more? Go to [email or web address]. Enter Y392 in the search box to learn more about 'Pinkeye: Care Instructions.' Interested in seeing a video go to [email or web address] to see all video content. Current as of: November 20, 2018 Content Version: 12.2 2471-1344 [employer]. Care instructions adapted under license by your healthcare professional. If you have questions about a medical condition or this instruction, always ask your healthcare professional. [employer] disclaims any warranty or liability for your [...] relieve itching. Your doctor may suggest an omzk-duv-wpfvcek antihistamine, such as cetirizine (Zyrtec), diphenhydramine (Benadryl), [...] Where can you learn more? Go to [email or web address]. Enter R498 in the search box to learn more about 'Chronic Hives: Care Instructions.' Interested in seeing a video go to [email or web address] to see all video content. Current as of: September 01, 2018 Content Version: 12.2 6414-8975 [employer]. Care instructions adapted under license by your healthcare professional. If you have questions about a medical condition or this instruction, always ask your healthcare professional. [employer] disclaims any warranty or liability for your [...] medicines 2004 - May 03, 2017, [facility]. This handout is for informational purposes only. Talk to your doctor or health care team if you have any questions about your care. documented in this encounter History of Present Illness * Betina Pryor APRN-CNP - 02/01/2019 12:00 PM EDT HPI Ping Knox female 1995 presents to the [facility] with Chief Complaint [...] file Gets together: Not on file Attends restorationism service: Not on file Active member of [...] IRMA Padilla female 1995 [facility] with Chief Complaint Patient [...] tablet Take 1 tablet by mouth daily. irqntxkc-evhaybavm-fdkudccrmszhpr 3.5-63880-1 Solution otic solution 4 drops by Otic [...] file Gets together: Not on file Attends restorationism service: Not on file Active member of [...] right ear, unspecified type Other orders - dfbxmvxv-ibrvbtjrw-yhacbpeiddwdyo 3.5-01152-3 Solution otic solution; 4 drops by Otic route 4 times daily. If symptoms worsen patient was advised to follow up in our office or the Emergency Dept. Benefits, Risks, Contraindications, and Complications of recommended treatments were explained. The patient understands and agrees to proceed with plan. Josey Ibrahim PA-C 05/29/2020 documented in this encounter* Betina Pryor, LISA-ENTERPRISE ENGINEER - 03/18/2019 10:45 AM EDT HPI Ping Knox female 1995 presents to the [facility] with Chief Complaint Patient presents with [facility] presents with c/o right eye, [...] known cause. Moved from mothers house to [facility] [address] No self treatments. Hives are self [...] file Gets together: Not on file Attends restorationism service: Not on file Active member of [...] Suggested taking daily antihistamine. Follow up with Provider Service Representative ref. If symptoms worsen patient was advised to follow up in our office, primary care provider or the Emergency Dept. Benefits, Risks, Contraindications, and Complications of recommended treatments were explained. The patient understands and agrees to proceed with plan. LOGAN Mcguire 03/18/2019 documented in this encounter* Betina Pryor, BALANCE SCREWHEAD POLISHER-ENTERPRISE ENGINEER - 02/01/2019 12:00 PM EDT HPI Ping Knox female 1995 presents to the [facility] with Chief Complaint [...] file Gets together: Not on file Attends restorationism service: Not on file Active member of [...] sent through Care Everywhere. * Heat Exhaustion (Filipino) * Lightheadedness or Faintness (Filipino) documented in this encounter Reason for Referral Status Reason Specialty Diagnoses / Procedures Referred By Contact Referred To Contact New Request Allergy & Immunology Diagnoses [place] Betina Pryor APRN-CNP [address] [place] [address] Status Reason Specialty Diagnoses / Procedures Referred By Contact Referred To Contact New Request Family Medicine Diagnoses Bacterial conjunctivitis of right eye Betina Pryor APRN-CNP [address] [place] [id number] Additional Source Comments INFORMATION SOURCE (unrecogn ized section and content) DATE CREATED AUTHOR 11/19/2017 [facility] DATE CREATED AUTHOR AUTHOR'S ORGANIZ ATION 01/19/2019 [facility] DATE CREATED AUTHOR AUTHOR'S ORGANIZ ATION 02/03/2019 [facility] DATE CREATED AUTHOR AUTHOR'S ORGANIZ ATION 06/28/2019 [facility] DATE CREATED AUTHOR AUTHOR'S ORGANIZ ATION 12/30/2019 [facility] DATE CREATED AUTHOR AUTHOR'S ORGANIZ ATION 07/02/2021 [facility] DATE CREATED AUTHOR AUTHOR'S ORGANIZ ATION 07/05/2022 [facility] DATE CREATED AUTHOR AUTHOR'S ORGANIZ ATION 09/01/2022 [facility] DATE CREATED AUTHOR AUTHOR'S ORGANIZ ATION 10/11/2022 [facility] DATE CREATED AUTHOR AUTHOR'S ORGANIZ ATION 01/05/2024 [facility] Reason for Visit (unrecogniz ed section and content) Reason Comments Urinary Pain Some burning, freque ncy, had for 2 or 3 days. Reason Comments Dizziness Reason Comments Ear Pain Pt c/o right ear teresa n and swollen lymph node on the right side x a few weeks Reason Comments [facility] presents with c/o right eye, [...] Associated Order(s): EKG 12-lead ED PROVIDER NOTE [facility] NAME: Ping Knox AGE: 24 y.o. : 1995 VISIT DATE: 12/29/2019 CSN: [id number] PCP: Javier Leiva MD Chief Complaint Patient [...] file Gets together: Not on file Attends restorationism service: Not on file Active member of [...] BE BASED ON THE PRIMARY CLINICAL RECORDS. [facility]. provides no warranty or guarantee of the accuracy or completeness of information in this document.
[2024-08-18 11:50] LABS: HCG Quantitative 71 mIU/mL
== END 2024-08-18 10:51 | disposition home or self-care (01) ==
LOC: LAB 10:55
PROVIDERS: Visit Provider Emergency Medicine
DX: Z32.00 Encounter for pregnancy test, result unknown (principal)
CPT/HCPCS: 36415; 84702

== ENCOUNTER 2024-08-20 09:26 | Outpatient (OUT) | payer BC, SELFPAY ==
--- OUTSIDE RECORDS SUMMARY | 2024-08-20 09:39 | XMS_ITS | CCD ---
Author Organization [facility] Care Team Providers Care Dragline Oiler Name Role Phone Zarczynski, Edward P Unavailable Unavailable Zarczynski, Edward P Unavailable Unavailable Chambers, Umm Unavailable Unavailable Chambers, Umm Unavailable Unavailable Chambers, Umm Unavailable Unavailable Zarczynski, Edward P Unavailable Unavailable [facility] Primary Care Unavailabl e Unavailable Primary Care Provider Unavailabl e JACQUI IVAN Admitting Unavailable [facility] Primary Care Unavailabl e [place] [facility] Primary Care Provider [phone] [facility] Primary Care Unavailabl e Unavailable [...] source) Erythromycin Drug Allergy 07-24-19 13 Rash [facility] Penicillins (antibiotic) (1 source) Ampicillin Drug Allergy 06-06-19 18 [facility] Sulfamethoxazole / Trimethoprim (1 source) Sulfamethoxazole / Trimethoprim Drug Allergy 06-06-19 18 [facility] (13 sources) Ampicillin; Translations: [Unknown] Drug Allergy 06-06-19 18 [facility] (7 sources) Erythromycin Drug Allergy 07-24-19 13 [facility] (8 sources) Sulfamethoxazole / Trimethoprim Drug Allergy 06-06-19 18 [facility] (1 source) Penicillin G Drug Allergy 05-24-20 21 Other (See Comments) [employer] Phone: (1 source) Penicillin; Translations: [penicillin] Drug Allergy [facility] Repository Medications Current Medications Medication Drug [...] 20 mg by mouth daily 0 Active Bcliiowp-Ibm-Nq-FA (PRE-HECTOR PO) (1 source) Qijgpckn-Uun-Nz-FA (PRE- PO) Take by mouth 0 Active [...] / neomycin 3.5 mg/ml / polymyxin b 31014 unt/ml otic solution (4 sources) Aminoglycoside Antibacterial, Polymyxin-class Antibacterial, Corticosteroid Start: 05-29-2020 End: 08-30-2022 neomycin-polymyxi n-hydrocortisone 3.5-49220-4 Solution otic solution 4 drops by Otic [...] on 10-11-2022 HBsAg Screen Negative Normal Negative [facility] Comment on above: Performed By: #### H BSANS #### [facility] [address] [place] [address] Dr. Kaleb Decker HEPATITIS C VIRUS AB W/ REFL EX QUANTon 10-11-2022 HCV AB Non-Reactive Normal Non Reactive [facility] Comment on above: Performed By: #### H CVPCRR #### [facility] [address] [place] [address] Dr. Kaleb Decker HIV 1 AND 2 WITH REFLEXon HIV Screen 4th Generation wRfx Non-Reactive Normal Non Reactive [facility] Comment on above: Result Comment: HIV Negative HIV-1/HIV-2 antibodies and HIV-1 p24 antigen were NOT detected. There is no laboratory evidence of HIV infection. Performed By: #### H IV12 #### [facility] [address] [place] [address] Dr. Kaleb Decker RPR QUANTon 10-11-2022 Rapid Plasma Reagin, Quant Non-Reactive Normal NonRea<1:1 [facility] Comment on above: Result Comment: Plea se Note: This test does not meet current guidelines for screening and diagnosis of syphilis. This test is intended for following treatment response in patients being treated for syphilis infection. To screen for syphilis infection, a reflex cascade that includes both RPR and a treponema-specific assay should be utilized, such as Treponema pallidum (Syphilis) Screening [place] (106262) or Rapid Plasma Reagin (RPR) Test With Reflex to Quantitative RPR and Confirmatory Treponema pallidum Antibodies (479656). Performed By: #### H BSANS #### [facility] [address] [place] [address] Dr. Kaleb Decker RUBELLA AB IGGon 10-11-2022 Rubella Antibodies, IgG <0.90 Critically low Immune >0.99 [facility] Comment on above: Result Comment: Non- immune <0.90 Equivocal 0.90 - 0.99 Immune >0.99 Performed By: #### R UBIGG #### [facility] [address] [place] [address] Dr. Kaleb Decker BOX TEST SENT OUTon 10-11-19 23 SENT TO REF LAB 10/10/22 Normal [facility] Comment on above: Performed By: #### B OX #### [facility] [address] [place] [address] Dr. Kaleb Decker CBC AUTO DIFFon 10-10-2022 BASO # 0.0 103/ul Normal 0.0-0.1 [facility] Comment on above: Performed By: #### C BC #### [facility] [address] [place] [address] Dr. Kaleb Decker Basophils/100 WBC (Bld) 0.6 % Normal 0.2-2.0 [facility] Comment on above: Performed By: #### C BC #### [facility] [address] [place] [address] Dr. Kaleb Decker EO # 0.2 103/ul Normal 0.0-0.7 [facility] Comment on above: Performed By: #### C BC #### [facility] [address] [place] [address] Dr. Kaleb Decker Eosinophils/100 WBC (Bld) 2.4 % Normal 0.9-7.0 [facility] Comment on above: Performed By: #### C BC #### [facility] [address] [place] [address] Dr. Kaleb Decker Erythrocyte distribution width (RBC) [Ratio] 13.8 % Normal 11.0-15.0 [facility] Comment on above: Performed By: #### C BC #### [facility] [address] [place] [address] Dr. Kaleb Decker Hematocrit (Bld) [Volume fraction] 41.5 % Normal 36.0-48.0 [facility] Comment on above: Performed By: #### C BC #### [facility] [address] [place] [address] Dr. Kaleb Decker Hemoglobin (Bld) [Mass/Vol] 13.6 g/dL Normal 12.0-16.0 [facility] Comment on above: Performed By: #### C BC #### [facility] [address] [address] [address] Kaleb Decker IG # 0.04 10e3/ul Critically high 0.00-0.03 [facility] Comment on above: Performed By: #### C BC #### [facility] [address] [address] [address] Kaleb Decker IG % 0.6 % Critically high 0.0-0.5 [facility] Comment on above: Performed By: #### C BC #### [facility] [address] [address] [address] Kaleb Decker LYMPH # 1.8 103/ul Normal 1.2-3.8 [facility] Comment on above: Performed By: #### C BC #### [facility] [address] [place] [address] Dr. Kaleb Decker Lymphocytes/100 WBC (Bld) 26.6 % Normal 20.5-60.0 [facility] Comment on above: Performed By: #### C BC #### [facility] [address] [place] [address] Dr. Kaleb Decker MANUAL DIFF REQ NO Normal [facility] Comment on above: Performed By: #### C BC #### [facility] [address] [place] [address] Dr. Kaleb Decker MCH (RBC) [Entitic mass] 26.1 pg Critically low 26.7-34.0 [facility] Comment on above: Performed By: #### C BC #### [facility] [address] [place] [address] Dr. Kaleb Decker MCHC (RBC) [Mass/Vol] 32.8 g/dL Normal 29.9-35.2 [facility] Comment on above: Performed By: #### C BC #### [facility] [address] [place] [address] Dr. Kaleb Decker MCV (RBC) [Entitic vol] 79.7 fL Critically low 81.0-99.0 [facility] Comment on above: Performed By: #### C BC #### [facility] [address] [place] [address] Dr. Kaleb Decker MONO # 0.3 103/ul Normal 0.3-0.8 [facility] Comment on above: Performed By: #### C BC #### [facility] [address] [place] [address] Dr. Kaleb Decker Monocytes/100 WBC (Bld) 4.6 % Normal 1.7-12.0 [facility] Comment on above: Performed By: #### C BC #### [facility] [address] [place] [address] Dr. Kaleb Decker NEUT # 4.4 103/ul Normal 1.4-6.5 [facility] Comment on above: Performed By: #### C BC #### [facility] [address] [place] [address] Dr. Kaleb Decker Neutrophils/100 WBC (Bld) 65.2 % Normal 43.0-75.0 [facility] Comment on above: Performed By: #### C BC #### [facility] [address] [place] [address] Dr. Kaleb Decker Platelet mean volume (Bld) [Entitic vol] 9.8 fL Normal 9.5-13.5 [facility] Comment on above: Performed By: #### C BC #### [facility] [address] [place] [address] Dr. Kaleb Decker PLT 312 103/ul Normal 150-450 [facility] Comment on above: Performed By: #### C BC #### [facility] [address] [place] [address] Dr. Kaleb Decker RBC 5.21 106/ul Normal 4.20-5.40 [facility] Comment on above: Performed By: #### C BC #### [facility] [address] [place] [address] Dr. Kaleb Decker WBC 6.8 103/ul Normal 4.0-11.0 [facility] Comment on above: Performed By: #### C BC #### [facility] [address] [place] [address] Dr. Kaleb Decker CULTURE URINEon 10-10-2022 CULTURE URINE Culture Observations : LIGHT GROWTH OF MIXED GENITAL RACHEL. NO POTENTIAL PATHOGENS SEEN. Normal [facility] Comment on above: Performed By: #### H BSANS #### [facility] [address] [address] [address] Kaleb Decker GLYCOHEMOGLOBIN A1Con 2022 ADA RECOMMENDATION SEE BELOW Normal [facility] Comment on above: Result Comment: ADA RECOMMENDED LIMIT 4.0 - 6.0 ADA THERAPEUTIC TARGET < 7.0 ACTION SUGGESTED > 7.0 Performed By: #### A 1C #### [facility] [address] [address] [address] Kaleb Decker Glucose [Mass/Vol] 100 mg/dL Normal [facility] Comment on above: Performed By: #### A 1C #### [facility] [address] [place] [address] Dr. Kaleb Decker HbA1c (Bld) [Mass fraction] 5.1 % Normal 4.5-6.2 [facility] Comment on above: Performed By: #### A 1C #### [facility] [address] [address] [address] Kaleb Decker TSHon 10-10-2022 TSH 0.670 uIU/mL Normal 0.358-3.740 [facility] Comment on above: Performed By: #### T SH #### [facility] [address] [place] [address] Dr. Kaleb Decker TYPE AND SCREENon 10-10-2022 TYPE AND SCREEN Negative Normal [facility] Comment on above: Performed By: #### T NS #### [facility] [address] [address] [address] Kaleb Decker UA RANDOMon 10-10-2022 Bilirubin Ql (U) Negative Normal NEGATIVE [facility] Comment on above: Performed By: #### U A #### [facility] [address] [place] [address] Dr. Kaleb Decker Clarity (U) CLEAR Normal CLEAR [facility] Comment on above: Performed By: #### U A #### [facility] [address] [address] [address] Kaleb Decker Color (U) LT. YELLOW Normal YELLOW [facility] Comment on above: Performed By: #### U A #### [facility] [address] [place] [address] Dr. Kaleb Decker Glucose Ql (U) Negative Normal NEGATIVE [facility] Comment on above: Performed By: #### U A #### [facility] [address] [place] [address] Dr. Kaleb Decker Hemoglobin Ql (U) Negative Normal NEGATIVE [facility] Comment on above: Performed By: #### U A #### [facility] [address] [place] [address] Dr. Kaleb Decker Ketones Ql (U) Negative Normal NEGATIVE [facility] Comment on above: Performed By: #### U A #### [facility] [address] [place] [address] Dr. Kaleb Decker LEUKOCYTES MODERATE Abnormal NEGATIVE [facility] Comment on above: Performed By: #### U A #### [facility] [address] [place] [address] Dr. Kaleb Decker Nitrite Ql (U) Negative Normal NEGATIVE [facility] Comment on above: Performed By: #### U A #### [facility] [address] [place] [address] Dr. Kaleb Decker pH (U) 7.0 [pH] Normal 5-9 [facility] Comment on above: Performed By: #### U A #### [facility] [address] [place] [address] Dr. Kaleb Decker SPEC GRAVITY 1.010 Normal 1.005-<=1.025 [facility] Comment on above: Performed By: #### U A #### [facility] [address] [place] [address] Dr. Kaleb Decker UA PROTEIN Negative Normal NEGATIVE/ TRACE [facility] Comment on above: Performed By: #### U A #### [facility] [address] [place] [address] Dr. Kaleb Decker Urobilinogen Qn (U) 0.2 {Garcia'U}/dL Normal 0.2 - 1. 0 [facility] Comment on above: Performed By: #### U A #### [facility] [address] [address] [address] Kaleb Decker US PREG TVon 10-03-2022 [...] by: RAFFI FARNSWORTH Date: 2022-10-03 15:36 Normal [facility] POCT RAPID STREP Aon 023 S. pyogenes Ag Ql (Throat) Negative (+/-) [facility] Internal controls OK [facility] XR KNEE LEFT (MIN 4 [...] Johnny Lipscomb MD 07/01/21 Final result [facility] Normal left knee [facility] EXAM: XR KNEE LEFT (MIN 4 VIEWS) HISTORY: Reason for exam:->Pain injury trauma COMPARISON: None. TECHNIQUE: 4 views left knee FINDINGS: No fracture or joint effusion. Joint spaces are maintained. No pathologic calcification. No radiopaque foreign body. [facility] Johnny Lipscomb M D - 07/01/2021 EXAM: XR KNEE LEFT (MIN 4 VIEWS) HISTORY: Reason for exam:->Pain injury trauma COMPARISON: None. TECHNIQUE: 4 views left knee FINDINGS: No fracture or joint effusion. Joint spaces are maintained. No pathologic calcification. No radiopaque foreign body. IMPRESSION: Normal left knee [facility] [employer] Phone: Radiology Study observation (narrative) [facility] [employer] Phone: XR KNEE LEFT (MIN 4 VIEWS)Or dered By: Johnny Lipscomb on 07-01-2021 [facility] [employer] Phone: CBC with Diffon 05-24-2021 Abs. Atypical Lymphs 0.20 k/uL Normal 0.0-1.0 [facility] Comment on above: Performed By: #### C P, CDP #### [facility] [address] [place] [address] Manager Housekeeping: Rancho Alvarado MD Abs. Bands 2.00 k/uL High 0.0-1.0 [facility] Comment on above: Performed By: #### C P, CDP #### [facility] [address] [place] [address] Manager Housekeeping: Rancho Alvarado MD Abs. Basophil Normal 0.0-0.2 [facility] Comment on above: Performed By: #### C P, CDP #### [facility] [address] [place] [address] Manager Housekeeping: Rancho Alvarado MD Abs.Neutrophil (Seg) 6.80 k/uL Normal 2.5-7.0 [facility] Comment on above: Performed By: #### C P, CDP #### [facility] [address] [place] [address] Manager Housekeeping: Rancho Alvarado MD Atypical Lymphs 2 % Normal [facility] Comment on above: Performed By: #### C P, CDP #### [facility] [address] [place] [address] Manager Housekeeping: Rancho Alvarado MD Bands 20 % High 0-10 [facility] Comment on above: Performed By: #### C P, CDP #### [facility] [address] [place] [address] Manager Housekeeping: Rancho Alvarado MD Basophil Normal 0-2 [facility] Comment on above: Performed By: #### C P, CDP #### [facility] [address] [phone] Manager Housekeeping: Rancho Alvarado MD Eosinophils (Bld) [#/Vol] 0.30 10*3/uL Normal 0.0-0.4 [facility] Comment on above: Performed By: #### C P, CDP #### [facility] [address] [place] [address] Manager Housekeeping: Rancho Alvarado MD Eosinophils/100 WBC (Bld) 3 % Normal 0-5 [facility] Comment on above: Performed By: #### C P, CDP #### [facility] [address] [place] [address] Manager Housekeeping: Rancho Alvarado MD Lymphocytes (Bld) [#/Vol] 0.50 10*3/uL Low 1.0-4.8 [facility] Comment on above: Performed By: #### C P, CDP #### [facility] [address] [phone] Manager Housekeeping: Rancho Alvarado MD Lymphocytes/100 WBC (Bld) 5 % Low 15-40 [facility] Comment on above: Performed By: #### C P, CDP #### [facility] [address] [phone] Manager Housekeeping: Rancho Alvarado MD Monocytes (Bld) [#/Vol] 0.20 10*3/uL Normal 0.0-1.0 [facility] Comment on above: Performed By: #### C P, CDP #### [facility] [address] [place], [place] [phone] Manager Housekeeping: Rancho Alvarado MD Monocytes/100 WBC (Bld) 2 % Low 4-8 [facility] Comment on above: Performed By: #### C P, CDP #### [facility] [address] [place], [place] [phone] Manager Housekeeping: Rancho Alvarado MD Morphology Faustino (Bld) [Interp] Manual Differential Performed Normal [facility] Comment on above: Performed By: #### C P, CDP #### [facility] [address] [place] [address] Manager Housekeeping: Rancho Alvarado MD Neutrophil (Seg) 68 % Normal 47-75 [facility] Comment on above: Performed By: #### C P, CDP #### [facility] [address] [place] [address] Manager Housekeeping: Rancho Alvarado MD Erythrocyte distribution width (RBC) [Ratio] 13.1 % Normal 12.1-15.2 [facility] Comment on above: Performed By: #### C P, CDP #### [facility] [address] [place], [place] [phone] Manager Housekeeping: Rancho Alvarado MD Hematocrit (Bld) [Volume fraction] 44.2 % Normal 36-46 [facility] Comment on above: Performed By: #### C P, CDP #### [facility] [address] [place], [place] [phone] Manager Housekeeping: Rancho Alvarado MD Hemoglobin (Bld) [Mass/Vol] 14.7 g/dL Normal 12.0-16.0 [facility] Comment on above: Performed By: #### C P, CDP #### [facility] [address] [place], [place] [phone] Manager Housekeeping: Rancho Alvarado MD MCH (RBC) [Entitic mass] 26.1 pg Normal 26-34 [facility] Comment on above: Performed By: #### C P, CDP #### [facility] [address] [place] [address] Manager Housekeeping: Rancho Alvarado MD MCHC (RBC) [Mass/Vol] 33.2 g/dL Normal 31-37 [facility] Comment on above: Performed By: #### C P, CDP #### [facility] [address] [place], [place] [phone] Manager Housekeeping: Rancho Alvarado MD MCV (RBC) [Entitic vol] 78.5 fL Low 80-100 [facility] Comment on above: Performed By: #### C P, CDP #### [facility] [address] [place] [address] Manager Housekeeping: Rancho Alvarado MD Platelets (Bld) [#/Vol] 317 10*3/uL Normal 140-450 [facility] Comment on above: Performed By: #### C P, CDP #### [facility] [address] [place] [address] Manager Housekeeping: Rancho Alvarado MD RBC (Bld) [#/Vol] 5.64 10*6/uL High 4.0-5.2 [facility] Comment on above: Performed By: #### C P, CDP #### [facility] [address] [place], [place] [phone] Manager Housekeeping: Rancho Alvarado MD WBC (Bld) [#/Vol] 10.0 10*3/uL Normal 3.5-11.0 [facility] Comment on above: Performed By: #### C P, CDP #### [facility] [address] [place] [address] Manager Housekeeping: Rancho Alvarado MD Abs.Imm.Granulocyte NOT REPORTED Normal 0.00-0.30 [facility] Comment on above: Performed By: #### C P, CDP #### [facility] [address] [place] [address] Manager Housekeeping: Rancho Alvarado MD Auto Diff Performed NOT REPORTED Normal [facility] Comment on above: Performed By: #### C P, CDP #### [facility] [address] [place] [address] Manager Housekeeping: Rancho Alvarado MD Immature Granulocyte NOT REPORTED Normal 0 [facility] Comment on above: Performed By: #### C P, CDP #### [facility] [address] [place], [place] [phone] Manager Housekeeping: Rancho Alvarado MD MPV NOT REPORTED Normal 6.0-12.0 [facility] Comment on above: Performed By: #### C P, CDP #### [facility] [address] [place], [place] [phone] Manager Housekeeping: Rancho Alvarado MD NRBC Automated NOT REPORTED Normal [facility] Comment on above: Performed By: #### C P, CDP #### [facility] [address] [place] [address] Manager Housekeeping: Rancho Alvarado MD Platelet Comment NOT REPORTED Normal [facility] Comment on above: Performed By: #### C P, CDP #### [facility] [address] [place] [address] Manager Housekeeping: Rancho Alvarado MD RBC morphology finding Nom (Bld) NOT REPORTED Normal [facility] Comment on above: Performed By: #### C P, CDP #### [facility] [address] [place] [address] Manager Housekeeping: Rancho Alvarado MD WBC Morphology NOT REPORTED Normal [facility] Comment on above: Performed By: #### C P, CDP #### [facility] [address] [place], [place] [phone] Manager Housekeeping: Rancho Alvarado MD Comp Metabolic Profon 2020 (cont.) Normal [facility] Comment on above: Result Comment: Aver age GFR for 20-29 years old: 116 mL/min/1.73sq m Chronic Kidney Disease: <60 mL/min/1.73sq m Kidney failure: <15 mL/min/1.73sq m eGFR calculated using average adult body mass. Additional eGFR calculator available at: http://www.[employer]/multiple_crcl_2011.htm Performed By: #### C P, CDP #### [facility] [address] [place], [place] [phone] Manager Housekeeping: Rancho Alvarado MD Albumin [Mass/Vol] 4.5 g/dL Normal 3.5-5.2 [facility] Comment on above: Performed By: #### C P, CDP #### [facility] [address] [place] [address] Manager Housekeeping: Rancho Alvarado MD Alkaline Phos 90 U/L Normal 35-104 [facility] Comment on above: Performed By: #### C P, CDP #### [facility] [address] [place], [place] [phone] Manager Housekeeping: Rancho Alvarado MD ALT [Catalytic activity/Vol] 136 U/L High 5-33 [facility] Comment on above: Performed By: #### C P, CDP #### [facility] [address] [place] [address] Manager Housekeeping: Rancho Alvarado MD Anion gap [Moles/Vol] 15 mmol/L Normal 9-17 [facility] Comment on above: Performed By: #### C P, CDP #### [facility] [address] [place], [place] [phone] Manager Housekeeping: Rancho Alvarado MD AST [Catalytic activity/Vol] 55 U/L High <32 [facility] Comment on above: Performed By: #### C P, CDP #### [facility] [address] [place] [address] Manager Housekeeping: Rancho Alvarado MD Bilirubin [Mass/Vol] 0.68 mg/dL Normal 0.30-1.20 [facility] Comment on above: Performed By: #### C P, CDP #### [facility] [address] [place] [address] Manager Housekeeping: Rancho Alvarado MD BUN/CRE Ratio 21 High 9-20 [facility] Comment on above: Performed By: #### C P, CDP #### [facility] [address] [place] [address] Manager Housekeeping: Rancho Alvarado MD Calcium [Mass/Vol] 9.2 mg/dL Normal 8.6-10.4 [facility] Comment on above: Performed By: #### C P, CDP #### [facility] [address] [place], [place] [address] Manager Housekeeping: Rancho Alvarado MD Chloride [Moles/Vol] 105 mmol/L Normal 98-107 [facility] Comment on above: Performed By: #### C P, CDP #### [facility] [address] [place] [address] Manager Housekeeping: Rancho Alvarado MD CO2 [Moles/Vol] 21 mmol/L Normal 20-31 [facility] Comment on above: Performed By: #### C P, CDP #### [facility] [address] [place] [address] Manager Housekeeping: Rancho Alvarado MD Creatinine [Mass/Vol] 0.75 mg/dL Normal 0.50-0.90 [facility] Comment on above: Performed By: #### C P, CDP #### [facility] [address] [place] [address] Manager Housekeeping: Rancho Alvarado MD GFR, Amer >60 Normal >60 [facility] Comment on above: Performed By: #### C P, CDP #### [facility] [address] [place] [address] Manager Housekeeping: Rancho Alvarado MD GFR,non Amer >60 Normal >60 [facility] Comment on above: Performed By: #### C P, CDP #### [facility] [address] [place] [address] Manager Housekeeping: Rancho Alvarado MD Glucose [Mass/Vol] 105 mg/dL High 70-99 [facility] Comment on above: Performed By: #### C P, CDP #### [facility] [address] [place] [address] Manager Housekeeping: Rancho Alvarado MD Potassium [Moles/Vol] 4.1 mmol/L Normal 3.7-5.3 [facility] Comment on above: Performed By: #### C P, CDP #### [facility] [address] [place] [address] Manager Housekeeping: Rancho Alvarado MD Protein [Mass/Vol] 7.6 g/dL Normal 6.4-8.3 [facility] Comment on above: Performed By: #### C P, CDP #### [facility] [address] [place] [address] Manager Housekeeping: Rancho Alvarado MD Sodium [Moles/Vol] 141 mmol/L Normal 135-144 [facility] Comment on above: Performed By: #### C P, CDP #### [facility] [address] [place] [address] Manager Housekeeping: Rancho Alvarado MD Urea nitrogen [Mass/Vol] 16 mg/dL Normal 6-20 [facility] Comment on above: Performed By: #### C P, CDP #### [facility] [address] [place] [address] Manager Housekeeping: Rancho Alvarado MD Albumin/Glob Ratio NOT REPORTED Normal 1.0-2.5 [facility] Comment on above: Performed By: #### C P, CDP #### [facility] [address] [place] [address] Manager Housekeeping: Rancho Alvarado MD Staging: NOT REPORTED Normal [facility] Comment on above: Performed By: #### C P, CDP #### [facility] [address] [place] [address] Manager Housekeeping: Rancho Alvarado MD SARS-COV-2 RAPIDon Field Test Engineer Cyto stain Nom (Cvx/Vag) [ID] [facility] Interpretation and review of laboratory results Abnormal [facility] NARRATIVE -1 This test was performed using isothermal DANTE and has been approved as Emergency Use Authorization (EUA) for the qualitative detection [id number] nucleic acid. [facility] SARS-CoV-2 (COVID-19) RNA DANTE+probe Ql (Unsp spec) Detected Abnormal NOT DETECTED [facility] Comment on above: CALLED TO AND READ B ACK BY [email or web address] SHEA ENHANCED CONTACT, AND DROPLET ISOLATION IS REQUIRED FOR INPATIENTS WITH SARS-CoV-2. [facility] SARS-COV-2 RAPIDOrdered By: Betina Pryor on 10-11-2020 Field Test Engineer Cyto stain Nom (Cvx/Vag) [ID] [facility] NARRATIVE -1 This test was performed using isothermal DATNE and has been approved as Emergency Use Authorization (EUA) for the qualitative detection [id number]-SzZ-4 nucleic acid. [facility] SARS-CoV-2 (COVID-19) RNA DANTE+probe Ql (Unsp spec) Not detected NOT DETECTED [facility] Comment on above: Negative results do [...] patient is critically ill or clinically deteriorating. [facility] ECG 12-LEADon 12-29-2019 Raffi Doss MD 12/29/2019 8:02 PM EKG 12-lead Date/Time: 12/29/2019 7:57 PM Performed by: Raffi Doss MD Authorized by: Raffi Doss MD BPM: 65 Comments: Normal sinus rhythm at a rate of 65, normal axis, no signs of acute ischemia or infarction. No signs of interval pathology, WPW, HOCM, Brugada [facility] Urine Pregnancyon 12-29-2019 HCG ( test) Ql (U) Negative Negative [facility] Interpretation and review of laboratory results Normal [facility] URINE CULTUREon 02-03-2019 Bacteria identified Cx Nom (U) SPECIMEN DESCRIPTION URINE CLEAN CATCH UA DIPSTICK LEUKOCYTE POSITIVE * Result Note: NITRITE NEGATIVE * CULTURE ESCHERICHIA COLI * Result Note: 40,000-50,000 C/C/ML * * Result Note: Testing performed at [place], [place] [address] * REPORT STATUS 02/03/2019 * Result Note: FINAL * ORGANISM ESCHERICHIA COLI * Result Note: ESCHERICHIA COLI * METHOD OSMAN AMPICILLIN 4 SUSCEPTIBLE AMPICILLIN/SULBACTAM <=2 SUSCEPTIBLE CEFTRIAXONE <=1 SUSCEPTIBLE CEFAZOLIN <=4 SUSCEPTIBLE IMIPENEM <=0.25 SUSCEPTIBLE GENTAMICIN <=1 SUSCEPTIBLE TRIMETH-SULFA <=20 SUSCEPTIBLE AMOXICILLIN/CLAVULANIC A 4 SUSCEPTIBLE NITROFURANTOIN <=16 SUSCEPTIBLE PIPERACILLIN/TAZOBACTA M <=4 SUSCEPTIBLE LEVOFLOXACIN <=0.12 SUSCEPTIBLE ESBL NEGATIVE CEFTAZIDIME <=1 SUSCEPTIBLE Normal [facility] Comment on above: Performed By: #### A URNC #### Testing performed at [facility] [address] [place] [address] POCT URINALYSIS DIPSTICK NON AUTOMATEDon 02-01-2019 Amorphous sediment LM Ql (Urine sed) [facility] Appearance (Body fld) cloudy [facility] Bacteria LM Ql (Urine sed) [facility] Bilirubin Ql (U) Negative [facility] Casts LM.LPF (Urine sed) [#/Area] [facility] Color (U) yellow [facility] Crystals LM Nom (Urine sed) [facility] Epithelial cells.squamous LM.HPF (Urine sed) [#/Area] [facility] Flow cytometry specialist review Faustino (Unsp spec) [Interp] [facility] Interpretation and review of laboratory results Abnormal [facility] Ketones [Mass/Vol] Negative mg/dL [facility] Leukocyte esterase Qn (U) [facility] Leukocyte esterase Test strip Ql (U) small [facility] Nitrite Ql (U) Negative [facility] pH (U) 7.5 [pH] Abnormal [facility] POCT GLUCOSE, URINE Negative mg/dL [facility] Protein Ql (U) Negative mg/dL [facility] RBC LM.HPF (Urine sed) [#/Area] [facility] RBC Ql (U) trace [facility] Specific gravity (U) [Rel density] 1.020 [facility] Transitional cells LM Ql (Urine sed) [facility] Urobilinogen (U) [Mass/Vol] 0.2 [facility] WBC LM.HPF (Urine sed) [#/Area] [facility] [place] [facility] Internal controls [facility] Hgb and Hcton 06-28-2017 Hematocrit (HCT) 29.3 % Low 34.4-44.8 [facility] Comment on above: Performed By: #### H H ####Unless otherwise noted, all testing performed by [facility] [place], [place] [phone]: [id number] Director: José Miguel Chan M.D. Hemoglobin mass conc (Bld) 9.6 g/dL Low 11.6-15.4 [facility] Comment on above: Performed By: #### H H ####Unless otherwise noted, all testing performed by [address] [id number]: [id number] Director: José Miguel Chan M.D. Hepatitis C Antibodyon 06-27 Hepatitis C Antibody Positive Abnormal Negative [facility] Comment on above: Result Comment: Vlad mmend confirmation with HCV Virus Quantitation.Test performed using [employer] Immunodiagnostic system[place] [address] Performed By: #### H EPCABS, HEPCQT ####Unless otherwise noted, all testing performed by [place] [id number]: [id number] Director: José Miguel Chan M.D. Hepatitis C Qt,HCV-RNAon Hepatitis C Qt,HCV-RNA Not Detected Normal Not Detected [facility] Comment on above: Result Comment: The quantification range of this assay is 15-100,000,000 IU/mL(1.2 log IU/mL - 8.0 log IU/mL)Assay performed using MARY Ampliprep/TaqmanHCV test, version 2.0.[place] [address] Performed By: #### H EPCABS, HEPCQT ####Unless otherwise noted, all testing performed by [address] [phone]: [id number] Director: José Miguel Chan M.D. Urinalysis, Routineon 2017 Bilirubin,Urine Negative Normal NEG;NEGATIVE [facility] Comment on above: Performed By: #### U A ####Unless otherwise noted, all testing performed by [place] [phone]: [id number] Director: José Miguel Chan M.D. Blood,Urine Negative Normal NEG;NEGATIVE [facility] Comment on above: Performed By: #### U A ####Unless otherwise noted, all testing performed by [address] [phone]: [id number] Director: José Miguel Chan M.D. Ketone,Urine Negative Normal NEG;NEGATIVE [facility] Comment on above: Performed By: #### U A ####Unless otherwise noted, all testing performed by [address] [phone]: [id number] Director: José Miguel Chan M.D. Leuk.Esterase,Urine Trace Abnormal Negative [facility] Comment on above: Performed By: #### U A ####Unless otherwise noted, all testing performed by [address] [phone]: [id number] Director: José Miguel Chan M.D. Nitrite,Urine Negative Normal NEG;NEGATIVE [facility] Comment on above: Performed By: #### U A ####Unless otherwise noted, all testing performed by [address] [phone]: [id number] Director: José Miguel Chan M.D. Protein,Urine Negative Normal NEG;NEGATIVE [facility] Comment on above: Performed By: #### U A ####Unless otherwise noted, all testing performed by [address] [phone]: [id number] Director: José Miguel Chan M.D. Specific Rye,Urine 1.002 Low 1.003-1.029 [facility] Comment on above: Performed By: #### U A ####Unless otherwise noted, all testing performed by [address] [phone]: [id number] Director: José Miguel Chan M.D. Squamous Epithelial 1 /HPF Normal 0-40 [facility] Comment on above: Performed By: #### U A ####Unless otherwise noted, all testing performed by [address] [id number]: [id number] Director: José Miguel Chan M.D. Urine, bacteria in sediment Moderate Abnormal NS;RARE [facility] Comment on above: Performed By: #### U A ####Unless otherwise noted, all testing performed by [address] [phone]: [id number] Director: José Miguel Chan M.D. Urine, character Hazy Normal [facility] Comment on above: Performed By: #### U A ####Unless otherwise noted, all testing performed by [address] [phone]: [id number] Director: José Miguel Chan M.D. Urine, color Straw Normal [facility] Comment on above: Performed By: #### U A ####Unless otherwise noted, all testing performed by [address] [phone]: [id number] Director: José Miguel Chan M.D. Urine, erythrocytes in sediment by area 2 /[HPF] Normal 0-5 [facility] Comment on above: Performed By: #### U A ####Unless otherwise noted, all testing performed by [address] [phone]: [id number] Director: José Miguel Chan M.D. Urine, glucose presence Negative Normal NEG;NEGATIVE [facility] Comment on above: Performed By: #### U A ####Unless otherwise noted, all testing performed by [address] [phone]: [id number] Director: José Miguel Chan M.D. Urine, leukocytes in sedmiment 1 /[HPF] Normal 0-5 [facility] Comment on above: Performed By: #### U A ####Unless otherwise noted, all testing performed by [address] [phone]: [id number] Director: José Miguel Chan M.D. Urine, pH 7.0 [pH] Normal 4.5-8.0 [facility] Comment on above: Performed By: #### U A ####Unless otherwise noted, all testing performed by [address] [phone]: [id number] Director: José Miguel Chan M.D. Urobilinogen,Urine < 2.0 Normal <2 [facility] Comment on above: Performed By: #### U A ####Unless otherwise noted, all testing performed by [address], [place] [phone]: [id number] Director: José Miguel Chan M.D. Vital Signs Date Time Vital Sign Value Performing Clinician Facility 08-30-2022 19:23-0400 Body height 175.3 cm Dick Lassiter APRN-MIXER HELPER Work Phone: [facility] 08-30-2022 19:23-0400 Body mass index (BMI) [Ratio] 32.52 kg/m2 Dick Lassiter APRN-MIXER HELPER Work Phone: [facility] 08-30-2022 19:23-0400 Body temperature 98.49 [degF] Dick Lassiter APRNDAVID Work Phone: [facility] 08-30-2022 19:23-0400 Body weight 99.88 kg Dick Lassiter APRN-MIXER HELPER Work Phone: [facility] 08-30-2022 19:23-0400 Diastolic blood pressure 66 mm[Hg] Dick Lassiter APRN-MIXER HELPER Work Phone: [facility] 08-30-2022 19:23-0400 Heart rate 96 /min Dick Lassiter APRN-MIXER HELPER Work Phone: [facility] 08-30-2022 19:23-0400 Respiratory rate 16 /min Dick Lassiter APRN-MIXER HELPER Work Phone: [facility] 08-30-2022 19:23-0400 SaO2% (BldA) [Mass fraction] 99 % Dick Lassiter APRN-MIXER HELPER Work Phone: [facility] 08-30-2022 19:23-0400 Systolic blood pressure 110 mm[Hg] Dick Lassiter APRN-MIXER HELPER Work Phone: [facility] 07-01-2021 19:17-0500 Body mass index (BMI) [Ratio] 33.67 kg/m2 Bryon Gu MD Work Phone: [facility] 07-01-2021 19:17-0500 Body temperature 97.81 [degF] Bryon Gu MD Work Phone: [facility] 07-01-2021 19:17-0500 Body weight 103.42 kg Bryon Gu MD Work Phone: [facility] 07-01-2021 19:17-0500 Diastolic blood pressure 80 mm[Hg] Bryon Gu MD Work Phone: [facility] 07-01-2021 19:17-0500 Heart rate 95 /min Bryon Gu MD Work Phone: [facility] 07-01-2021 19:17-0500 Respiratory rate 16 /min Bryon Gu MD Work Phone: [facility] 07-01-2021 19:17-0500 SaO2% (BldA) [Mass fraction] 98 % Bryon Gu MD Work Phone: [facility] 07-01-2021 19:17-0500 Systolic blood pressure 128 mm[Hg] Bryon Gu MD Work Phone: [facility] 12-28-2020 12:50-0400 Body height 175.3 cm Betina Pryor JUNIOR MEDIA BUYER-MIXER HELPER Work Phone: [facility] 12-28-2020 12:50-0400 Body mass index (BMI) [Ratio] 32.38 kg/m2 Betina Pryor JUNIOR MEDIA BUYER-MIXER HELPER Work Phone: [facility] 12-28-2020 12:50-0400 Body temperature 98.01 [degF] Betina Pryor JUNIOR MEDIA BUYER-MIXER HELPER Work Phone: [facility] 12-28-2020 12:50-0400 Body weight 99.47 kg Betina Pryor JUNIOR MEDIA BUYER-MIXER HELPER Work Phone: [facility] 12-28-2020 12:50-0400 Diastolic blood pressure 76 mm[Hg] Betina Pryor JUNIOR MEDIA BUYER-MIXER HELPER Work Phone: [facility] 12-28-2020 12:50-0400 Heart rate 111 /min Betina Pryor APRN-MIXER HELPER Work Phone: [facility] 12-28-2020 12:50-0400 Respiratory rate 16 /min Betina Pryor APRN-MIXER HELPER Work Phone: [facility] 12-28-2020 12:50-0400 SaO2% (BldA) [Mass fraction] 100 % Betina Pryor APRN-MIXER HELPER Work Phone: [facility] 12-28-2020 12:50-0400 Systolic blood pressure 113 mm[Hg] Betina Pryor JUNIOR MEDIA BUYER-MIXER HELPER Work Phone: [facility] 10-11-2020 19:30-0400 Body height 175.3 cm Betina Pryor APRN-MIXER HELPER Work Phone: [facility] 10-11-2020 19:30-0400 Body mass index (BMI) [Ratio] 31.47 kg/m2 Betina Pryor APRN-MIXER HELPER Work Phone: [facility] 10-11-2020 19:30-0400 Body temperature 98.49 [degF] Betina Pryor APRN-MIXER HELPER Work Phone: [facility] 10-11-2020 19:30-0400 Body weight 96.66 kg Betina Pryor APRN-MIXER HELPER Work Phone: [facility] 10-11-2020 19:30-0400 Diastolic blood pressure 82 mm[Hg] Betina Pryor JUNIOR MEDIA BUYER-MIXER HELPER Work Phone: [facility] 10-11-2020 19:30-0400 Heart rate 94 /min Betina Pryor APRN-MIXER HELPER Work Phone: [facility] 10-11-2020 19:30-0400 Respiratory rate 16 /min Betina Pryor JUNIOR MEDIA BUYER-MIXER HELPER Work Phone: [facility] 10-11-2020 19:30-0400 SaO2% (BldA) [Mass fraction] 100 % Betina Pryor APRN-MIXER HELPER Work Phone: [facility] 10-11-2020 19:30-0400 Systolic blood pressure 120 mm[Hg] Betina Pryor JUNIOR MEDIA BUYER-MIXER HELPER Work Phone: [facility] 05-29-2020 10:56-0500 BMI (Body Mass Index) 29.89 kg/m2 [facility] 05-29-2020 10:56-0500 Body Temperature 99.39 [degF] [facility] 05-29-2020 10:56-0500 Body weight 91.81 kg [facility] 05-29-2020 10:56-0500 BP Diastolic 85 mm[Hg] [facility] 05-29-2020 10:56-0500 BP Systolic 118 mm[Hg] [facility] 05-29-2020 10:56-0500 Height 175.3 cm [facility] 05-29-2020 10:56-0500 Pulse (Heart Rate) 88 /min [facility] 05-29-2020 10:56-0500 Pulse Oximetry 99 % [facility] 05-29-2020 10:56-0500 Respiratory Rate 16 /min [facility] 12-29-2019 20:12-0400 BP Diastolic 90 mm[Hg] [facility] 12-29-2019 20:12-0400 BP Systolic 130 mm[Hg] [facility] 12-29-2019 20:12-0400 Pulse (Heart Rate) 74 /min [facility] 12-29-2019 20:12-0400 Pulse Oximetry 99 % [facility] 12-29-2019 20:12-0400 Respiratory Rate 16 /min [facility] 12-29-2019 19:03-0400 BMI (Body Mass Index) 28.8 kg/m2 [facility] 12-29-2019 19:03-0400 Body Temperature 97.9 [degF] [facility] 12-29-2019 19:03-0400 Body weight 88.45 kg Javier Leiva [facility] 12-29-2019 19:03-0400 Height 175.3 cm Javier Leiva [facility] 03-18-2019 11:11-0400 BMI (Body Mass Index) 27.78 kg/m2 [facility] 03-18-2019 11:11-0400 Body Temperature 98.4 [degF] [facility] 03-18-2019 11:11-0400 Body weight 87.82 kg formerly [facility] 03-18-2019 11:11-0400 BP Diastolic 87 mm[Hg] [facility] 03-18-2019 11:11-0400 BP Systolic 129 mm[Hg] [facility] 03-18-2019 11:11-0400 Height 177.8 cm [facility] 03-18-2019 11:11-0400 Pulse (Heart Rate) 101 /min [facility] 03-18-2019 11:11-0400 Pulse Oximetry 97 % [facility] 03-18-2019 11:11-0400 Respiratory Rate 18 /min [facility] 02-01-2019 12:37-0400 BMI (Body Mass Index) 28.74 kg/m2 [facility] 02-01-2019 12:37-0400 Body Temperature 98.91 [degF] [facility] 02-01-2019 12:37-0400 Body weight 88.27 kg [facility] 02-01-2019 12:37-0400 BP Diastolic 85 mm[Hg] [facility] 02-01-2019 12:37-0400 BP Systolic 135 mm[Hg] [facility] 02-01-2019 12:37-0400 Height 175.3 cm [facility] 02-01-2019 12:37-0400 Pulse (Heart Rate) 93 /min [facility] 02-01-2019 12:37-0400 Pulse Oximetry 98 % [facility] 02-01-2019 12:37-0400 Respiratory Rate 16 /min [facility] Encounters Encounter Date Encounter Type Care Provider Facility Start: 01-03-2024 End: 01-03-2024 ambulatory GUANAKO SPEARS Not Available Start: 06-14-2023 End: 06-14-2023 ambulatory AEXL CAM Not Available Start: 04-30-2023 End: 04-30-2023 ambulatory GUANAKO SPEARS Not Available Start: 04-23-2023 End: 04-23-2023 ambulatory GUANAKO SPEARS Not Available Start: 04-16-2023 End: 04-16-2023 ambulatory AXEL CAM Not Available Start: 10-10-2022 End: 10-11-[address] GUANAKO SPEARS . Facility:[facility] Start: 10-03-2022 End: 10-04-[address] GUANAKO SPEARS . Facility: Start: 08-30-2022 ambulatory DICK Faizan [facility] Start: 08-30-2022 End: 08-30-2022 Office outpatient visit 15 minutes [facility] JUNIOR MEDIA BUYER-MIXER HELPER Work Phone: [facility] Comment on above: Sore throat (Primary Dx); Viral illness Start: 07-01-2021 End: 07-01-2021 Emergency department patient visit [facility] Start: 07-01-2021 End: 07-01-2021 Emergency department patient visit Bryon Gu MD Work Phone: [facility] Comment on above: Sprain of left knee, unspecified ligament, initial encounter (Primary Dx) Start: 05-24-2021 End: 05-24-2021 Emergency department patient visit A[facility]JANDROPRASANTH [facility] Start: 03-21-2021 End: 03-22-2021 ambulatory Javier Canchola Facility[facility] Start: 12-28-2020 End: 12-28-2020 Office outpatient visit 15 minutes Betina Pryor JUNIOR MEDIA BUYER-MIXER HELPER Work Phone: [facility] Comment on above: COVID-19 virus infec tion (Primary Dx); Close exposure to COVID-19 virus Start: 10-11-2020 End: 10-11-2020 Office outpatient visit 15 minutes Betina Pryor JUNIOR MEDIA BUYER-MIXER HELPER Work Phone: [facility] Comment on above: Viral illness (Prima ry Dx); Loss of taste; Loss of smell; Head congestion Start: 05-29-2020 End: 05-29-2020 Office outpatient visit 15 minutes Josey Ibrahim Work Phone: [facility] Comment on above: Acute otitis externa of right ear, unspecified type (Primary Dx) Start: 12-29-2019 End: 12-29-2019 Emergency department patient visit [facility] Start: 12-29-2019 End: 12-29-2019 Emergency department patient visit [facility] Comment on above: Dizziness (Primary D x); Heat exhaustion, initial encounter Start: 06-25-2019 End: 06-29-2019 Patient encounter procedure [facility] Start: 03-20-2019 End: 03-20-2019 Letter encounter Yolette Prietoradha [facility] Start: 03-18-2019 End: 03-18-2019 Office outpatient visit 25 minutes Betina Pryor Work Phone: [facility] Comment on above: Bacterial conjunctiv itis of right eye (Primary Dx); Hives Start: 02-01-2019 End: 02-01-2019 Letter encounter Provider Elver [facility] Start: 02-01-2019 End: 02-01-2019 Office outpatient visit 25 minutes Betina Pryor Work Phone: [facility] Comment on above: Acute cystitis with hematuria (Primary Dx); Dysuria Start: 12-16-2018 End: 12-20-2018 Patient encounter procedure [facility] Start: 06-27-2017 End: 06-29-2017 Evaluation and management of inpatient Umm Damon Facility:[place] Start: 06-27-2017 End: 06-27-2017 Ambulatory Umm Damon Facility:[place] Start: 06-15-2017 End: 06-15-2017 Ambulatory Sal Parada Facility:[place] Procedures Date Procedure Procedure Detail Performing Clinician Start: 08-30-2022 Iaadiadoo streptococcus group a Dick Lassiter JUNIOR MEDIA BUYER-MIXER HELPER Work Phone: Start: 07-01-2021 Radiologic exam knee complete 4/more views Bryon Gu MD Work Phone: Start: 12-28-2020 SARS-COV-2 RAPID Betina Pryor JUNIOR MEDIA BUYER-MIXER HELPER Work Phone: Start: 10-11-2020 SARS-COV-2 RAPID Betina Pryor JUNIOR MEDIA BUYER-MIXER HELPER Work Phone: Start: 12-29-2019 Choriogonadotropin ( test) [...] DTaP/Tdap/Td vaccine (2 - Td or Tdap) [facility] Start: 02-14-2031 Tetanus vaccination TETANUS [facility] Start: 01-26-2023 Influenza vaccination INFLUENZ A VACCINE (Season Ended) [facility] Start: 03-19-2022 Screening for malign ant neoplasm of cervix Pap Smear [facility] Start: 01-26-2021 Influenza vaccination [facility] Start: 03-19-2020 History and physical examination, annual for health maintenance Wellness Visit [facility] Start: 03-19-2020 Screening for Chlamy osito trachomatis Chlamydia Screening [facility] Start: 01-27-2020 Influenza vaccination INFLUENZA VACC INE (#1) [facility] Start: 01-27-2020 Influenza vaccinatio n given Sequential Influenza Vaccine (#1) [facility] Start: 02-01-2019 End: 02-01-2019 Lab Encounter 02/01/2019 Lab Encounter Clinical Pathology/Laboratory Medicine Betina Pryor, JUNIOR MEDIA BUYER-MIXER HELPER [address] [place] [address] [phone] [facility] Start: 02-01-2019 End: 02-02-2020 Bacteria identified Cx Nom (U) URINE CULTURE Microbiology Routine Dysuria Expected: 02/01/2019, Expires: 02/02/2020 [facility] Comment on above: Expected: 02/01/2019 , Expires: 02/02/2020 Start: 01-26-2019 Influenza vaccination INFLUENZA VACC INE (#1) [facility] Start: 2017 Screening for malign ant neoplasm of cervix [facility] Start: 2015 Third diphtheria, te tanus and acellular pertussis (DTaP) vaccination TDAP (ADULT) [facility] Start: 2014 Tetanus vaccination TETANUS [facility] Start: 2012 Screening for Chlamy osito trachomatis CHLAMYDIA SCREEN [facility] Start: 2011 HIV screening [facility] Start: 2011 Vaccination for loly n papillomavirus HPV VACCINE ADOL (1 - Female 3-dose series) [facility] Start: 2009 HIV screening HIV SCREENING DISCUSSION [facility] Start: 2008 COVID-19 VACCINE (1) COVID-19 VACCIN E (1) [facility] Start: 2008 Depression Screen Depression Screen [facility] Start: 2007 HPV vaccine (1 - 2-d ose series) HPV vaccine (1 - 2-dose series) [facility] Start: 2007 Vaccination for loly n papillomavirus [facility] Start: 2001 COVID-19 Vaccine (1) COVID-19 Vaccin e (1) [facility] Start: 1997 Varicella vaccine (1 of 2 - 2-dose childhood series) Varicella vaccine (1 of 2 - 2-dose childhood series) [facility] Start: 1996 COVID-19 VACCINE (#1) COVID-19 VACCI NE (#1) [facility] Start: 1996 GONORRHEA SCREEN GONORRHEA SCREEN [facility] Start: 1996 Hepatitis C antibody , confirmatory test HEPATITIS C VIRUS SCREENING [facility] Start: 1996 Hepatitis C screening [facility] Start: 1996 Screening for Chlamy osito trachomatis GONORRHEA SCREEN [facility] Start: 1996 Tetanus vaccination Tetanus: Every 1 0yrs [facility] POCT URINALYSIS DIPS TICK NON AUTOMATED POCT URINALYSIS DIPSTICK NON AUTOMATED Point of Care Testing Routine Dysuria Ordered: 02/01/2019 [facility] Comment on above: Ordered: 02/01/2019 Payers Date Payer Category Payer Unknown [id number] 2020 Unknown 2018 Unknown [id number] 2018 Unknown [id number] 1. [id number] 1996 Unknown [id number] 2.16.8 [id number] 1996 Unknown [id number] 2.16. [id number] 1996 Unknown [id number] 2.16. [id number] 1996 Unknown [id number] 2.16.8 [id number] 1996 Unknown [id number] 2.16.8 [id number] 1996 Unknown [id number] 2.16.8 [id number] 1996 Unknown [id number] 2.16.8 [id number] 1996 Unknown [id number] 2.16.84 [id number] 1996 Unknown [id number] 2.16.84 [id number] 1996 Unknown [id number] 2.16.84 [id number] 1996 Unknown [id number] 2.16.84 [id number] 1996 Unknown [id number] 2.16.840 .[id number] 1996 Unknown [id number] 2.16.840 .[id number] 1996 Unknown [id number] 2.16.840 .[id number] 1959 Unknown [id number] Unknown [id number] Social History Date Type Detail Facility [facility] Start: 1996 Sex Assigned At Not on file [facility] Start: 02-01-2019 End: 03-18-2019 Tobacco smoking status NHIS Current every day smoker [facility] Start: 02-01-2019 End: 10-11-2020 Cigarettes smoked current (pack per day) - Reported [facility] Start: 02-01-2019 End: 03-18-2019 Alcohol intake Not Currently [facility] End: 07-26-2020 History of tobacco use Cigarette Smoker [facility] Start: 12-29-2019 End: 08-30-2022 Alcohol intake Ex-drinker (finding) [facility] Exposure to SARS-CoV -2 (event) Not sure [facility] Start: 05-29-2020 End: 10-11-2020 Tobacco use and exposure Never used [facility] Start: 10-11-2020 [facility] End: 07-26-2020 History of tobacco use Current smoker [facility] Start: 06-08-2020 [facility] Start: 05-24-2021 [facility] [employer] Work Phone: Goals Date Patient Goal Desired Activity /State Comment on above: Use condoms for Wilma h control and STI protection History of Present illness Narrative 08-30-2022 Dick Lassiter APRN-MIXER HELPER - 08/30/2022 7:15 PM EDT Note Date [...] proceed with plan. documented in this encounter [facility] Hospital Discharge instructions 07-01-2021 InstructionsAttachments Note Date & Type Note Facility 07-01-2021 Hospital Discharg e instructions Bryon Gu MD - 07/01/2021 Tylenol pain. Wear knee immobilizer for comfort. Follow-up with orthopedic referral. The following attachments cannot be sent through Care Everywhere.Knee Sprain (Algerian)documented in this encounter [employer] Phone: History of Present illness Narrative 12-28-2020 LOGAN Mcguire - 12/28/2020 12:35 PM EDT Note Date & Type Note Facility 12-28-2020 History of Presen t illness Narrative HPI Ping Padilla female 1995 presents to the [facility] with Chief Complaint Patient [...] daily. (Patient not taking: Reported on 08/16/2020) gupzkhwf-lbseiffbb-yznzhfivsgyrqo 3.5-25225-8 Solution otic solution 4 drops by Otic [...] Social Gatherings with Friends and Family: Attends Alevism Services: Active Member of Clubs or Organizations: [...] Encounter SARS-COV-2 RAPID Rapid COVID19 positive. Discussed raee-baw-jjlnzdn symptomatic treatments stay for . She will quarantine per CDC guidelines. If symptoms worsen patient was advised to follow up in our office, primary care provider or the Emergency Dept. Benefits, Risks, Contraindications, and Complications of recommended treatments were explained. The patient understands and agrees to proceed with plan. LOGAN Mcguire 12/28/2020 documented in this encounter [facility] Instructions 12-28-2020 Patient Instructions Note Date [...] water aren't available, use an alcohol-based hand hotel manager. Avoid touching your mouth, nose, and eyes. [...] disinfect your home every day. Use household gang leader and disinfectant wipes or sprays. Take special [...] of: August 20, 2020 Content Version: 12.9 [employer]. Care instructions adapted under license by your healthcare professional. If you have questions about a medical condition or this instruction, always ask your healthcare professional. [employer] disclaims any warranty or liability for your [...] Terconazole (Terazol Cream) 2004November 25, 2018. [facility]. This handout is for informational purposes only. Talk with your doctor or healthcare team if you have any questions about your care. For more health information call the Library for Health Information at [phone] or email: [email or web address]. documented in this [facility] History of Present illness Narrative 10-11-2020 Betina Pryor APRN-CNP - 10/11/2020 7:15 PM EDT Note Date & Type Note Facility 10-11-2020 History of Presen t illness Narrative HPI Ping Atkins female 1995 presents to the [facility] with Chief Complaint Patient [...] daily. (Patient not taking: Reported on 08/16/2020) rremrznu-mgeawcyto-xjrflwsjkxwlcg 3.5-74148-8 Solution otic solution 4 drops by Otic [...] Social Gatherings with Friends and Family: Attends Alevism Services: Active Member of Clubs or Organizations: [...] Use Authorization (EUA) for the qualitative detection xhBBTZ-HhX-6 nucleic acid. PERFORMED BY [facility] ASSESSMENT/PLAN 1. Viral illness 2. Loss of taste 3. Loss of smell 4. Head congestion Orders Placed This Encounter SARS-COV-2 RAPID Rapid COVID19 negative. Symptoms appear viral. Discussed qmdc-aph-zfharwq symptomatic treatments safe in . If symptoms worsen patient was advised to follow up in our office, primary care provider or the Emergency Dept. Benefits, Risks, Contraindications, and Complications of recommended treatments were explained. The patient understands and agrees to proceed with plan. LOGAN Mcguire 10/11/2020 documented in this encounter [facility] Instructions 10-11-2020 Patient Instructions Note Date [...] 7 days. 2015 December 16, 2018, [facility]. This handout is for informational purposes only. Talk with your doctor or healthcare team if you have any questions about your care. For more health information, call the Library for Health Information at [phone] or email: [email or web address]. Over the Counter Medicines during We [...] Terconazole (Terazol Cream) 2004November 25, 2018. [facility]. This handout is for informational purposes only. Talk with your doctor or healthcare team if you have any questions about your care. For more health information call the Library for Health Information at [phone] or email: [email or web address]. documented in this encounter [facility] Evaluation note Note Date & Type Note Facility Evaluation note Diagnosis Viral illness- Primary Unspecified viral infection, in conditions classified elsewhere and of unspecified site Loss of taste Disturbances of sensation of smell and taste Loss of smell Disturbances of sensation of smell and taste Head congestion Other diseases of nasal cavity and sinuses documented in this encounter [facility] Evaluation note Note Date & Type Note Facility Evaluation note Diagnosis Sprain of left knee, unspecified ligament, initial encounter- Primary documented in this encounter [employer] Work Phone: Evaluation note Note Date & Type Note Facility Evaluation note Diagnosis COVID-19 virus infection- Primary Close exposure to COVID-19 virus documented in this encounter [facility] Evaluation note Note Date & Type Note Facility Evaluation note Diagnosis Sore throat- Primary Acute pharyngitis Viral illness Unspecified viral infection, in conditions classified elsewhere and of unspecified site documented in this encounter [facility] Summary Purpose Family History No Family History Records FoundNo Family History Records FoundNo Family History Records FoundNo Family History Records FoundNo Family History Records FoundNo Family History Records FoundNo Family History Records FoundNo Family History Records FoundNo Family History Records FoundNo Family History Records Found Advance Directives No Advanced Directives Records FoundDocuments on File Type Date 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 This handout is for informational purposes [...] Do not use plastic earplugs. Use a hair or beauty salon assistant set on low to carefully dry the ear after you shower. To ease ear pain, hold a warm washcloth against your ear. Take pain medicines exactly as directed. ? If the doctor gave you a prescription medicine for pain, take it as prescribed. ? If you are not taking a prescription pain medicine, ask your doctor if you can take an bzwm-rbn-xfzqdop medicine. Inserting ear drops Warm the drops [...] Where can you learn more? Go to [email or web address]. Enter C706 in the search box to learn more about 'Swimmer's Ear: Care Instructions.' Interested in seeing a video go to [email or web address]/videolibrary to see all video content. Current as of: September 10, 2019 Content Version: 12.7 [employer]. Care instructions adapted under license by your healthcare professional. If you have questions about a medical condition or this instruction, always ask your healthcare professional. [employer] disclaims any warranty or liability for your use of this information. documented in this encounter* Patient Instructions* Betina Pryor, JUNIOR MEDIA BUYER-MIXER HELPER - 03/18/2019 10:45 AM EDT Pinkeye: Care [...] Where can you learn more? Go to [email or web address]/[email or web address]. Enter Y392 in the search box to learn more about 'Pinkeye: Care Instructions.' Interested in seeing a video go to [email or web address]/videolibrary to see all video content. Current as of: November 20, 2018 Content Version: 12.2 6357-0468 [employer]. Care instructions adapted under license by your healthcare professional. If you have questions about a medical condition or this instruction, always ask your healthcare professional. [employer] disclaims any warranty or liability for your [...] relieve itching. Your doctor may suggest an rnii-xvg-ttxbiml antihistamine, such as cetirizine (Zyrtec), diphenhydramine (Benadryl), [...] Where can you learn more? Go to http://[email or web address]/patiented. Enter R498 in the search box to learn more about 'Chronic Hives: Care Instructions.' Interested in seeing a video go to [email or web address]/videolibrary to see all video content. Current as of: September 01, 2018 Content Version: 12.2 8687-4979 [employer]. Care instructions adapted under license by your healthcare professional. If you have questions about a medical condition or this instruction, always ask your healthcare professional. [employer] disclaims any warranty or liability for your [...] medicines 2004 - May 03, 2017, [facility]. This handout is for informational purposes only. Talk to your doctor or health care team if you have any questions about your care. documented in this encounter History of Present Illness * Betina Pryor APRN-CNP - 02/01/2019 12:00 PM EDT HPI Ping Knox female 1995 presents to the [facility] with Chief Complaint Patient [...] file Gets together: Not on file Attends anabaptism service: Not on file Active member of [...] IRMA Padilla female 1995 [facility] with Chief Complaint Patient presents [...] tablet Take 1 tablet by mouth daily. jvtxqnys-fotburenv-qsdesjceyxtefo 3.5-76116-3 Solution otic solution 4 drops by Otic [...] file Gets together: Not on file Attends anabaptism service: Not on file Active member of [...] right ear, unspecified type Other orders - ksmaokae-vfylvxyfy-nlcqxkjlqvdkks 3.5-39463-6 Solution otic solution; 4 drops by Otic route 4 times daily. If symptoms worsen patient was advised to follow up in our office or the Emergency Dept. Benefits, Risks, Contraindications, and Complications of recommended treatments were explained. The patient understands and agrees to proceed with plan. Josey Ibrahim PA-C 05/29/2020 documented in this encounter* Betina Pryor, LISA-MIXER HELPER - 03/18/2019 10:45 AM EDT HPI Ping Knox female 1995 presents to the [facility] with Chief Complaint Patient presents with [facility] presents with c/o right eye, [...] known cause. Moved from mothers house to [facility] [address] No self treatments. Hives are [...] file Gets together: Not on file Attends anabaptism service: Not on file Active member of [...] Suggested taking daily antihistamine. Follow up with Lead Project Manager ref. If symptoms worsen patient was advised to follow up in our office, primary care provider or the Emergency Dept. Benefits, Risks, Contraindications, and Complications of recommended treatments were explained. The patient understands and agrees to proceed with plan. LOGAN Mcguire 03/18/2019 documented in this encounter* Betina Pryor, JUNIOR MEDIA BUYER-MIXER HELPER - 02/01/2019 12:00 PM EDT HPI Ping Knox female 1995 presents to the [facility] with Chief Complaint Patient [...] file Gets together: Not on file Attends anabaptism service: Not on file Active member of [...] sent through Care Everywhere. * Heat Exhaustion (Algerian) * Lightheadedness or Faintness (Algerian) documented in this encounter Reason for Referral Status Reason Specialty Diagnoses / Procedures Referred By Contact Referred To Contact New Request Allergy & Immunology Diagnoses [place] Betina Pryor APRN-CNP [address] [place] [address] Status Reason Specialty Diagnoses / Procedures Referred By Contact Referred To Contact New Request Family Medicine Diagnoses Bacterial conjunctivitis of right eye Betina Pryor APRN-CNP [address] [place] [phone] Additional Source Comments INFORMATION SOURCE (unrecogn ized section and content) DATE CREATED AUTHOR 11/19/2017 [facility] DATE CREATED AUTHOR AUTHOR'S ORGANIZ ATION 01/19/2019 [facility] DATE CREATED AUTHOR AUTHOR'S ORGANIZ ATION 02/03/2019 [facility] DATE CREATED AUTHOR AUTHOR'S ORGANIZ ATION 06/28/2019 [facility] DATE CREATED AUTHOR AUTHOR'S ORGANIZ ATION 12/30/2019 [facility] DATE CREATED AUTHOR AUTHOR'S ORGANIZ ATION 07/02/2021 [facility] DATE CREATED AUTHOR AUTHOR'S ORGANIZ ATION 07/05/2022 [facility] DATE CREATED AUTHOR AUTHOR'S ORGANIZ ATION 09/01/2022 [facility] DATE CREATED AUTHOR AUTHOR'S ORGANIZ ATION 10/11/2022 [facility] DATE CREATED AUTHOR AUTHOR'S ORGANIZ ATION 01/05/2024 [facility] EPIC Reason for Visit (unrecogniz ed section and content) Reason Comments Urinary Pain Some burning, freque ncy, had for 2 or 3 days. Reason Comments Dizziness Reason Comments Ear Pain Pt c/o right ear teresa n and swollen lymph node on the right side x a few weeks Reason Comments [facility] presents with c/o right eye, [...] Associated Order(s): EKG 12-lead ED PROVIDER NOTE [facility] NAME: Ping Knox AGE: 24 y.o. : 1995 VISIT DATE: 12/29/2019 CSN: [id number] PCP: Javier Leiva MD Chief Complaint Patient [...] file Gets together: Not on file Attends anabaptism service: Not on file Active member of [...] BE BASED ON THE PRIMARY CLINICAL RECORDS. [facility]. provides no warranty or guarantee of the accuracy or completeness of information in this document.
[2024-08-20 11:30] LABS: HCG Quantitative 52 mIU/mL
== END 2024-08-20 09:27 | disposition home or self-care (01) ==
LOC: LAB 09:29
PROVIDERS: Visit Provider Obstetrics & Gynecology
DX: N92.6 Irregular menstruation, unspecified (principal)
CPT/HCPCS: 36415; 84702

== ENCOUNTER 2024-08-25 10:17 | Outpatient (OUT) | payer BC, SELFPAY ==
--- OUTSIDE RECORDS SUMMARY | 2024-08-25 10:27 | XMS_ITS | CCD ---
Author Organization [facility] Care Team Providers Care Cook Cold Meat Name Role Phone Zarczynski, Edward P Unavailable Unavailable Zarczynski, Edward P Unavailable Unavailable Chambers, Umm Unavailable Unavailable Chambers, Umm Unavailable Unavailable Chambers, Umm Unavailable Unavailable Zarczynski, Edward P Unavailable Unavailable WOUNDED KNEE [facility] Primary Care Unavailabl e Unavailable Primary Care Provider Unavailabl e JACQUI IVAN Admitting Unavailable WOUNDED KNEE [facility] Primary Care Unavailabl e [place], [facility] Primary Care Provider WOUNDED KNEE [facility] Primary Care Unavailabl e Unavailable Primary Care Provider Unavailabl e Unavailable Primary Care Provider Unavailabl e GIOVANA JACKSON Attending Unavailable BRYON GU Attending Unavailable Javier Canchola Attending Unavailable Javier Canchola Admitting Unavailable Unavailable Primary Care Provider Unavailabl e DICK LASSITER Attending Unavailable SELF, SELF Referring Unavailable MARLEE ., DR MUJICA Attending Unavailable MARLEE ., DR MUJICA Consulting Unavailable REQUEST, NONE LISTED Primary Care Unavaila ble MARLEE ., DR MUJICA Admitting Unavailable JAVAD, DR RAFFI Funez Consulting Unavailable REQUEST, NONE LISTED Consulting Unavaila ble MARLEE ., DR MUJICA Admitting Unavailable MARLEE ., DR MUJICA Attending Unavailable MARLEE ., DR MUJICA Consulting Unavailable REQUEST, NONE LISTED Primary Care Unavaila AXEL Dean Attending Unavailable AXEL CAM Attending Unavailable GUANAKO SPEARS Attending Unavailable GUANAKO SPEARS Attending Unavailable GUANAKO SPEARS Attending Unavailable Unavailable Primary Care Provider Unavailabl e Allergies Allergy Classification Reported Allergen(s) Allergy Type Date of Onset Reaction(s) Facility Macrolides (antibiotic) (1 source) Erythromycin Drug Allergy 07-24-19 13 [facility] Penicillins (antibiotic) (1 source) Ampicillin Drug Allergy 06-06-19 18 [facility] Sulfamethoxazole / Trimethoprim (1 source) Sulfamethoxazole / Trimethoprim Drug Allergy 06-06-19 18 [facility] (14 sources) Ampicillin; Translations: [Unknown] Drug Allergy 06-06-19 18 [facility] Repository (8 sources) Erythromycin Drug Allergy 07-24-19 13 [facility] (8 sources) Sulfamethoxazole / Trimethoprim Drug Allergy 06-06-19 18 [facility] (1 source) Penicillin G Drug Allergy 05-24-20 21 Other (See Comments) [employer] Work Phone: (1 source) Penicillin; Translations: [penicillin] Drug Allergy [facility] Repository (1 source) Erythromycin Base Drug Allergy 11-09-19 23 [facility] [employer] Work Phone: Medications Current Medications Medication Drug Class(es) Dates [...] 20 mg by mouth daily 0 Active Mwjrdbdf-Tcj-Ma-FA (PRE- PO) (1 source) Rhrcuais-Rvg-Hw-FA (PRE-HECTOR PO) Take by mouth 0 Active [...] / neomycin 3.5 mg/ml / polymyxin b 91253 unt/ml otic solution (4 sources) Aminoglycoside Antibacterial, Polymyxin-class Antibacterial, Corticosteroid Start: 05-29-2020 End: 08-30-2022 neomycin-polymyxi n-hydrocortisone 3.5-12235-2 Solution otic solution 4 drops by Otic [...] [Bacterial conjunctivitis of right eye] Menstrual disorders (5 sources) Irregular menstruation, unspecified; Translations: [Missed period] Onset: 10-03-2022 Chronic Other ear and sense [...] Chronic Other nutritional; endocrine; and metabolic disorders (4 sources) Obese class I; Translations: [Obesity, unspecified] [...] Test Name Value Interpretation Reference Range Facility [facility] PREG QUANT HCGon 025 HCG QUANTITATIVE 52 mIU/mL [facility] Comment on above: 5-50 0.2-1 WEEK 50-500 1-2 WEEKS 100-5,000 2-3 WEEKS 500-10,000 3-4 WEEKS 1,000-50,000 4-5 WEEKS 10,000-100,000 5-6 WEEKS 15,000-200,000 6-8 WEEKS 10,000-100,000 2-3 MONTHS [facility] HEP B SURFACE ANTIGEN SCREEN on 10-11-2022 HBsAg Screen Negative Normal Negative [facility] Comment on above: Performed By: #### H BSANS #### [facility] [address] [place] [address] Dr. Kaleb Decker HEPATITIS C VIRUS AB W/ REFL EX QUANTon 10-11-2022 HCV AB Non-Reactive Normal Non Reactive [facility] Comment on above: Performed By: #### H CVPCRR #### [facility] [address] [address] [address] Kaleb Decker HIV 1 AND 2 WITH REFLEXon HIV Screen 4th Generation wRfx Non-Reactive Normal Non Reactive [facility] Comment on above: Result Comment: HIV Negative HIV-1/HIV-2 antibodies and HIV-1 p24 antigen were NOT detected. There is no laboratory evidence of HIV infection. Performed By: #### H IV12 #### [facility] [address] [address] [address] Kaleb Decker RPR QUANTon 10-11-2022 Rapid Plasma Reagin, Quant Non-Reactive Normal NonRea<1:1 [facility] Comment on above: Result Comment: [place] hooper Note: This test does not meet current guidelines for screening and diagnosis of syphilis. This test is intended for following treatment response in patients being treated for syphilis infection. To screen for syphilis infection, a reflex cascade that includes both RPR and a treponema-specific assay should be utilized, such as Treponema pallidum (Syphilis) Screening [place] (704007) or Rapid Plasma Reagin (RPR) Test With Reflex to Quantitative RPR and Confirmatory Treponema pallidum Antibodies (221660). Performed By: #### H BSANS #### [facility] [address] [place] [address] Dr. Kaleb Decker RUBELLA AB IGGon 10-11-2022 Rubella Antibodies, IgG <0.90 Critically low Immune >0.99 [facility] Comment on above: Result Comment: Non- immune <0.90 Equivocal 0.90 - 0.99 Immune >0.99 Performed By: #### R UBIGG #### [facility] [address] [place] [address] Dr. Kaleb Decker BOX TEST SENT OUTon 10-11-19 SENT TO REF LAB 10/10/22 Normal [facility] Comment on above: Performed By: #### B OX #### [facility] [address] [place] [address] Dr. Kaleb Decker CBC AUTO DIFFon 10-10-2022 BASO # 0.0 103/ul Normal 0.0-0.1 [facility] Comment on above: Performed By: #### C BC #### [facility] [address] [place] [address] Dr. Kaleb Decker Basophils/100 WBC (Bld) 0.6 % Normal 0.2-2.0 [facility] Comment on above: Performed By: #### C BC #### [facility] [address] [place] [address] Dr. Kaleb Decker EO # 0.2 103/ul Normal 0.0-0.7 [facility] Comment on above: Performed By: #### C BC #### [facility] [address] [place] [address] Dr. Kaleb Decker Eosinophils/100 WBC (Bld) 2.4 % Normal 0.9-7.0 [facility] Comment on above: Performed By: #### C BC #### [facility] [address] [place] [address] Dr. Kaleb Decker Erythrocyte distribution width (RBC) [Ratio] 13.8 % Normal 11.0-15.0 [facility] Comment on above: Performed By: #### C BC #### [facility] [address] [place] [address] Dr. Kaleb Decker Hematocrit (Bld) [Volume fraction] 41.5 % Normal 36.0-48.0 [facility] Comment on above: Performed By: #### C BC #### [facility] [address] [place] [address] Dr. Kaleb Decker Hemoglobin (Bld) [Mass/Vol] 13.6 g/dL Normal 12.0-16.0 [facility] Comment on above: Performed By: #### C BC #### [facility] [address] [place] [address] Dr. Kaleb Decker IG # 0.04 10e3/ul Critically high 0.00-0.03 [facility] Comment on above: Performed By: #### C BC #### [facility] [address] [place] [address] Dr. Kaleb Decker IG % 0.6 % Critically high 0.0-0.5 [facility] Comment on above: Performed By: #### C BC #### [facility] [address] [place] [address] Dr. Kaleb Decker LYMPH # 1.8 103/ul Normal 1.2-3.8 [facility] Comment on above: Performed By: #### C BC #### [facility] [address] [place] [address] Dr. Kaleb Decker Lymphocytes/100 WBC (Bld) 26.6 % Normal 20.5-60.0 [facility] Comment on above: Performed By: #### C BC #### [facility] [address] [place] [address] Dr. Kaleb Decker MANUAL DIFF REQ NO Normal [facility] Comment on above: Performed By: #### C BC #### [facility] [address] [place] [address] Dr. Kaleb Decker MCH (RBC) [Entitic mass] 26.1 pg Critically low 26.7-34.0 [facility] Comment on above: Performed By: #### C BC #### [facility] [address] [address] [address] Kaleb Decker MCHC (RBC) [Mass/Vol] 32.8 g/dL Normal 29.9-35.2 [facility] Comment on above: Performed By: #### C BC #### [facility] [address] [address] [address] Kaleb Decker MCV (RBC) [Entitic vol] 79.7 fL Critically low 81.0-99.0 [facility] Comment on above: Performed By: #### C BC #### [facility] [address] [place] [address] Dr. Kaleb Decker MONO # 0.3 103/ul Normal 0.3-0.8 [facility] Comment on above: Performed By: #### C BC #### [facility] [address] [place] [address] Dr. Kaleb Decker Monocytes/100 WBC (Bld) 4.6 % Normal 1.7-12.0 [facility] Comment on above: Performed By: #### C BC #### [facility] [address] [place] [address] Dr. Kaleb Decker NEUT # 4.4 103/ul Normal 1.4-6.5 [facility] Comment on above: Performed By: #### C BC #### [facility] [address] [place] [address] Dr. Kaleb Decker Neutrophils/100 WBC (Bld) 65.2 % Normal 43.0-75.0 [facility] Comment on above: Performed By: #### C BC #### [facility] [address] [address] [address] Kaleb Decker Platelet mean volume (Bld) [Entitic vol] 9.8 fL Normal 9.5-13.5 [facility] Comment on above: Performed By: #### C BC #### [facility] [address] [place] [address] Dr. Kaleb Decker PLT 312 103/ul Normal 150-450 [facility] Comment on above: Performed By: #### C BC #### [facility] [address] [place] [address] Dr. Kaleb Decker RBC 5.21 106/ul Normal 4.20-5.40 [facility] Comment on above: Performed By: #### C BC #### [facility] [address] [place] [address] Dr. Kaleb Decker WBC 6.8 103/ul Normal 4.0-11.0 [facility] Comment on above: Performed By: #### C BC #### [facility] [address] [place] [address] Dr. Kaleb Decker CULTURE URINEon 10-10-2022 CULTURE URINE Culture Observations : LIGHT GROWTH OF MIXED GENITAL RACHEL. NO POTENTIAL PATHOGENS SEEN. Normal [facility] Comment on above: Performed By: #### H BSANS #### [facility] [address] [place] [address] Dr. Kaleb Decker GLYCOHEMOGLOBIN A1Con 2022 ADA RECOMMENDATION SEE BELOW Normal [facility] Comment on above: Result Comment: ADA RECOMMENDED LIMIT 4.0 - 6.0 ADA THERAPEUTIC TARGET < 7.0 ACTION SUGGESTED > 7.0 Performed By: #### A 1C #### [facility] [address] [place] [address] Dr. Kaleb Decker Glucose [Mass/Vol] 100 mg/dL Normal [facility] Comment on above: Performed By: #### A 1C #### [facility] [address] [place] [address] Dr. Kaleb Decker HbA1c (Bld) [Mass fraction] 5.1 % Normal 4.5-6.2 [facility] Comment on above: Performed By: #### A 1C #### [facility] [address] [place] [address] Dr. Kaleb Decker TSHon 10-10-2022 TSH 0.670 uIU/mL Normal 0.358-3.740 [facility] Comment on above: Performed By: #### T SH #### [facility] [address] [place] [address] Dr. Kaleb Decker TYPE AND SCREENon 10-10-2022 TYPE AND SCREEN Negative Normal [facility] Comment on above: Performed By: #### T NS #### [facility] [address] [place] [address] Dr. Kaleb Decker UA RANDOMon 10-10-2022 Bilirubin Ql (U) Negative Normal NEGATIVE [facility] Comment on above: Performed By: #### U A #### [facility] [address] [place] [address] Dr. Kaleb Decker Clarity (U) CLEAR Normal CLEAR [facility] Comment on above: Performed By: #### U A #### [facility] [address] [place] [address] Dr. Kaleb Decker Color (U) LT. YELLOW Normal YELLOW [facility] Comment on above: Performed By: #### U A #### [facility] [address] [place] [address] Dr. Kaleb Decker Glucose Ql (U) Negative Normal NEGATIVE [facility] Comment on above: Performed By: #### U A #### [facility] [address] [place] [address] Dr. Kaleb Decker Hemoglobin Ql (U) Negative Normal NEGATIVE [facility] Comment on above: Performed By: #### U A #### [facility] [address] [place] [address] Dr. Kaleb Decker Ketones Ql (U) Negative Normal NEGATIVE [facility] Comment on above: Performed By: #### U A #### [facility] [address] [place] [address] Dr. Kaleb Decker LEUKOCYTES MODERATE Abnormal NEGATIVE [facility] Comment on above: Performed By: #### U A #### [facility] [address] [place] [address] Dr. Kaleb Decker Nitrite Ql (U) Negative Normal NEGATIVE [facility] Comment on above: Performed By: #### U A #### [facility] [address] [place] [address] Dr. Kaleb Decker pH (U) 7.0 [pH] Normal 5-9 [facility] Comment on above: Performed By: #### U A #### [facility] [address] [address] [address] Kaleb Decker SPEC GRAVITY 1.010 Normal 1.005-<=1.025 [facility] Comment on above: Performed By: #### U A #### [facility] [address] [address] [address] Kaleb Decker UA PROTEIN Negative Normal NEGATIVE/ TRACE [facility] Comment on above: Performed By: #### U A #### [facility] [address] [address] [address] Kaleb Decker Urobilinogen Qn (U) 0.2 {Garcia'U}/dL Normal 0.2 - 1. 0 [facility] Comment on above: Performed By: #### U A #### [facility] [address] [address] [address] Kaleb Decker US PREG TVon 10-03-2022 [...] by: RAFFI FARNSWORTH Date: 2022-10-03 15:36 Normal [facility] POCT RAPID STREP Aon 023 S. pyogenes Ag Ql (Throat) Negative (+/-) [facility] XR KNEE LEFT (MIN 4 VIEWS)on [...] Johnny Lipscomb MD 07/01/21 Final result Normal [facility] Normal left knee [facility] EXAM: XR KNEE LEFT (MIN 4 VIEWS) HISTORY: Reason for exam:->Pain injury trauma COMPARISON: None. TECHNIQUE: 4 views left knee FINDINGS: No fracture or joint effusion. Joint spaces are maintained. No pathologic calcification. No radiopaque foreign body. [facility] Johnny Lipscomb M D - 07/01/2021 EXAM: XR KNEE LEFT (MIN 4 VIEWS) HISTORY: Reason for exam:->Pain injury trauma COMPARISON: None. TECHNIQUE: 4 views left knee FINDINGS: No fracture or joint effusion. Joint spaces are maintained. No pathologic calcification. No radiopaque foreign body. IMPRESSION: Normal left knee [employer] Phone: Radiology Study observation (narrative) [employer] Phone: XR KNEE LEFT (MIN 4 VIEWS)Or dered By: Johnny Lipscomb on 07-01-2021 [facility] CBC with Diffon 05-24-2021 Abs. Atypical Lymphs 0.20 k/uL Normal 0.0-1.0 [facility] Comment on above: Performed By: #### C P, CDP #### [facility] [address] [place] [address] [employer] Operator: Rancho Alvarado MD Abs. Bands 2.00 k/uL High 0.0-1.0 [facility] Comment on above: Performed By: #### C P, CDP #### [facility] [address] [place] [address] [employer] Operator: Rancho Alvarado MD Abs. Basophil Normal 0.0-0.[address] [facility] Comment on above: Performed By: #### C P, CDP #### [facility] [address] [place] [address] [employer] Operator: Rancho Alvarado MD Abs.Neutrophil (Seg) 6.80 k/uL Normal 2.5-7.0 [facility] Comment on above: Performed By: #### C P, CDP #### [facility] [address] [place] [address] [employer] Operator: Rancho Alvarado MD Atypical Lymphs 2 % Normal [facility] Comment on above: Performed By: #### C P, CDP #### [facility] [address] [place] [address] [employer] Operator: Rancho Alvarado MD Bands 20 % High 0-10 [facility] Comment on above: Performed By: #### C P, CDP #### [facility] [address] [place] [address] [employer] Operator: Rancho Alvarado MD Basophil Normal 0-2 [facility] Comment on above: Performed By: #### C P, CDP #### [facility] [address] [place] [address] [employer] Operator: Rancho Alvarado MD Eosinophils (Bld) [#/Vol] 0.30 10*3/uL Normal 0.0-0.4 [facility] Comment on above: Performed By: #### C P, CDP #### [facility] [address] [place] [address] [employer] Operator: Rancho Alvarado MD Eosinophils/100 WBC (Bld) 3 % Normal 0-5 [facility] Comment on above: Performed By: #### C P, CDP #### [facility] [address] [place] [address] [employer] Operator: Rancho Alvarado MD Lymphocytes (Bld) [#/Vol] 0.50 10*3/uL Low 1.0-4.8 [facility] Comment on above: Performed By: #### C P, CDP #### [facility] [address] [place], [place] [id number] (295) [employer] Operator: Rancho Alvarado MD Lymphocytes/100 WBC (Bld) 5 % Low 15-40 [facility] Comment on above: Performed By: #### C P, CDP #### [facility] [address] [place] [address] [employer] Operator: Rancho Alvarado MD Monocytes (Bld) [#/Vol] 0.20 10*3/uL Normal 0.0-1.0 [facility] Comment on above: Performed By: #### C P, CDP #### [facility] [address] [place] [address] [employer] Operator: Rancho Alvarado MD Monocytes/100 WBC (Bld) 2 % Low 4-8 [facility] Comment on above: Performed By: #### C P, CDP #### [facility] [address] [place], [place] [id number] [employer] Operator: Rancho Alvarado MD Morphology Faustino (Bld) [Interp] Manual Differential Performed Normal [facility] Comment on above: Performed By: #### C P, CDP #### [facility] [address] [place] [address] [employer] Operator: Rancho Alvarado MD Neutrophil (Seg) 68 % Normal 47-75 [facility] Comment on above: Performed By: #### C P, CDP #### [facility] [address] [place] [address] [employer] Operator: Rancho Alvarado MD Erythrocyte distribution width (RBC) [Ratio] 13.1 % Normal 12.1-15.2 [facility] Comment on above: Performed By: #### C P, CDP #### [facility] [address] [place] [address] [employer] Operator: Rancho Alvarado MD Hematocrit (Bld) [Volume fraction] 44.2 % Normal 36-46 [facility] Comment on above: Performed By: #### C P, CDP #### [facility] [address] [place] [address] [employer] Operator: Rancho Alvarado MD Hemoglobin (Bld) [Mass/Vol] 14.7 g/dL Normal 12.0-16.0 [facility] Comment on above: Performed By: #### C P, CDP #### [facility] [address] [place] [address] [employer] Operator: Rancho Alvarado MD MCH (RBC) [Entitic mass] 26.1 pg Normal 26-34 [facility] Comment on above: Performed By: #### C P, CDP #### [facility] [address] [place] [address] [employer] Operator: Rancho Alvarado MD MCHC (RBC) [Mass/Vol] 33.2 g/dL Normal 31-37 [facility] Comment on above: Performed By: #### C P, CDP #### [facility] [address] [place] [address] [employer] Operator: Rancho Alvarado MD MCV (RBC) [Entitic vol] 78.5 fL Low 80-100 [facility] Comment on above: Performed By: #### C P, CDP #### [facility] [address] [place] [address] [employer] Operator: Rancho Alvarado MD Platelets (Bld) [#/Vol] 317 10*3/uL Normal 140-450 [facility] Comment on above: Performed By: #### C P, CDP #### [facility] [address] [place] [address] [employer] Operator: Rancho Alvarado MD RBC (Bld) [#/Vol] 5.64 10*6/uL High 4.0-5.2 [facility] Comment on above: Performed By: #### C P, CDP #### [facility] [address] [place] [address] [employer] Operator: Rancho Alvarado MD WBC (Bld) [#/Vol] 10.0 10*3/uL Normal 3.5-11.0 [facility] Comment on above: Performed By: #### C P, CDP #### [facility] [address] [place] [address] [employer] Operator: Rancho Alvarado MD Abs.Imm.Granulocyte NOT REPORTED Normal 0.00-0.30 [facility] Comment on above: Performed By: #### C P, CDP #### [facility] [address] [place] [address] [employer] Operator: Rancho Alvarado MD Auto Diff Performed NOT REPORTED Normal [facility] Comment on above: Performed By: #### C P, CDP #### [facility] [address] [place] [address] [employer] Operator: Rancho Alvarado MD Immature Granulocyte NOT REPORTED Normal 0 [facility] Comment on above: Performed By: #### C P, CDP #### [facility] [address] [place] [address] [employer] Operator: Rancho Alvarado MD MPV NOT REPORTED Normal 6.0-12.0 [facility] Comment on above: Performed By: #### C P, CDP #### [facility] [address] [place] [address] [employer] Operator: Rancho Alvarado MD NRBC Automated NOT REPORTED Normal [facility] Comment on above: Performed By: #### C P, CDP #### [facility] [address] [place] [address] [employer] Operator: Rancho Alvarado MD Platelet Comment NOT REPORTED Normal [facility] Comment on above: Performed By: #### C P, CDP #### [facility] [address] [place], [place] [id number] [employer] Operator: Rancho Alvarado MD RBC morphology finding Nom (Bld) NOT REPORTED Normal [facility] Comment on above: Performed By: #### C P, CDP #### [facility] [address] [place], [place] [id number] [employer] Operator: Rancho Alvarado MD WBC Morphology NOT REPORTED Normal [facility] Comment on above: Performed By: #### C P, CDP #### [facility] [address] [place] [address] [employer] Operator: Rancho Alvarado MD Comp Metabolic Profon 2020 (cont.) Normal [facility] Comment on above: Result Comment: Aver age GFR for 20-29 years old: 116 mL/min/1.73sq m Chronic Kidney Disease: <60 mL/min/1.73sq m Kidney failure: <15 mL/min/1.73sq m eGFR calculated using average adult body mass. Additional eGFR calculator available at: http://www.[employer]Transpera/multiple_crcl_2012.htm Performed By: #### C P, CDP #### [facility] [address] [place] [address] Button Tufting Machine Operator: Rancho Alvarado MD Albumin [Mass/Vol] 4.5 g/dL Normal 3.5-5.2 [facility] Comment on above: Performed By: #### C P, CDP #### [facility] [address] [place] [address] Button Tufting Machine Operator: Rancho Alvarado MD Alkaline Phos 90 U/L Normal 35-[address] [facility] Comment on above: Performed By: #### C P, CDP #### [facility] [address] [place] [address] Button Tufting Machine Operator: Rancho Alvarado MD ALT [Catalytic activity/Vol] 136 U/L High 5-33 [facility] Comment on above: Performed By: #### C P, CDP #### [facility] [address] [place], [place] [id number] Button [employer]ing Machine Operator: Rancho Alvarado MD Anion gap [Moles/Vol] 15 mmol/L Normal 9-17 [facility] Comment on above: Performed By: #### C P, CDP #### [facility] [address] [place], [place] [id number] Button Tufting Machine Operator: Rancho Alvarado MD AST [Catalytic activity/Vol] 55 U/L High <32 [facility] Comment on above: Performed By: #### C P, CDP #### [facility] [address] [place], [place] [id number] Button [employer]ing Machine Operator: Rancho Alvarado MD Bilirubin [Mass/Vol] 0.68 mg/dL Normal 0.30-1.20 [facility] Comment on above: Performed By: #### C P, CDP #### [facility] [address] [place], [place] [id number] Button Tufting Machine Operator: Rancho Alvarado MD BUN/CRE Ratio 21 High 9-[address] [facility] Comment on above: Performed By: #### C P, CDP #### [facility] [address] [place] [address] Button Tufting Machine Operator: Rancho Alvarado MD Calcium [Mass/Vol] 9.2 mg/dL Normal 8.6-10.4 [facility] Comment on above: Performed By: #### C P, CDP #### [facility] [address] [place], [place] [id number] Button Tufting Machine Operator: Rancho Alvarado MD Chloride [Moles/Vol] 105 mmol/L Normal 98-107 [facility] Comment on above: Performed By: #### C P, CDP #### [facility] [address] [place], [place] [id number] Button Tufting Machine Operator: Rancho Alvarado MD CO2 [Moles/Vol] 21 mmol/L Normal 20-31 [facility] Comment on above: Performed By: #### C P, CDP #### [facility] [address] [place], [place] [id number] Button Tufting Machine Operator: Rancho Alvarado MD Creatinine [Mass/Vol] 0.75 mg/dL Normal 0.50-0.90 [facility] Comment on above: Performed By: #### C P, CDP #### [facility] [address] [place], [place] [id number] Button Tufting Machine Operator: Rancho Alvarado MD GFR, Amer >60 Normal >60 [facility] Comment on above: Performed By: #### C P, CDP #### [facility] [address] [place] [address] Button Tufting Machine Operator: Rancho Alvarado MD GFR,non Amer >60 Normal >60 [facility] Comment on above: Performed By: #### C P, CDP #### [facility] [address] [place] [address] Button Tufting Machine Operator: Rancho Alvarado MD Glucose [Mass/Vol] 105 mg/dL High 70-99 [facility] Comment on above: Performed By: #### C P, CDP #### [facility] [address] [place] [address] Button Tufting Machine Operator: Rancho Alvarado MD Potassium [Moles/Vol] 4.1 mmol/L Normal 3.7-5.3 [facility] Comment on above: Performed By: #### C P, CDP #### [facility] [address] [place] [address] Button Tufting Machine Operator: Rancho Alvarado MD Protein [Mass/Vol] 7.6 g/dL Normal 6.4-8.3 [facility] Comment on above: Performed By: #### C P, CDP #### [facility] [address] [place], [place] [id number] Button Tufting Machine Operator: Rancho Alvarado MD Sodium [Moles/Vol] 141 mmol/L Normal 135-144 [facility] Comment on above: Performed By: #### C P, CDP #### [facility] [address] [place] [address] Button Tufting Machine Operator: Rancho Alvarado MD Urea nitrogen [Mass/Vol] 16 mg/dL Normal 6-20 [facility] Comment on above: Performed By: #### C P, CDP #### [facility] [address] [place] [address] Button Tufting Machine Operator: Rancho Alvarado MD Albumin/Glob Ratio NOT REPORTED Normal 1.0-2.5 [facility] Comment on above: Performed By: #### C P, CDP #### [facility] [address] [place] [address] Button Tufting Machine Operator: Rancho Alvarado MD Staging: NOT REPORTED Normal [facility] Comment on above: Performed By: #### C P, CDP #### [facility] [address] [place], [place] [phone] Button Tufting Machine Operator: Rancho Alvarado MD SARS-COV-2 RAPIDon Page Technician Cyto stain Nom (Cvx/Vag) [ID] [facility] Interpretation and review of laboratory results Abnormal [facility] NARRATIVE -1 This test was performed using isothermal DANTE and has been approved as Emergency Use Authorization (EUA) for the qualitative detection [id number] nucleic acid. [facility] SARS-CoV-2 (COVID-19) RNA DANTE+probe Ql (Unsp spec) Detected Abnormal NOT DETECTED [facility] Comment on above: CALLED TO AND READ B ACK BY [email or web address] SHEA ENHANCED CONTACT, AND DROPLET ISOLATION IS REQUIRED FOR INPATIENTS WITH SARS-CoV-2. [facility] SARS-COV-2 RAPIDOrdered By: Betina Pryor on 10-11-2020 Page Technician Cyto stain Nom (Cvx/Vag) [ID] BOCA RATON WALK-IN [facility] NARRATIVE -1 This test was performed using isothermal DANTE and has been approved as Emergency Use Authorization (EUA) for the qualitative detection [id number] nucleic acid. [facility] SARS-CoV-2 (COVID-19) RNA DANTE+probe Ql (Unsp spec) Not detected NOT DETECTED [facility] Comment on above: Negative results do [...] patient is critically ill or clinically deteriorating. [facility] ECG 12-LEADon 12-29-2019 Raffi Doss MD 12/29/2019 8:02 PM EKG 12-lead Date/Time: 12/29/2019 7:57 PM Performed by: Raffi Doss MD Authorized by: Raffi Doss MD BPM: 65 Comments: Normal sinus rhythm at a rate of 65, normal axis, no signs of acute ischemia or infarction. No signs of interval pathology, WPW, HOCM, [place] [facility] Urine Pregnancyon 12-29-2019 HCG ( test) Ql (U) Negative Negative [facility] Interpretation and review of laboratory results Normal [facility] URINE CULTUREon 02-03-2019 Bacteria identified Cx Nom (U) SPECIMEN DESCRIPTION URINE CLEAN CATCH UA DIPSTICK LEUKOCYTE POSITIVE * Result Note: NITRITE NEGATIVE * CULTURE ESCHERICHIA COLI * Result Note: 40,000-50,000 C/C/ML * * Result Note: Testing performed at [place], [place] [address] * REPORT STATUS 02/03/2019 * Result Note: FINAL * ORGANISM ESCHERICHIA COLI * Result Note: ESCHERICHIA COLI * METHOD OSMAN AMPICILLIN 4 SUSCEPTIBLE AMPICILLIN/SULBACTAM <=2 SUSCEPTIBLE CEFTRIAXONE <=1 SUSCEPTIBLE CEFAZOLIN <=4 SUSCEPTIBLE IMIPENEM <=0.25 SUSCEPTIBLE GENTAMICIN <=1 SUSCEPTIBLE TRIMETH-SULFA <=20 SUSCEPTIBLE AMOXICILLIN/CLAVULANIC A 4 SUSCEPTIBLE NITROFURANTOIN <=16 SUSCEPTIBLE PIPERACILLIN/TAZOBACTA M <=4 SUSCEPTIBLE LEVOFLOXACIN <=0.12 SUSCEPTIBLE ESBL NEGATIVE CEFTAZIDIME <=1 SUSCEPTIBLE Normal [facility] Comment on above: Performed By: #### A URNC #### Testing performed at [place] [id number] POCT URINALYSIS DIPSTICK NON AUTOMATEDon 02-01-2019 Amorphous sediment LM Ql (Urine sed) [facility] Appearance (Body fld) cloudy [facility] Bacteria LM Ql (Urine sed) [facility] Bilirubin Ql (U) Negative [facility] Casts LM.LPF (Urine sed) [#/Area] [facility] Color (U) yellow [facility] Crystals LM Nom (Urine sed) [facility] Epithelial cells.squamous LM.HPF (Urine sed) [#/Area] [facility] Flow cytometry specialist review Faustino (Unsp spec) [Interp] [facility] Interpretation and review of laboratory results Abnormal [facility] Ketones [Mass/Vol] Negative mg/dL [facility] Leukocyte esterase Qn (U) [facility] Leukocyte esterase Test strip Ql (U) small [facility] Nitrite Ql (U) Negative [facility] pH (U) 7.5 [pH] Abnormal [facility] POCT GLUCOSE, URINE Negative mg/dL [facility] Protein Ql (U) Negative mg/dL [facility] RBC LM.HPF (Urine sed) [#/Area] [facility] RBC Ql (U) trace [facility] Specific gravity (U) [Rel density] 1.020 [facility] Transitional cells LM Ql (Urine sed) [facility] Urobilinogen (U) [Mass/Vol] 0.2 [facility] WBC LM.HPF (Urine sed) [#/Area] [facility] Internal controls [place] [facility] Hgb and Hcton 06-28-2017 Hematocrit (HCT) 29.3 % Low 34.4-44.8 [facility] Comment on above: Performed By: #### H H ####Unless otherwise noted, all testing performed by [address] [id number]: [id number] Director: José Miguel Chan M.D. Hemoglobin mass conc (Bld) 9.6 g/dL Low 11.6-15.4 [facility] Comment on above: Performed By: #### H H ####Unless otherwise noted, all testing performed by [address] [phone]: [id number] Director: José Miguel Chan M.D. Hepatitis C Antibodyon 06-27 Hepatitis C Antibody Positive Abnormal Negative [facility] Comment on above: Result Comment: Vlad mmend confirmation with HCV Virus Quantitation.Test performed using [employer] Immunodiagnostic system[place] [address] Performed By: #### H EPCABS, HEPCQT ####Unless otherwise noted, all testing performed by [address] [phone]: [id number] Director: José Miguel Chan M.D. Hepatitis C Qt,HCV-RNAon Hepatitis C Qt,HCV-RNA Not Detected Normal Not Detected [facility] Comment on above: Result Comment: The quantification range of this assay is 15-100,000,000 IU/mL(1.2 log IU/mL - 8.0 log IU/mL)Assay performed using MARY Ampliprep/TaqmanHCV test, version 2.0[place] [address] Performed By: #### H EPCABS, HEPCQT ####Unless otherwise noted, all testing performed by [address] [phone]: [id number] Director: José Miguel Chan M.D. Urinalysis, Routineon 2017 Bilirubin,Urine Negative Normal NEG;NEGATIVE [facility] Comment on above: Performed By: #### U A ####Unless otherwise noted, all testing performed by [address] [phone]: [id number] Director: José Miguel hCan M.D. Blood,Urine Negative Normal NEG;NEGATIVE [facility] Comment on above: Performed By: #### U A ####Unless otherwise noted, all testing performed by [address] [phone]: [id number] Director: José Miguel Chan M.D. Ketone,Urine Negative Normal NEG;NEGATIVE [facility] Comment on above: Performed By: #### U A ####Unless otherwise noted, all testing performed by [address] [phone]: [id number] Director: José Miguel Chan M.D. Leuk.Esterase,Urine Trace Abnormal Negative [facility] Comment on above: Performed By: #### U A ####Unless otherwise noted, all testing performed by [address] [phone]: [id number] Director: José Miguel Chan M.D. Nitrite,Urine Negative Normal NEG;NEGATIVE [facility] Comment on above: Performed By: #### U A ####Unless otherwise noted, all testing performed by [address] [phone]: [id number] Director: José Miguel Chan M.D. Protein,Urine Negative Normal NEG;NEGATIVE [facility] Comment on above: Performed By: #### U A ####Unless otherwise noted, all testing performed by [address] [phone]: [id number] Director: José Miguel Chan M.D. Specific [place],Urine 1.002 Low 1.003-1.029 [facility] Comment on above: Performed By: #### U A ####Unless otherwise noted, all testing performed by [address] [phone]: [id number] Director: José Miguel Chan M.D. Squamous Epithelial 1 /HPF Normal 0-40 [facility] Comment on above: Performed By: #### U A ####Unless otherwise noted, all testing performed by [address] [phone]: [id number] Director: José Miguel Chan M.D. Urine, bacteria in sediment Moderate Abnormal NS;[facility] Comment on above: Performed By: #### U A ####Unless otherwise noted, all testing performed by [address] [phone]: [id number] Director: José Miguel Chan M.D. Urine, character Hazy Normal [facility] Comment on above: Performed By: #### U A ####Unless otherwise noted, all testing performed by [address] [phone]: [id number] Director: José Miguel Chan M.D. Urine, color Straw Normal [facility] Comment on above: Performed By: #### U A ####Unless otherwise noted, all testing performed by [address] [phone]: [id number] Director: José Miguel Chan M.D. Urine, erythrocytes in sediment by area 2 /[HPF] Normal 0-5 [facility] Comment on above: Performed By: #### U A ####Unless otherwise noted, all testing performed by [address] [phone]: [id number] Director: José Miguel Chan M.D. Urine, glucose presence Negative Normal NEG;NEGATIVE [facility] Comment on above: Performed By: #### U A ####Unless otherwise noted, all testing performed by [address] [phone]: [id number] Director: José Miguel Chan M.D. Urine, leukocytes in sedmiment 1 /[HPF] Normal 0-5 [facility] Comment on above: Performed By: #### U A ####Unless otherwise noted, all testing performed by [address] [phone]: [id number] Director: José Miguel Chan M.D. Urine, pH 7.0 [pH] Normal 4.5-8.0 [facility] Comment on above: Performed By: #### U A ####Unless otherwise noted, all testing performed by [address] [phone]: [id number] Director: José Miguel Chan M.D. Urobilinogen,Urine < 2.0 Normal <2 [facility] Comment on above: Performed By: #### U A ####Unless otherwise noted, all testing performed by [address] [phone]: [id number] Director: José Miguel Chan M.D. Vital Signs Date Time Vital Sign Value Performing Clinician Facility 08-30-2022 19:23-0400 Body height 175.3 cm Dick Lassiter ELECTRICIAN [employer]OMOTIVE[employer] Work Phone: [facility] 08-30-2022 19:23-0400 Body mass index (BMI) [Ratio] 32.52 kg/m2 Dickchelsea Lassiter ELECTRICIAN LOCOMOTIVE[employer] Work Phone: [facility] 08-30-2022 19:23-0400 Body temperature 98.49 [degF] Dick Lassiter APRN-[employer] Work Phone: [facility] 08-30-2022 19:23-0400 Body weight 99.88 kg Dick Lassiter ELECTRICIAN [employer]OMOTIVE[employer] Work Phone: [facility] 08-30-2022 19:23-0400 Diastolic blood pressure 66 mm[Hg] Dick Lassiter ELECTRICIAN [employer]IVE[employer] Work Phone: [facility] 08-30-2022 19:23-0400 Heart rate 96 /min Dick Lassiter APRN[employer] Work Phone: [facility] 08-30-2022 19:23-0400 Respiratory rate 16 /min Dick Lassiter ELECTRICIAN [employer] Work Phone: [facility] 08-30-2022 19:23-0400 SaO2% (BldA) [Mass fraction] 99 % Dick Lassiter ELECTRICIAN [employer] Work Phone: [facility] 08-30-2022 19:23-0400 Systolic blood pressure 110 mm[Hg] Dick Lassiter ELECTRICIAN [employer]IVE[employer] Work Phone: [facility] 07-01-2021 19:17-0500 Body mass index (BMI) [Ratio] 33.67 kg/m2 Bryon Gu MD [facility] 07-01-2021 19:17-0500 Body temperature 97.81 [degF] Bryon Gu MD [facility] 07-01-2021 19:17-0500 Body weight 103.42 kg Bryon Gu MD [facility] 07-01-2021 19:17-0500 Diastolic blood pressure 80 mm[Hg] Bryon Gu MD [facility] 07-01-2021 19:17-0500 Heart rate 95 /min Bryon Gu MD [facility] 07-01-2021 19:17-0500 Respiratory rate 16 /min Bryon Gu MD [facility] 07-01-2021 19:17-0500 SaO2% (BldA) [Mass fraction] 98 % Bryon Gu MD Work Phone: [facility] 07-01-2021 19:17-0500 Systolic blood pressure 128 mm[Hg] Bryon Gu MD Work Phone: [facility] 12-28-2020 12:50-0400 Body height 175.3 cm Betina Pryor ELECTRICIAN [employer]IVE[employer] Work Phone: [facility] 12-28-2020 12:50-0400 Body mass index (BMI) [Ratio] 32.38 kg/m2 Betina Pryor ELECTRICIAN [employer] Work Phone: [facility] 12-28-2020 12:50-0400 Body temperature 98.01 [degF] Betina Pryor APRN[employer] Work Phone: [facility] 12-28-2020 12:50-0400 Body weight 99.47 kg Betina Pryor APRN[employer] Work Phone: [facility] 12-28-2020 12:50-0400 Diastolic blood pressure 76 mm[Hg] Betina Pryor ELECTRICIAN [employer] Work Phone: [facility] 12-28-2020 12:50-0400 Heart rate 111 /min Betina Pryor APRN[employer] Work Phone: [facility] 12-28-2020 12:50-0400 Respiratory rate 16 /min Betina Pryor [employer] Work Phone: [facility] 12-28-2020 12:50-0400 SaO2% (BldA) [Mass fraction] 100 % Betina Pryor [employer] Work Phone: [facility] 12-28-2020 12:50-0400 Systolic blood pressure 113 mm[Hg] Betina Pryor APRN[employer] Work Phone: [facility] 10-11-2020 19:30-0400 Body height 175.3 cm Betina Pryor APRN[employer] Work Phone: [facility] 10-11-2020 19:30-0400 Body mass index (BMI) [Ratio] 31.47 kg/m2 Betina Pryor ELECTRICIAN [employer] Work Phone: [facility] 10-11-2020 19:30-0400 Body temperature 98.49 [degF] Betina Pryor APRN[employer] Work Phone: [facility] 10-11-2020 19:30-0400 Body weight 96.66 kg Betina Pryor ELECTRICIAN [employer]IVE[employer] Work Phone: [facility] 10-11-2020 19:30-0400 Diastolic blood pressure 82 mm[Hg] Betina Pryor ELECTRICIAN [employer] Work Phone: [facility] 10-11-2020 19:30-0400 Heart rate 94 /min Betina Pryor ELECTRICIAN [employer] Work Phone: [facility] 10-11-2020 19:30-0400 Respiratory rate 16 /min Betina Pryor ELECTRICIAN [employer] Work Phone: [facility] 10-11-2020 19:30-0400 SaO2% (BldA) [Mass fraction] 100 % Betina Pryor ELECTRICIAN [employer] Work Phone: [facility] 10-11-2020 19:30-0400 Systolic blood pressure 120 mm[Hg] Betina Pryor ELECTRICIAN [employer] Work Phone: [facility] 05-29-2020 10:56-0500 BMI (Body Mass Index) 29.89 kg/m2 [facility] 05-29-2020 10:56-0500 Body Temperature 99.39 [degF] [facility] 05-29-2020 10:56-0500 Body weight 91.81 kg [facility] 05-29-2020 10:56-0500 BP Diastolic 85 mm[Hg] [facility] 05-29-2020 10:56-0500 BP Systolic 118 mm[Hg] [facility] 05-29-2020 10:56-0500 Height 175.3 cm [facility] 05-29-2020 10:56-0500 Pulse (Heart Rate) 88 /min [facility] 05-29-2020 10:56-0500 Pulse Oximetry 99 % [facility] 05-29-2020 10:56-0500 Respiratory Rate 16 /min [facility] 12-29-2019 20:12-0400 BP Diastolic 90 mm[Hg] [facility] 12-29-2019 20:12-0400 BP Systolic 130 mm[Hg] [facility] 12-29-2019 20:12-0400 Pulse (Heart Rate) 74 /min [facility] 12-29-2019 20:12-0400 Pulse Oximetry 99 % [facility] 12-29-2019 20:12-0400 Respiratory Rate 16 /min [facility] 12-29-2019 19:03-0400 BMI (Body Mass Index) 28.8 kg/m2 [facility] 12-29-2019 19:03-0400 Body Temperature 97.9 [degF] [facility] 12-29-2019 19:03-0400 Body weight 88.[address] [facility] 12-29-2019 19:03-0400 Height 175.[address] [facility] 03-18-2019 11:11-0400 BMI (Body Mass Index) 27.78 kg/m2 [facility] 03-18-2019 11:11-0400 Body Temperature 98.4 [degF] [facility] 03-18-2019 11:11-0400 Body weight 87.82 kg [facility] 03-18-2019 11:11-0400 BP Diastolic 87 mm[Hg] [facility] 03-18-2019 11:11-0400 BP Systolic 129 mm[Hg] [facility] 03-18-2019 11:11-0400 Height 177.8 cm [facility] 03-18-2019 11:11-0400 Pulse (Heart Rate) 101 /min [facility] 03-18-2019 11:11-0400 Pulse Oximetry 97 % [facility] 03-18-2019 11:11-0400 Respiratory Rate 18 /min [facility] 02-01-2019 12:37-0400 BMI (Body Mass Index) 28.74 kg/m2 [facility] 02-01-2019 12:37-0400 Body Temperature 98.91 [degF] [facility] 02-01-2019 12:37-0400 Body weight 88.27 kg [facility] 02-01-2019 12:37-0400 BP Diastolic 85 mm[Hg] [facility] 02-01-2019 12:37-0400 BP Systolic 135 mm[Hg] [facility] 02-01-2019 12:37-0400 Height 175.3 cm [facility] 02-01-2019 12:37-0400 Pulse (Heart Rate) 93 /min [facility] 02-01-2019 12:37-0400 Pulse Oximetry 98 % [facility] 02-01-2019 12:37-0400 Respiratory Rate 16 /min [facility] Encounters Encounter Date Encounter Type Care Provider Facility Start: 08-20-2024 End: 08-20-2024 Clinisync Result Encounter Guanako Marlee DO Work Phone: [facility] Unsolicited Start: 08-20-2024 End: 08-20-2024 Clinisync Result Encounter Guanako Marlee DO Work Phone: [facility] Unsolicited Start: 01-03-2024 Patient encounter procedure Guanako Marlee DO Work Phone: [facility] Start: 01-03-2024 End: 01-03-2024 ambulatory GUANAKO MARLEE Not Available Start: 06-14-2023 End: 06-14-2023 ambulatory AXEL DORINA Not Available Start: 04-30-2023 End: 04-30-2023 ambulatory GUANAKO MARLEE Not Available Start: 04-23-2023 End: 04-23-2023 ambulatory GUANAKO MARLEE Not Available Start: 04-16-2023 End: 04-16-2023 ambulatory AXEL CAM Not Available Start: 10-10-2022 End: 10-11-[address] GUANAKO SPEARS . Facility:[facility] Start: 10-03-2022 End: 10-04-[address] GUANAKO SPEARS . Facility:[facility] Start: 08-30-2022 ambulatory [facility] Start: 08-30-2022 End: 08-30-2022 Office outpatient visit 15 minutes [facility] [employer] Work Phone: [facility] Comment on above: Sore throat (Primary Dx); Viral illness Start: 07-01-2021 End: 07-01-2021 Emergency department patient visit BRYON GU [facility] Start: 07-01-2021 End: 07-01-2021 Emergency department patient visit Bryon Gu MD Work Phone: [facility] ED Comment on above: Sprain of left knee, unspecified ligament, initial encounter (Primary Dx) Start: 05-24-2021 End: 05-24-2021 Emergency department patient visit GIOVANA JACKSON [facility] Start: 03-21-2021 End: 03-22-2021 ambulatory [facility] Facility:[facility] Start: 12-28-2020 End: 12-28-2020 Office outpatient visit 15 minutes Betina Pryor ELECTRICIAN [employer] Work Phone: [facility] Comment on above: COVID-19 virus infec tion (Primary Dx); Close exposure to COVID-19 virus Start: 10-11-2020 End: 10-11-2020 Office outpatient visit 15 minutes Betina Pryor ELECTRICIAN [employer] Work Phone: [facility] Comment on above: Viral illness (Prima ry Dx); Loss of taste; Loss of smell; Head congestion Start: 05-29-2020 End: 05-29-2020 Office outpatient visit 15 minutes Josey Ibrahim Work Phone: [facility] Comment on above: Acute otitis externa of right ear, unspecified type (Primary Dx) Start: 12-29-2019 End: 12-29-2019 Emergency department patient visit [facility] Start: 12-29-2019 End: 12-29-2019 Emergency department patient visit [facility] Emergency Department Comment on above: Dizziness (Primary D x); Heat exhaustion, initial encounter Start: 06-25-2019 End: 06-29-2019 Patient encounter procedure [facility] Start: 03-20-2019 End: 03-20-2019 Letter encounter [facility] Start: 03-18-2019 End: 03-18-2019 Office outpatient visit 25 minutes Betina Pryor Work Phone: [facility] Comment on above: Bacterial conjunctiv itis of right eye (Primary Dx); Hives Start: 02-01-2019 End: 02-01-2019 Letter encounter Provider Elver [facility] Start: 02-01-2019 End: 02-01-2019 Office outpatient visit 25 minutes Betina Pryor Work Phone: [facility] Comment on above: Acute cystitis with hematuria (Primary Dx); Dysuria Start: 12-16-2018 End: 12-20-2018 Patient encounter procedure [facility] Start: 06-27-2017 End: 06-29-2017 Evaluation and management of inpatient Umm Damon Facility:[place] Start: 06-27-2017 End: 06-27-2017 Ambulatory Umm Damon Facility:[place] Start: 06-15-2017 End: 06-15-2017 Ambulatory Sal Parada Facility:[place] Procedures Date Procedure Procedure Detail Performing Clinician Start: 08-20-2024 [facility] PREG QUANT HCG Guanako Marlee DO Work Phone: Start: 08-30-2022 [facility] streptococcus group a Dick Lassiter [employer]RICIAN [employer] Work Phone: Start: 07-01-2021 Radiologic exam knee complete 4/more views Bryon Gu MD Work Phone: Start: 12-28-2020 SARS-COV-2 RAPID Betina Pryor [employer] Work Phone: Start: 10-11-2020 SARS-COV-2 RAPID Betina Pryor [employer] Work Phone: Start: 12-29-2019 Choriogonadotropin ( test) [...] DTaP/Tdap/Td vaccine (2 - Td or Tdap) [facility] Start: 02-14-2031 Tetanus vaccination TETANUS [facility] Start: 09-26-2024 End: 09-26-2024 Patient encounter procedure 09/26/2024 10:20 AM EDT Office Visit [facility] [address] [place] [address] Lizbeth Mejias, PA [address] [place], [place] [id number] [facility] Start: 01-26-2023 Influenza vaccination INFLUENZ A VACCINE (Season Ended) [facility] Start: 03-19-2022 Screening for malign ant neoplasm of cervix Pap Smear [facility] Start: 01-26-2021 Influenza vaccination [facility] Start: 03-19-2020 History and physical examination, annual for health maintenance Wellness Visit [facility] Start: 03-19-2020 Screening for Chlamy osito trachomatis Chlamydia Screening [facility] Start: 01-27-2020 Influenza vaccination INFLUENZA VACC INE (#1) [facility] Start: 01-27-2020 Influenza vaccinatio n given Sequential Influenza Vaccine (#1) [facility] Start: 02-01-2019 End: 02-01-2019 Lab Encounter 02/01/2019 Lab Encounter Clinical Pathology/Laboratory Medicine Betina Pryor, E[employer]RIC[employer] [address] [place] [address] [facility] Start: 02-01-2019 End: 02-02-2020 Bacteria identified Cx Nom (U) URINE CULTURE Microbiology Routine Dysuria Expected: 02/01/2019, Expires: 02/02/2020 [facility] Comment on above: Expected: 02/01/2019 , Expires: 02/02/2020 Start: 01-26-2019 Influenza vaccination INFLUENZA VACC INE (#1) [facility] Start: 2017 Screening for malign ant neoplasm of cervix [facility] Start: 2015 Third diphtheria, te tanus and acellular pertussis (DTaP) vaccination TDAP (ADULT) [facility] Start: 2014 Tetanus vaccination TETANUS [facility] Start: 2012 Screening for Chlamy osito trachomatis CHLAMYDIA SCREEN [facility] Start: 2011 HIV screening [facility] Start: 2011 Vaccination for loly n papillomavirus HPV VACCINE ADOL (1 - Female 3-dose series) [facility] Start: 2009 HIV screening HIV SCREENING DISCUSSION [facility] Start: 2008 COVID-19 VACCINE (1) COVID-19 VACCIN E (1) [facility] Start: 2008 Depression Screen Depression Screen [facility] Start: 2007 HPV vaccine (1 - 2-d ose series) HPV vaccine (1 - 2-dose series) [facility] Start: 2007 Vaccination for loly n papillomavirus [facility] Start: 2001 COVID-19 Vaccine (1) COVID-19 Vaccin e (1) [facility] Start: 1997 Varicella vaccine (1 of 2 - 2-dose childhood series) Varicella vaccine (1 of 2 - 2-dose childhood series) [facility] Start: 1996 COVID-19 VACCINE (#1) COVID-19 VACCI NE (#1) [facility] Start: 1996 GONORRHEA SCREEN GONORRHEA SCREEN [facility] Start: 1996 Hepatitis C antibody , confirmatory test HEPATITIS C VIRUS SCREENING [facility] Start: 1996 Hepatitis C screening [facility] Start: 1996 Screening for Chlamy osito trachomatis GONORRHEA SCREEN [facility] Start: 1996 Tetanus vaccination Tetanus: Every 1 0yrs [facility] POCT URINALYSIS DIPS TICK NON AUTOMATED POCT URINALYSIS DIPSTICK NON AUTOMATED Point of Care Testing Routine Dysuria Ordered: 02/01/2019 [facility] Comment on above: Ordered: 02/01/2019 Payers Date Payer Category Payer [facility] [id number] 2021 Unknown [id number] 2020 Unknown 2018 Unknown [id number] 2018 Unknown [id number]. [id number] 1996 Unknown [id number] [id number]. 900 1996 Unknown [id number] [id number]. 903 1996 Unknown [id number] [id number]. 903 1996 Unknown [id number] 2.16840.1.168396.3.579.2. 174 1996 Unknown [id number] 2.16840.1.185141.3.579.2. 174 1996 Unknown [id number] 2.16840.1.258875.3.579.2. 727 1996 Unknown [id number] 2.16840.1.326501.3.579.2. 983 1996 Unknown [id number] [id number]. 593 1996 Unknown [id number] 2.16.840.1.877026.3.579.2. 593 1996 Unknown [id number] 2.16.840.1.780540.3.579.2. 1259 1996 Unknown [id number] 2.16.840.1.275205.3.579.2. 9 1996 Unknown [id number] 2.16.840.1.199008.3.579.2. 1259 1996 Unknown [id number] 2.16.840.1.489984.3.579.2. 9 1996 Unknown [id number] [id number]. 1259 1959 Unknown [id number] Unknown [id number] Social History Date Type Detail Facility Tobacco smoking stat [facility] Unknown if ever smoked [facility] Start: 1996 Sex Assigned At Not on file O [facility] Start: 02-01-2019 End: 03-18-2019 Tobacco smoking status NHIS Current every day smoker [facility] Start: 02-01-2019 End: 10-11-2020 Cigarettes smoked current (pack per day) - Reported [facility] Start: 02-01-2019 End: 03-18-2019 Alcohol intake Not Currently [facility] End: 07-26-2020 History of tobacco use Cigarette Smoker [facility] Start: 12-29-2019 End: 08-30-2022 Alcohol intake Ex-drinker (finding) [facility] Exposure to SARS-CoV -2 (event) Not sure [facility] Start: 05-29-2020 End: 10-11-2020 Tobacco use and exposure Never used [facility] Start: 10-11-2020 [facility] End: 07-26-2020 History of tobacco use Current smoker [facility] Start: 06-08-2020 [facility] Start: 05-24-2021 [facility] [employer] Work Phone: Tobacco smoking stat [facility] Tobacco smoking consumption unknown [facility] Goals Date Patient Goal Desired Activity /State [...] Positive for sore throat. Physical Exam: Vitals: 08/30/221922 BP: 110/66 Pulse: 96 Resp: 16 Temp: [...] proceed with plan. documented in this encounter [facility] Hospital Discharge instructions 07-01-2021 InstructionsAttachments Note Date & Type Note Facility 07-01-2021 Hospital Discharg e instructions Bryon Gu MD - 07/01/2021 Tylenol pain. Wear knee immobilizer for comfort. Follow-up with orthopedic referral. The following attachments cannot be sent through Care Everywhere.Knee Sprain (Eritrean)documented in this encounter [employer] Phone: History of Present illness Narrative 12-28-2020 LOGAN Mcguire - 12/28/2020 12:35 PM EDT Note Date & Type Note Facility 12-28-2020 History of Presen t illness Narrative IRMA Ping Padilla female 1995 presents to the [facility] with Chief Complaint [...] daily. (Patient not taking: Reported on 08/16/2020) iemsahgz-szoxansbe-quluhkbgngnmcj 3.5-44362-3 Solution otic solution 4 drops by Otic [...] Social Gatherings with Friends and Family: Attends Adventism Services: Active Member of Clubs or Organizations: [...] Encounter SARS-COV-2 RAPID Rapid COVID19 positive. Discussed bnsr-hyc-vgusiek symptomatic treatments stay for . She will quarantine per CDC guidelines. If symptoms worsen patient was advised to follow up in our office, primary care provider or the Emergency Dept. Benefits, Risks, Contraindications, and Complications of recommended treatments were explained. The patient understands and agrees to proceed with plan. LOGAN Mcguire 12/28/2020 documented in this encounter [employer] Instructions 12-28-2020 Patient Instructions Note Date & Type Note Facility 12-28-2020 Instructions Betina Pryor, [employer] - 12/28/2020 12:35 PM EDT Images from [...] water aren't available, use an alcohol-based hand reversal print inspector. Avoid touching your mouth, nose, and eyes. [...] disinfect your home every day. Use household construction director and disinfectant wipes or sprays. Take special [...] of: August 20, 2020 Content Version: 12.9 [employer]. Care instructions adapted under license by your healthcare professional. If you have questions about a medical condition or this instruction, always ask your healthcare professional. [employer] disclaims any warranty or liability for your [...] Terconazole (Terazol Cream) 2004November 25, 2018. [facility]. This handout is for informational purposes only. Talk with your doctor or healthcare team if you have any questions about your care. For more health information call the [employer] Information at [phone] or email: [email or web address]. documented in this encounter [facility] History of Present illness Narrative 10-11-2020 Betina Pryor APRN-CNP - 10/11/2020 7:15 PM EDT Note Date & Type Note Facility 10-11-2020 History of Presen t illness Narrative IRMA Padilla female 1995 presents to the [facility] with Chief Complaint [...] daily. (Patient not taking: Reported on 08/16/2020) ktuoetvf-tyiaovjkk-mhdyuxthnglyjm 3.5-57254-5 Solution otic solution 4 drops by Otic [...] Social Gatherings with Friends and Family: Attends Adventism Services: Active Member of Clubs or Organizations: [...] Use Authorization (EUA) for the qualitative detection ldFJYW-BxU-[address] [facility] ASSESSMENT/PLAN 1. Viral illness 2. Loss of taste 3. Loss of smell 4. Head congestion Orders Placed This Encounter SARS-COV-2 RAPID Rapid COVID19 negative. Symptoms appear viral. Discussed jfht-mdz-semlllu symptomatic treatments safe in . If symptoms worsen patient was advised to follow up in our office, primary care provider or the Emergency Dept. Benefits, Risks, Contraindications, and Complications of recommended treatments were explained. The patient understands and agrees to proceed with plan. LOGAN Mcguire 10/11/2020 documented in this encounter [facility] Instructions 10-11-2020 Patient Instructions Note Date [...] feeling better in the next 7 days. 2014December 16, 2018, [facility]. This handout is for informational purposes only. Talk with your doctor or healthcare team if you have any questions about your care. For more health information, call the [employer] Information at [phone] or email: [email or web address]. Over the Counter Medicines during We [...] Terconazole (Terazol Cream) 2004November 25, 2018. [facility]. This handout is for informational purposes only. Talk with your doctor or healthcare team if you have any questions about your care. For more health information call the [employer] for Health Information at [phone] or email: [email or web address]. documented in this encounter [facility] Evaluation note Note Date & Type Note Facility Evaluation note Diagnosis Viral illness- Primary Unspecified viral infection, in conditions classified elsewhere and of unspecified site Loss of taste Disturbances of sensation of smell and taste Loss of smell Disturbances of sensation of smell and taste Head congestion Other diseases of nasal cavity and sinuses documented in this encounter [facility] Evaluation note Note Date & Type Note Facility Evaluation note Diagnosis Sprain of left knee, unspecified ligament, initial encounter- Primary documented in this encounter [employer] Phone: Evaluation note Note Date & Type Note Facility Evaluation note Diagnosis COVID-19 virus infection- Primary Close exposure to COVID-19 virus documented in this encounter [facility] Evaluation note Note Date & Type Note Facility Evaluation note Diagnosis Sore throat- Primary Acute pharyngitis Viral illness Unspecified viral infection, in conditions classified elsewhere and of unspecified site documented in this encounter [facility] Summary Purpose Family History No Family History Records FoundNo Family History Records FoundNo Family History Records FoundNo Family History Records FoundNo Family History Records FoundNo Family History Records FoundNo Family History Records FoundNo Family History Records FoundNo Family History Records FoundNo Family History Records Found Advance Directives Documents on File Type Date Recorded 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 This handout is for informational purposes [...] Do not use plastic earplugs. Use a rolling chair pusher set on low to carefully dry the ear after you shower. To ease ear pain, hold a warm washcloth against your ear. Take pain medicines exactly as directed. ? If the doctor gave you a prescription medicine for pain, take it as prescribed. ? If you are not taking a prescription pain medicine, ask your doctor if you can take an mqto-kfi-ikzbsig medicine. Inserting ear drops Warm the drops [...] Where can you learn more? Go to http://www.[email or web address]/patiented. Enter C706 in the search box to learn more about 'Swimmer's Ear: Care Instructions.' Interested in seeing a video go to [email or web address]/videolibrary to see all video content. Current as of: September 10, 2019 Content Version: 12.7 [employer]. Care instructions adapted under license by your healthcare professional. If you have questions about a medical condition or this instruction, always ask your healthcare professional. [employer] disclaims any warranty or liability for your use of this information. documented in this encounter* Patient Instructions* Betina Pryor, [employer]IAN [employer] - 03/18/2019 10:45 AM EDT [place]e: Care [...] Where can you learn more? Go to http://www.wenermedical.[facility].edu/patiented. Enter Y392 in the search box to learn more about 'Pinkeye: Care Instructions.' Interested in seeing a video go to [email or web address].osu.edu/videolibrary to see all video content. Current as of: November 20, 2018 Content Version: . [employer]. Care instructions adapted under license by your healthcare professional. If you have questions about a medical condition or this instruction, always ask your healthcare professional. [employer] disclaims any warranty or liability for your [...] relieve itching. Your doctor may suggest an fdox-rfs-fldqsdp antihistamine, such as cetirizine (Zyrtec), diphenhydramine (Benadryl), [...] Where can you learn more? Go to http://www.[employer].osu.edu/patiented. Enter R498 in the search box to learn more about 'Chronic Hives: Care Instructions.' Interested in seeing a video go to https://[employer].edu/videolibrary to see all video content. Current as of: September 01, 2018 Content Version: 12.2 [employer]. Care instructions adapted under license by your healthcare professional. If you have questions about a medical condition or this instruction, always ask your healthcare professional. [employer] disclaims any warranty or liability for your [...] medicines 2004 - May 03, 2017, [facility]. This handout is for informational purposes only. Talk to your doctor or health care team if you have any questions about your care. documented in this encounter History of Present Illness * Betina Pryor APRN-CNP - 02/01/2019 12:00 PM EDT HPI Ping Knox female 1995 presents to the [facility] with Chief Complaint [...] file Gets together: Not on file Attends episcopal service: Not on file Active member of [...] IRMA Padilla female 1995 presents to the [facility] with Chief Complaint [...] tablet Take 1 tablet by mouth daily. svixclpd-owbtnkpmi-lxetdbfzbcwpql 3.5-66596-6 Solution otic solution 4 drops by Otic [...] file Gets together: Not on file Attends episcopal service: Not on file Active member of [...] right ear, unspecified type Other orders - poopcvwi-pgqbtenzp-moyzifmtssyars 3.5-38665-1 Solution otic solution; 4 drops by Otic route 4 times daily. If symptoms worsen patient was advised to follow up in our office or the Emergency Dept. Benefits, Risks, Contraindications, and Complications of recommended treatments were explained. The patient understands and agrees to proceed with plan. Josey Ibrahim PA-C 05/29/2020 documented in this encounter* Betina Pryor, [employer]IAN [employer] - 03/18/2019 10:45 AM EDT HPI Ping Knox female 1995 presents to the [facility] with Chief Complaint Patient presents with Terminous Eye Pt presents with c/o right eye, [...] known cause. Moved from mothers house to [facility] [address] No self treatments. Hives are [...] file Gets together: Not on file Attends episcopal service: Not on file Active member of [...] Suggested taking daily antihistamine. Follow up with Clamp Remover ref. If symptoms worsen patient was advised to follow up in our office, primary care provider or the Emergency Dept. Benefits, Risks, Contraindications, and Complications of recommended treatments were explained. The patient understands and agrees to proceed with plan. LOGAN Mcguire 03/18/2019 documented in this encounter* Betina Pryor APRN-CNP - 02/01/2019 12:00 PM EDT HPI Ping Knox female 1995 presents to the [facility] with Chief Complaint [...] file Gets together: Not on file Attends episcopal service: Not on file Active member of [...] sent through Care Everywhere. * Heat Exhaustion (Eritrean) * Lightheadedness or Faintness (Eritrean) documented in this encounter Reason for Referral Status Reason Specialty Diagnoses / Procedures Referred By Contact Referred To Contact New Request Allergy & Immunology Diagnoses Betina Villela APRN-CNP [address] [place] [address] Status Reason Specialty Diagnoses / Procedures Referred By Contact Referred To Contact New Request Family Medicine Diagnoses Bacterial conjunctivitis of right eye Betina Pryor APRN-CNP [address] [place] [address] Additional Source Comments INFORMATION SOURCE (unrecogn ized section and content) DATE CREATED AUTHOR 11/19/2017 [facility] DATE CREATED AUTHOR AUTHOR'S ORGANIZ ATION 01/19/2019 [facility] DATE CREATED AUTHOR AUTHOR'S ORGANIZ ATION 02/03/2019 [facility] DATE CREATED AUTHOR AUTHOR'S ORGANIZ ATION 06/28/2019 [facility] DATE CREATED AUTHOR AUTHOR'S ORGANIZ ATION 12/30/2019 [facility] DATE CREATED AUTHOR AUTHOR'S ORGANIZ ATION 07/02/2021 [facility] DATE CREATED AUTHOR AUTHOR'S ORGANIZ ATION 07/05/2022 [facility] DATE CREATED AUTHOR AUTHOR'S ORGANIZ ATION 09/01/2022 [facility] DATE CREATED AUTHOR AUTHOR'S ORGANIZ ATION 10/11/2022 [facility] DATE CREATED AUTHOR AUTHOR'S ORGANIZ ATION 01/05/2024 [facility] EPIC Reason for Visit (unrecogniz ed section and content) Reason Comments Urinary Pain Some burning, freque ncy, had for 2 or 3 days. Reason Comments Dizziness Reason Comments Ear Pain Pt c/o right ear teresa n and swollen lymph node on the right side x a few weeks Reason Comments Terminous Eye Pt presents with c/o right eye, [...] Associated Order(s): EKG 12-lead ED PROVIDER NOTE [facility] EM[facility]ENCY [facility] NAME: Ping Knox AGE: 24 y.o. : 1995 VISIT DATE: 12/29/2019 CSN: [id number] PCP: Javier Leiva MD Chief Complaint Patient [...] file Gets together: Not on file Attends episcopal service: Not on file Active member of [...] BE BASED ON THE PRIMARY CLINICAL RECORDS. [facility]. provides no warranty or guarantee of the accuracy or completeness of information in this document.
[2024-08-25 10:44] LABS: HCG Quantitative 41 mIU/mL
== END 2024-08-25 10:18 | disposition home or self-care (01) ==
LOC: LAB 10:17
PROVIDERS: Visit Provider Obstetrics & Gynecology
DX: N92.6 Irregular menstruation, unspecified (principal)
CPT/HCPCS: 36415; 84702

== ENCOUNTER 2024-09-01 12:01 | Outpatient (OUT) | payer BC, SELFPAY ==
--- OUTSIDE RECORDS SUMMARY | 2024-09-01 12:23 | XMS_ITS | CCD ---
Author Organization [facility] Care Team Providers Care Manager Of Pmo Name Role Phone Zarczynski, Edward P Unavailable Unavailable Zarczynski, Edward P Unavailable Unavailable Chambers, Umm Unavailable Unavailable Chambers, Umm Unavailable Unavailable Chambers, Umm Unavailable Unavailable Zarczynski, Edward P Unavailable Unavailable [facility] Primary Care Unavailabl e Unavailable Primary Care Provider Unavailabl e JACQUI IVAN Admitting Unavailable [place] Primary Care Unavailabl e [place], [facility] Primary Care Provider [phone] [facility] Primary Care Unavailabl e Unavailable Primary [...] Attending Unavailable AXEL CAM Attending Unavailable GUANAKO WHALEN Attending Unavailable GUANAKO WHALEN Attending Unavailable GUANAKO WHALEN Attending Unavailable Unavailable Primary Care Provider Unavailabl e Allergies Allergy Classification Reported Allergen(s) Allergy Type Date of Onset Reaction(s) Facility Macrolides (antibiotic) (1 source) Erythromycin Drug Allergy 07-24-19 13 [facility] Penicillins (antibiotic) (1 source) Ampicillin Drug Allergy 06-06-19 18 [facility] Sulfamethoxazole / Trimethoprim (1 source) Sulfamethoxazole / Trimethoprim Drug Allergy 06-06-19 18 [facility] (16 sources) Ampicillin; Translations: [Unknown] Drug Allergy 06-06-19 18 [facility] Repository (10 sources) Erythromycin Drug Allergy 07-24-19 13 [facility] (8 sources) Sulfamethoxazole / Trimethoprim Drug Allergy 06-06-19 18 [facility] (1 source) Penicillin G Drug Allergy 05-24-20 21 Other (See Comments) [employer] Work Phone: (1 source) Penicillin; Translations: [penicillin] Drug Allergy [facility] Repository (3 sources) Erythromycin Base Drug Allergy 11-09-19 23 [facility] [employer] Work Phone: Medications Current Medications Medication Drug [...] 20 mg by mouth daily 0 Active Djppcnqq-Apx-Hr-FA (PRE-HECTOR PO) (1 source) Pmaekntt-Uft-Lu-FA (PRE- PO) Take by mouth 0 Active [...] / neomycin 3.5 mg/ml / polymyxin b 48991 unt/ml otic solution (4 sources) Aminoglycoside Antibacterial, Polymyxin-class Antibacterial, Corticosteroid Start: 05-29-2020 End: 08-30-2022 neomycin-polymyxi n-hydrocortisone 3.5-87158-6 Solution otic solution 4 drops by Otic [...] [Bacterial conjunctivitis of right eye] Menstrual disorders (7 sources) Irregular menstruation, unspecified; Translations: [Missed period] [...] Chronic Other nutritional; endocrine; and metabolic disorders (6 sources) Obese class I; Translations: [Obesity, unspecified] [...] Results Test Name Value Interpretation Reference Range [facility] PREG QUANT HCGon 025 HCG QUANTITATIVE 41 mIU/mL [facility] Comment on above: 5-50 0.2-1 WEEK 50-500 1-2 WEEKS 100-5,000 2-3 WEEKS 500-10,000 3-4 WEEKS 1,000-50,000 4-5 WEEKS 10,000-100,000 5-6 WEEKS 15,000-200,000 6-8 WEEKS 10,000-100,000 2-3 [facility] PREG QUANT HCGon 025 HCG QUANTITATIVE 52 mIU/mL [facility] Comment on above: 5-50 0.2-1 WEEK 50-500 1-2 WEEKS 100-5,000 2-3 WEEKS 500-10,000 3-4 WEEKS 1,000-50,000 4-5 WEEKS 10,000-100,000 5-6 WEEKS 15,000-200,000 6-8 WEEKS 10,000-100,000 2-3 [facility] HE[facility] B SURFACE ANTIGEN SCREEN on 10-11-2022 HBsAg Screen Negative Normal Negative [facility] Comment on above: Performed By: #### H BSANS #### [facility] [address] [place] [address] Dr. Kaleb Decker HEPATITIS C VIRUS AB W/ REFL EX QUANTon 10-11-2022 HCV AB Non-Reactive Normal Non Reactive [facility] Comment on above: Performed By: #### H CVPCRR #### [facility] [address] [place] [address] Dr. Kaleb Decker HIV 1 AND 2 WITH REFLEXon HIV Screen 4th Generation wRfx Non-Reactive Normal Non Reactive [facility] Comment on above: Result Comment: HIV Negative HIV-1/HIV-2 antibodies and HIV-1 p24 antigen were NOT detected. There is no laboratory evidence of HIV infection. Performed By: #### H IV12 #### [facility] [address] [place] [address] Dr. Kaleb Decker RPR QUANTon 10-11-2022 Rapid Plasma Reagin, Quant Non-Reactive Normal NonRea<1:1 [facility] Comment on above: Result Comment: Michele hooper Note: This test does not meet current guidelines for screening and diagnosis of syphilis. This test is intended for following treatment response in patients being treated for syphilis infection. To screen for syphilis infection, a reflex cascade that includes both RPR and a treponema-specific assay should be utilized, such as Treponema pallidum (Syphilis) Screening [place] (394490) or Rapid Plasma Reagin (RPR) Test With Reflex to Quantitative RPR and Confirmatory Treponema pallidum Antibodies (604629). Performed By: #### H BSANS #### [facility] [address] [place] [address] Dr. Kaleb Decker RUBELLA AB IGGon 10-11-2022 Rubella Antibodies, IgG <0.90 Critically low Immune >0.99 [facility] Comment on above: Result Comment: Non- immune <0.90 Equivocal 0.90 - 0.99 Immune >0.99 Performed By: #### R UBIGG #### [facility] [address] [place] [address] Dr. Kaleb Decker BOX TEST SENT OUTon 10-11-19 SENT TO REF LAB 10/10/22 Normal [facility] Comment on above: Performed By: #### B OX #### [facility] [address] [place] [address] Dr. Kaleb Decker CBC AUTO DIFFon 10-10-2022 BASO # 0.0 103/ul Normal 0.0-0.1 [facility] Comment on above: Performed By: #### C BC #### [facility] [address] [place] [address] Dr. Kaleb Decker Basophils/100 WBC (Bld) 0.6 % Normal 0.2-2.0 [facility] Comment on above: Performed By: #### C BC #### [facility] [address] [place] [address] Dr. Kaleb Decker EO # 0.2 103/ul Normal 0.0-0.7 [facility] Comment on above: Performed By: #### C BC #### [facility] [address] [address] [address] Kaleb Decker Eosinophils/100 WBC (Bld) 2.4 % Normal 0.9-7.0 [facility] Comment on above: Performed By: #### C BC #### [facility] [address] [place] [address] Dr. Kaleb Decker Erythrocyte distribution width (RBC) [Ratio] 13.8 % Normal 11.0-15.0 [facility] Comment on above: Performed By: #### C BC #### [facility] [address] [place] [address] Dr. Kaleb Decker Hematocrit (Bld) [Volume fraction] 41.5 % Normal 36.0-48.0 [facility] Comment on above: Performed By: #### C BC #### [facility] [address] [place] [address] Dr. Kaleb Decker Hemoglobin (Bld) [Mass/Vol] 13.6 g/dL Normal 12.0-16.0 [facility] Comment on above: Performed By: #### C BC #### [facility] [address] [place] [address] Dr. Kaleb Decker IG # 0.04 10e3/ul Critically high 0.00-0.03 [facility] Comment on above: Performed By: #### C BC #### [facility] [address] [place] [address] Dr. Kaleb Decker IG % 0.6 % Critically high 0.0-0.5 [facility] Comment on above: Performed By: #### C BC #### [facility] [address] [place] [address] Dr. Kaleb Decker LYMPH # 1.8 103/ul Normal 1.2-3.8 [facility] Comment on above: Performed By: #### C BC #### [facility] [address] [place] [address] Dr. Kaleb Decker Lymphocytes/100 WBC (Bld) 26.6 % Normal 20.5-60.0 [facility] Comment on above: Performed By: #### C BC #### [facility] [address] [place] [address] Dr. Kaleb Decker MANUAL DIFF REQ NO Normal [facility] Comment on above: Performed By: #### C BC #### [facility] [address] [place] [address] Dr. Kaleb Decker MCH (RBC) [Entitic mass] 26.1 pg Critically low 26.7-34.0 [facility] Comment on above: Performed By: #### C BC #### [facility] [address] [place] [address] Dr. Kaleb Decker MCHC (RBC) [Mass/Vol] 32.8 g/dL Normal 29.9-35.2 [facility] Comment on above: Performed By: #### C BC #### [facility] [address] [place] [address] Dr. Kaleb Decker MCV (RBC) [Entitic vol] 79.7 fL Critically low 81.0-99.0 [facility] Comment on above: Performed By: #### C BC #### [facility] [address] [place] [address] Dr. Kaleb Decker MONO # 0.3 103/ul Normal 0.3-0.8 [facility] Comment on above: Performed By: #### C BC #### [facility] [address] [place] [address] Dr. Kaleb Decker Monocytes/100 WBC (Bld) 4.6 % Normal 1.7-12.0 [facility] Comment on above: Performed By: #### C BC #### [facility] [address] [place] [address] Dr. Kaleb Decker NEUT # 4.4 103/ul Normal 1.4-6.5 [facility] Comment on above: Performed By: #### C BC #### [facility] [address] [place] [address] Dr. Kaleb Decker Neutrophils/100 WBC (Bld) 65.2 % Normal 43.0-75.0 [facility] Comment on above: Performed By: #### C BC #### [facility] [address] [address] [address] Kaleb Decker Platelet mean volume (Bld) [Entitic vol] 9.8 fL Normal 9.5-13.5 [facility] Comment on above: Performed By: #### C BC #### [facility] [address] [place] [address] Dr. Kaleb Decker PLT 312 103/ul Normal 150-450 [facility] Comment on above: Performed By: #### C BC #### [facility] [address] [place] [address] Dr. Kaleb Decker RBC 5.21 106/ul Normal 4.20-5.40 [facility] Comment on above: Performed By: #### C BC #### [facility] [address] [place] [address] Dr. Kaleb Decker WBC 6.8 103/ul Normal 4.0-11.0 [facility] Comment on above: Performed By: #### C BC #### [facility] [address] [place] [address] Dr. Kaleb Decker CULTURE URINEon 10-10-2022 CULTURE URINE Culture Observations : LIGHT GROWTH OF MIXED GENITAL RACHEL. NO POTENTIAL PATHOGENS SEEN. Normal [facility] Comment on above: Performed By: #### H BSANS #### [facility] [address] [place] [address] Dr. Kaleb Decker GLYCOHEMOGLOBIN A1Con 2022 ADA RECOMMENDATION SEE BELOW Normal [facility] Comment on above: Result Comment: ADA RECOMMENDED LIMIT 4.0 - 6.0 ADA THERAPEUTIC TARGET < 7.0 ACTION SUGGESTED > 7.0 Performed By: #### A 1C #### [facility] [address] [place] [address] Dr. Kaleb Decker Glucose [Mass/Vol] 100 mg/dL Normal [facility] Comment on above: Performed By: #### A 1C #### [facility] [address] [place] [address] Dr. Kaleb Decker HbA1c (Bld) [Mass fraction] 5.1 % Normal 4.5-6.2 [facility] Comment on above: Performed By: #### A 1C #### [facility] [address] [address] [address] Kaleb Decker TSHon 10-10-2022 TSH 0.670 uIU/mL Normal 0.358-3.740 [facility] Comment on above: Performed By: #### T SH #### [facility] [address] [place] [address] Dr. Kaleb Decker TYPE AND SCREENon 10-10-2022 TYPE AND SCREEN Negative Normal [facility] Comment on above: Performed By: #### T NS #### [facility] [address] [place] [address] Dr. Kaleb Decker UA RANDOMon 10-10-2022 Bilirubin Ql (U) Negative Normal NEGATIVE [facility] Comment on above: Performed By: #### U A #### [facility] [address] [place] [address] Dr. Kaleb Decker Clarity (U) CLEAR Normal CLEAR [facility] Comment on above: Performed By: #### U A #### [facility] [address] [place] [address] Dr. Kaleb Decker Color (U) LT. YELLOW Normal YELLOW [facility] Comment on above: Performed By: #### U A #### [facility] [address] [place] [address] Dr. Kaleb Decker Glucose Ql (U) Negative Normal NEGATIVE [facility] Comment on above: Performed By: #### U A #### [facility] [address] [place] [address] Dr. Kaleb Decker Hemoglobin Ql (U) Negative Normal NEGATIVE [facility] Comment on above: Performed By: #### U A #### [facility] [address] [place] [address] Dr. Kaleb Decker Ketones Ql (U) Negative Normal NEGATIVE [facility] Comment on above: Performed By: #### U A #### [facility] [address] [place] [address] Dr. Kaleb Decker LEUKOCYTES MODERATE Abnormal NEGATIVE [facility] Comment on above: Performed By: #### U A #### [facility] [address] [address] [address] Kaleb Decker Nitrite Ql (U) Negative Normal NEGATIVE [facility] Comment on above: Performed By: #### U A #### [facility] [address] [address] [address] Kaleb Decker pH (U) 7.0 [pH] Normal 5-9 [facility] Comment on above: Performed By: #### U A #### [facility] [address] [address] [address] Kaleb Decker SPEC GRAVITY 1.010 Normal 1.005-<=1.025 [facility] Comment on above: Performed By: #### U A #### [facility] [address] [place] [address] Dr. Kaleb Decker UA PROTEIN Negative Normal NEGATIVE/ TRACE [facility] Comment on above: Performed By: #### U A #### [facility] [address] [address] [address] Kaleb Decker Urobilinogen Qn (U) 0.2 {Garcia'U}/dL Normal 0.2 - 1. 0 [facility] Comment on above: Performed By: #### U A #### [facility] [address] [place] [address] Dr. Kaleb Decker US PREG TVon 10-03-2022 [...] by: RAFFI FARNSWORTH Date: 2022-10-03 15:36 Normal [facility] POCT RAPID STREP Aon 023 S. pyogenes Ag Ql (Throat) Negative (+/-) [facility] Internal controls [facility] XR KNEE LEFT (MIN 4 [...] Johnny Lipscomb MD 07/01/21 Final result Normal [facility] Normal left knee [facility] EXAM: XR KNEE LEFT (MIN 4 VIEWS) HISTORY: Reason for exam:->Pain injury trauma COMPARISON: None. TECHNIQUE: 4 views left knee FINDINGS: No fracture or joint effusion. Joint spaces are maintained. No pathologic calcification. No radiopaque foreign body. [facility] Johnny Lipscomb M D - 07/01/2021 EXAM: XR KNEE LEFT (MIN 4 VIEWS) HISTORY: Reason for exam:->Pain injury trauma COMPARISON: None. TECHNIQUE: 4 views left knee FINDINGS: No fracture or joint effusion. Joint spaces are maintained. No pathologic calcification. No radiopaque foreign body. IMPRESSION: Normal left knee [facility] [employer] Phone: Radiology Study observation (narrative) [facility] [employer] Phone: XR KNEE LEFT (MIN 4 VIEWS)Or dered By: Johnny Lipscomb on 07-01-[address] [facility] with Diffon 05-24-2021 Abs. Atypical Lymphs 0.20 k/uL Normal 0.0-1.0 [facility] Comment on above: Performed By: #### C P, CDP #### [facility] [address] [place] [address] [employer]ice [employer] Attendant: Rancho Alvarado MD Abs. Bands 2.00 k/uL High 0.0-1.0 [facility] Comment on above: Performed By: #### C P, CDP #### [facility] [address] [place] [address] [employer]ice [employer] Attendant: Rancho Alvarado MD Abs. Basophil Normal 0.0-0.2 [facility] Comment on above: Performed By: #### C P, CDP #### [facility] [address] [place], [place] [id number] [employer] Attendant: Rancho Alvarado MD Abs.Neutrophil (Seg) 6.80 k/uL Normal 2.5-7.0 [facility] Comment on above: Performed By: #### C P, CDP #### [facility] [address] [place] [address] [employer] Attendant: Rancho Alvarado MD Atypical Lymphs 2 % Normal [facility] Comment on above: Performed By: #### C P, CDP #### [facility] [address] [place] [address] [employer] Attendant: Rancho Alvaraod MD Bands 20 % High 0-10 [facility] Comment on above: Performed By: #### C P, CDP #### [facility] [address] [place], [place] [id number] [employer] Attendant: Rancho Alvarado MD Basophil Normal 0-2 [facility] Comment on above: Performed By: #### C P, CDP #### [facility] [address] [place], [place] [phone] [employer] Attendant: Rancho Alvraado MD Eosinophils (Bld) [#/Vol] 0.30 10*3/uL Normal 0.0-0.4 [facility] Comment on above: Performed By: #### C P, CDP #### [facility] [address] [place], [place] [id number] [employer] Attendant: Rancho Alvarado MD Eosinophils/100 WBC (Bld) 3 % Normal 0-5 [facility] Comment on above: Performed By: #### C P, CDP #### [facility] [address] [place], [place] [id number] [employer] Attendant: Rancho Alvarado MD Lymphocytes (Bld) [#/Vol] 0.50 10*3/uL Low 1.0-4.8 [facility] Comment on above: Performed By: #### C P, CDP #### [facility] [address] [place] [address] [employer] Attendant: Rancho Alvarado MD Lymphocytes/100 WBC (Bld) 5 % Low 15-40 [facility] Comment on above: Performed By: #### C P, CDP #### [facility] [address] [place] [address] [employer] Attendant: Rancho Alvarado MD Monocytes (Bld) [#/Vol] 0.20 10*3/uL Normal 0.0-1.0 [facility] Comment on above: Performed By: #### C P, CDP #### [facility] [address] [place] [address] [employer] Attendant: Rancho Alvarado MD Monocytes/100 WBC (Bld) 2 % Low 4-8 [facility] Comment on above: Performed By: #### C P, CDP #### [facility] [address] [place] [address] [employer]ice [employer] Attendant: Rancho Alvarado MD Morphology Faustino (Bld) [Interp] Manual Differential Performed Normal [facility] Comment on above: Performed By: #### C P, CDP #### [facility] [address] [place] [address] [employer]ice Plant Attendant: Rancho Alvarado MD Neutrophil (Seg) 68 % Normal 47-75 [facility] Comment on above: Performed By: #### C P, CDP #### [facility] [address] [place] [address] [employer]ice [employer] Attendant: Rancho Alvarado MD Erythrocyte distribution width (RBC) [Ratio] 13.1 % Normal 12.1-15.2 [facility] Comment on above: Performed By: #### C P, CDP #### [facility] [address] [place] [address] [employer]ice [employer] Attendant: Rancho Alvarado MD Hematocrit (Bld) [Volume fraction] 44.2 % Normal 36-46 [facility] Comment on above: Performed By: #### C P, CDP #### [facility] [address] [place] [address] [employer]ice [employer] Attendant: Rancho Alvarado MD Hemoglobin (Bld) [Mass/Vol] 14.7 g/dL Normal 12.0-16.0 [facility] Comment on above: Performed By: #### C P, CDP #### [facility] [address] [place] [address] [employer]ice [employer] Attendant: Rancho Alvarado MD MCH (RBC) [Entitic mass] 26.1 pg Normal 26-34 [facility] Comment on above: Performed By: #### C P, CDP #### [facility] [address] [place] [address] [employer]ice [employer] Attendant: Rancho Alvarado MD MCHC (RBC) [Mass/Vol] 33.2 g/dL Normal 31-37 [facility] Comment on above: Performed By: #### C P, CDP #### [facility] [address] [place] [address] [employer]ice [employer] Attendant: Rancho Alvarado MD MCV (RBC) [Entitic vol] 78.5 fL Low 80-100 [facility] Comment on above: Performed By: #### C P, CDP #### [facility] [address] [place] [address] [employer]ice [employer] Attendant: Rancho Alvarado MD Platelets (Bld) [#/Vol] 317 10*3/uL Normal 140-450 [facility] Comment on above: Performed By: #### C P, CDP #### [facility] [address] [place] [address] [employer]ice [employer] Attendant: Rancho Alvarado MD RBC (Bld) [#/Vol] 5.64 10*6/uL High 4.0-5.2 [facility] Comment on above: Performed By: #### C P, CDP #### [facility] [address] [place] [address] [employer]ice [employer] Attendant: Rancho Alvarado MD WBC (Bld) [#/Vol] 10.0 10*3/uL Normal 3.5-11.0 [facility] Comment on above: Performed By: #### C P, CDP #### [facility] [address] [place] [address] App[employer]ice [employer] Attendant: Rancho Alvarado MD Abs.Imm.Granulocyte NOT REPORTED Normal 0.00-0.30 [facility] Comment on above: Performed By: #### C P, CDP #### [facility] [address] [place] [address] [employer]ice [employer] Attendant: Rancho Alvarado MD Auto Diff Performed NOT REPORTED Normal [facility] Comment on above: Performed By: #### C P, CDP #### [facility] [address] [place] [address] App[employer]ice Plant Attendant: Rancho Alvarado MD Immature Granulocyte NOT REPORTED Normal 0 [facility] Comment on above: Performed By: #### C P, CDP #### [facility] [address] [place] [address] App[employer]ice Plant Attendant: Rancho Alvarado MD MPV NOT REPORTED Normal 6.0-12.0 [facility] Comment on above: Performed By: #### C P, CDP #### [facility] [address] [place] [address] [employer]ice [employer] Attendant: Rancho Alvarado MD NRBC Automated NOT REPORTED Normal [facility] Comment on above: Performed By: #### C P, CDP #### [facility] [address] [place] [address] [employer]ice [employer] Attendant: Rancho Alvarado MD Platelet Comment NOT REPORTED Normal [facility] Comment on above: Performed By: #### C P, CDP #### [facility] [address] [place] [address] [employer]ice Plant Attendant: Rancho Alvarado MD RBC morphology finding Nom (Bld) NOT REPORTED Normal [facility] Comment on above: Performed By: #### C P, CDP #### [facility] [address] [place] [address] [employer]ice [employer] Attendant: Rancho Alvarado MD WBC Morphology NOT REPORTED Normal [facility] Comment on above: Performed By: #### C P, CDP #### [facility] [address] [place] [address] [employer]ice [employer] Attendant: Rancho Alvarado MD Comp Metabolic Profon 2020 (cont.) Normal [facility] Comment on above: Result Comment: Aver age GFR for 20-29 years old: 116 mL/min/1.73sq m Chronic Kidney Disease: <60 mL/min/1.73sq m Kidney failure: <15 mL/min/1.73sq m eGFR calculated using average adult body mass. Additional eGFR calculator available at: http://www.Chic[employer].com/multiple_crcl_2011.htm Performed By: #### C P, CDP #### [facility] [address] [place] [address] [employer]ice [employer] Attendant: Rancho Alvarado MD Albumin [Mass/Vol] 4.5 g/dL Normal 3.5-5.2 [facility] Comment on above: Performed By: #### C P, CDP #### [facility] [address] [place] [address] Apprentice Plant Attendant: Rancho Alvarado MD Alkaline Phos 90 U/L Normal 35-104 [facility] Comment on above: Performed By: #### C P, CDP #### [facility] [address] [place], [place] [id number] [employer]ice [employer] Attendant: Rancho Alvarado MD ALT [Catalytic activity/Vol] 136 U/L High 5-33 [facility] Comment on above: Performed By: #### C P, CDP #### [facility] [address] [place], [place] [phone] [employer]ice [employer] Attendant: Rancho Alvarado MD Anion gap [Moles/Vol] 15 mmol/L Normal 9-17 [facility] Comment on above: Performed By: #### C P, CDP #### [facility] [address] [place], [place] [id number] Apprentice Plant Attendant: Rancho Alvarado MD AST [Catalytic activity/Vol] 55 U/L High <32 [facility] Comment on above: Performed By: #### C P, CDP #### [facility] [address] [place], [place] [id number] Apprentice Plant Attendant: Rancho Alvarado MD Bilirubin [Mass/Vol] 0.68 mg/dL Normal 0.30-1.20 [facility] Comment on above: Performed By: #### C P, CDP #### [facility] [address] [place], [place] [id number] Apprentice Plant Attendant: Rancho Alvarado MD BUN/CRE Ratio 21 High 9-20 [facility] Comment on above: Performed By: #### C P, CDP #### [facility] [address] [place], [place] [phone] Apprentice Plant Attendant: Rancho Alvarado MD Calcium [Mass/Vol] 9.2 mg/dL Normal 8.6-10.4 [facility] Comment on above: Performed By: #### C P, CDP #### [facility] [address] [place] [address] Apprentice Plant Attendant: Rancho Alvarado MD Chloride [Moles/Vol] 105 mmol/L Normal 98-107 [facility] Comment on above: Performed By: #### C P, CDP #### [facility] [address] [place] [address] Apprentice Plant Attendant: Rancho Alvarado MD CO2 [Moles/Vol] 21 mmol/L Normal 20-31 [facility] Comment on above: Performed By: #### C P, CDP #### [facility] [address] [place] [address] Apprentice Plant Attendant: Rancho Alvarado MD Creatinine [Mass/Vol] 0.75 mg/dL Normal 0.50-0.90 [facility] Comment on above: Performed By: #### C P, CDP #### [facility] [address] [place] [address] Apprentice Plant Attendant: Rancho Alvarado MD GFR, Amer >60 Normal >60 [facility] Comment on above: Performed By: #### C P, CDP #### [facility] [address] [place] [address] Apprentice Plant Attendant: Rancho Alvarado MD GFR,non Amer >60 Normal >60 [facility] Comment on above: Performed By: #### C P, CDP #### [facility] [address] [place] [address] Apprentice Plant Attendant: Rancho Alvarado MD Glucose [Mass/Vol] 105 mg/dL High 70-99 [facility] Comment on above: Performed By: #### C P, CDP #### [facility] [address] [place] [address] Apprentice Plant Attendant: Rancho Alvarado MD Potassium [Moles/Vol] 4.1 mmol/L Normal 3.7-5.3 [facility] Comment on above: Performed By: #### C P, CDP #### [facility] [address] [place], [place] [phone] Apprentice Plant Attendant: Rancho Alvarado MD Protein [Mass/Vol] 7.6 g/dL Normal 6.4-8.3 [facility] Comment on above: Performed By: #### C P, CDP #### [facility] [address] [place], [place] [phone] Apprentice Plant Attendant: Rancho Alvarado MD Sodium [Moles/Vol] 141 mmol/L Normal 135-144 [facility] Comment on above: Performed By: #### C P, CDP #### [facility] [address] [place], [place] [phone] Apprentice Plant Attendant: Rancho Alvarado MD Urea nitrogen [Mass/Vol] 16 mg/dL Normal 6-20 [facility] Comment on above: Performed By: #### C P, CDP #### [facility] [address] [place], [place] [phone] Apprentice Plant Attendant: Rancho Alvarado MD Albumin/Glob Ratio NOT REPORTED Normal 1.0-2.5 [facility] Comment on above: Performed By: #### C P, CDP #### [facility] [address] [place], [place] [phone] Apprentice Plant Attendant: Rancho Alvarado MD Staging: NOT REPORTED Normal [facility] Comment on above: Performed By: #### C P, CDP #### [facility] [address] [place], [place] [phone] Apprentice Plant Attendant: Rancho Alvarado MD SARS-COV-2 RAPIDon 1 [employer] 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 [facility] SARS-CoV-2 (COVID-19) RNA DANTE+probe Ql (Unsp spec) Detected Abnormal NOT DETECTED [facility] Comment on above: CALLED TO AND READ B ACK BY [email or web address] [email or web address] ENHANCED CONTACT, AND DROPLET ISOLATION IS REQUIRED FOR INPATIENTS WITH SARS-CoV-2. [facility] SARS-COV-2 RAPIDOrdered By: Betina Pryor on 10-11-2020 [employer] Former Supervisor Cyto stain Nom (Cvx/Vag) [[facility] NARRAT[facility] -1 This test was performed using isothermal DANTE and has been approved as Emergency Use Authorization (EUA) for the qualitative detection jaBTRA-SbC-7 nucleic acid. [facility] SARS-CoV-2 (COVID-19) RNA DANTE+probe Ql (Unsp spec) Not detected NOT DETECTED [facility] Comment on above: Negative results do not [...] patient is critically ill or clinically deteriorating. [facility] ECG 12-LEADon 12-29-2019 Raffi Doss MD 12/29/2019 8:02 PM EKG 12-lead Date/Time: 12/29/2019 7:57 PM Performed by: Raffi Doss MD Authorized by: Raffi Doss MD BPM: 65 Comments: Normal sinus rhythm at a rate of 65, normal axis, no signs of acute ischemia or infarction. No signs of interval pathology, WPW, HOCM, Brug[facility] Urine Pregnancyon 12-29-2019 HCG ( test) Ql (U) Negative Negative [facility] Interpretation and review of laboratory results Normal [facility] URINE CULTUREon 02-03-2019 Bacteria identified Cx Nom (U) SPECIMEN DESCRIPTION URINE CLEAN CATCH UA DIPSTICK LEUKOCYTE POSITIVE * Result Note: NITRITE NEGATIVE * CULTURE ESCHERICHIA COLI * Result Note: 40,000-50,000 C/C/ML * * Result Note: Testing performed at [place] [address] * REPORT STATUS 02/03/2019 * Result Note: FINAL * ORGANISM ESCHERICHIA COLI * Result Note: ESCHERICHIA COLI * METHOD OSMAN AMPICILLIN 4 SUSCEPTIBLE AMPICILLIN/SULBACTAM <=2 SUSCEPTIBLE CEFTRIAXONE <=1 SUSCEPTIBLE CEFAZOLIN <=4 SUSCEPTIBLE IMIPENEM <=0.25 SUSCEPTIBLE GENTAMICIN <=1 SUSCEPTIBLE TRIMETH-SULFA <=20 SUSCEPTIBLE AMOXICILLIN/CLAVULANIC A 4 SUSCEPTIBLE NITROFURANTOIN <=16 SUSCEPTIBLE PIPERACILLIN/TAZOBACTA M <=4 SUSCEPTIBLE LEVOFLOXACIN <=0.12 SUSCEPTIBLE ESBL NEGATIVE CEFTAZIDIME <=1 SUSCEPTIBLE Normal [facility] Comment on above: Performed By: #### A URNC #### [place] [address] POCT URINALYSIS DIPSTICK NON AUTOMATEDon 02-01-2019 Amorphous sediment LM Ql (Urine sed) [facility] Appearance (Body fld) cloudy [facility] Bacteria LM Ql (Urine sed) [facility] Bilirubin Ql (U) Negative [employer] ALTH Casts LM.LPF (Urine sed) [#/Area] [facility] Color (U) yellow [facility] Crystals LM Nom (Urine sed) [facility] Epithelial cells.squamous LM.HPF (Urine sed) [#/Area] [employer] [facility] Flow cytometry specialist review Faustino (Unsp spec) [Interp] [facility] Interpretation and review of laboratory results Abnormal [facility] Ketones [Mass/Vol] Negative mg/dL [facility] Leukocyte esterase Qn (U) [facility] Leukocyte esterase Test strip Ql (U) small [facility] Nitrite Ql (U) Negative [facility] TH pH (U) 7.5 [pH] Abnormal [facility] POCT GLUCOSE, URINE Negative mg/dL [facility] Protein Ql (U) Negative mg/dL [facility] RBC LM.HPF (Urine sed) [#/Area] [facility] RBC Ql (U) trace [facility] Specific gravity (U) [Rel density] 1.020 [facility] Transitional cells LM Ql (Urine sed) [facility] Urobilinogen (U) [Mass/Vol] 0.2 [facility] WBC LM.HPF (Urine sed) [#/Area] [facility] Internal controls [facility] Hgb and Hcton 06-28-2017 Hematocrit (HCT) 29.3 % Low 34.4-44.8 [facility] Comment on above: Performed By: #### H H ####Unless otherwise noted, all testing performed by [place] [id number]: [id number] Director: José Miguel Chan M.D. Hemoglobin mass conc (Bld) 9.6 g/dL Low 11.6-15.4 [facility] Comment on above: Performed By: #### H H ####Unless otherwise noted, all testing performed by [place] [phone]: [id number] Director: José Miguel Chan M.D. Hepatitis C Antibodyon 06-27 Hepatitis C Antibody Positive Abnormal Negative [facility] Comment on above: Result Comment: Vlad mmend confirmation with HCV Virus Quantitation.Test performed using [employer] Immunodiagnostic system.Test Performed by [facility] [address] [place] [address] Performed By: #### H EPCABS, HEPCQT ####Unless otherwise noted, all testing performed by [place] [phone]: [id number] Director: José Miguel Chan M.D. Hepatitis C Qt,HCV-RNAon Hepatitis C Qt,HCV-RNA Not Detected Normal Not Detected [facility] Comment on above: Result Comment: The quantification range of this assay is 15-100,000,000 IU/mL(1.2 log IU/mL - 8.0 log IU/mL)Assay performed using MARY Ampliprep/TaqmanHCV test, version 2.0.Test Performed by [facility] [address] [place] [address] Performed By: #### H EPCABS, HEPCQT ####Unless otherwise noted, all testing performed by [address] [id number]: [id number] Director: José Miguel Chan M.D. Urinalysis, Routineon 2017 Bilirubin,Urine Negative Normal NEG;NEGATIVE [facility] Comment on above: Performed By: #### U A ####Unless otherwise noted, all testing performed by [address] [phone]: [id number] Director: José Miguel Chan M.D. Blood,Urine Negative Normal NEG;NEGATIVE [facility] Comment on above: Performed By: #### U A ####Unless otherwise noted, all testing performed by [address] [phone]: [id number] Director: José Miguel Chan M.D. Ketone,Urine Negative Normal NEG;NEGATIVE [facility] Comment on above: Performed By: #### U A ####Unless otherwise noted, all testing performed by [address] [phone]: [id number] Director: José Miguel Chan M.D. Leuk.Esterase,Urine Trace Abnormal Negative [facility] Comment on above: Performed By: #### U A ####Unless otherwise noted, all testing performed by [address] [phone]: [id number] Director: José Miguel Chan M.D. Nitrite,Urine Negative Normal NEG;NEGATIVE [facility] Comment on above: Performed By: #### U A ####Unless otherwise noted, all testing performed by [address] [phone]: [id number] Director: José Miguel Chan M.D. Protein,Urine Negative Normal NEG;NEGATIVE [facility] Comment on above: Performed By: #### U A ####Unless otherwise noted, all testing performed by [address] [phone]: [id number] Director: José Miguel Chan M.D. Specific [place],Urine 1.002 Low 1.003-1.029 [facility] Comment on above: Performed By: #### U A ####Unless otherwise noted, all testing performed by [address] [phone]: [id number] Director: José Miguel Chan M.D. Squamous Epithelial 1 /HPF Normal 0-40 [facility] Comment on above: Performed By: #### U A ####Unless otherwise noted, all testing performed by [address] [phone]: [id number] Director: José Miguel Chan M.D. Urine, bacteria in sediment Moderate Abnormal NS;RARE [facility] Comment on above: Performed By: #### U A ####Unless otherwise noted, all testing performed by [address] [phone]: [id number] Director: José Miguel Chan M.D. Urine, character Hazy Normal [facility] Comment on above: Performed By: #### U A ####Unless otherwise noted, all testing performed by [address] [phone]: [id number] Director: José Miguel Chan M.D. Urine, color Straw Normal [facility] Comment on above: Performed By: #### U A ####Unless otherwise noted, all testing performed by [address] [phone]: [id number] Director: José Miguel Chan M.D. Urine, erythrocytes in sediment by area 2 /[HPF] Normal 0-5 [facility] Comment on above: Performed By: #### U A ####Unless otherwise noted, all testing performed by [address] [phone]: [id number] Director: José Miguel Chan M.D. Urine, glucose presence Negative Normal NEG;NEGATIVE [facility] Comment on above: Performed By: #### U A ####Unless otherwise noted, all testing performed by [address] [phone]: [id number] Director: José Miguel Chan M.D. Urine, leukocytes in sedmiment 1 /[HPF] Normal 0-5 [facility] Comment on above: Performed By: #### U A ####Unless otherwise noted, all testing performed by [address] [phone]: [id number] Director: José Miguel Chan M.D. Urine, pH 7.0 [pH] Normal 4.5-8.0 [facility] Comment on above: Performed By: #### U A ####Unless otherwise noted, all testing performed by [address] [phone]: [id number] Director: José Miguel Chan M.D. Urobilinogen,Urine < 2.0 Normal <2 [facility] Comment on above: Performed By: #### U A ####Unless otherwise noted, all testing performed by [address] [phone]: [id number] Director: José Miguel Chan M.D. Vital Signs Date Time Vital Sign Value Performing Clinician Facility 08-30-2022 19:23-0400 Body height 175.3 cm Dick Lassiter APRN-EDUCATION ANALYST Work Phone: [facility] 08-30-2022 19:23-0400 Body mass index (BMI) [Ratio] 32.52 kg/m2 Dick Schleswig SUPERVISOR SHEARING-EDUCATION ANALYST Work Phone: [facility] 08-30-2022 19:23-0400 Body temperature 98.49 [degF] Dick Lassiter APRN-EDUCATION ANALYST Work Phone: [facility] 08-30-2022 19:23-0400 Body weight 99.88 kg Dick Lassiter APRN-EDUCATION ANALYST Work Phone: [facility] 08-30-2022 19:23-0400 Diastolic blood pressure 66 mm[Hg] Dick FORD Work Phone: [facility] 08-30-2022 19:23-0400 Heart rate 96 /min Dick Lassiter APRN-EDUCATION ANALYST Work Phone: [facility] 08-30-2022 19:23-0400 Respiratory rate 16 /min Dick Lassiter APRN-EDUCATION ANALYST Work Phone: [facility] 08-30-2022 19:23-0400 SaO2% (BldA) [Mass fraction] 99 % Dick FORD Work Phone: [facility] 08-30-2022 19:23-0400 Systolic blood pressure 110 mm[Hg] Dick Lassiter APRN-EDUCATION ANALYST Work Phone: [facility] 07-01-2021 19:17-0500 Body mass index (BMI) [Ratio] 33.67 kg/m2 Bryon Gu MD Work Phone: [facility] [employer] 07-01-2021 19:17-0500 Body temperature 97.81 [degF] Bryon Gu MD Work Phone: [facility] [employer] 07-01-2021 19:17-0500 Body weight 103.42 kg Bryon Gu MD Work Phone: [facility] [employer] 07-01-2021 19:17-0500 Diastolic blood pressure 80 mm[Hg] [facility] 07-01-2021 19:17-0500 Heart rate 95 /min Bryon Gu MD [facility] 07-01-2021 19:17-0500 Respiratory rate 16 /min Bryon Gu MD Work Phone: [facility] [employer] 07-01-2021 19:17-0500 SaO2% (BldA) [Mass fraction] 98 % Bryon Gu MD [facility] 07-01-2021 19:17-0500 Systolic blood pressure 128 mm[Hg] Bryon Gu MD Work Phone: [facility] 12-28-2020 12:50-0400 Body height 175.3 cm Betina Pryor APRN-EDUCATION ANALYST Work Phone: [facility] 12-28-2020 12:50-0400 Body mass index (BMI) [Ratio] 32.38 kg/m2 Betina Pryor SUPERVISOR SHEARING-EDUCATION ANALYST Work Phone: [facility] 12-28-2020 12:50-0400 Body temperature 98.01 [degF] Betina Pryor SUPERVISOR SHEARING-EDUCATION ANALYST Work Phone: [facility] 12-28-2020 12:50-0400 Body weight 99.47 kg Betina Pryor APRN-EDUCATION ANALYST Work Phone: [facility] 12-28-2020 12:50-0400 Diastolic blood pressure 76 mm[Hg] Betina Pryor SUPERVISOR SHEARING-EDUCATION ANALYST Work Phone: [facility] 12-28-2020 12:50-0400 Heart rate 111 /min Betina Pryor SUPERVISOR SHEARING-EDUCATION ANALYST Work Phone: [facility] 12-28-2020 12:50-0400 Respiratory rate 16 /min Betina Pryor SUPERVISOR SHEARING-EDUCATION ANALYST Work Phone: [facility] 12-28-2020 12:50-0400 SaO2% (BldA) [Mass fraction] 100 % Betina Pryor SUPERVISOR SHEARING-EDUCATION ANALYST Work Phone: [facility] 12-28-2020 12:50-0400 Systolic blood pressure 113 mm[Hg] Betina Pryor SUPERVISOR SHEARING-EDUCATION ANALYST Work Phone: [facility] 10-11-2020 19:30-0400 Body height 175.3 cm Betina Pryor APRN-EDUCATION ANALYST Work Phone: [facility] 10-11-2020 19:30-0400 Body mass index (BMI) [Ratio] 31.47 kg/m2 Betina Pryor SUPERVISOR SHEARING-EDUCATION ANALYST Work Phone: [facility] 10-11-2020 19:30-0400 Body temperature 98.49 [degF] Betina Pryor SUPERVISOR SHEARING-EDUCATION ANALYST Work Phone: [facility] 10-11-2020 19:30-0400 Body weight 96.66 kg Betina Pryor SUPERVISOR SHEARING-EDUCATION ANALYST Work Phone: [facility] 10-11-2020 19:30-0400 Diastolic blood pressure 82 mm[Hg] Betina Pryor SUPERVISOR SHEARING-EDUCATION ANALYST Work Phone: [facility] 10-11-2020 19:30-0400 Heart rate 94 /min Betina Pryor SUPERVISOR SHEARING-EDUCATION ANALYST Work Phone: [facility] 10-11-2020 19:30-0400 Respiratory rate 16 /min Betina Pryor SUPERVISOR SHEARING-EDUCATION ANALYST Work Phone: [facility] 10-11-2020 19:30-0400 SaO2% (BldA) [Mass fraction] 100 % Betina Pryor SUPERVISOR SHEARING-EDUCATION ANALYST Work Phone: [facility] 10-11-2020 19:30-0400 Systolic blood pressure 120 mm[Hg] Betina Pryor SUPERVISOR SHEARING-EDUCATION ANALYST Work Phone: [facility] 05-29-2020 10:56-0500 BMI (Body Mass Index) 29.89 kg/m2 [facility] 05-29-2020 10:56-0500 Body Temperature 99.39 [degF] [facility] 05-29-2020 10:56-0500 Body weight 91.81 kg [facility] 05-29-2020 10:56-0500 BP Diastolic 85 mm[Hg] [facility] 05-29-2020 10:56-0500 BP Systolic 118 mm[Hg] [facility] 05-29-2020 10:56-0500 Height 175.3 cm [facility] 05-29-2020 10:56-0500 Pulse (Heart Rate) 88 /min [facility] 05-29-2020 10:56-0500 Pulse Oximetry 99 % [facility] 05-29-2020 10:56-0500 Respiratory Rate 16 /min [facility] 12-29-2019 20:12-0400 BP Diastolic 90 mm[Hg] [facility] 12-29-2019 20:12-0400 BP Systolic 130 mm[Hg] [facility] 12-29-2019 20:12-0400 Pulse (Heart Rate) 74 /min [facility] 12-29-2019 20:12-0400 Pulse Oximetry 99 % [facility] 12-29-2019 20:12-0400 Respiratory Rate 16 /min [facility] 12-29-2019 19:03-0400 BMI (Body Mass Index) 28.8 kg/m2 [facility] 12-29-2019 19:03-0400 Body Temperature 97.9 [degF] [facility] 12-29-2019 19:03-0400 Body weight 88.45 kg [facility] 12-29-2019 19:03-0400 Height 175.3 cm [facility] 03-18-2019 11:11-0400 BMI (Body Mass Index) 27.78 kg/m2 [facility] 03-18-2019 11:11-0400 Body Temperature 98.4 [degF] [facility] 03-18-2019 11:11-0400 Body weight 87.82 kg [facility] 03-18-2019 11:11-0400 BP Diastolic 87 mm[Hg] [facility] 03-18-2019 11:11-0400 BP Systolic 129 mm[Hg] [facility] 03-18-2019 11:11-0400 Height 177.8 cm [facility] 03-18-2019 11:11-0400 Pulse (Heart Rate) 101 /min [facility] 03-18-2019 11:11-0400 Pulse Oximetry 97 % [facility] 03-18-2019 11:11-0400 Respiratory Rate 18 /min [facility] 02-01-2019 12:37-0400 BMI (Body Mass Index) 28.74 kg/m2 [facility] 02-01-2019 12:37-0400 Body Temperature 98.91 [degF] [facility] 02-01-2019 12:37-0400 Body weight 88.27 kg [facility] 02-01-2019 12:37-0400 BP Diastolic 85 mm[Hg] [facility] 02-01-2019 12:37-0400 BP Systolic 135 mm[Hg] [facility] 02-01-2019 12:37-0400 Height 175.3 cm [facility] 02-01-2019 12:37-0400 Pulse (Heart Rate) 93 /min [facility] 02-01-2019 12:37-0400 Pulse Oximetry 98 % [facility] 02-01-2019 12:37-0400 Respiratory Rate 16 /min [facility] Encounters Encounter Date Encounter Type Care Provider Facility Start: 09-01-2024 End: 09-01-2024 Bamboo flowsheet Guanako Marlee DO Work Phone: [facility] Start: 09-01-2024 End: 09-01-2024 Bamboo flowsheet Guanako Marlee DO Work Phone: [facility] Start: 08-25-2024 End: 08-25-2024 Clinisync Result Encounter Guanako Marlee DO Work Phone: [facility] External Department Unsolicited Start: 08-25-2024 End: 08-25-2024 Clinisync Result Encounter Guanako Marlee DO Work Phone: [facility] Unsolicited Start: 08-20-2024 End: 08-20-2024 Clinisync Result Encounter Guanako Marlee DO Work Phone: [facility] Unsolicited Start: 08-20-2024 End: 08-20-2024 Clinisync Result Encounter Guanako Singho DO Work Phone: [facility] External Department Unsolicited Start: 01-03-2024 Patient encounter procedure Guanako Singho DO Work Phone: [facility] Start: 01-03-2024 End: 01-03-2024 ambulatory GUANAKO SINGHO Not Available Start: 06-14-2023 End: 06-14-2023 ambulatory AXEL CAM Not Available Start: 04-30-2023 End: 04-30-2023 ambulatory GUANAKO MARLEE Not Available Start: 04-23-2023 End: 04-23-2023 ambulatory GUANAKO SINGHO Not Available Start: 04-16-2023 End: 04-16-2023 ambulatory AXEL CAM Not Available Start: 10-10-2022 End: 10-11-[address] GUANAKO WHALEN . Facility: Start: 10-03-2022 End: 10-04-[address] GUANAKO WHALEN . Facility: Start: 08-30-2022 ambulatory [facility] Start: 08-30-2022 End: 08-30-2022 Office outpatient visit 15 minutes [facility] SUPERVISOR SHEARING-EDUCATION ANALYST Work Phone: [facility] Comment on above: Sore throat (Primary Dx); Viral illness Start: 07-01-2021 End: 07-01-2021 Emergency department patient visit BRYON GU [facility] Start: 07-01-2021 End: 07-01-2021 Emergency department patient visit Bryon Gu MD Work Phone: [facility] ED Comment on above: Sprain of left knee, unspecified ligament, initial encounter (Primary Dx) Start: 05-24-2021 End: 05-24-2021 Emergency department patient visit GIOVANA JACKSON [facility] Start: 03-21-2021 End: 03-22-2021 ambulatory Javier Canchola Facility:[facility] Start: 12-28-2020 End: 12-28-2020 Office outpatient visit 15 minutes Betina Pryor SUPERVISOR SHEARING-EDUCATION ANALYST Work Phone: [facility] Comment on above: COVID-19 virus infec tion (Primary Dx); Close exposure to COVID-19 virus Start: 10-11-2020 End: 10-11-2020 Office outpatient visit 15 minutes Betina Pryor SUPERVISOR SHEARING-EDUCATION ANALYST Work Phone: [facility] Comment on above: Viral illness (Prima ry Dx); Loss of taste; Loss of smell; Head congestion Start: 05-29-2020 End: 05-29-2020 Office outpatient visit 15 minutes Josey Ibrahim Work Phone: [facility] Comment on above: Acute otitis externa of right ear, unspecified type (Primary Dx) Start: 12-29-2019 End: 12-29-2019 Emergency department patient visit [facility] Start: 12-29-2019 End: 12-29-2019 Emergency department patient visit [facility] Comment on above: Dizziness (Primary D x); Heat exhaustion, initial encounter Start: 06-25-2019 End: 06-29-2019 Patient encounter procedure [facility] Start: 03-20-2019 End: 03-20-2019 Letter encounter Yolette Prietoradha [facility] Start: 03-18-2019 End: 03-18-2019 Office outpatient visit 25 minutes Betina Pryor Work Phone: [facility] Comment on above: Bacterial conjunctiv itis of right eye (Primary Dx); Hives Start: 02-01-2019 End: 02-01-2019 Letter encounter Provider Elver [facility] Start: 02-01-2019 End: 02-01-2019 Office outpatient visit 25 minutes Betina Pryor Work Phone: [facility] Comment on above: Acute cystitis with hematuria (Primary Dx); Dysuria Start: 12-16-2018 End: 12-20-2018 Patient encounter procedure [facility] Start: 06-27-2017 End: 06-29-2017 Evaluation and management of inpatient Umm Damon Facility:[facility] Start: 06-27-2017 End: 06-27-2017 Ambulatory Umm Damon Facility:[facility] Start: 06-15-2017 End: 06-15-2017 Ambulatory Sal Caputo Karma Facility:[facility] Procedures Date Procedure Procedure Detail Performing Clinician Start: 08-25-2024 [facility] PREG QUANT HCG Guanako Marlee DO Work Phone: Start: 08-20-2024 [facility] PREG QUANT HCG Guanako Marlee DO Work Phone: Start: 08-30-2022 [facility] streptococcus group a Dick Gloria Maikol SUPERVISOR SHEARING-EDUCATION ANALYST Work Phone: Start: 07-01-2021 Radiologic exam knee complete 4/more views Bryon Gu MD Work Phone: Start: 12-28-2020 SARS-COV-2 DAWSON Pryor SUPERVISOR SHEARING-EDUCATION ANALYST Work Phone: Start: 10-11-2020 SARS-COV-2 DAWSON Pryor SUPERVISOR SHEARING-EDUCATION ANALYST Work Phone: Start: 12-29-2019 Choriogonadotropin ( test) [...] DTaP/Tdap/Td vaccine (2 - Td or Tdap) [facility] Start: 02-14-2031 Tetanus vaccination TETANUS [facility] Start: 09-26-2024 End: 09-26-2024 Patient encounter procedure 09/26/2024 10:20 AM EDT Office Visit [facility] [address] [place] [address] Lizbeth Mejias, CHUCK [address] [place] [address] [facility] Start: 09-01-2024 End: 09-01-2024 Patient encounter procedure 09/01/2024 11:00 AM EDT Office Visit [facility] [address] [place] [address] Guanako Whalen DO [address] [place] [address] Arrived [facility] Comment on above: Arrived Start: 01-26-2023 Influenza vaccination INFLUENZ A VACCINE (Season Ended) [facility] Start: 03-19-2022 Screening for malign ant neoplasm of cervix Pap Smear [facility] Start: 01-26-2021 Influenza vaccination [facility] Start: 03-19-2020 History and physical examination, annual for health maintenance Wellness Visit [facility] Start: 03-19-2020 Screening for Chlamy osito trachomatis Chlamydia Screening [facility] Start: 01-27-2020 Influenza vaccination INFLUENZA VACC INE (#1) [facility] Start: 01-27-2020 Influenza vaccinatio n given Sequential Influenza Vaccine (#1) [facility] Start: 02-01-2019 End: 02-01-2019 Lab Encounter 02/01/2019 Lab Encounter Clinical Pathology/Laboratory Medicine Betina Pryor, SUPERVISOR SHEARING-EDUCATION ANALYST [address] [place] [address] [phone] [facility] Start: 02-01-2019 End: 02-02-2020 Bacteria identified Cx Nom (U) URINE CULTURE Microbiology Routine Dysuria Expected: 02/01/2019, Expires: 02/02/2020 [facility] Comment on above: Expected: 02/01/2019 , Expires: 02/02/2020 Start: 01-26-2019 Influenza vaccination INFLUENZA VACC INE (#1) [facility] Start: 2017 Screening for malign ant neoplasm of cervix [facility] Start: 2015 Third diphtheria, te tanus and acellular pertussis (DTaP) vaccination TDAP (ADULT) [facility] Start: 2014 Tetanus vaccination TETANUS [facility] Start: 2012 Screening for Chlamy osito trachomatis CHLAMYDIA SCREEN [facility] Start: 2011 HIV screening [facility] Start: 2011 Vaccination for loly n papillomavirus HPV VACCINE ADOL (1 - Female 3-dose series) [facility] Start: 2009 HIV screening HIV SCREENING DISCUSSION [facility] Start: 2008 COVID-19 VACCINE (1) COVID-19 VACCIN E (1) [facility] Start: 2008 Depression Screen Depression Screen [facility] Start: 2007 HPV vaccine (1 - 2-d ose series) HPV vaccine (1 - 2-dose series) [facility] Start: 2007 Vaccination for loly n papillomavirus [facility] Start: 2001 COVID-19 Vaccine (1) COVID-19 Vaccin e (1) [facility] Start: 1997 Varicella vaccine (1 of 2 - 2-dose childhood series) Varicella vaccine (1 of 2 - 2-dose childhood series) [facility] Start: 1996 COVID-19 VACCINE (#1) COVID-19 VACCI NE (#1) [facility] Start: 1996 GONORRHEA SCREEN GONORRHEA SCREEN [facility] Start: 1996 Hepatitis C antibody , confirmatory test HEPATITIS C VIRUS SCREENING [facility] Start: 1996 Hepatitis C screening [facility] Start: 1996 Screening for Chlamy osito trachomatis GONORRHEA SCREEN [facility] Start: 1996 Tetanus vaccination Tetanus: Every 1 0yrs [facility] POCT URINALYSIS DIPS TICK NON AUTOMATED POCT URINALYSIS DIPSTICK NON AUTOMATED Point of Care Testing Routine Dysuria Ordered: 02/01/2019 [facility] Comment on above: Ordered: 02/01/2019 Payers Date Payer Category Payer [facility] er [id number] 2021 Unknown [id number] 2020 Unknown 2018 Unknown [id number] 2018 Unknown [id number] 1996 Unknown [id number] 2.16.840.1.575640.3.579.2. 900 1996 Unknown [id number] 2.16.840.1.733649.3.579.2. 903 1996 Unknown [id number] 2.16.840.1.782550.3.579.2. 903 1996 Unknown [id number] 2.16.840.1.333830.3.579.2. 174 1996 Unknown [id number] 2.16.840.1.973175.3.579.2. 174 1996 Unknown [id number] 2.16.840.1.533391.3.579.2. 727 1996 Unknown [id number] 2.16.840.1.966220.3.579.2. 983 1996 Unknown [id number] 2.16.840.1.164374.3.579.2. 593 1996 Unknown [id number] 2.16.840.1.704848.3.579.2. 593 1996 Unknown [id number] 2.16.840.1.440914.3.579.2. 1259 1996 Unknown [id number] 2.16.840.1.506809.3.579.2. 1259 1996 Unknown [id number] 2.16.840.1.141296.3.579.2. 1259 1996 Unknown [id number] 2.16.840.1.462551.3.579.2. 1259 1996 Unknown [id number] 2.16.840.1.009512.3.579.2. 1259 1959 Unknown [id number] Unknown [id number] Social History Date Type Detail Facility Tobacco smoking stat [facility] Unknown if ever smoked [facility] Start: 1996 Sex Assigned At Not on file [facility] Start: 02-01-2019 End: 03-18-2019 Tobacco smoking status NHIS Current every day smoker [facility] Start: 02-01-2019 End: 10-11-2020 Cigarettes smoked current (pack per day) - Reported [facility] Start: 02-01-2019 End: 03-18-2019 Alcohol intake Not Currently [facility] End: 07-26-2020 History of tobacco use Cigarette Smoker [facility] Start: 12-29-2019 End: 08-30-2022 Alcohol intake Ex-drinker (finding) [facility] Exposure to SARS-CoV -2 (event) Not sure [facility] Start: 05-29-2020 End: 10-11-2020 Tobacco use and exposure Never used [facility] Start: 10-11-2020 Tobacco smoking stat [facility] Former smoker [facility] End: 07-26-2020 History of tobacco use Current smoker [facility] Start: 06-08-2020 [facility] Start: 05-24-2021 Tobacco smoking stat [facility] Never smoked tobacco [employer] Work Phone: Tobacco smoking stat [facility] Tobacco smoking consumption unknown [facility] Goals Date Patient Goal Desired Activity /State Comment on above: Use condoms for Wilma h control and STI protection History of Present illness Narrative 08-30-2022 Dick Lassiter APRN-CATHIE - 08/30/2022 7:15 PM EDT Note Date [...] with plan. documented in this encounter [facility] Hospital Discharge instructions 07-01-2021 InstructionsAttachments Note Date & Type Note Facility 07-01-2021 Hospital Discharg e instructions Bryon Gu MD - 07/01/2021 Tylenol pain. Wear knee immobilizer for comfort. Follow-up with orthopedic referral. The following attachments cannot be sent through Care Everywhere.Knee Sprain (Venezuelan)documented in this encounter [facility] Phone: History of Present illness Narrative 12-28-2020 LOGAN Mcguire - 12/28/2020 12:35 PM EDT Note Date & Type Note Facility 12-28-2020 History of Presen t illness Narrative IRMA Padilla [facility] 1995 [facility] [...] daily. (Patient not taking: Reported on 08/16/2020) tstgqiqc-cdabecmmv-drfqisypaeuwhw 3.5-75444-2 Solution otic solution 4 drops by Otic [...] Social Gatherings with Friends and Family: Attends Scientologist Services: Active Member of Clubs or Organizations: [...] Encounter SARS-COV-2 RAPID Rapid COVID19 positive. Discussed omoe-sku-azlrckh symptomatic treatments stay for . She will quarantine per CDC guidelines. If symptoms worsen patient was advised to follow up in our office, primary care provider or the Emergency Dept. Benefits, Risks, Contraindications, and Complications of recommended treatments were explained. The patient understands and agrees to proceed with plan. LOGAN Mcguire 12/28/2020 documented in this encounter [facility] Instructions 12-28-2020 Patient Instructions Note Date & [...] water aren't available, use an alcohol-based hand administrative operations coordinator. Avoid touching your mouth, nose, and eyes. [...] disinfect your home every day. Use household filter plant operator and disinfectant wipes or sprays. Take special [...] of: August 20, 2020 Content Version: 12.9 [employer]. Care instructions adapted under license by your healthcare professional. If you have questions about a medical condition or this instruction, always ask your healthcare professional. [employer] disclaims any warranty or liability for your [...] Terconazole (Terazol Cream) 2004November 25, 2018. [facility]. This handout is for informational purposes only. Talk with your doctor or healthcare team if you have any questions about your care. For more health information call the Library for Health Information at [phone] or email: [email or web address]. documented in this encounter [facility] History of Present illness Narrative 10-11-2020 Betina Pryor APRN-CNP - 10/11/2020 7:15 PM EDT Note Date & Type Note Facility 10-11-2020 History of Presen t illness Narrative IRMA Padilla female 1995 [facility] [...] daily. (Patient not taking: Reported on 08/16/2020) iawsuivj-gmjegkxtj-rlwlueqkvppwkp 3.5-00384-9 Solution otic solution 4 drops by Otic [...] Social Gatherings with Friends and Family: Attends Scientologist Services: Active Member of Clubs or Organizations: [...] Use Authorization (EUA) for the qualitative detection vdGXAB-OzT-8 nucleic acid. PERFORMED BY [facility] ASSESSMENT/PLAN 1. Viral illness 2. Loss of taste 3. Loss of smell 4. Head congestion Orders Placed This Encounter SARS-COV-2 RAPID Rapid COVID19 negative. Symptoms appear viral. Discussed hoba-gjc-mqpiadb symptomatic treatments safe in . If symptoms worsen patient was advised to follow up in our office, primary care provider or the Emergency Dept. Benefits, Risks, Contraindications, and Complications of recommended treatments were explained. The patient understands and agrees to proceed with plan. LOGAN Mcguire 10/11/2020 documented in this encounter [facility] Instructions 10-11-2020 Patient Instructions Note Date & [...] next 7 days. 2014December 16, 2018, [facility]. This handout is for informational purposes only. Talk with your doctor or healthcare team if you have any questions about your care. For more health information, call the [facility] for Health Information at [phone] or email: [email or web address]-info@[email or web address]. Over the Counter Medicines during We [...] Terconazole (Terazol Cream) 2004November 25, 2018. [facility]. This handout is for informational purposes only. Talk with your doctor or healthcare team if you have any questions about your care. For more health information call the Library for Health Information at [phone] or email: [email or web address]. documented in this encounter [facility] Evaluation note Note Date & Type Note Facility Evaluation note Diagnosis Viral illness- Primary Unspecified viral infection, in conditions classified elsewhere and of unspecified site Loss of taste Disturbances of sensation of smell and taste Loss of smell Disturbances of sensation of smell and taste Head congestion Other diseases of nasal cavity and sinuses documented in this encounter [facility] Evaluation note Note Date & Type Note Facility Evaluation note Diagnosis Sprain of left knee, unspecified ligament, initial encounter- Primary documented in this encounter [facility] Phone: Evaluation note Note Date & Type Note Facility Evaluation note Diagnosis COVID-19 virus infection- Primary Close exposure to COVID-19 virus documented in this encounter [facility] Evaluation note Note Date & Type Note Facility Evaluation note Diagnosis Sore throat- Primary Acute pharyngitis Viral illness Unspecified viral infection, in conditions classified elsewhere and of unspecified site documented in this encounter [facility] Summary Purpose Family History No Family History Records FoundNo Family History Records FoundNo Family History Records FoundNo Family History Records FoundNo Family History Records FoundNo Family History Records FoundNo Family History Records FoundNo Family History Records FoundNo Family History Records FoundNo Family History Records Found Advance Directives Documents on File Type Date Recorded 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 This handout is for informational purposes only. [...] Do not use plastic earplugs. Use a architecture department chair set on low to carefully dry the ear after you shower. To ease ear pain, hold a warm washcloth against your ear. Take pain medicines exactly as directed. ? If the doctor gave you a prescription medicine for pain, take it as prescribed. ? If you are not taking a prescription pain medicine, ask your doctor if you can take an nhkq-mtz-fzncikm medicine. Inserting ear drops Warm the drops [...] Where can you learn more? Go to [email or web address].[email or web address]/patiented. Enter C706 in the search box to learn more about 'Swimmer's Ear: Care Instructions.' Interested in seeing a video go to [email or web address]/videolibrary to see all video content. Current as of: September 10, 2019 Content Version: 12.7 [employer]. Care instructions adapted under license by your healthcare professional. If you have questions about a medical condition or this instruction, always ask your healthcare professional. [employer] disclaims any warranty or liability for your use of this information. documented in this encounter* Patient Instructions* Betina Pryor, SUPERVISOR SHEARING-EDUCATION ANALYST - 03/18/2019 10:45 AM EDT [place]: Care [...] Where can you learn more? Go to [email or web address]/[email or web address]. Enter Y392 in the search box to learn more about '[place]e: Care Instructions.' Interested in seeing a video go to [email or web address]/videolibrary to see all video content. Current as of: November 20, 2018 Content Version: 12.2 [id number] [employer]. Care instructions adapted under license by your healthcare professional. If you have questions about a medical condition or this instruction, always ask your healthcare professional. [employer] [facility] disclaims any warranty or liability for [...] relieve itching. Your doctor may suggest an qlmz-gdp-kmjnuuq antihistamine, such as cetirizine (Zyrtec), diphenhydramine (Benadryl), [...] Where can you learn more? Go to http://www.Careem.[email or web address]/patiented. Enter R498 in the search box to learn more about 'Chronic Hives: Care Instructions.' Interested in seeing a video go to [email or web address]/[email or web address] to see all video content. Current as of: September 01, 2018 Content Version: 12.2 [employer]. Care instructions adapted under license by your healthcare professional. If you have questions about a medical condition or this instruction, always ask your healthcare professional. [employer] disclaims any warranty or liability for your [...] medicines 2004 - May 03, 2017, [facility]. This handout is for informational purposes only. [...] file Gets together: Not on file Attends synagogue service: Not on file Active member of [...] IRMA Padilla [facility] 1995 [facility] [...] tablet Take 1 tablet by mouth daily. brorgjtn-cerpgdfmp-lsotekumfluydw 3.5-93130-8 Solution otic solution 4 drops by Otic [...] file Gets together: Not on file Attends synagogue service: Not on file Active member of [...] right ear, unspecified type Other orders - owfgdbtp-qanfsznhm-gmwwbwadqzjwzu 3.5-03802-9 Solution otic solution; 4 drops by Otic route 4 times daily. If symptoms worsen patient was advised to follow up in our office or the Emergency Dept. Benefits, Risks, Contraindications, and Complications of recommended treatments were explained. The patient understands and agrees to proceed with plan. Josey Ibrahim PA-C 05/29/2020 documented in this encounter* Betina Pryor, LISA-EDUCATION ANALYST - 03/18/2019 10:45 AM EDT HPI Ping Knox female 1995 presents to the [facility] with Chief Complaint Patient presents with [facility] [place] presents with c/o right eye, [...] known cause. Moved from mothers house to [facility] [address] No self treatments. Hives are [...] file Gets together: Not on file Attends synagogue service: Not on file Active member of [...] Suggested taking daily antihistamine. Follow up with Flat Folding Machine Operator ref. If symptoms worsen patient was advised [...] file Gets together: Not on file Attends synagogue service: Not on file Active member of [...] sent through Care Everywhere. * Heat Exhaustion (Venezuelan) * Lightheadedness or Faintness (Venezuelan) documented in this encounter Reason for Referral Status Reason Specialty Diagnoses / Procedures Referred By Contact Referred To Contact New Request Allergy & Immunology Diagnoses Hives Betina Pryor APRN-CNP [address] [place] [address] Status Reason Specialty Diagnoses / Procedures Referred By Contact Referred To Contact New Request Family Medicine Diagnoses Bacterial conjunctivitis of right eye Betina Pryor APRN-CNP [address] [place] [address] Additional Source Comments INFORMATION SOURCE (unrecogn ized section and content) DATE CREATED AUTHOR 11/19/2017 [facility] DATE CREATED AUTHOR AUTHOR'S ORGANIZ ATION 01/19/2019 [facility] DATE CREATED AUTHOR AUTHOR'S ORGANIZ ATION 02/03/2019 [facility] DATE CREATED AUTHOR AUTHOR'S ORGANIZ ATION 06/28/2019 [facility] DATE CREATED AUTHOR AUTHOR'S ORGANIZ ATION 12/30/2019 [facility] DATE CREATED AUTHOR AUTHOR'S ORGANIZ ATION 07/02/2021 [facility] DATE CREATED AUTHOR AUTHOR'S ORGANIZ ATION 07/05/2022 [facility] DATE CREATED AUTHOR AUTHOR'S ORGANIZ ATION 09/01/2022 [facility] DATE CREATED AUTHOR AUTHOR'S ORGANIZ ATION 10/11/2022 [facility] DATE CREATED AUTHOR AUTHOR'S ORGANIZ ATION 01/05/2024 [facility] EPIC Reason for Visit (unrecogniz ed section and content) Reason Comments Urinary Pain Some burning, freque ncy, had for 2 or 3 days. Reason Comments Dizziness Reason Comments Ear Pain Pt c/o right ear teresa n and swollen lymph node on the right side x a few weeks Reason Comments [facility] presents with c/o right eye, [...] Raffi Doss MD - 12/29/2019 7:28 PM EDTNyDorys cavazos RN - 12/29/2019 7:02 PM EDT ED Notes (unrecognized secti on and content) Associated Order(s): EKG 12-lead ED PROVIDER NOTE [facility] NAME: Ping Knox AGE: 24 y.o. : 1995 VISIT DATE: 12/29/2019 CSN: [id number] PCP: Javier Leiva MD Chief Complaint Patient [...] file Gets together: Not on file Attends synagogue service: Not on file Active member of [...] BE BASED ON THE PRIMARY CLINICAL RECORDS. [employer]. provides no warranty or guarantee of the accuracy or completeness of information in this document.
[2024-09-01 13:10] LABS: HCG Quantitative <1 mIU/mL
== END 2024-09-01 12:02 | disposition home or self-care (01) ==
PROVIDERS: Visit Provider Nurse Practitioner Family
DX: O02.1 Missed abortion (principal)
CPT/HCPCS: 36415; 84702